=== PATIENT | female | born 1945 | race Caucasian/White ===

== ENCOUNTER → 2018-03-09 10:33 | Outpatient (CLI) | payer MEDICARE, OTHER, SELFPAY ==
--- NOTE | 2018-03-09 | DI.MG.S_ITS ---
BILATERAL DIGITAL SCREENING MAMMOGRAM 3D/2D WITH CAD POST LUMPECTOMY: 03/09/2018 CLINICAL: Routine screening. Personal history of left breast cancer. Comparison is made to exams dated: 01/11/2017 mammogram, 06/27/2014 mammogram, and 07/21/2010 mammogram - [facility]. There are scattered fibroglandular elements in both breasts. Current study was also evaluated with a Computer Aided Detection (CAD) system. There are post operative findings in the left breast. No significant masses, calcifications, or other findings are seen in either breast. There has been no significant interval change. IMPRESSION: NEGATIVE There is no mammographic evidence of malignancy. A 1 year screening mammogram is recommended. This exam was interpreted at Station ID: [id number]. NOTE: For mammograms, a report in lay terms will be sent to the patient. Approximately 15% of breast malignancies will not be visualized mammographically. In the management of a palpable breast mass, a negative mammogram must not discourage biopsy of a clinically suspicious lesion. Electronically Signed By: Tonya porras/jolynn:03/09/2018 12:50:20 letter sent: Normal Exam ACR BI-RADS Category 1: Negative [id number]
== END ==
PROVIDERS: Visit Provider Nurse Practitioner Primary Care
DX: Z12.31 Encounter for screening mammogram for malignant neoplasm of breast (principal); Z85.3 Personal history of malignant neoplasm of breast
CPT/HCPCS: 77063; 77067

== ENCOUNTER 2018-05-17 09:30 | Outpatient (RCR) | payer MEDICARE, OTHER, SELFPAY | END 2018-10-29 13:16 | LOC: SP 09:30 | PROVIDERS: PCP Otolaryngology; Visit Provider Otolaryngology | DX: R49.0 Dysphonia (principal) | CPT/HCPCS: 92507; 92520; 92524 ==

== ENCOUNTER 2018-10-20 14:43 | Observation (INO) | payer MEDICARE, OTHER, SELFPAY ==
--- NOTE | 2018-10-20 | DI.ECHO.S_ITS ---
[place] [facility]---------+ [facility] +---------+ : : [address] : : : : [id number] : : : : Phone: [phone] Echocardiogram Report + + :Name: JOSE JUAN GILLETTE Study Date: 10/21/2018 Height: 63 in : :[facility] Weight: 144 lb: : Gender: Female BSA: 1.7 m2 : :: 1945 Age: 73 yrs : :Reason For Study: ATYPICAL CHEST PAIN : :Ordering Physician: Delon : :Hospitalist Performed By: Sharif Stephens : + + Interpretation Summary 1) Normal left ventricular thickness, size, wall motion, and systolic function (EF 60-65%). 2) Normal right ventricular size and function. 3) No significant valvular abnormalities. 4) No prior Echo available for comparison. Procedure: A two-dimensional transthoracic echocardiogram with color flow and Doppler was performed. The study quality was technically adequate. There is no prior echocardiogram noted for this patient. The patient was in normal sinus rhythm during the exam. Left Ventricle: The left ventricle is normal in size. Left ventricular wall thickness is normal. The ejection fraction is estimated to be 60-65%. Left ventricular wall motion is normal. Right Ventricle: The right ventricle is normal in size and function. Atria: Both atria are normal in size. There is no Doppler evidence for an atrial septal defect. Mitral Valve: The mitral valve is normal. There is no mitral regurgitation noted. Aortic Valve: The aortic valve is normal in structure and function. There is no aortic valve stenosis. No aortic regurgitation is present. Tricuspid Valve: The tricuspid valve is normal. Pulmonary artery pressures cannot be estimated because of the lack of a measurable TR jet velocity. Pulmonic Valve: The pulmonic valve is not well visualized. Great Vessels: The aortic root is normal size. The ascending aorta is at the upper limits of normal in size. The pulmonary artery is not well visualized, but is probably normal size. The IVC is of normal diameter and collapses greater than 50% with a sniff. This suggests a low right atrial pressure of 3 mm Hg. Pericardium/ Pleura There is no pericardial effusion. There is no pleural effusion. MMode/2D Measurements & Calculations LVIDd: 4.2 cm LVOT diam: 2.1 cm LVIDs: 2.9 cm Ao root diam: 3.0 cm FS: 31.7 % asc Aorta Diam: 3.5 cm IVSd: 0.98 cm Ao Arch Diam (Prox Trans): 3.0 cm LVPWd: 0.89 cm LV montes. diameter/BSA (cm/m^2): 2.5 LV sys. diameter/BSA (cm/m^2): 1.7 LA A2 area: 16.4 cm2 RA long axis: 3.6 cm LA A4 area: 13.5 cm2 RA area: 12.4 cm2 LA length (vol): 4.7 cm RA vol: 36.1 ml LA vol: 40.0 ml RA : 21.5 ml/m2 LA vol index: 23.8 ml/m2 RVD1 (basal): 2.9 cm Doppler Measurements & Calculations Ao V2 max: 106.8 cm/sec LVOT Max Shemar: 74.4 cm/sec Ao V2 mean: 75.6 cm/sec LV V1 max P.2 mmHg Ao max P.6 mmHg LV V1 VTI: 14.1 cm Ao mean P.5 mmHg WINSTON(I,D): 2.4 cm2 Ao V2 VTI: 20.5 cm WINSTON(V,D): 2.4 cm2 sev ratio: 0.69 WINSTON indexed to BSA (cm^2/m^2): 1.4 MV E max shemar: 67.0 cm/sec PA V2 max: 78.5 cm/sec MV A max shemar: 86.8 cm/sec PA V2 mean: 54.8 cm/sec MV E/A: 0.77 PA mean P.3 mmHg Med Peak E' Shemar: 3.6 cm/sec PA pr(Accel): 36.6 mmHg E/E' med: 18.7 Lat Peak E' Shemar: 5.6 cm/sec E/E' lat: 12.0 E/e' average: 15.4 MV dec time: 0.25 sec SV(LVOT): 49.5 ml Reading Physician:11:48 AM
[2018-10-20 15:02] VITALS: BP 160/88; PULSE 97; RESP 16; TEMP 37.1; O2SAT 100; BMI 27.1
--- NOTE | 2018-10-20 15:21 | DI.RAD.S_ITS ---
PROCEDURE: XR CHEST 2V INDICATIONS: c/o throat tightness, dyspnea TECHNIQUE: 2 views of the chest were acquired. COMPARISON: [facility], CR, XR SHOULDER MIN 2VW LT, 03/08/2016, 11:30. [facility], RG, XR CXR 2 VIEW, 06/14/2006, 14:02. FINDINGS: Surgical changes and devices: Surgical clips are present in the left axilla. Lungs and pleura: Focal pulmonary opacities are present within the left midlung. The lungs are otherwise clear. No pleural effusion or pneumothorax. Mediastinum: Mediastinal contours are normal. Heart size is normal. Bones and chest wall: No suspicious bony abnormalities. Soft tissues appear unremarkable. IMPRESSION: Focal left pulmonary opacities. Differential considerations include pulmonary scar, calcification, infection, and neoplasm. Short interval followup or CT of the chest is recommended to further characterize findings. Dictated by: Tonya Velazquez M.D. on 10/20/2018 at 16:09 Approved by: Tonya Velazquez M.D. on 10/20/2018 at 16:10
--- NOTE | 2018-10-20 15:56 | PC.NURSE ---
No swelling or erythema to throat and trachea in midline
[2018-10-20 16:20] LABS: Add Manual Diff / Slide Review NO; Basophils Percent Auto 0.8 % (0-2); Eosinophils Percent Auto 1.8 % (2-4); Hematocrit 42.7 % (36-46); Hemoglobin 14.4 g/dL (12.0-16.0); Lymphocytes Percent Auto 30.5 % (25-40); Mean Corpuscular HGB Conc 33.7 % (30-36); Mean Corpuscular Hemoglobin 32.3 PG (26-34); Mean Corpuscular Volume 95.8 fL (80-100); Monocytes Percent Auto 8.2 % (3-14); Neutrophils Absolute Auto 3800 /uL (1500-7000); Neutrophils Percent Auto 58.7 % (50-75); Platelet Count 313 X10^3/uL (150-400); Red Blood Cell Count 4.46 X10^6/uL (4.0-5.2); Red Cell Distribution Width 12.7 % (11.6-14.8); White Blood Cell Count 6.5 X10^3/uL (4.5-11.0)
[2018-10-20 16:22] LABS: INR 0.9 (0.9-1.3); Prothrombin Time 10.6 SECONDS (10.1-12.7)
[2018-10-20 16:25] LABS: PTT Partial Thromboplastin Tim 29 SECONDS (26.4-36.2)
[2018-10-20 16:26] LABS: Alanine Aminotransferase 27 IU/L (9-52); Albumin 4.7 g/dL (3.5-5.0); Albumin Globulin Ratio 1.3 (1.0-2.8); Alkaline Phosphatase 80 U/L (38-126); Aspartate Aminotransferase 29 IU/L (14-36); BUN Creatinine Ratio 37.1 (6-22); Bilirubin Total 0.2 mg/dL (0.2-1.3); Blood Urea Nitrogen 26 mg/dL (7-17); Calcium 9.9 mg/dL (8.4-10.2); Carbon Dioxide 29 mmol/L (22-32); Chloride 103 mmol/L (98-107); Creatine Kinase 52 U/L (30-135); Estimated Glomerular Filt Rate > 60.0 mL/min (>60); Globulin 3.5 g/dL (1.7-4.1); Glucose 100 mg/dL (80-110); HEMOLYSIS < 15 (0-50); Lipase 116 U/L (23-300); Potassium 4.4 mmol/L (3.4-5.1); Sodium 142 mmol/L (137-145); Total Protein 8.2 g/dL (6.3-8.2)
[2018-10-20 16:30] VITALS: BP 148/73; PULSE 92; RESP 12; O2SAT 94
[2018-10-20 16:39] LABS: Troponin I < 0.012 ng/mL (0.01-0.034)
--- NOTE | 2018-10-20 16:54 | ED.SOB ---
HPI - SOB/Dyspnea General Chief Complaint: Shortness of Breath/Dyspnea Stated Complaint: transient sob, now resolved. Time Seen by Provider: 10/20/18 16:28 Source: patient and family () Limitations: no limitations History of Present Illness This is a 73-year-old female who comes to the emergency department via EMS. Patient states about 2029 this morning she was not feeling very well so she slept in the recliner. 8:00 a.m. she got up Um and used their treadmill Um for about 10 min. Afterwards she felt sort of tight and her throat and chest. She was not wheezing. She states she felt maybe a little short of breath but not clearly. She continued to have some chest tightness for a couple hours. Has been states she looked pale. She was not nauseated and did not have any vomiting. She did feel little bit dizzy but did not have any presyncope. She has not had any swelling in her extremities. She has history of a ?rapid heart rate? she states she saw lot of specialty doctors and was started on atenolol but never had anything found is heart is an actual heart arrhythmia. Patient states that she has remote history of breast cancer which was treated and she has been cleared for about 9 or 10 years. She does take medication for dyslipidemia she denies any diabetes. Patient has history of tonsillectomy and tracheostomy. She states she had a dental infection which caused what describes as trismus or inability to open her jaw and had 1 placed prophylactically. That was also about a decade ago. She denies any tobacco, no alcohol or illicit. She sees a PA on [facility]. She has not seen cardio or had any sort of cardiac evaluation in the recent years Related Data Home Medications Medication Instructions Recorded Confirmed AMITRIPTYLINE HYDROCHLORIDE 125 mg PO Q DAY #0 04/20/11 (ELAVIL) CA PANTOTHENATE/FOLIC ACID/VIT 1 tab PO QDAY #0 04/20/11 (MULTIVITAMIN) Calcium (#CALCIUM ACETATE) 1,500 mg PO Q DAY #0 04/20/11 VITAMIN D 1,200 iu PO Q DAY #0 04/20/11 atenolol 25 mg PO QDAY #0 04/20/11 simvastatin 20 mg PO Q DAY #0 04/20/11 venlafaxine [Effexor XR] 150 mg PO Q DAY #0 04/20/11 Allergies Allergy/AdvReac Type Severity Reaction Status Date / Time Sulfa (Sulfonamide Allergy Unknown Verified 10/20/18 17:58 Antibiotics) Review of Systems Review of Systems All systems reviewed & are unremarkable except as noted in HPI and below Constitutional Denies chills, Reports difficulty sleeping, Reports fatigue, Denies fever(s), Denies lethargy and Denies weakness Cardiovascular Reports chest pain with activity, Denies diaphoresis, Denies syncope, Denies edema, Denies irregular heart rhythm, Reports lightheadedness, Reports radiating jaw, neck or arm pain, Denies palpitations, Denies dyspnea and Reports dyspnea on exertion Respiratory Denies chest congestion, Denies cough, Denies hemoptysis, Denies excessive phlegm production, Denies dyspnea, Reports dyspnea on exertion and Denies wheezing Gastrointestinal Gastrointestinal: Denies abdominal pain, Denies change in bowel habits, Denies diarrhea, Denies nausea and Denies vomiting Genitourinary Denies urinary frequency, Denies dysuria, Denies urinary hesitancy and Denies urinary urgency Neurologic Denies syncope and Denies weakness Endocrine Reports fatigue and Denies palpitations Allergic/Immunologic Denies wheezing [facility] Medical History Breast cancer (Acute) Depression (Acute) Surgical History History of tonsillectomy (Resolved) Tracheostomy status (Resolved) Social History Smoking Status: Never smoker Exam Narrative Exam Narrative: GENERAL: Alert and oriented x three, well-nourished, well-appearing female in no acute distress. HEENT: Head normocephalic, atraumatic, EOMI, pupils reactive, face symmetric, moist mucous membranes NECK: Supple, full range of motion CARDIOVASCULAR: Regular rate and rhythm without murmurs, rubs or gallops. RESPIRATORY: Breath sounds equal bilaterally, no wheezes rales or rhonchi. ABDOMEN: Soft, nontender. Normoactive bowel sounds all 4 quadrants. No guarding or rebound, rigidity, no mass : No CVA tenderness EXTREMITIES: Normal range of motion, no clubbing or edema. Neurovascularly intact NEUROLOGICAL: Cranial nerves II through XII grossly intact. Moving all extremities SKIN: Warm, dry, no petechiae, no rashes or lesions. Initial Vital Signs Initial Vital Signs: Vital Signs Temperature 98.7 F 10/20/18 15:02 Pulse Rate 97 H 10/20/18 15:02 Respiratory Rate 16 10/20/18 15:02 Blood Pressure 160/88 H 10/20/18 15:02 Pulse Oximetry 100 10/20/18 15:02 Scores HEART Score Heart Score history: Moderately Suspicious Heart Score EKG: Non-Specific repolarization disturbance Heart Score Age: > or = 65 years old Heart Score risk factors: 1-2 risk factors Heart Score troponin: < or = to normal limit Heart Score Total: 5 Course Orders Ordered: ED Orders 10/20/18 15:08 EKG-12 Lead Stat 10/20/18 15:21 XR chest 2V Stat 10/20/18 16:05 Complete Blood Count AUTO DIFF Stat Comprehensive Metabolic Panel Stat Lipase Stat Partial Thromboplastin Time Stat Prothrombin Time INR Stat Troponin & CK Cardiac Panel Stat 10/20/18 22:00 Troponin I Q6H 10/21/18 04:00 Troponin I Q6H Discontinued Medications Aspirin (Aspirin Chew) 324 mg PO NOW ONE Stop: 10/20/18 17:49 Last Admin: 10/20/18 17:55 Dose: 324 mg Vital Signs - 8 hr 10/20/18 15:02 10/20/18 16:30 10/20/18 17:30 Temperature 98.7 F Pulse Rate 97 H 92 H 91 H Respiratory Rate 16 12 21 Blood Pressure 160/88 H Blood Pressure [Right Arm] 148/73 H 149/78 H Pulse Oximetry 100 94 99 10/20/18 18:22 Temperature Pulse Rate 87 Respiratory Rate 15 Blood Pressure 162/77 H Blood Pressure [Right Arm] Pulse Oximetry 99 MDM - SOB/Dyspnea Lab Data Attestation: I reviewed the patient's lab results. Result diagrams: 10/20/18 16:05 10/20/18 16:05 Lab Results 10/20/18 10/20/18 10/20/18 Range/Units 16:05 16:05 16:05 WBC 6.5 (4.5-11.0) X10^3/uL RBC 4.46 (4.0-5.2) X10^6/uL Hgb 14.4 (12.0-16.0) g/dL Hct 42.7 (36-46) % MCV 95.8 (80-100) fL MCH 32.3 (26-34) PG MCHC 33.7 (30-36) % RDW 12.7 (11.6-14.8) % Plt Count 313 (150-400) X10^3/uL Neut % (Auto) 58.7 (50-75) % Lymph % (Auto) 30.5 (25-40) % [place] % (Auto) 8.2 (3-14) % Eos % (Auto) 1.8 L (2-4) % Baso % (Auto) 0.8 (0-2) % Neut # (Auto) 3800 (7708-6000) /uL PT 10.6 (10.1-12.7) SECONDS INR 0.9 (0.9-1.3) APTT 29 (26.4-36.2) SECONDS Sodium 142 (137-145) mmol/L Potassium 4.4 (3.4-5.1) mmol/L Chloride 103 (98-107) mmol/L Carbon Dioxide 29 (22-32) mmol/L BUN 26 H (7-17) mg/dL Creatinine 0.70 (0.52-1.04) mg/dL Estimated GFR > 60.0 (>60) mL/min BUN/Creatinine Ratio 37.1 H (6-22) Glucose 100 (80-110) mg/dL Calcium 9.9 (8.4-10.2) mg/dL Total Bilirubin 0.2 (0.2-1.3) mg/dL AST 29 (14-36) IU/L ALT 27 (9-52) IU/L Alkaline Phosphatase 80 (38-126) U/L Total Creatine Kinase 52 (30-135) U/L CK-MB (CK-2) TNP CK-MB (CK-2) Rel Index TNP Troponin I < 0.012 (0.01-0.034) ng/mL Total Protein 8.2 (6.3-8.2) g/dL Albumin 4.7 (3.5-5.0) g/dL Globulin 3.5 (1.7-4.1) g/dL Albumin/Globulin Ratio 1.3 (1.0-2.8) Lipase 116 (23-300) U/L Urine Dip Bedside Urine Glucose Negative Bedside Urine Bilirubin - Negative Bedside Urine Ketone - Negative Urine Specific [place] 1.010 Bedside Urine Occult Blood - Negative Bedside Urine pH 8.0 Bedside Urine Protein - Negative Bedside Urine Urobilinogen - Negative Bedside Urine Nitrite - Negative Bedside Urine Leukocytes - Negative Esterase Imaging Data Chest x-ray: Radiologist's impression: [address] [address] XRay Report Signed Patient: Maria Esther Miller MR#: [id number] : 1945 Acct:[id number] Age/Sex: 73 / F Date of Service: 10/20/18 Loc: ED Accession Number: [id number] Procedure: XR chest 2V Ordering Provider: Alma Bolton D.O. PROCEDURE: XR CHEST 2V INDICATIONS: c/o throat tightness, dyspnea TECHNIQUE: 2 views of the chest were acquired. COMPARISON: [facility] [place], CR, XR SHOULDER MIN 2VW LT, 03/08/2016, 11:30. [facility], RG, XR CXR 2 VIEW, 06/14/2006, 14:02. FINDINGS: Surgical changes and devices: Surgical clips are present in the left axilla. Lungs and pleura: Focal pulmonary opacities are present within the left midlung. The lungs are otherwise clear. No pleural effusion or pneumothorax. Mediastinum: Mediastinal contours are normal. Heart size is normal. Bones and chest wall: No suspicious bony abnormalities. Soft tissues appear unremarkable. IMPRESSION: Focal left pulmonary opacities. Differential considerations include pulmonary scar, calcification, infection, and neoplasm. Short interval followup or CT of the chest is recommended to further characterize findings. Dictated by: Tonya Velazquez M.D. on 10/20/2018 at 16:09 Approved by: Tonya Velazquez M.D. on 10/20/2018 at 16:10 ECG Data Attestation: I personally reviewed and interpreted this ECG as follows: Interpretation: Sinus rhythm with a first-degree AV block rate of 97 P are of 230 QRS 86 and QTC of 402. Non-specific EKG change. MDM Narrative Medical decision making narrative: Patient's symptoms are somewhat concerning for cardiac causes although she had no real chest pain she did have some tightness in her neck. Discussed with Dr. Espinoza and accepts for cardiac observation. Discharge Plan Departure Patient Disposition: Admitted as Observation Clinical Impression: Atypical chest pain Interventions: ED Discharge Assessment Last Done: 10/20/18 18:22 Referrals: Damir Warren MD [Primary Care Provider] - Admit Date/Time: 10/20/18 18:10 Admit Provider: Adalgisa Espinoza
[2018-10-20 17:30] VITALS: BP 149/78; PULSE 91; RESP 21; O2SAT 99
[2018-10-20] MEDS: ASPIRIN 81 MG TAB 324 MG PO (17:55)
[2018-10-20 18:22] VITALS: BP 162/77; PULSE 87; RESP 15; O2SAT 99
[2018-10-20 18:48] VITALS: BMI 25.5
--- NOTE | 2018-10-20 19:01 | PC.NURSE ---
Addendum entered by Jacquelyn Shepherd R.N. 10/20/18 22:01: Med list updated. Spouse did not have all pts supplements available, but were able to obtain Rx meds/doses. Original Note: Pt admitted to acute care from ER. Transferred via stretcher, pivot transfer to bed. Pt reports dizziness with position changes. Alert/oriented, denies pain. LS clear, RA 100%. History of falls/bed alarm on. Oriented to room/call light. Patient left message for spouse to call so we can verify home meds/doses.
[2018-10-20 20:06] VITALS: BP 153/80; PULSE 92; RESP 18; TEMP 36.8; O2SAT 100; O2SAT 97
--- NOTE | 2018-10-20 20:21 | PM.HP.1 ---
History of Present Illness Date Patient Seen: 10/20/18 Time Patient Seen: 19:20 Chief complaint: transient sob, now resolved. Narrative: This is a 73-year-old female with a history of ?rapid heartbeat? and breast cancer presents to the ER today after feeling since last night. Patient reports that she slept in a recliner last night stating she ?just did not feel right. She had sources complaints of head pressure and generalized feeling ill at ease and tired. She reports when typically this occurs she will lay down and her symptoms josie. This morning when waking she experience feeling of chest and throat tightness but denies diaphoresis, palpitations, nausea or vomiting. Patient states she tried walking on the treadmill at slow speed approximately 1.5 miles per hr for 10 min believing that moving around with help feel better. She does describe intermittent episodes of transient dizziness but no sensation that she was going to pass out. She reports she takes atenolol daily at bedtime for rapid heart rate but indicates that she may have possibly missed her dose last night. The patient has previously been on simvastatin but tells me that she was intolerant and the medication discontinued. Patient also has a history left breast cancer and has undergone lumpectomy 10 years ago followed by chemotherapy and radiation without recurrence. 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 He has a history of tracheostomy 15 years ago related to dental infection precipitating trismus and lingual swelling but denies complications since. The patient currently takes amitriptyline for sleep and venlafaxine XR once daily that she reports for a history of hot flashes. She also reports history of gastroesophageal reflux for which she will take omeprazole as needed but states she does not but often, additionally she elevates the head of the bed on blocks. She has tried discontinuing the medication the past but states she felt worse and has continue the medication. While at the patient's bedside the patient was experiencing chest tightness that she described as a pressure sensation but denies throat tightness. She reports dyspnea stating she can't catch her breath. She has associated complaints of tingling in her fingers and her lips. She is tachypneic and anxious appearing. Slight diaphoresis the palms of the hands, no nausea or palpitations. Twelve lead EKG obtained appearing is unchanged from EKG obtained in the emergency department. The patient's symptoms abated after about 10 min. Patient History Medical History Breast cancer (Acute) Depression (Acute) Gastroesophageal reflux (Acute) Hyperlipidemia (Acute) Neuropathy (Acute) Rapid heart rate (Acute) Surgical History History of lumpectomy of left breast (Acute) History of tracheostomy (Acute) History of tonsillectomy (Resolved) Tracheostomy status (Resolved) Family & Social History Family History: Reviewed 10/20/18 by STEFFANY Morales Social History: household members spouse Prior Living Arrangements House Safety & Behavioral: Feels Safe in Current Yes Environment Been Physically Hurt or No Threatened By a Person Suicidal Ideation Description None Tobacco & Substance use: Smoking Status Never smoker alcohol intake frequency holiday/special occasion Substance Use Type does not use Comment: The patient is and lives with her . She lives in a single family home. She has 2 sons 1 in good health in the other with history of hypertension. Advanced directive: The patient states he has no formal advanced directive completed however designates her Zaki Miller dear surrogate decision maker Meds Home Medications Medication Instructions Recorded Confirmed Type CA PANTOTHENATE/FOLIC ACID/VIT 1 tab PO QDAY #0 04/20/11 History (MULTIVITAMIN) Calcium (#CALCIUM ACETATE) 1,500 mg PO Q DAY #0 04/20/11 History VITAMIN D 1,200 iu PO Q DAY #0 04/20/11 History amitriptyline 100 mg PO BEDTIME #0 04/20/11 10/20/18 History atenolol 25 mg PO QDAY #0 04/20/11 10/20/18 History venlafaxine [Effexor XR] 150 mg PO Q DAY #0 04/20/11 10/20/18 History Allergies Allergy/AdvReac Type Severity Reaction Status Date / Time Sulfa (Sulfonamide Allergy Unknown Verified 10/20/18 17:58 Antibiotics) Review of Systems Review of Systems Constitutional: Positive for malaise, Denies recent illness or cold symptoms, fevers, chills, sweats, good appetite with stable weight Eyes: Denies visual changes, denies floaters, diplopia ENT: Positive for history of tracheostomy, sensation of throat tightness this morning, Denies hearing changes, ear pain, no nasal congestion, rhinorrhea, no dysphagia, sore throat or dentalgia, no neck stiffness or pain Respiratory: Positive for shortness of breath, tachypnea, Denies cough, exertional dyspnea, wheezing Cardiovascular: Positive for episode of chest tightness, rapid heartbeat, Denies palpitations, orthostatic dizziness, syncope, edema Gastrointestinal: Positive for gastroespohageal reflux, Denies abdominal pain, nausea or vomiting, no bloating, constipation or diarrhea, denies blood in stool. Genitourinary:Positive for urgency, nocturnal incontinence, denies vaginal discharge, no complains of frequency, burning or urgency, hematuria on voiding Musculoskeletal: denies falls, weakness, limited movement, cramps, edema, myalgia or joint swelling. Integumentary: denies skin lesions, masses, rashes, hives, itching or hair loss Neurological: Positive for dizziness, neuropathy bottoms of bilateral feet, Denies confusion, speech difficulties or seizures Psychiatric: Positve for insomnias, Denies disturbances in thought, attentions or mood, denies substance abuse Endocrine: Positive for postmenopausal, denies excessive thirst, frequent urination, goiter, lethargy, abnormal sweating, and heat/cold intolerance. Exam Vital Signs (past 8 hours): - 10/20/18 15:02 10/20/18 16:30 10/20/18 17:30 Temperature 98.7 F Pulse Rate 97 H 92 H 91 H Respiratory Rate 16 12 21 Blood Pressure 160/88 H Blood Pressure [Right Arm] 148/73 H 149/78 H Pulse Oximetry 100 94 99 10/20/18 18:22 Temperature Pulse Rate 87 Respiratory Rate 15 Blood Pressure 162/77 H Blood Pressure [Right Arm] Pulse Oximetry 99 Oxygen Delivery Method Room Air Patient: Maria Esther Miller MR#: [id number] : 1945 Acct:[id number] Age/Sex: 73 / F Date of Service: 10/20/18 Loc: ED Accession Number: [id number] Procedure: XR chest 2V Ordering Provider: Alma Bolton D.O. PROCEDURE: XR CHEST 2V INDICATIONS: c/o throat tightness, dyspnea TECHNIQUE: 2 views of the chest were acquired. COMPARISON: [facility] [place], CR, XR SHOULDER MIN 2VW LT, 03/08/2016, 11:30. [facility], RG, XR CXR 2 VIEW, 06/14/2006, 14:02. FINDINGS: Surgical changes and devices: Surgical clips are present in the left axilla. Lungs and pleura: Focal pulmonary opacities are present within the left midlung. The lungs are otherwise clear. No pleural effusion or pneumothorax. Mediastinum: Mediastinal contours are normal. Heart size is normal. Bones and chest wall: No suspicious bony abnormalities. Soft tissues appear unremarkable. IMPRESSION: Focal left pulmonary opacities. Differential considerations include pulmonary scar, calcification, infection, and neoplasm. Short interval followup or CT of the chest is recommended to further characterize findings. Dictated by: Tonya Velazquez M.D. on 10/20/2018 at 16:09 Approved by: Tonya Velazquez M.D. on 10/20/2018 at 16:10 Narrative Exam Narrative: General: Well developed, well nourished, BMI 25.5, pleasant, in no acute distress. Skin: Warm, dry, pink, no rashes, no visible lesions HEENT: Normocephalic, symmetrical facies, PERRLA, EOMs intact without nystagmus, conjunctiva clear, sclera is anicteric, bilateral maxillary sinus tenderness to percussion, no rhinorrhea oropharynx is moist and pink without lesions or exudate, uvula midline, posterior pharynx without inflammation, no lymphadenopathy Neck: Supple, no masses, thyroid non tender without thyromegaly or nodules, trachea midline, no carotid bruits or JVD Cardiac: Regular rate and rhythm, S1-S2, no murmur, no gallops or rubs, 2+ radial pulse, 1+ dorsalis pedis pulse, brisk capillary refill, no edema Chest: No pain on AP and lateral compression,symmetrical movement, breathing non labored, no retractions or accessory muscle use, no cough present, BS equal bilateral without coarseness, crackles or wheezes Abdomen: Soft, dull to percussion, no tenderness or guarding, no masses or hepatosplenomegaly, no flank or suprapubic pain, BS normal. Back: Normal curvature, no tenderness to palpation, no CVA tenderness on percussion Extremities: Full ROM, no synovial effusions or deformities, strength is 5/5 and symmetrical upper and lower extremities, stable gait Neuro: AAOx4, cranial nerves 2-12 grossly intact, blunted sensation to light touch the plantar surface of both feel from toes to heal Hematological: No complaints of abnormal bleeding or easy bruising Psych: pleasant, thought coherent, stable mood and congruent affect Objective Labs Result Diagrams: 10/20/18 16:05 10/20/18 16:05 Labs: Laboratory Results - last 24 hr 10/20/18 10/20/18 10/20/18 16:05 16:05 16:05 WBC 6.5 RBC 4.46 Hgb 14.4 Hct 42.7 MCV 95.8 MCH 32.3 MCHC 33.7 RDW 12.7 Plt Count 313 Neut % (Auto) 58.7 Lymph % (Auto) 30.5 [place] % (Auto) 8.2 Eos % (Auto) 1.8 L Baso % (Auto) 0.8 Neut # (Auto) 3800 PT 10.6 INR 0.9 APTT 29 Sodium 142 Potassium 4.4 Chloride 103 Carbon Dioxide 29 BUN 26 H Creatinine 0.70 Estimated GFR > 60.0 BUN/Creatinine Ratio 37.1 H Glucose 100 Calcium 9.9 Total Bilirubin 0.2 AST 29 ALT 27 Alkaline Phosphatase 80 Total Creatine Kinase 52 CK-MB (CK-2) TNP CK-MB (CK-2) Rel Index TNP Troponin I < 0.012 Total Protein 8.2 Albumin 4.7 Globulin 3.5 Albumin/Globulin Ratio 1.3 Lipase 116 Assessment & Plan Plan: Assessment/Plan Narrative: 1. Chest tightness -the patient reports not feeling chest tightness or pressure previously -patient reports radiation of pain into the neck -associated complaint of shortness of breath, no cough or wheezing -initial EKG in ER reviewed by myself reveals a normal sinus rhythm with a ventricular rate of 97 with a first-degree AV block with the as needed interval of 230 milliseconds, QRS interval of 86 milliseconds and QTC of 442 milliseconds. No evidence of ischemia or previous infarct. -repeat EKG in the patient's room with recurrent episodes of chest tightness reveals sinus rhythm with a ventricular rate of 98, CA interval of 200 milliseconds, QRS 80 milliseconds, QTC 407 milliseconds, again no evidence of ischemia noted -differential for chest pain may include anxiety, tachycardia, arrhythmia or ACS -initial troponin in the emergency department is negative at 0.012, will repeat again at 10:00 p.m. and again in the morning. -the patient remain on telemetry and will continue metoprolol for heart rate management. 2. Shortness of breath -on evaluation patient was tachypneic and appeared hyperventilating -breath sounds clear without evidenced breath sounds, no cough, nonsmoker -pulse ox continually remains greater than 97% -supplemental oxygen is ordered as needed to maintain sats greater than 94% -chest x-ray does identify focal opacities in the left mid lung, would warrant follow-up with CT plated history of breast cancer 3. Breast cancer, history of -completed course of chemotherapy and radiation therapy -per patient report no evidence of recurrence -questionable opacities in the left lung of unknown etiology or significance 4. Gastroesophageal reflux, present on admission, stable -treated episodically at home in the past with omeprazole, patient prefers not to use -patient prefers treatment with elevation of head of bed -maintain elevation of head of bed at night -anti acids ordered as needed Additional orders will be provided as needed Admission status: Observation expected length of stay 1 day Quality VTE Deep Vein Thrombosis/Pulmonary Embolism Present on Admission: No
[2018-10-20] MEDS: AMITRIPTYLINE 25 MG TABLET 100 MG PO (20:59)
[2018-10-20] MEDS: ATENOLOL 25 MG TABLET PO (20:59)
[2018-10-20] MEDS: VENLAFAXINE ER 75 MG CAP 150 MG PO (21:00)
[2018-10-20 22:35] LABS: Troponin I < 0.012 ng/mL (0.01-0.034)
[2018-10-21 00:24] VITALS: BP 129/65; PULSE 73; RESP 18; TEMP 36.8; O2SAT 94
[2018-10-21 01:00] VITALS: O2SAT 96
[2018-10-21 04:34] VITALS: BP 137/83; PULSE 65; RESP 18; TEMP 36.6; O2SAT 95
[2018-10-21 05:40] LABS: Add Manual Diff / Slide Review NO; Eosinophils Percent Auto 3.3 % (2-4); Hematocrit 37.2 % (36-46); Hemoglobin 12.5 g/dL (12.0-16.0); Lymphocytes Percent Auto 32.1 % (25-40); Mean Corpuscular HGB Conc 33.7 % (30-36); Mean Corpuscular Hemoglobin 31.8 PG (26-34); Mean Corpuscular Volume 94.5 fL (80-100); Monocytes Percent Auto 11.1 % (3-14); Neutrophils Absolute Auto 2800 /uL (1500-7000); Neutrophils Percent Auto 52.5 % (50-75); Platelet Count 286 X10^3/uL (150-400); Red Blood Cell Count 3.94 X10^6/uL (4.0-5.2); Red Cell Distribution Width 12.7 % (11.6-14.8); White Blood Cell Count 5.4 X10^3/uL (4.5-11.0)
[2018-10-21 06:02] LABS: BUN Creatinine Ratio 27.5 (6-22); Blood Urea Nitrogen 22 mg/dL (7-17); Carbon Dioxide 29 mmol/L (22-32); Chloride 104 mmol/L (98-107); Estimated Glomerular Filt Rate > 60.0 mL/min (>60); Glucose 96 mg/dL (80-110); HEMOLYSIS < 15 (0-50); Potassium 4.1 mmol/L (3.4-5.1); Sodium 141 mmol/L (137-145)
[2018-10-21 06:15] LABS: Troponin I < 0.012 ng/mL (0.01-0.034)
--- NOTE | 2018-10-21 07:49 | PM.DS.1 ---
History of Present Illness Date Patient Seen: 10/20/18 Chief complaint: transient sob, now resolved. Narrative: Written by Jose JETER: This is a 73-year-old female with a history of ?rapid heartbeat? and breast cancer presents to the ER today after feeling since last night. Patient reports that she slept in a recliner last night stating she ?just did not feel right. She had sources complaints of head pressure and generalized feeling ill at ease and tired. She reports when typically this occurs she will lay down and her symptoms josie. This morning when waking she experience feeling of chest and throat tightness but denies diaphoresis, palpitations, nausea or vomiting. Patient states she tried walking on the treadmill at slow speed approximately 1.5 miles per hr for 10 min believing that moving around with help feel better. She does describe intermittent episodes of transient dizziness but no sensation that she was going to pass out. She reports she takes atenolol daily at bedtime for rapid heart rate but indicates that she may have possibly missed her dose last night. The patient has previously been on simvastatin but tells me that she was intolerant and the medication discontinued. Patient also has a history left breast cancer and has undergone lumpectomy 10 years ago followed by chemotherapy and radiation without recurrence. 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 He has a history of tracheostomy 15 years ago related to dental infection precipitating trismus and lingual swelling but denies complications since. The patient currently takes amitriptyline for sleep and venlafaxine XR once daily that she reports for a history of hot flashes. She also reports history of gastroesophageal reflux for which she will take omeprazole as needed but states she does not but often, additionally she elevates the head of the bed on blocks. She has tried discontinuing the medication the past but states she felt worse and has continue the medication. While at the patient's bedside the patient was experiencing chest tightness that she described as a pressure sensation but denies throat tightness. She reports dyspnea stating she can't catch her breath. She has associated complaints of tingling in her fingers and her lips. She is tachypneic and anxious appearing. Slight diaphoresis the palms of the hands, no nausea or palpitations. Twelve lead EKG obtained appearing is unchanged from EKG obtained in the emergency department. The patient's symptoms abated after about 10 min. Discharge Providers Date of admission: 10/20/18 18:54 Primary care physician: Damir Warren MD Discharge provider: Adalgisa Alondralalita Espinoza DO Discharge Date: 10/21/18 Summary Discharge Diagnosis: 1. Atypical chest pain, present on admission. Resolved. 2. Acute shortness of breath, present on admission. Resolved. 3. History of breast cancer, not present on admission. Presumed stable. 4. GERD, chronic, present on admission. Stable. Hospital Course: Maria Esther Miller is a 73-year-old female with a past medical history significant for hyperlipidemia, rapid heart rate, GERD, breast cancer status post lumpectomy, radiation, and chemotherapy who presented for chest tightness with shortness of breath. Trended troponins which were within normal limits and less than 0.012. EKG demonstrated normal sinus rhythm without pathological Q-waves or acute ischemic changes such as ST elevation or depression. Echocardiogram was performed which demonstrated preserved ejection fraction without valvular heart disease. Patient has a history of anxiety and depression on venlafaxine, amitriptyline, and atenolol for which this was thought to possibly represent anxiety and hyperventilation. Recommended outpatient exercise stress test in the future. Patient was discharged home in stable condition. Status at Discharge Functional status at discharge: independent ambulation Overall status at discharge: patient is back to baseline Exam Vital Signs (past 8 hours): - 10/21/18 00:24 10/21/18 01:00 10/21/18 04:34 Temperature 98.2 F 97.9 F Pulse Rate 73 65 Respiratory Rate 18 18 Blood Pressure 129/65 137/83 Pulse Oximetry 94 96 95 Oxygen Delivery Method Room Air Narrative Exam Narrative: General: Elderly female lying in bed and in no acute distress, appears mildly anxious, well-developed, well-nourished, appropriately interactive. HEENT: Normocephalic, atraumatic. External ears without defect. Pupils equal, round, and reactive to light. Anicteric sclerae, moist conjunctivae, and no lid lag. Neck: Supple with full range of motion. No jugular venous distension. No bruits. No lymphadenopathy or thyromegaly. Cardiovascular: Regular rate and rhythm without murmurs, rubs, or gallops appreciated. Pulmonary: Clear to auscultation bilaterally without crackles, wheezes, or rhonchi. Normal respiratory effort with no use of accessory muscles. Abdomen: Soft, bowel sounds present, nontender, nondistended. No hepatosplenomegaly or masses appreciated. Extremities: No clubbing, cyanosis, or edema. Skin: Normal temperature, turgor, and texture; no rash, ulcers, or subcutaneous nodules appreciated. Neurological: Cranial nerves grossly intact. Psychiatric: Normal mood and affect. Alert and oriented to person, place, and time. Objective Labs Result Diagrams: 10/21/18 05:12 10/21/18 05:12 Labs: Laboratory Results - last 24 hr 10/20/18 10/20/18 10/20/18 16:05 16:05 16:05 WBC 6.5 RBC 4.46 Hgb 14.4 Hct 42.7 MCV 95.8 MCH 32.3 MCHC 33.7 RDW 12.7 Plt Count 313 Neut % (Auto) 58.7 Lymph % (Auto) 30.5 [place] % (Auto) 8.2 Eos % (Auto) 1.8 L Baso % (Auto) 0.8 Neut # (Auto) 3800 PT 10.6 INR 0.9 APTT 29 Sodium 142 Potassium 4.4 Chloride 103 Carbon Dioxide 29 BUN 26 H Creatinine 0.70 Estimated GFR > 60.0 BUN/Creatinine Ratio 37.1 H Glucose 100 Calcium 9.9 Total Bilirubin 0.2 AST 29 ALT 27 Alkaline Phosphatase 80 Total Creatine Kinase 52 CK-MB (CK-2) TNP CK-MB (CK-2) Rel Index TNP Troponin I < 0.012 Total Protein 8.2 Albumin 4.7 Globulin 3.5 Albumin/Globulin Ratio 1.3 Lipase 116 10/20/18 10/21/18 10/21/18 21:58 05:12 05:12 WBC 5.4 RBC 3.94 L Hgb 12.5 Hct 37.2 MCV 94.5 MCH 31.8 MCHC 33.7 RDW 12.7 Plt Count 286 Neut % (Auto) 52.5 Lymph % (Auto) 32.1 [place] % (Auto) 11.1 Eos % (Auto) 3.3 Baso % (Auto) 1.0 Neut # (Auto) 2800 PT INR APTT Sodium 141 Potassium 4.1 Chloride 104 Carbon Dioxide 29 BUN 22 H Creatinine 0.80 Estimated GFR > 60.0 BUN/Creatinine Ratio 27.5 H Glucose 96 Calcium 9.0 Total Bilirubin AST ALT Alkaline Phosphatase Total Creatine Kinase CK-MB (CK-2) CK-MB (CK-2) Rel Index Troponin I < 0.012 < 0.012 Total Protein Albumin Globulin Albumin/Globulin Ratio Lipase Discharge Plan Discharge Plan Patient Disposition: Home Discharge comment: You are being discharged home. Please follow-up with your PA, Maria Esther Chavarria, in the next 1-2 weeks to discuss exercise stress test and left lung nodule that is likely scar tissue. If your symptoms reoccur, please call 911 or see a medical professional right away. Discharge Med Rec/Prescriptions Prescriptions: New aspirin 81 mg Tablet,Delayed Release (Dr/Ec) 81 mg PO DAILY Qty: 30 RF: 0 Continue Calcium (#CALCIUM ACETATE) 1,500 mg PO Q DAY Qty: 0 RF: 0 amitriptyline 100 mg Tablet 100 mg PO BEDTIME Qty: 0 RF: 0 VITAMIN D tablet 1,200 iu PO Q DAY Qty: 0 RF: 0 atenolol 25 MG tablet 25 mg PO QDAY Qty: 0 RF: 0 venlafaxine [Effexor XR] 150 MG capsule,extended release 24hr 150 mg PO Q DAY Qty: 0 RF: 0 CA PANTOTHENATE/FOLIC ACID/VIT (MULTIVITAMIN) 1 tab PO QDAY Qty: 0 RF: 0 Provider Discharge Instructions Diet: Diet as Tolerated, Low-sodium and Low-cholesterol Activity: Activity as tolerated Skin/Wound/Dressing Care Report to your healthcare provider any signs of infection, such as:: chills, fever and night sweats Visit Report/Discharge Packet Instructions: Echocardiogram, DI for Chest Pain, Aspirin Visit Report Forms: Stroke Signs & Symptoms Discharge Data Primary Care Provider: Damir Warren Attending Provider: Adalgisa Espinoza Admit Date/Time: 10/20/18 18:54 Discharges patient from system. Discharge Date/Time: 10/21/18 12:13 Quality VTE Deep Vein Thrombosis/Pulmonary Embolism Present on Admission: No
[2018-10-21 08:35] VITALS: BP 121/60; PULSE 70; RESP 16; TEMP 36.4; O2SAT 98
[2018-10-21] MEDS: ASPIRIN EC 81 MG TABLET PO (08:35)
[2018-10-21] MEDS: SODIUM CHLORIDE 0.9% FLUSH 10 ML IV (08:35)
--- NOTE | 2018-10-21 09:05 | CM.DANOTE ---
Addendum entered by Destinee Loya R.N. 10/21/18 11:01: Patient is to be discharged home, with no concerns at this time. Original Note: DCP: Case received, EMR reviewed and met with patient. Introduced self and role. DCP template completed with information currently available. Patient is a 73 year old female who admitted yesterday afternoon to the care of the hospitalist team. PCP: Dr. Fuller. Payer: confirmed: Medicare/[employer] for natue. Patient came to hospital via ambulance due to tightness in her chest after using the treadmill. She became short of breath. Patient carries a diagnosis of First Degree AV Block. Met patient in her room, spouse at bedside, pleasant couple. Patient stated, she has never had this happen to her before. Patient resides in [place] with her , drives, and is independent. Her primary doctor is at [facility]. P: DCP to follow closely. Patient should be able to go home when she is medically stable. Destinee Loya RN/Tar Worker
--- NOTE | 2018-10-21 10:08 | PC.NURSE ---
Patient without complaints this morning. Denies chest pain, chest pressure or shortness of breath. Up with standby assistance to the bathroom, tolerated well. Denies lightheadedness or unsteadiness when ambulating. SR with 1st avb on telemetry. Plan for ECHO today. Call light within reach, bed alarm on for safety, patient agrees to call for assistance getting up. Continue to monitor.
[2018-10-21 11:14] LABS: Cholesterol 237 mg/dL (140-199); HDL Cholesterol 53 mg/dL (40-60); LDL Cholesterol Calculated 163 mg/dL (<100); Triglycerides 104 mg/dL (35-150)
--- NOTE | 2018-10-21 12:12 | PC.NURSE ---
Discharge instructions and home care handout reviewed with patient and her . IV and tele removed intact. Patient states she will call tomorrow to schedule a follow up appt. with her PA/PCP. Patient and state understanding and have no further questions or concerns at this time. Patient escorted out via wheelchair with all belongings to be discharged to home with .
== END 2018-10-21 12:13 | disposition home or self-care (01) ==
LOC: ED 17:51 → AC 18:23
PROVIDERS: Nurse Practitioner Adult Health; Admitting Provider Internal Medicine; Emergency Provider Emergency Medicine; PCP Otolaryngology; Visit Provider Internal Medicine
DX: R06.02 Shortness of breath (principal); R06.00 Dyspnea, unspecified; E78.5 Hyperlipidemia, unspecified; F33.41 Major depressive disorder, recurrent, in partial remission; K21.9 Gastro-esophageal reflux disease without esophagitis; G62.9 Polyneuropathy, unspecified
CPT/HCPCS: 36415; 71046; 80048; 80053; 80061; 81003; 82550; 83690; 84484; 85025; 85610; 85730; 93005; 93041; 93306; 99283; 99285; G0378

== ENCOUNTER → 2019-05-02 11:12 | Outpatient (CLI) | payer MEDICARE, OTHER, SELFPAY ==
--- NOTE | 2019-05-02 | DI.MG.S_ITS ---
BILATERAL DIGITAL SCREENING MAMMOGRAM 3D/2D WITH CAD: 05/02/2019 CLINICAL: Routine screening. Comparison is made to exams dated: 03/09/2018 mammogram, 01/11/2017 mammogram, 06/27/2014 mammogram, 07/20/2009 mammogram, and 07/21/2010 mammogram - [facility]. There are scattered fibroglandular elements in both breasts. Current study was also evaluated with a Computer Aided Detection (CAD) system. There are benign post operative findings in the left breast. There is a mole marker on the right breast. There are mole markers on the left breast. No significant masses, calcifications, or other findings are seen in either breast. There has been no significant interval change. IMPRESSION: There is no mammographic evidence of malignancy. A 1 year screening mammogram is recommended. This exam was interpreted at Station ID: [id number]. NOTE: For mammograms, a report in lay terms will be sent to the patient. Approximately 15% of breast malignancies will not be visualized mammographically. In the management of a palpable breast mass, a negative mammogram must not discourage biopsy of a clinically suspicious lesion. Electronically Signed By: Zeferino whitney/jolynn:05/03/2019 06:52:21 letter sent: Normal Exam ACR BI-RADS Category 2: Benign Finding(s) 3342F
== END ==
PROVIDERS: PCP Otolaryngology; Visit Provider Internal Medicine
DX: Z12.31 Encounter for screening mammogram for malignant neoplasm of breast (principal)
CPT/HCPCS: 77063; 77067

== ENCOUNTER → 2019-07-29 12:00 | Outpatient (CLI) | payer MEDICARE, OTHER, SELFPAY ==
--- NOTE | 2019-07-29 | DI.RAD.S_ITS ---
PROCEDURE: XR SHOULDER RT MIN 2V INDICATIONS: PAIN RT SHOULDER TECHNIQUE: 3 views of the shoulder were acquired. COMPARISON: None. FINDINGS: Bones: Osteopenia. No fractures or dislocations. Mild osteoarthritis of the glenohumeral and acromioclavicular joints. No suspicious bony lesions. Visualized ribs appear intact. Soft tissues: No suspicious soft tissue calcifications. Visualized right hemithorax is clear. IMPRESSION: No fracture or dislocation. Mild osteoarthritis. Dictated by: Carlos Crenshaw M.D. on 07/29/2019 at 12:51 Approved by: Carlos Crenshaw M.D. on 07/29/2019 at 12:52
== END ==
PROVIDERS: Family Provider Internal Medicine; PCP Internal Medicine; Visit Provider Physician Assistant
DX: M25.511 Pain in right shoulder (principal); M19.011 Primary osteoarthritis, right shoulder
CPT/HCPCS: 73030

== ENCOUNTER → 2019-10-01 17:00 | Outpatient (CLI) | payer MEDICARE, OTHER, SELFPAY ==
--- NOTE | 2019-10-01 | DI.MRI.S_ITS ---
PROCEDURE: MR HEAD/BRAIN WO CON INDICATIONS: amnesia. Difficulty with in writing and worsening memory. Right head discomfort x6 months. TECHNIQUE: Non-contrast axial T1 spin echo, axial T2 fast spin echo, sagittal and axial FLAIR, coronal T2 fast spin echo, axial gradient echo, axial diffusion and ADC through the brain. COMPARISON: None. FINDINGS: Image quality: Excellent. CSF spaces: Ventricles appear symmetric in size and shape. Basal cisterns are patent. No extra-axial fluid collections. Brain: No intracranial bleeds or mass effects. There is cerebral volume loss for age. There are periventricular and deep white matter chronic small vessel ischemic changes. Brainstem appears normal. Diffusion-weighted images show no acute ischemic insults. No chronic ischemic insults. Normal intravascular flow voids are present. Skull and face: Calvarial bone marrow is normal in signal. Orbits are normal. Note is made of bilateral lens replacements. Incidental note is made of hyperostosis frontalis. This is not considered to be pathologic in a woman of this age. Sinuses: Sinuses and mastoids are clear. Mild rightward nasal septal deviation is seen, with a rightward directed bony nasal septal spur. IMPRESSION: No acute intracranial process is seen. Note is made of age-appropriate brain parenchymal volume loss and chronic small vessel ischemic changes. No findings of acute or subacute infarction can be seen. Dictated by: Hugh Eugene M.D. on 10/01/2019 at 17:27 Approved by: Hugh Eugene M.D. on 10/01/2019 at 17:29
== END ==
PROVIDERS: PCP Internal Medicine; Visit Provider Internal Medicine
DX: R41.3 Other amnesia (principal)
CPT/HCPCS: 70551

== ENCOUNTER → 2019-10-25 19:10 | Outpatient (ROUT) | payer MEDICARE, OTHER, SELFPAY ==
[2019-10-25 19:21] LABS: Add Manual Diff / Slide Review NO; Basophils Absolute Auto 100 /uL (0-100); Eosinophils Absolute Auto 200 /uL (0-450); Eosinophils Percent Auto 3.7 % (2-4); Hematocrit 41.9 % (36-46); Hemoglobin 13.9 g/dL (12.0-16.0); Lymphocytes Absolute Auto 1900 /uL (1100-4500); Lymphocytes Percent Auto 32.4 % (25-40); Mean Corpuscular HGB Conc 33.1 % (30-36); Mean Corpuscular Hemoglobin 31.8 PG (26-34); Monocytes Absolute Auto 500 /uL (0-900); Monocytes Percent Auto 7.6 % (3-14); Neutrophils Absolute Auto 3300 /uL (1500-7000); Neutrophils Percent Auto 55.3 % (50-75); Platelet Count 320 X10^3/uL (150-400); Red Blood Cell Count 4.37 X10^6/uL (4.0-5.2)
[2019-10-25 19:29] LABS: Alanine Aminotransferase 25 IU/L (<35); Albumin 4.3 g/dL (3.5-5.0); Albumin Globulin Ratio 1.5 (1.0-2.8); Alkaline Phosphatase 79 U/L (38-126); Aspartate Aminotransferase 30 IU/L (14-36); BUN Creatinine Ratio 23.8 (6-22); Bilirubin Total 0.5 mg/dL (0.2-1.3); Blood Urea Nitrogen 19 mg/dL (7-17); Calcium 9.8 mg/dL (8.4-10.2); Carbon Dioxide 30 mmol/L (22-32); Chloride 99 mmol/L (98-107); Cholesterol 272 mg/dL (140-199); Estimated Glomerular Filt Rate > 60.0 mL/min (>60); Globulin 2.9 g/dL (1.7-4.1); Glucose 94 mg/dL (80-110); HDL Cholesterol 73 mg/dL (40-60); HEMOLYSIS < 15 (0-50); LDL Cholesterol Calculated 179 mg/dL (<100); Potassium 3.9 mmol/L (3.4-5.1); Sodium 139 mmol/L (137-145); Total Protein 7.2 g/dL (6.3-8.2); Triglycerides 100 mg/dL (35-150)
[2019-10-25 19:46] LABS: Vitamin D 25 Hydroxy (D3) 32.4 ng/mL (30.0-100.0)
[2019-10-25 20:00] LABS: Thyroid Stimulating Hormone 1.98 uIU/mL (0.47-4.68)
== END ==
PROVIDERS: PCP Internal Medicine; Visit Provider Internal Medicine
DX: F33.42 Major depressive disorder, recurrent, in full remission (principal); Z85.3 Personal history of malignant neoplasm of breast; E78.5 Hyperlipidemia, unspecified; I10 Essential (primary) hypertension; M85.80 Other specified disorders of bone density and structure, unspecified site
CPT/HCPCS: 80053; 80061; 82306; 84443; 85025

== ENCOUNTER → 2019-11-08 10:35 | Outpatient (CLI) | payer MEDICARE, OTHER, SELFPAY ==
--- NOTE | 2019-11-08 | DI.RAD.S_ITS ---
PROCEDURE: XR SHOULDER RT MIN 2V INDICATIONS: PAIN IN RIGHT UPPER EXTREMITY TECHNIQUE: 3 views of the shoulder were acquired. COMPARISON: [facility], CR, XR SHOULDER RT MIN 2V, 07/29/2019, 13:07. FINDINGS: Bones: No fractures or dislocations. No suspicious bony lesions. Visualized ribs appear intact. Mild right shoulder joint degeneration, grossly unchanged since 07/29/19 Soft tissues: No suspicious soft tissue calcifications. IMPRESSION: Moderate shoulder degeneration, grossly unchanged No fracture Dictated by: Nate Wright M.D. on 11/08/2019 at 13:37 Approved by: Nate Wright M.D. on 11/08/2019 at 13:38
--- NOTE | 2019-11-08 | DI.RAD.S_ITS ---
PROCEDURE: XR FOREARM RT 2V INDICATIONS: PAIN IN RIGHT UPPER EXTREMITY TECHNIQUE: 2 views of the forearm were acquired. COMPARISON: None. FINDINGS: Bones: Possible minimally impacted fracture of the distal right metaphysis although this finding age indeterminate. First CMC and triscaphe joint degeneration Soft tissues: No suspicious soft tissue calcifications or masses. IMPRESSION: Possible mild impacted fracture involving the distal radial metaphysis, although technically age-indeterminate. Recommend followup radiographs in 10 days to assess for healing sclerosis Dictated by: Nate Wright M.D. on 11/08/2019 at 13:21 Approved by: Nate Wright M.D. on 11/08/2019 at 13:24
--- NOTE | 2019-11-08 | DI.RAD.S_ITS ---
PROCEDURE: XR CERVICAL SPINE 4V OR 5V INDICATIONS: PAIN IN RIGHT UPPER EXTREMITY TECHNIQUE: 5 views of the cervical spine acquired. COMPARISON: None. FINDINGS: Bones: No fractures or dislocations to the C7 level. Straightening of the normal lordotic curvature. Multilevel degenerative endplate sclerosis and spurring. Diffuse facet arthropathy. Grade 1 anterolisthesis of C3 on C4 and C4 on C5. Grade 1 retrolisthesis C5 on C6. Moderate narrowing of the C5-C6 disc space. Mild narrowing of the C2-C3 and C3-C4 disc spaces. On both sides, the neural foramen are not well-visualized however there are suspected diffuse bony foraminal stenoses bilaterally. This could be confirmed with dedicated cervical MRI Soft tissues: No prevertebral soft tissue swelling. IMPRESSION: Straightening of the normal lordotic curvature. Diffuse cervical spondylosis most pronounced at C5-C6 and multilevel facet arthropathy. Multilevel spondylolisthesis as above. Suboptimal oblique images however suspect numerous bilateral bony foraminal stenoses, which could be confirmed with dedicated cervical MRI Dictated by: Nate Wright M.D. on 11/08/2019 at 13:03 Approved by: Nate Wright M.D. on 11/08/2019 at 13:07
--- NOTE | 2019-11-08 | DI.RAD.S_ITS ---
PROCEDURE: XR HUMERUS RT 2V INDICATIONS: PAIN IN RIGHT UPPER EXTREMITY TECHNIQUE: 2 views of the humerus were acquired. COMPARISON: None. FINDINGS: Bones: No fractures or dislocations. No suspicious bony lesions. Incidentally noted distal humeral candice spur. Right shoulder joint degeneration noted Soft tissues: No suspicious soft tissue calcifications. IMPRESSION: No fracture Right shoulder joint degeneration Dictated by: Nate Wright M.D. on 11/08/2019 at 13:07 Approved by: Nate Wright M.D. on 11/08/2019 at 13:13
== END ==
PROVIDERS: PCP Internal Medicine; Visit Provider Internal Medicine
DX: M79.601 Pain in right arm (principal); M47.812 Spondylosis without myelopathy or radiculopathy, cervical region; M43.12 Spondylolisthesis, cervical region; M19.011 Primary osteoarthritis, right shoulder; M18.11 Unilateral primary osteoarthritis of first carpometacarpal joint, right hand; M19.031 Primary osteoarthritis, right wrist
CPT/HCPCS: 72050; 73030; 73060; 73090

== ENCOUNTER → 2019-12-03 15:43 | Outpatient (ROUT) | payer MEDICARE, OTHER, SELFPAY ==
[2019-12-03 15:53] LABS: Add Manual Diff / Slide Review NO; Basophils Absolute Auto 100 /uL (0-100); Basophils Percent Auto 1.1 % (0-2); Eosinophils Absolute Auto 100 /uL (0-450); Eosinophils Percent Auto 2.8 % (2-4); Hematocrit 40.5 % (36-46); Hemoglobin 13.5 g/dL (12.0-16.0); Lymphocytes Absolute Auto 1600 /uL (1100-4500); Lymphocytes Percent Auto 31.8 % (25-40); Mean Corpuscular HGB Conc 33.2 % (30-36); Mean Corpuscular Hemoglobin 31.7 PG (26-34); Mean Corpuscular Volume 95.2 fL (80-100); Monocytes Absolute Auto 400 /uL (0-900); Monocytes Percent Auto 7.5 % (3-14); Neutrophils Absolute Auto 2900 /uL (1500-7000); Neutrophils Percent Auto 56.8 % (50-75); Platelet Count 267 X10^3/uL (150-400); Red Blood Cell Count 4.25 X10^6/uL (4.0-5.2); Red Cell Distribution Width 12.8 % (11.6-14.8); White Blood Cell Count 5.1 X10^3/uL (4.5-11.0)
[2019-12-03 16:24] LABS: Alanine Aminotransferase 21 IU/L (<35); Albumin 4.1 g/dL (3.5-5.0); Albumin Globulin Ratio 1.3 (1.0-2.8); Alkaline Phosphatase 86 U/L (38-126); Aspartate Aminotransferase 26 IU/L (14-36); Bilirubin Total 0.4 mg/dL (0.2-1.3); Blood Urea Nitrogen 16 mg/dL (7-17); Calcium 9.7 mg/dL (8.4-10.2); Carbon Dioxide 34 mmol/L (22-32); Chloride 103 mmol/L (98-107); Cholesterol 236 mg/dL (140-199); Estimated Glomerular Filt Rate > 60.0 mL/min (>60); Globulin 3.1 g/dL (1.7-4.1); Glucose 95 mg/dL (80-110); HDL Cholesterol 60 mg/dL (40-60); HEMOLYSIS < 15 (0-50); LDL Cholesterol Calculated 148 mg/dL (<100); Potassium 4.6 mmol/L (3.4-5.1); Sodium 142 mmol/L (137-145); Total Protein 7.2 g/dL (6.3-8.2); Triglycerides 138 mg/dL (35-150)
== END ==
PROVIDERS: PCP Internal Medicine; Visit Provider Internal Medicine
DX: Z01.812 Encounter for preprocedural laboratory examination (principal); E78.5 Hyperlipidemia, unspecified
CPT/HCPCS: 80053; 80061; 85025

== ENCOUNTER → 2020-10-01 10:25 | Outpatient (CLI) | payer MEDICARE, OTHER, SELFPAY ==
[2020-09-18 10:02] VITALS: BMI 25.5
[2020-10-01 12:22] LABS: COVID19 -Nasal RAPID Negative (Negative)
== END ==
PROVIDERS: PCP Internal Medicine; Visit Provider Family Medicine Sleep Medicine
DX: Z01.812 Encounter for preprocedural laboratory examination (principal); Z20.828 Contact with and (suspected) exposure to other viral communicable diseases
CPT/HCPCS: 87635; C9803

== ENCOUNTER → 2021-03-13 08:55 | Outpatient (CLI) | payer MEDICARE, OTHER, SELFPAY ==
[2020-09-18 10:02] VITALS: BMI 25.5
--- NOTE | 2021-03-13 08:56 | DI.MG.S_ITS ---
BILATERAL DIGITAL SCREENING MAMMOGRAM 3D/2D WITH CAD: 03/13/2021 CLINICAL: Routine screening. Personal history of left breast cancer. Comparison is made to exams dated: 05/02/2019 mammogram, 03/09/2018 mammogram, and 01/11/2017 mammogram - [facility]. There are scattered fibroglandular elements in both breasts. Current study was also evaluated with a Computer Aided Detection (CAD) system. There are calcifications in both breasts. There also are benign post operative findings in the left breast. There are mole markers on the left breast. No significant masses, calcifications, or other findings are seen in either breast. There has been no significant interval change. IMPRESSION: BENIGN There is no mammographic evidence of malignancy. A 1 year screening mammogram is recommended. This exam was interpreted at Station ID: [id number]. NOTE: For mammograms, a report in lay terms will be sent to the patient. Approximately 15% of breast malignancies will not be visualized mammographically. In the management of a palpable breast mass, a negative mammogram must not discourage biopsy of a clinically suspicious lesion. Electronically Signed By: Souleymane Bella M.D. aty/:03/16/2021 07:37:20 letter sent: Normal Exam ACR BI-RADS Category 2: Benign Finding(s) 3342F
== END ==
PROVIDERS: PCP Family Medicine; Referring Provider Family Medicine; Visit Provider Family Medicine
DX: Z12.31 Encounter for screening mammogram for malignant neoplasm of breast (principal)
CPT/HCPCS: 77063; 77067

== ENCOUNTER → 2021-11-18 10:21 | Outpatient (CLI) | payer MEDICARE, OTHER, SELFPAY ==
[2020-09-18 10:02] VITALS: BMI 25.5
--- NOTE | 2021-11-18 10:23 | DI.RAD.S_ITS ---
PROCEDURE: XR HIP W PEL IF DONE RT 2V INDICATIONS: pain worsened TECHNIQUE: AP pelvis with lateral view(s) of the right hip(s). COMPARISON: None. FINDINGS: Bones: No fractures or dislocations. Mild to moderate bilateral hip periarticular osteophytosis. Pelvic ring appears intact. Osteophytosis of the bilateral greater trochanters. No widening of the pubic symphysis. No suspicious bony lesions. Soft tissues: The visualized bowel gas pattern is normal. No suspicious soft tissue calcifications. IMPRESSION: No acute osseous abnormality. Dictated by: Alexander Oliveros M.D. on 11/18/2021 at 11:10 Approved by: Alexander Oliveros M.D. on 11/18/2021 at 11:11
== END ==
PROVIDERS: PCP Family Medicine; Referring Provider Family Medicine; Visit Provider Family Medicine
DX: M25.551 Pain in right hip (principal); G89.29 Other chronic pain
CPT/HCPCS: 73502

== ENCOUNTER → 2022-01-07 09:08 | Outpatient (CLI) | payer MEDICARE, OTHER, SELFPAY ==
[2020-09-18 10:02] VITALS: BMI 25.5
[2022-01-07 09:58] LABS: Add Manual Diff / Slide Review NO; Basophils Absolute Auto 100 /uL (0-100); Basophils Percent Auto 1.3 % (0-2); Eosinophils Absolute Auto 200 /uL (0-450); Eosinophils Percent Auto 3.5 % (2-4); Hematocrit 37.3 % (36-46); Hemoglobin 12.6 g/dL (12.0-16.0); Lymphocytes Absolute Auto 1500 /uL (1100-4500); Lymphocytes Percent Auto 31.6 % (25-40); Mean Corpuscular HGB Conc 33.8 % (30-36); Mean Corpuscular Hemoglobin 32.1 PG (26-34); Mean Corpuscular Volume 94.8 fL (80-100); Monocytes Absolute Auto 400 /uL (0-900); Monocytes Percent Auto 8.3 % (3-14); Neutrophils Absolute Auto 2600 /uL (1500-7000); Neutrophils Percent Auto 55.3 % (50-75); Platelet Count 231 X10^3/uL (150-400); Red Blood Cell Count 3.93 X10^6/uL (4.0-5.2); Red Cell Distribution Width 13.2 % (11.6-14.8); White Blood Cell Count 4.7 X10^3/uL (4.5-11.0)
[2022-01-07 10:18] LABS: Alanine Aminotransferase 21 IU/L (<35); Albumin Globulin Ratio 1.4 (1.0-2.8); Alkaline Phosphatase 63 U/L (38-126); Aspartate Aminotransferase 27 IU/L (14-36); BUN Creatinine Ratio 22.7 (6-22); Bilirubin Total 0.6 mg/dL (0.2-1.3); Blood Urea Nitrogen 17 mg/dL (7-17); Carbon Dioxide 34 mmol/L (22-32); Chloride 104 mmol/L (98-107); Cholesterol 229 mg/dL (140-199); Estimated Glomerular Filt Rate > 60.0 mL/min (>60); Globulin 2.9 g/dL (1.7-4.1); Glucose 104 mg/dL (80-110); HDL Cholesterol 70 mg/dL (40-60); HEMOLYSIS < 15 (0-50); LDL Cholesterol Calculated 141 mg/dL (<100); Potassium 4.4 mmol/L (3.4-5.1); Sodium 139 mmol/L (137-145); Total Protein 6.9 g/dL (6.3-8.2); Triglycerides 89 mg/dL (35-150)
[2022-01-07 10:38] LABS: Free T3, Triiodothyronine Free 2.83 pg/mL (2.77-5.27); Free T4, Direct Thyroxine 1.12 ng/dL (0.78-2.19)
[2022-01-07 10:52] LABS: Thyroid Stimulating Hormone 1.58 uIU/mL (0.47-4.68)
== END ==
PROVIDERS: PCP Family Medicine; Referring Provider Family Medicine; Visit Provider Family Medicine
DX: R53.83 Other fatigue (principal); E78.5 Hyperlipidemia, unspecified; R79.89 Other specified abnormal findings of blood chemistry
CPT/HCPCS: 36415; 80053; 80061; 84439; 84443; 84481; 85025

== ENCOUNTER → 2022-02-18 09:10 | Outpatient (CLI) | payer MEDICARE, OTHER, SELFPAY ==
[2020-09-18 10:02] VITALS: BMI 25.5
[2022-02-20 04:09] LABS: Cadmium, Blood None Detected ug/L (0.0-1.2); Lead, Blood < 1 ug/dL (0-4)
== END ==
PROVIDERS: PCP Family Medicine; Referring Provider Family Medicine; Visit Provider Family Medicine
DX: R53.83 Other fatigue (principal)
CPT/HCPCS: 36415; 82175; 82300; 83655; 83825

== ENCOUNTER → 2022-05-02 16:45 | Outpatient (CLI) | payer MEDICARE, OTHER, SELFPAY ==
[2020-09-18 10:02] VITALS: BMI 25.5
--- NOTE | 2022-05-02 16:46 | DI.RAD.S_ITS ---
PROCEDURE: XR CHEST 2V INDICATIONS: cough TECHNIQUE: 2 views of the chest were acquired. COMPARISON: [facility], CR, XR CHEST 2V, 10/20/2018, 15:50. FINDINGS: Surgical changes and devices: Left breast clips. Lungs and pleura: Ill-defined opacity in the left upper lobe appears unchanged compared to 2019. No pleural effusions or pneumothorax. Mediastinum: Mediastinal contours are normal. Heart size is normal. Bones and chest wall: No suspicious bony abnormalities. Soft tissues appear unremarkable. IMPRESSION: Ill-defined opacity in the left upper lobe appears unchanged compared to 2019. This remains indeterminate but likely benign given its stability. CT of the chest could be performed for further characterization. Dictated by: Carlos Crenshaw M.D. on 05/02/2022 at 17:08 Approved by: Carlos Crenshaw M.D. on 05/02/2022 at 17:10
== END ==
PROVIDERS: PCP Family Medicine; Referring Provider Physician Assistant; Visit Provider Physician Assistant
DX: R05.9 Cough, unspecified (principal)
CPT/HCPCS: 71046

== ENCOUNTER → 2023-02-20 10:48 | Outpatient (CLI) | payer MEDICARE, OTHER, SELFPAY ==
[2023-02-09 13:56] VITALS: BMI 25.5
== END ==
PROVIDERS: PCP Family Medicine; Visit Provider Family Medicine
DX: R31.9 Hematuria, unspecified (principal)
CPT/HCPCS: 87077; 87086; 87186

== ENCOUNTER → 2023-02-24 10:33 | Outpatient (CLI) | payer MEDICARE, OTHER, SELFPAY ==
[2023-02-09 13:56] VITALS: BMI 25.5
--- NOTE | 2023-02-24 10:49 | DI.DEXA.S_ITS ---
Bone Density Report Name: JOSE JUAN GILLETTE Age: 77 Sex: Female Ethnicity: White Date of : 1945 Indication: osteopenia; Referring Provider: HARPREET RIVAS Study: Bone densitometry was performed. Exam Date: February 24, 2023 Accession number: [id number] Bone Density: Region BMD T-score Z-score Classification AP Spine(L1-L4) 1.184 1.2 3.9 Normal Femoral Neck (Left) 0.526 -2.9 -0.6 Osteoporosis Total Hip (Left) 0.711 -1.9 0.2 Osteopenia Femoral Neck (Right) 0.596 -2.3 0.0 Osteopenia Total Hip (Right) 0.710 -1.9 0.1 Osteopenia Total Hip Mean 0.710 -1.9 0.2 Osteopenia World Health Organization criteria for BMD impression classify patients as: Normal (T-score at or above -1.0), Osteopenia (T-score between -1.0 and -2.5), or Osteoporosis (T-score at or below -2.5). 10-year Fracture Risk: FRAX not reported because: Some T-score for Spine Total or Hip Total or Femoral Neck at or below -2.5 Previous Exams: -- Region Exam Age BMD T-score BMD Change BMD Change Date g/cm2 vs Baseline vs Previous -- AP Spine (L1-L4) 02/24/2023 77 1.184 1.2 0.103 (9.5%)# 0.103 (9.5%)# 01/11/2017 71 1.081 0.3 Total Hip(Left) 02/24/2023 77 0.711 -1.9 -0.044 (-5.9%)# -0.044 (-5.9%)# 01/11/2017 71 0.756 -1.5 Total Hip(Right) 02/24/2023 77 0.710 -1.9 -0.062 (-8.0%)# -0.062 (-8.0%)# 01/11/2017 71 0.771 -1.4 -- *Denotes significance at 95% confidence level, LSC for AP Spine = 0.022 g/cm2, LSC for Total Hip = 0.027 g/cm2 # Denotes dissimilar scan types or analysis methods Impression: The patient has osteoporosis, based on the Left Femoral Neck T-score. No significant bone loss was observed. Discussion: INCREASED RISK OF FRACTURE. BONE DENSITY IS UNDESIRABLY LOW AT ONE OR MORE SKELETAL SITES, CONSISTENT WITH POSTMENOPAUSAL OSTEOPOROSIS. This patient's lowest T-score meets the World Health Organization's (WHO) criteria for osteoporosis at one or more sites (T-score -2.5 or below). In untreated patients, the risk of osteoporotic fracture increases approximately two-fold for each 1.0 SD decrease in T-score. Low bone density is not the only risk factor for fracture; also consider factors such as patient's age, frailty or poor health, risk of falling, risk of injury, previous osteoporotic fracture, family history of osteoporosis, cigarette smoking, low body weight, etc. Not everyone with low bone mineral density has osteoporosis; osteomalacia and other metabolic bone disorders should also be considered. Patients who have osteoporosis should be evaluated for specific diseases and conditions (secondary causes) that may cause or contribute to bone loss. The [employer] (AACE) and National Osteoporosis Foundation (NOF) recommend pharmacologic intervention for all postmenopausal women whose T-score is in this range. The patient should follow a healthful lifestyle (good nutrition with adequate calcium and vitamin D, and appropriate weight-bearing exercise). Follow-Up: Consider a repeat BMD and Vertebral Fracture Assessment (VFA) exam in 2 years or sooner if medically necessary, to reassess this patient's status. Reported by: MELODIE HERNANDEZ M.D. on 02/24/2023 10:59:00 AM.
== END ==
PROVIDERS: PCP Family Medicine; Referring Provider Family Medicine; Visit Provider Family Medicine
DX: Z13.820 Encounter for screening for osteoporosis (principal); Z78.0 Asymptomatic menopausal state; M81.0 Age-related osteoporosis without current pathological fracture
CPT/HCPCS: 77080

== ENCOUNTER → 2023-02-27 11:08 | Outpatient (CLI) | payer MEDICARE, OTHER, SELFPAY ==
[2023-02-09 13:56] VITALS: BMI 25.5
[2023-02-27 11:37] LABS: Add Manual Diff / Slide Review NO; Basophils Absolute Auto 0 /uL (0-100); Basophils Percent Auto 0.8 % (0-2); Eosinophils Absolute Auto 200 /uL (0-450); Eosinophils Percent Auto 4.2 % (2-4); Hemoglobin 12.4 g/dL (12.0-16.0); Lymphocytes Absolute Auto 1800 /uL (1100-4500); Lymphocytes Percent Auto 36.1 % (25-40); Mean Corpuscular HGB Conc 33.6 % (30-36); Mean Corpuscular Hemoglobin 31.8 PG (26-34); Mean Corpuscular Volume 94.7 fL (80-100); Monocytes Absolute Auto 500 /uL (0-900); Monocytes Percent Auto 11.1 % (3-14); Neutrophils Absolute Auto 2400 /uL (1500-7000); Neutrophils Percent Auto 47.8 % (50-75); Platelet Count 279 X10^3/uL (150-400); Red Blood Cell Count 3.91 X10^6/uL (4.0-5.2); Red Cell Distribution Width 13.1 % (11.6-14.8); White Blood Cell Count 4.9 X10^3/uL (4.5-11.0)
[2023-02-27 12:12] LABS: Alanine Aminotransferase 22 IU/L (<35); Albumin Globulin Ratio 1.3 (1.0-2.8); Alkaline Phosphatase 76 U/L (38-126); Aspartate Aminotransferase 25 IU/L (14-36); BUN Creatinine Ratio 22.9 (6-22); Bilirubin Total 0.5 mg/dL (0.2-1.3); Blood Urea Nitrogen 19 mg/dL (7-17); Carbon Dioxide 30 mmol/L (22-32); Chloride 104 mmol/L (98-107); Cholesterol 239 mg/dL (140-199); Estimated Glomerular Filt Rate > 60 mL/min (>60); Globulin 3.1 g/dL (1.7-4.1); Glucose 99 mg/dL (80-110); HDL Cholesterol 64 mg/dL (40-60); HEMOLYSIS < 15 (0-50); LDL Cholesterol Calculated 157 mg/dL (<100); Potassium 4.3 mmol/L (3.4-5.1); Sodium 140 mmol/L (137-145); Total Protein 7.1 g/dL (6.3-8.2); Triglycerides 92 mg/dL (35-150)
[2023-02-27 12:36] LABS: TSH w/ Reflex to FT4 1.01 uIU/mL (0.47-4.68)
== END ==
PROVIDERS: PCP Family Medicine; Referring Provider Family Medicine; Visit Provider Family Medicine
DX: E78.5 Hyperlipidemia, unspecified (principal); R53.83 Other fatigue; R79.89 Other specified abnormal findings of blood chemistry
CPT/HCPCS: 36415; 80053; 80061; 84443; 85025

== ENCOUNTER → 2023-03-14 12:41 | Outpatient (CLI) | payer MEDICARE, OTHER, SELFPAY ==
[2023-02-09 13:56] VITALS: BMI 25.5
[2023-03-14 13:48] LABS: Cholesterol 215 mg/dL (140-199); HDL Cholesterol 78 mg/dL (40-60); LDL Cholesterol Calculated 124 mg/dL (<100); Triglycerides 66 mg/dL (35-150)
== END ==
PROVIDERS: PCP Family Medicine; Referring Provider Family Medicine; Visit Provider Family Medicine
DX: E78.5 Hyperlipidemia, unspecified (principal)
CPT/HCPCS: 36415; 80061

== ENCOUNTER → 2023-06-08 10:49 | Outpatient (CLI) | payer MEDICARE, OTHER, SELFPAY ==
[2023-02-09 13:56] VITALS: BMI 25.5
--- NOTE | 2023-06-08 10:51 | DI.RAD.S_ITS ---
PROCEDURE: XR HIP W PEL IF DONE RT 2V INDICATIONS: fall 6 weeks ago on left side, pain since then getting worse TECHNIQUE: 2 views of the hip were acquired. COMPARISON: [facility], [facility], XR HIP W PEL IF DONE RT 2V, 11/18/2021, 10:25. FINDINGS: Bones: No fractures or dislocations. No suspicious bony lesions. The visualized pelvic ring appears intact. Degenerative changes noted lower lumbar spine Soft tissues: No suspicious soft tissue calcifications or masses. IMPRESSION: Degenerative changes without fracture Dictated by: Marcel Clark M.D. on 06/08/2023 at 15:57 Approved by: Marcel Clark M.D. on 06/08/2023 at 15:58
== END ==
PROVIDERS: PCP Family Medicine; Referring Provider Physician Assistant; Visit Provider Physician Assistant
DX: M25.551 Pain in right hip (principal)
CPT/HCPCS: 73502

== ENCOUNTER → 2023-07-05 12:27 | Outpatient (CLI) | payer MEDICARE, OTHER, SELFPAY ==
[2023-02-09 13:56] VITALS: BMI 25.5
[2023-07-05 13:28] LABS: Occult Blood 1 Negative (Negative); Occult Blood 2 Negative (Negative); Occult Blood 3 Negative (Negative)
== END ==
PROVIDERS: PCP Family Medicine; Referring Provider Pediatrics; Visit Provider Pediatrics
DX: R10.32 Left lower quadrant pain (principal); G89.29 Other chronic pain; R53.83 Other fatigue; Z20.7 Contact with and (suspected) exposure to pediculosis, acariasis and other infestations
CPT/HCPCS: 82270; 87169; 87177

== ENCOUNTER → 2024-02-14 07:31 | Outpatient (CLI) | payer MEDICARE, OTHER, SELFPAY ==
[2023-02-09 13:56] VITALS: BMI 25.5
--- NOTE | 2024-02-14 07:32 | DI.US.S_ITS ---
PROCEDURE: US PERIPH VENOUS LOW EXTREM BI INDICATIONS: lower extremity pain TECHNIQUE: Real-time imaging, as well as color and pulse Doppler interrogation, were performed of the deep veins of both legs from the inguinal ligament to the popliteal fossa, with documentation of the visualized calf veins. COMPARISON: None. FINDINGS: Right: The common femoral, femoral, popliteal, and the visualized calf veins are normally compressible, and free of intraluminal thrombus. Color and pulse Doppler demonstrate normal phasic intravascular flow. There is normal augmentation response to distal compression maneuver. Left: The common femoral, femoral, popliteal, and the visualized calf veins are normally compressible, and free of intraluminal thrombus. Color and pulse Doppler demonstrate normal phasic intravascular flow. There is normal augmentation response to distal compression maneuver. IMPRESSION: No findings of deep venous thrombosis in either lower extremity. Dictated by: Pelon Bain M.D. on 02/14/2024 at 10:36 Approved by: Pelon Bain M.D. on 02/14/2024 at 10:56
== END ==
PROVIDERS: Family Provider Family Medicine; PCP Family Medicine; Referring Provider Family Medicine; Visit Provider Family Medicine
DX: R53.81 Other malaise (principal); M79.604 Pain in right leg; M79.605 Pain in left leg
CPT/HCPCS: 93970

== ENCOUNTER → 2024-04-09 10:59 | Outpatient (CLI) | payer MEDICARE, OTHER, SELFPAY ==
[2023-02-09 13:56] VITALS: BMI 25.5
[2024-04-09 11:46] LABS: Add Manual Diff / Slide Review NO; Basophils Absolute Auto 100 /uL (0-100); Basophils Percent Auto 1.1 % (0-2); Eosinophils Absolute Auto 100 /uL (0-450); Eosinophils Percent Auto 2.3 % (2-4); Hematocrit 39.9 % (36-46); Hemoglobin 13.2 g/dL (12.0-16.0); Lymphocytes Absolute Auto 1400 /uL (1100-4500); Lymphocytes Percent Auto 31.9 % (25-40); Mean Corpuscular HGB Conc 32.9 % (30-36); Mean Corpuscular Hemoglobin 31.8 PG (26-34); Mean Corpuscular Volume 96.4 fL (80-100); Monocytes Absolute Auto 400 /uL (0-900); Monocytes Percent Auto 9.8 % (3-14); Neutrophils Absolute Auto 2500 /uL (1500-7000); Neutrophils Percent Auto 54.9 % (50-75); Platelet Count 255 X10^3/uL (150-400); Red Blood Cell Count 4.14 X10^6/uL (4.0-5.2); Red Cell Distribution Width 12.8 % (11.6-14.8); White Blood Cell Count 4.5 X10^3/uL (4.5-11.0)
[2024-04-09 12:41] LABS: Alanine Aminotransferase 24 IU/L (<35); Albumin 4.3 g/dL (3.5-5.0); Albumin Globulin Ratio 1.5 (1.0-2.8); Alkaline Phosphatase 65 U/L (38-126); Aspartate Aminotransferase 31 IU/L (14-36); BUN Creatinine Ratio 22.9 (6-22); Bilirubin Total 0.6 mg/dL (0.2-1.3); Blood Urea Nitrogen 16 mg/dL (7-17); Carbon Dioxide 31 mmol/L (22-32); Chloride 103 mmol/L (98-107); Cholesterol 215 mg/dL (140-199); Estimated Glomerular Filt Rate > 60 mL/min (>60); Globulin 2.8 g/dL (1.7-4.1); Glucose 89 mg/dL (80-110); HDL Cholesterol 83 mg/dL (40-60); HEMOLYSIS 15 (0-50); LDL Cholesterol Calculated 119 mg/dL (<100); Potassium 4.4 mmol/L (3.4-5.1); Sodium 138 mmol/L (137-145); Total Protein 7.1 g/dL (6.3-8.2); Triglycerides 65 mg/dL (35-150)
[2024-04-09 13:08] LABS: Vitamin D 25 Hydroxy (D3) 34.3 ng/mL (30.0-100.0)
== END ==
PROVIDERS: Family Provider Family Medicine; PCP Family Medicine; Referring Provider Family Medicine; Visit Provider Family Medicine
DX: M81.0 Age-related osteoporosis without current pathological fracture (principal); E78.5 Hyperlipidemia, unspecified
CPT/HCPCS: 36415; 80053; 80061; 82306; 85025

== ENCOUNTER 2024-06-12 09:45 | Outpatient (RCR) | payer MEDICARE, OTHER, SELFPAY ==
[2023-02-09 13:56] VITALS: BMI 25.5
--- NOTE | 2024-02-29 16:36 | PT.OIE ---
Current Diagnoses Other chronic pain (02/29/24) Low back pain, unspecified (02/29/24) Past Medical History (Last Updated 06/16/23 @ 16:00 by Osito Lauren MD) Abdominal pain, chronic, left lower quadrant Anxiety about health Atypical chest pain Breast cancer (~2009) Cataracts, bilateral (~2014) Chicken pox (~1958) Chronic right hip pain Colon polyps (~2019) Depression Excessive daytime sleepiness Exposure to parasitic disease Fatigue Fatigue due to sleep pattern disturbance Fibromyalgia (~1969) Folliculitis of perineum Ganglion cyst of volar aspect of left wrist Gastroesophageal reflux (~2014) Greater trochanteric bursitis of right hip Hearing loss (~1999) History of genital warts Hoarse voice quality (~2014) Hot flashes due to menopause Hyperlipidemia Iliotibial band syndrome of right side Insomnia due to medical condition (~04/2019) Lipoma of arm Low serum triiodothyronine (T3) Measles (~1952) Memory change Mumps (~1954) Neuropathy Nocturnal hypoxemia Obstructive sleep apnea of adult (~04/2019) Osteopenia (~1997) Osteoporosis Pelvic somatic dysfunction Problems related to inappropriate diet and eating habits Rapid heart rate Sacral region somatic dysfunction Shoulder pain Snoring (~04/2009) Statin intolerance Wears glasses Past Surgical History (Last Reviewed 05/02/22 @ 16:50 by Beatris Gallo PA-C) Anesthesia History of hysterectomy (~1979) History of lumpectomy of left breast (~2004) History of tonsillectomy (~1962) History of tracheostomy (~1999) Tracheostomy status Visit Care Team Role Provider Type Benjy Mccormick DO Family Provider Physician Primary Care Provider Specialty: [facility] Address: [address] [place] [address], [id number] Email: Bethany Mtz DO Attending Provider Physician Referring Provider Specialty: [facility] Address: [address] [place] [address], [address], [place], [address] Email: [email or web address] Physical Therapy Initial Evaluation PT-OP-A Visit Information Start: 02/29/24 07:25 Freq: Status: Active Protocol: Document 02/29/24 08:16 NM (Rec: 02/29/24 09:04 NM [id number]) Out-Patient Physical Therapy Visit Information Visit Information Visit Type Initial Evaluation Visit Note KX after 19 visits Visit Start Time 08:16 Visit Stop Time 09:00 Visit Number 1 Evaluation Information Evaluation Date 02/29/24 Precautions Precautions osteoporosis, fall risk PT-OP-B Current Condition Start: 02/29/24 07:25 Freq: Status: Active Protocol: Document 02/29/24 08:16 NM (Rec: 02/29/24 09:04 NM [id number]) Current Condition History of Current Condition Current Complaints pain, balance, weakness History of Current Condition Pt presents with low back pain . She has numbness in her toes bilaterally that began 20 years ago, gradually worsening . She reports that she has pain in both shoulders (L>R), B hips (R>L). She has difficulty with lifting her R arm up, began at least 10 years. Pt reports that she falls frequently, at leat 1x/ month. She most recently feel 3 days ago. She states that she doesn't pick her feet up. She has used a cane previously , but doesn't use it because it's more tourble than it's worth. She also has lower back pain, along the hip bones. She has PMH of fibromyalgia, dx 15 years ago. She also have osteoporosis, dx about 1 year ago. She is currently on fomax; she is not on calcium or vitamin D. She states no fractures throughout lifetime. She reports that her L ankle is swollen, worse with PF (2-3 months). She reports that her back originally started to hurt many years ago when she fell off horse. Prior Treatments and Tests She has previous PT for shoulders and neck at [facility], which was helpful No recent lumbar imaging R hip radiograph 05/2023: bony degeneration without fracture Current Functional Impairments (Reported) Functional Limitations- ADL's vacuuming Functional Limitations- Mobility/Gait difficulty w/ transitioning from sit<>stand, household distances w/o AD Functional Limitations- Recreation/ gardening Hobbies Functional Limitations- Other lives with , 1 story, several throw rugs PT-OP-C Subjective Start: 02/29/24 07:25 Freq: Status: Active Protocol: Document 02/29/24 08:16 NM (Rec: 05/16/24 09:04 NM [id number]) OP-PT Subjective Patient Comments Patient Comments see hx above for pt report Patient Questionnaires Lower Extremity Functional Scale LEFS Score 45/80 Oswestry Low Back Index Oswestry Score 19/50 OP-PT Pain Assessment Location back Pain Location Details bandlike pattern above PSIS B Intensity 6 Scale Used Numeric (0 - 10) Description Aching Radiating Location along R lateral hip Pain Aggravating Factors ADL's,Activity,Standing Other Pain Aggravating Factors 20-30 min; worse initially Pain Alleviating Factors Sitting hips Pain Location Details R lateral hip pain over GT, groin Intensity 6 Scale Used Numeric (0 - 10) Description Sharp Pain Aggravating Factors ADL's,Activity,Standing, Walking Other Pain Aggravating Factors sweeping, weeding Pain Alleviating Factors Sitting PT-OP-D Balance Start: 02/29/24 07:25 Freq: Status: Active Protocol: Document 02/29/24 08:16 NM (Rec: 02/29/24 09:04 NM [id number]) Balance Tests Johnson Balance Test Johnson Balance Test Score 35/56 PT-OP-E Functional Tests Start: 02/29/24 07:25 Freq: Status: Active Protocol: Document 02/29/24 08:16 NM (Rec: 02/29/24 09:04 NM [id number]) Functional Tests Five Times Sit to Stand Test Score 17 sec Comments low back pain, R hip; use hands on thighs, 20 plinth Timed Up and Go (TUG) Score 15 sec Comments no AD, slow turns PT-OP-F Manual Assessment Start: 02/29/24 07:25 Freq: Status: Active Protocol: Document 02/29/24 08:16 NM (Rec: 02/29/24 09:04 NM [id number]) Manual Assessments Soft Tissue Assessment Soft Tissue Mobility Assessment Increased hamstring length. Tight parapsinals, hip flexors , glute/piriformis Joint Mobility Assessment Joint Mobility Assessment Overall hypomobility of thoracolumbar spine. Bilateral AROM and PROM of hips, R>L. Weakness and decreased mobility of B shoulders (R>L) PT-OP-G Mobility & Gait Start: 02/29/24 07:25 Freq: Status: Active Protocol: Document 02/29/24 08:16 NM (Rec: 02/29/24 09:04 NM [id number]) OP Gait Assessment Gait Gait Assistance Required: Standby Assistance Distance (Feet) 150 Comments Gait Comments atnalgis Stair Climbing Evaluation Evaluation Level of Assist On Stairs Contact Guard Assistance Devices Stair Climbing Assistive Devices Left Railing,Right Railing Technique/Endurance Stair Climbing Direction Ascend and Descend Stair Climbing Technique Step to Step Number of Steps Climbed 4 Stair Climbing Set # Repetitions (reps) 1 Comments Stair Climbing Comments Non-reciprocal stepping, antalgic R side. B hand rail assist, near LOB PT-OP-H Neuro Start: 02/29/24 07:25 Freq: Status: Active Protocol: Document 02/29/24 08:16 NM (Rec: 02/29/24 09:04 NM [id number]) Sensation Evaluation Comments Summary Comments BUE equally intact to light touch sensation; BLE equally intact above knee, decreased BLE below knee (L worse than R ) PT-OP-J Posture/Palpation/Skin Start: 02/29/24 07:25 Freq: Status: Active Protocol: Document 02/29/24 08:16 NM (Rec: 02/29/24 09:04 NH [id number]) Posture Evaluation Position Standing Head/C-Spine Posture Forward Head T-Spine Posture Increased Kyphosis L-Spine Posture Increased Lordosis Pelvis Posture Anteriorly Tilted Weight Distribution Weight Shifted Left Hip Posture (L) Externally Rotated,(R) Externally Rotated Knee Posture (L) Genu Valgus,(R) Genu Valgus Ankle/Foot Posture (L) Pronated,(R) Pronated Comments Posture Comments Forward flexed posture Palpation Assessment Location hip Palpation Details R hip tenderness along greater trochanter, small anterior groin tenderness Tightness along hip flexors, glute/piriformis back Palpation Details Tightness along thoracolumbar paraspinals Tenderness with palpation of R SI joint, B PSIS (R>L) and lower lumbar spinous processes PT-OP-K Range of Motion Start: 02/29/24 07:25 Freq: Status: Active Protocol: Document 02/29/24 08:16 NM (Rec: 02/29/24 09:04 NM [id number]) Lumbar Spine Range of Motion Lumbar Spine Active Percentage Flexion 90 Extension 25 Lateral Flexion Left 100 Lateral Flexion Right 100 ROM Limitations Pain Comments R back and hip pain with active lateral flexion Hip Goniometric Range of Motion Hip Right Flexion w/Knee Flexed 90 Abduction 15 Comments Visible limitations with IR and ER, IR most restricted and painful especially with hip flexion Left Flexion w/Knee Flexed 90 Abduction 20 Comments Visible limitations with IR and ER Ankle and Foot Goniometric Range of Motion Ankle and Foot Right Dorsiflexion with Knee Flexed 5 Plantarflexion 30 Left Dorsiflexion with Knee Flexed 5 Dorsiflexion with Knee Extended 20 Comments achilles pain PT-OP-L Special Tests Start: 02/29/24 07:25 Freq: Status: Active Protocol: Document 02/29/24 08:16 NM (Rec: 02/29/24 09:04 NM [id number]) Special Tests Lumbar Spine Special Tests Slump Test Results - Anderson/Quadrant Test Results + Distraction Test Results + PT-OP-M Strength Start: 02/29/24 07:25 Freq: Status: Active Protocol: Document 02/29/24 08:16 NM (Rec: 02/29/24 09:04 NM [id number]) Trunk Strength Trunk Manual Muscle Testing Flexion 3 Fair Extension 3 Fair Rotation Left 4 Good Rotation Right 4 Good Lateral Flexion Left 4 Good Lateral Flexion Right 4 Good Comments No pain with resisted trunk testing, but difficulty with stabilizing against resistance Shoulder Strength Shoulder Manual Muscle Testing Right Flexion 3+ Fair+ Abduction (C5) 3+ Fair+ Left Flexion 3+ Fair+ Abduction (C5) 3+ Fair+ Elbow/Forearm Strength Elbow and Forearm Manual Muscle Testing Right Flexion (C6) 4 Good Extension (C7) 4 Good Left Flexion (C6) 4 Good Extension (C7) 4 Good Hip Strength Hip Manual Muscle Testing Right Flexion (L2) 3+ Fair+ Extension (S1) 4- Good- Abduction 4- Good- Adduction 4- Good- External Rotation 4 Good Internal Rotation 4- Good- Left Flexion (L2) 4- Good- Extension (S1) 4- Good- Abduction 4- Good- Adduction 4- Good- External Rotation 4- Good- Internal Rotation 4- Good- Knee Strength Knee Manual Muscle Testing Right Flexion (S2) 3- Fair- Extension (L3) 4- Good- Left Flexion (S2) 3- Fair- Extension (L3) 4- Good- Ankle/Foot Strength Ankle and Foot Manual Muscle Testing Right Dorsiflexion (L4) 4- Good- Plantarflexion (S1) 4- Good- Inversion 4- Good- Eversion (S1) 4 Good Left Dorsiflexion (L4) 4- Good- Plantarflexion (S1) 4- Good- Inversion 4- Good- Eversion (S1) 4- Good- Comments Mild posterior ankle pain with resisted testing PT-OP-T Assessment and Plan Start: 02/29/24 07:25 Freq: Status: Active Protocol: Document 02/29/24 08:16 NM (Rec: 02/29/24 09:04 NM [id number]) Physical Therapy Assessment Rehab Potential Rehabilitation Potential Good Evaluation Complexity Number of Personal Factors/Comorbidities 3 or More Number of Body Systems Impaired 4 or More Clinical Presentation at Evaluation Stable Impairments Impairments Activity Tolerance,Balance, Edema,Functional Activities, Functional Mobility,Gait, Integument,Pain,Posture,ROM, Sensation,Soft Tissue Mobility ,Strength,Transfers Other Concerns Fall Risk high Goals Six Impairment core stabilization, strength Impairment difficulty with stabilization Short Term Goal (STG) Pt will be educated on and demonstrate improved abdominal drawing up/in in order to demonstrate core bracing for functional activities and pain reduction STG Duration 6 weeks Through Operator Goal (LTG) Pt will be able to demonstrate core bracing during dynamic balance activities, gait, and demonstrate at least 1 grade improvement in trunk MMT score LTG Duration 12 weeks Five Impairment strength Impairment B knee flexion 3-/5 MMT Short Term Goal (STG) Pt will increase B knee flexion strength to at least 4 -/5 MMT in order to demonstrate improved strength for gait and transfers STG Duration 6 weeks Through Operator Goal (LTG) Pt will increase B knee flexion strength to at least 4 /5 MMT in order to demonstrate improved strength for gait and transfers LTG Duration 12 weeks Four Impairment strength Impairment B hip strength limited Short Term Goal (STG) Pt will increase B hip strength to at least 4/5 globally in order to demonstrate improved stability during gait, balance, and transfers, in addition to decreased fall risk STG Duration 6 weeks Intermediate Goal (LTG) Pt will increase B hip strength to at least 4+/5 globally in order to demonstrate improved stability during gait, balance, and transfers, in addition to decreased fall risk LTG Duration 12 weeks Three Impairment strength Impairment 5x STS score 17 seconds Through Operator Goal (LTG) Pt will be able to perform 5x STS in 15 seconds or less in order to demonstrate improved BLE strength for transfers LTG Duration 12 weeks Two Impairment balance Impairment Johnson 35/56 Short Term Goal (STG) Pt will increase Johnson balance score to at least 40/56 in order to demonstrate improved balance and safety during transfers and gait STG Duration 6 weeks Intermediate Goal (LTG) Pt will increase Johnson balance score to at least 48/56 in order to demonstrate improved balance and safety during transfers and gait LTG Duration 12 weeks One Impairment balance Impairment TUG 15 seconds, without AD Short Term Goal (STG) Pt will decrease TUG time to at least 13.5 seconds without AD in order to demonstrate decreased fall risk and improved balance STG Duration 6 weeks Intermediate Goal (LTG) Pt will decrease TUG time to at least 10 seconds without AD in order to demonstrate decreased fall risk and improved balance, or if appropriate, pt will be educated on and prescribed LRAD for safety due to balance and increased fall risk LTG Duration 12 weeks Assessment Summary Assessment Pt is a 78 y.o. female presenting with chronic low back and R hip pain. Hip pain likely related to OA and in addition to referral from lumbar spine. Low back likely OA with facet pain related to previous falls from several years ago. Currently, pt's primary complaint is her R hip , R SIJ, and L ankle. She has limitations in lumbar spine ROM into lateral flexion and extension. Pt also has bilateral limitations in hip ROM passively and actively, particularly into ER and IR, in addition to L ankle plantarflexion. Pt demonstrates poor trunk stability, core stability against resisted testing.Her BLE strength is globally limited, only 4- to 4/5 MMT; she also has significant weakness in bilateral hamstrings. Pt has hx of falls and does not use AD for gait. Her TUG score is 15 seconds and her Johnson score is 35/56, indicating increased fall risk . Pt would benefit from AD use . Pt's 5x sit to stand time is also below age-related norms. PT educated pt on exam findings and plan of care, in addition to education regarding fall frequency with follow up to PCP. Pt verbalizes agreement. Pt would benefit from skilled PT for symptom management, improved activity tolerance, global strengthening, and gait/ balance training in order to decrease fall risk and improve QOL. Physical Therapy Plan Frequency and Duration Frequency of Treatment 1-2x/wk Duration of treatment (weeks) 12 Plan of Care Start Date 02/29/24 Plan of Care End Date 04/23/24 Therapeutic Interventions Therapeutic Interventions Balance Training,Coordination Training,Gait Training,Home Exercise Program,Joint Mobilizations,Manual Therapy, Neuromuscular Re-education, Orthotic/Prosthetic Management ,Patient/Caregiver Education, Self-Care/Home Management, Sensory Integration,Soft Tissue Mobilization,Taping, Therapeutic Activities, Therapeutic Exercises Modalities Cold Pack/Ice Massage,Electric Stimulation,Hot Packs, Ultrasound Next Visit Focus/Plan Next Note Type Treatment Note Next Visit Plan Emphasis on low back and hips, balance STS vs bridge, core bracing and strengthening, calf stretch, gentle lumbar stretching and strengthening POC: education regarding osteoporosis safety, body mechanics
--- NOTE | 2024-03-06 12:57 | PT.OTN ---
Current Diagnoses Other chronic pain (03/06/24) Low back pain, unspecified (03/06/24) Other lack of coordination (03/06/24) Weakness (03/06/24) Physical Therapy Treatment Note PT-OP-A Visit Information Start: 02/29/24 07:25 Freq: Status: Active Protocol: Document 03/06/24 10:36 NM (Rec: 03/06/24 11:19 NM [id number]) Out-Patient Physical Therapy Visit Information Visit Information Visit Type Treatment Note Visit Note KX after 19 visits Visit Start Time 10:36 Visit Stop Time 11:15 Visit Number 2 Evaluation Information Evaluation Date 02/29/24 PT-OP-B Current Condition Start: 02/29/24 07:25 Freq: Status: Active Protocol: Document 02/29/24 08:16 NM (Rec: 02/29/24 09:04 NM [id number]) Current Condition History of Current Condition Current Complaints pain, balance, weakness History of Current Condition Pt presents with low back pain . She has numbness in her toes bilaterally that began 20 years ago, gradually worsening . She reports that she has pain in both shoulders (L>R), B hips (R>L). She has difficulty with lifting her R arm up, began at least 10 years. Pt reports that she falls frequently, at leat 1x/ month. She most recently feel 3 days ago. She states that she doesn't pick her feet up. She has used a cane previously , but doesn't use it because it's more tourble than it's worth. She also has lower back pain, along the hip bones. She has PMH of fibromyalgia, dx 15 years ago. She also have osteoporosis, dx about 1 year ago. She is currently on fomax; she is not on calcium or vitamin D. She states no fractures throughout lifetime. She reports that her L ankle is swollen, worse with PF (2-3 months). She reports that her back originally started to hurt many years ago when she fell off horse. Prior Treatments and Tests She has previous PT for shoulders and neck at [facility], which was helpful No recent lumbar imaging R hip radiograph 05/2023: bony degeneration without fracture Current Functional Impairments (Reported) Functional Limitations- ADL's vacuuming Functional Limitations- Mobility/Gait difficulty w/ transitioning from sit<>stand, household distances w/o AD Functional Limitations- Recreation/ gardening Hobbies Functional Limitations- Other lives with , 1 story, several throw rugs PT-OP-C Subjective Start: 02/29/24 07:25 Freq: Status: Active Protocol: Document 03/06/24 10:36 NM (Rec: 03/06/24 11:19 NM [id number]) OP-PT Subjective Patient Comments Patient Comments Pt reports that she started anti-inflammatory diet recently, which she thinks has helped. The sharp edge is gone. She continues to have R sided low back, hip, and radiation into posterior> lateral>anterior thigh, and anterior groin. PT-OP-D Balance Start: 02/29/24 07:25 Freq: Status: Active Protocol: Document 02/29/24 08:16 NM (Rec: 02/29/24 09:04 NM [id number]) Balance Tests Johnson Balance Test Johnson Balance Test Score 35/56 PT-OP-E Functional Tests Start: 02/29/24 07:25 Freq: Status: Active Protocol: Document 02/29/24 08:16 NM (Rec: 02/29/24 09:04 NM [id number]) Functional Tests Five Times Sit to Stand Test Score 17 sec Comments low back pain, R hip; use hands on thighs, 20 plinth Timed Up and Go (TUG) Score 15 sec Comments no AD, slow turns PT-OP-F Manual Assessment Start: 02/29/24 07:25 Freq: Status: Active Protocol: Document 02/29/24 08:16 NM (Rec: 02/29/24 09:04 NM [id number]) Manual Assessments Soft Tissue Assessment Soft Tissue Mobility Assessment Increased hamstring length. Tight parapsinals, hip flexors , glute/piriformis Joint Mobility Assessment Joint Mobility Assessment Overall hypomobility of thoracolumbar spine. Bilateral AROM and PROM of hips, R>L. Weakness and decreased mobility of B shoulders (R>L) PT-OP-G Mobility & Gait Start: 02/29/24 07:25 Freq: Status: Active Protocol: Document 02/29/24 08:16 NM (Rec: 02/29/24 09:04 NM [id number]) OP Gait Assessment Gait Gait Assistance Required: Standby Assistance Distance (Feet) 150 Comments Gait Comments atnalgis Stair Climbing Evaluation Evaluation Level of Assist On Stairs Contact Guard Assistance Devices Stair Climbing Assistive Devices Left Railing,Right Railing Technique/Endurance Stair Climbing Direction Ascend and Descend Stair Climbing Technique Step to Step Number of Steps Climbed 4 Stair Climbing Set # Repetitions (reps) 1 Comments Stair Climbing Comments Non-reciprocal stepping, antalgic R side. B hand rail assist, near LOB PT-OP-H Neuro Start: 02/29/24 07:25 Freq: Status: Active Protocol: Document 02/29/24 08:16 NM (Rec: 02/29/24 09:04 NM [id number]) Sensation Evaluation Comments Summary Comments BUE equally intact to light touch sensation; BLE equally intact above knee, decreased BLE below knee (L worse than R ) PT-OP-J Posture/Palpation/Skin Start: 02/29/24 07:25 Freq: Status: Active Protocol: Document 02/29/24 08:16 NM (Rec: 02/29/24 09:04 NM [id number]) Posture Evaluation Position Standing Head/C-Spine Posture Forward Head T-Spine Posture Increased Kyphosis L-Spine Posture Increased Lordosis Pelvis Posture Anteriorly Tilted Weight Distribution Weight Shifted Left Hip Posture (L) Externally Rotated,(R) Externally Rotated Knee Posture (L) Genu Valgus,(R) Genu Valgus Ankle/Foot Posture (L) Pronated,(R) Pronated Comments Posture Comments Forward flexed posture Palpation Assessment Location hip Palpation Details R hip tenderness along greater trochanter, small anterior groin tenderness Tightness along hip flexors, glute/piriformis back Palpation Details Tightness along thoracolumbar paraspinals Tenderness with palpation of R SI joint, B PSIS (R>L) and lower lumbar spinous processes PT-OP-K Range of Motion Start: 02/29/24 07:25 Freq: Status: Active Protocol: Document 02/29/24 08:16 NM (Rec: 02/29/24 09:04 NM [id number]) Lumbar Spine Range of Motion Lumbar Spine Active Percentage Flexion 90 Extension 25 Lateral Flexion Left 100 Lateral Flexion Right 100 ROM Limitations Pain Comments R back and hip pain with active lateral flexion Hip Goniometric Range of Motion Hip Right Flexion w/Knee Flexed 90 Abduction 15 Comments Visible limitations with IR and ER, IR most restricted and painful especially with hip flexion Left Flexion w/Knee Flexed 90 Abduction 20 Comments Visible limitations with IR and ER Ankle and Foot Goniometric Range of Motion Ankle and Foot Right Dorsiflexion with Knee Flexed 5 Plantarflexion 30 Left Dorsiflexion with Knee Flexed 5 Dorsiflexion with Knee Extended 20 Comments achilles pain PT-OP-L Special Tests Start: 02/29/24 07:25 Freq: Status: Active Protocol: Document 02/29/24 08:16 NM (Rec: 02/29/24 09:04 NM [id number]) Special Tests Lumbar Spine Special Tests Slump Test Results - Anderson/Quadrant Test Results + Distraction Test Results + PT-OP-M Strength Start: 02/29/24 07:25 Freq: Status: Active Protocol: Document 02/29/24 08:16 NM (Rec: 02/29/24 09:04 NM [id number]) Trunk Strength Trunk Manual Muscle Testing Flexion 3 Fair Extension 3 Fair Rotation Left 4 Good Rotation Right 4 Good Lateral Flexion Left 4 Good Lateral Flexion Right 4 Good Comments No pain with resisted trunk testing, but difficulty with stabilizing against resistance Shoulder Strength Shoulder Manual Muscle Testing Right Flexion 3+ Fair+ Abduction (C5) 3+ Fair+ Left Flexion 3+ Fair+ Abduction (C5) 3+ Fair+ Elbow/Forearm Strength Elbow and Forearm Manual Muscle Testing Right Flexion (C6) 4 Good Extension (C7) 4 Good Left Flexion (C6) 4 Good Extension (C7) 4 Good Hip Strength Hip Manual Muscle Testing Right Flexion (L2) 3+ Fair+ Extension (S1) 4- Good- Abduction 4- Good- Adduction 4- Good- External Rotation 4 Good Internal Rotation 4- Good- Left Flexion (L2) 4- Good- Extension (S1) 4- Good- Abduction 4- Good- Adduction 4- Good- External Rotation 4- Good- Internal Rotation 4- Good- Knee Strength Knee Manual Muscle Testing Right Flexion (S2) 3- Fair- Extension (L3) 4- Good- Left Flexion (S2) 3- Fair- Extension (L3) 4- Good- Ankle/Foot Strength Ankle and Foot Manual Muscle Testing Right Dorsiflexion (L4) 4- Good- Plantarflexion (S1) 4- Good- Inversion 4- Good- Eversion (S1) 4 Good Left Dorsiflexion (L4) 4- Good- Plantarflexion (S1) 4- Good- Inversion 4- Good- Eversion (S1) 4- Good- Comments Mild posterior ankle pain with resisted testing PT-OP-Q Treatments Start: 02/29/24 07:25 Freq: Status: Active Protocol: Document 03/06/24 10:36 NM (Rec: 03/06/24 11:19 NM [id number]) Therapeutic Exercises Supine Exercises stefani stretch Supine Exercise Name modified with leg on table Side bilateral Equipment Used band assist to bring knee to chest Reps/Minutes 2x20 ea bridge Supine Exercise Name with hip abduction (w/ toe elevated) Resistance lvl 1 band around thighs Reps/Minutes 2x10 Comments reports appropriate muscle activation, feels it working , reports pain nicky TrA Activation Supine Exercise Name 1. TrA activation, 2. LTR in hooklying (slight LE ext) Side bilateral Reps/Minutes 1. 1 minute, 2. 1x10 ea direction Comments reports stretch w/ LTR, pain free Sitting Exercises hip abduction Sitting Exercise Name 1. isometric hold, 2. clams Side bilateral Resistance lvl 2 band around thighs Reps/Minutes 1. 1x30, 2. 2x10 Comments hips elevated above knees to prevent groin pain Standing Exercises calf stretch Standing Exercise Name gastroc stretch Side bilateral Equipment Used foot elevated againsta wall Reps/Minutes 2x30 Comments cued heel on ground Manual Therapy Treatment Soft Tissue Mobilization L hip/thigh/groin Body Location glute/piriformis, quad, HS, TFL Mobilization Type Rolling Intensity/Depth superificial Body Position Sidelying Comments Pillow between legs. Gentle rolling for tissue elongation and pain reduction, muscle relaxation. Increased tissue tightness along quads and hamstrings lumbar spine Body Location R paraspinals, QL Mobilization Type Rolling Intensity/Depth Superficial Body Position Sidelying Comments Pillow between legs. Gentle rolling for tissue elongation and pain reduction. Pt reports slightly sore afterward but states felt good. Gentle lateral flexion of trunk with points of contact at pelvis and ribs, 1x10 Self-Care/Home Management Treatment Education Patient Education Home Exercise Program Other Education HEP: seated hip abduction, bridge, calf wall stretch. Issued lvl 1 and lvl 2 bands PT-OP-T Assessment and Plan Start: 02/29/24 07:25 Freq: Status: Active Protocol: Document 03/06/24 10:36 NM (Rec: 03/06/24 11:19 NM [id number]) Physical Therapy Assessment Goals Six Impairment core stabilization, strength Impairment difficulty with stabilization Short Term Goal (STG) Pt will be educated on and demonstrate improved abdominal drawing up/in in order to demonstrate core bracing for functional activities and pain reduction STG Duration 6 weeks Hose Inspector Goal (LTG) Pt will be able to demonstrate core bracing during dynamic balance activities, gait, and demonstrate at least 1 grade improvement in trunk MMT score LTG Duration 12 weeks Five Impairment strength Impairment B knee flexion 3-/5 MMT Short Term Goal (STG) Pt will increase B knee flexion strength to at least 4 -/5 MMT in order to demonstrate improved strength for gait and transfers STG Duration 6 weeks Hose Inspector Goal (LTG) Pt will increase B knee flexion strength to at least 4 /5 MMT in order to demonstrate improved strength for gait and transfers LTG Duration 12 weeks Four Impairment strength Impairment B hip strength limited Short Term Goal (STG) Pt will increase B hip strength to at least 4/5 globally in order to demonstrate improved stability during gait, balance, and transfers, in addition to decreased fall risk STG Duration 6 weeks Hose Inspector Goal (LTG) Pt will increase B hip strength to at least 4+/5 globally in order to demonstrate improved stability during gait, balance, and transfers, in addition to decreased fall risk LTG Duration 12 weeks Three Impairment strength Impairment 5x STS score 17 seconds Hose Inspector Goal (LTG) Pt will be able to perform 5x STS in 15 seconds or less in order to demonstrate improved BLE strength for transfers LTG Duration 12 weeks Two Impairment balance Impairment Johnson 35/56 Short Term Goal (STG) Pt will increase Johnson balance score to at least 40/56 in order to demonstrate improved balance and safety during transfers and gait STG Duration 6 weeks Snf Goal (LTG) Pt will increase Johnson balance score to at least 48/56 in order to demonstrate improved balance and safety during transfers and gait LTG Duration 12 weeks One Impairment balance Impairment TUG 15 seconds, without AD Short Term Goal (STG) Pt will decrease TUG time to at least 13.5 seconds without AD in order to demonstrate decreased fall risk and improved balance STG Duration 6 weeks Snf Goal (LTG) Pt will decrease TUG time to at least 10 seconds without AD in order to demonstrate decreased fall risk and improved balance, or if appropriate, pt will be educated on and prescribed LRAD for safety due to balance and increased fall risk LTG Duration 12 weeks Assessment Summary Assessment Pt tolerated session well. At end of session, pt reports that it feels easier to stand, more stretched out, reports less pain. Pt also commented about that she feels better and is no having to hold her hip. Initiated gentle lumbar mobilization/stretching and glute strengthening. Cued during bridges and hip abduction to perform exercise throughout available range. Added resistance band for increased glute activation to improve balance and trunk stability. Pt unable to tolerance full stefani stretch but better tolerance with modification. Performed superficial soft tissue mobilization for muscle relaxation prior to exercise, pain reducation. Pt reports feeling sore during soft tissue mobilization despite superficial depth, but provides feedback that her muscles feel better. Initiated HEP with low resistance strengthening. Pt would benefit from skilled PT for progressive strengthening and mobility training in order to improve symptom management and ADL tolerance. Physical Therapy Plan Frequency and Duration Frequency of Treatment 1-2x/wk Duration of treatment (weeks) 12 Plan of Care Start Date 02/29/24 Plan of Care End Date 04/23/24 Therapeutic Interventions Therapeutic Interventions Balance Training,Coordination Training,Gait Training,Home Exercise Program,Joint Mobilizations,Manual Therapy, Neuromuscular Re-education, Orthotic/Prosthetic Management ,Patient/Caregiver Education, Self-Care/Home Management, Sensory Integration,Soft Tissue Mobilization,Taping, Therapeutic Activities, Therapeutic Exercises Modalities Cold Pack/Ice Massage,Electric Stimulation,Hot Packs, Ultrasound Next Visit Focus/Plan Next Note Type Treatment Note Next Visit Plan Emphasis on low back and hips, balance Next session: review tolerance to HEP- bridge > sit to stand w/ band, LTR, BKFO, hip ER/IR sidelying vs sitting, heel slide with core brace, calf stretch and PF, gentle lumbar stretching (lateral) Manual: STM, hip mobs (trial grade II vs III) POC: education regarding osteoporosis safety, body mechanics
--- NOTE | 2024-03-08 12:29 | PT.OTN ---
Current Diagnoses Other chronic pain (03/08/24) Low back pain, unspecified (03/08/24) Other lack of coordination (03/08/24) Weakness (03/08/24) Physical Therapy Treatment Note PT-OP-A Visit Information Start: 02/29/24 07:25 Freq: Status: Active Protocol: Document 03/08/24 11:23 NBM (Rec: 03/08/24 12:29 NBM [id number]) Out-Patient Physical Therapy Visit Information Visit Information Visit Type Treatment Note Visit Note KX after 19 visits Visit Start Time 11:24 Visit Stop Time 12:06 Visit Number 3 Number of OPTIMIZATION MANAGER Visits 1 PT-OP-B Current Condition Start: 02/29/24 07:25 Freq: Status: Active Protocol: Document 02/29/24 08:16 NM (Rec: 02/29/24 09:04 NM [id number]) Current Condition History of Current Condition Current Complaints pain, balance, weakness History of Current Condition Pt presents with low back pain . She has numbness in her toes bilaterally that began 20 years ago, gradually worsening . She reports that she has pain in both shoulders (L>R), B hips (R>L). She has difficulty with lifting her R arm up, began at least 10 years. Pt reports that she falls frequently, at leat 1x/ month. She most recently feel 3 days ago. She states that she doesn't pick her feet up. She has used a cane previously , but doesn't use it because it's more tourble than it's worth. She also has lower back pain, along the hip bones. She has PMH of fibromyalgia, dx 15 years ago. She also have osteoporosis, dx about 1 year ago. She is currently on fomax; she is not on calcium or vitamin D. She states no fractures throughout lifetime. She reports that her L ankle is swollen, worse with PF (2-3 months). She reports that her back originally started to hurt many years ago when she fell off horse. Prior Treatments and Tests She has previous PT for shoulders and neck at [facility], which was helpful No recent lumbar imaging R hip radiograph 05/2023: bony degeneration without fracture Current Functional Impairments (Reported) Functional Limitations- ADL's vacuuming Functional Limitations- Mobility/Gait difficulty w/ transitioning from sit<>stand, household distances w/o AD Functional Limitations- Recreation/ gardening Hobbies Functional Limitations- Other lives with , 1 story, several throw rugs PT-OP-C Subjective Start: 02/29/24 07:25 Freq: Status: Active Protocol: Document 03/08/24 11:23 NBM (Rec: 03/08/24 12:29 NBM [id number]) OP-PT Subjective Patient Comments Patient Comments Maria Esther reports feeling better than when first started. R leg pain right now, mostly once she gets out of the chair and after walking for a while. 5/ 10 R leg and low back pain. Patient Reported Progress Improving PT-OP-D Balance Start: 02/29/24 07:25 Freq: Status: Active Protocol: Document 02/29/24 08:16 NM (Rec: 02/29/24 09:04 NM [id number]) Balance Tests Johnson Balance Test Johnson Balance Test Score 35/56 PT-OP-E Functional Tests Start: 02/29/24 07:25 Freq: Status: Active Protocol: Document 02/29/24 08:16 NM (Rec: 02/29/24 09:04 NM [id number]) Functional Tests Five Times Sit to Stand Test Score 17 sec Comments low back pain, R hip; use hands on thighs, 20 plinth Timed Up and Go (TUG) Score 15 sec Comments no AD, slow turns PT-OP-F Manual Assessment Start: 02/29/24 07:25 Freq: Status: Active Protocol: Document 02/29/24 08:16 NM (Rec: 02/29/24 09:04 NM [id number]) Manual Assessments Soft Tissue Assessment Soft Tissue Mobility Assessment Increased hamstring length. Tight parapsinals, hip flexors , glute/piriformis Joint Mobility Assessment Joint Mobility Assessment Overall hypomobility of thoracolumbar spine. Bilateral AROM and PROM of hips, R>L. Weakness and decreased mobility of B shoulders (R>L) PT-OP-G Mobility & Gait Start: 02/29/24 07:25 Freq: Status: Active Protocol: Document 02/29/24 08:16 NM (Rec: 02/29/24 09:04 NM [id number]) OP Gait Assessment Gait Gait Assistance Required: Standby Assistance Distance (Feet) 150 Comments Gait Comments atnalgis Stair Climbing Evaluation Evaluation Level of Assist On Stairs Contact Guard Assistance Devices Stair Climbing Assistive Devices Left Railing,Right Railing Technique/Endurance Stair Climbing Direction Ascend and Descend Stair Climbing Technique Step to Step Number of Steps Climbed 4 Stair Climbing Set # Repetitions (reps) 1 Comments Stair Climbing Comments Non-reciprocal stepping, antalgic R side. B hand rail assist, near LOB PT-OP-H Neuro Start: 02/29/24 07:25 Freq: Status: Active Protocol: Document 02/29/24 08:16 NM (Rec: 02/29/24 09:04 NM [id number]) Sensation Evaluation Comments Summary Comments BUE equally intact to light touch sensation; BLE equally intact above knee, decreased BLE below knee (L worse than R ) PT-OP-J Posture/Palpation/Skin Start: 02/29/24 07:25 Freq: Status: Active Protocol: Document 02/29/24 08:16 NM (Rec: 02/29/24 09:04 NM [id number]) Posture Evaluation Position Standing Head/C-Spine Posture Forward Head T-Spine Posture Increased Kyphosis L-Spine Posture Increased Lordosis Pelvis Posture Anteriorly Tilted Weight Distribution Weight Shifted Left Hip Posture (L) Externally Rotated,(R) Externally Rotated Knee Posture (L) Genu Valgus,(R) Genu Valgus Ankle/Foot Posture (L) Pronated,(R) Pronated Comments Posture Comments Forward flexed posture Palpation Assessment Location hip Palpation Details R hip tenderness along greater trochanter, small anterior groin tenderness Tightness along hip flexors, glute/piriformis back Palpation Details Tightness along thoracolumbar paraspinals Tenderness with palpation of R SI joint, B PSIS (R>L) and lower lumbar spinous processes PT-OP-K Range of Motion Start: 02/29/24 07:25 Freq: Status: Active Protocol: Document 02/29/24 08:16 NM (Rec: 02/29/24 09:04 NM [id number]) Lumbar Spine Range of Motion Lumbar Spine Active Percentage Flexion 90 Extension 25 Lateral Flexion Left 100 Lateral Flexion Right 100 ROM Limitations Pain Comments R back and hip pain with active lateral flexion Hip Goniometric Range of Motion Hip Right Flexion w/Knee Flexed 90 Abduction 15 Comments Visible limitations with IR and ER, IR most restricted and painful especially with hip flexion Left Flexion w/Knee Flexed 90 Abduction 20 Comments Visible limitations with IR and ER Ankle and Foot Goniometric Range of Motion Ankle and Foot Right Dorsiflexion with Knee Flexed 5 Plantarflexion 30 Left Dorsiflexion with Knee Flexed 5 Dorsiflexion with Knee Extended 20 Comments achilles pain PT-OP-L Special Tests Start: 02/29/24 07:25 Freq: Status: Active Protocol: Document 02/29/24 08:16 NM (Rec: 02/29/24 09:04 NM [id number]) Special Tests Lumbar Spine Special Tests Slump Test Results - Anderson/Quadrant Test Results + Distraction Test Results + PT-OP-M Strength Start: 02/29/24 07:25 Freq: Status: Active Protocol: Document 02/29/24 08:16 NM (Rec: 02/29/24 09:04 NM [id number]) Trunk Strength Trunk Manual Muscle Testing Flexion 3 Fair Extension 3 Fair Rotation Left 4 Good Rotation Right 4 Good Lateral Flexion Left 4 Good Lateral Flexion Right 4 Good Comments No pain with resisted trunk testing, but difficulty with stabilizing against resistance Shoulder Strength Shoulder Manual Muscle Testing Right Flexion 3+ Fair+ Abduction (C5) 3+ Fair+ Left Flexion 3+ Fair+ Abduction (C5) 3+ Fair+ Elbow/Forearm Strength Elbow and Forearm Manual Muscle Testing Right Flexion (C6) 4 Good Extension (C7) 4 Good Left Flexion (C6) 4 Good Extension (C7) 4 Good Hip Strength Hip Manual Muscle Testing Right Flexion (L2) 3+ Fair+ Extension (S1) 4- Good- Abduction 4- Good- Adduction 4- Good- External Rotation 4 Good Internal Rotation 4- Good- Left Flexion (L2) 4- Good- Extension (S1) 4- Good- Abduction 4- Good- Adduction 4- Good- External Rotation 4- Good- Internal Rotation 4- Good- Knee Strength Knee Manual Muscle Testing Right Flexion (S2) 3- Fair- Extension (L3) 4- Good- Left Flexion (S2) 3- Fair- Extension (L3) 4- Good- Ankle/Foot Strength Ankle and Foot Manual Muscle Testing Right Dorsiflexion (L4) 4- Good- Plantarflexion (S1) 4- Good- Inversion 4- Good- Eversion (S1) 4 Good Left Dorsiflexion (L4) 4- Good- Plantarflexion (S1) 4- Good- Inversion 4- Good- Eversion (S1) 4- Good- Comments Mild posterior ankle pain with resisted testing PT-OP-Q Treatments Start: 02/29/24 07:25 Freq: Status: Active Protocol: Document 03/08/24 11:23 [facility] (Rec: 03/08/24 12:29 [facility] [id number]) Therapeutic Exercises Supine Exercises bridge Supine Exercise Name with hip abduction (w/ toe elevated) Resistance lvl 1 band around thighs Reps/Minutes 2x10 Comments reports appropriate muscle activation, feels it working , reports pain nicky Sitting Exercises hip abduction Sitting Exercise Name 1. isometric hold, 2. clams Side bilateral Resistance lvl 1 band around thighs Reps/Minutes 1. 1x30, 2. 2x10 Comments Dc'd d/t R hip pain increase from 5>6.5/10 Therapeutic Activity Therapeutic Activity sit to stand Name sit<>stand x10 Reps/Minutes Lvl 1 Tb above knees Comments Edu for eccentric control, glute squeeze upright posture at top, LE alignment. Manual Therapy Treatment Soft Tissue Mobilization L hip/thigh/groin Body Location Right glute/piriformis, quad, HS, TFL Mobilization Type Instrument Assisted,Rolling, Strumming Intensity/Depth Moderate Body Position Sidelying Comments Pillow between legs/ankles. Pt i/s in self-massage w/ rolling pin. lumbar spine Body Location R paraspinals, QL Mobilization Type Rolling Intensity/Depth Moderate Body Position Sidelying Comments Pillow between legs/ankles. Manual QL stretch 2x30s Self-Care/Home Management Treatment Education Patient Education Home Exercise Program Other Education -HEP review: Pt i/s to be mindful of STS throughout day w/ cues for LE alignment, sitting EOC, upright posture and eccentric control. -Discussed ADLs contributing to low back pain and proper form/body mechanics ( vaccuuming, dishes, weeding) - ADLs Dos and Don'ts HO given. -Pt i/s in use of rolling pin for self-STM to RLE. PT-OP-T Assessment and Plan Start: 02/29/24 07:25 Freq: Status: Active Protocol: Document 03/08/24 11:23 [facility] (Rec: 03/08/24 12:29 [facility] [id number]) Physical Therapy Assessment Goals Six Impairment core stabilization, strength Impairment difficulty with stabilization Short Term Goal (STG) Pt will be educated on and demonstrate improved abdominal drawing up/in in order to demonstrate core bracing for functional activities and pain reduction STG Duration 6 weeks Residential Goal (LTG) Pt will be able to demonstrate core bracing during dynamic balance activities, gait, and demonstrate at least 1 grade improvement in trunk MMT score LTG Duration 12 weeks Five Impairment strength Impairment B knee flexion 3-/5 MMT Short Term Goal (STG) Pt will increase B knee flexion strength to at least 4 -/5 MMT in order to demonstrate improved strength for gait and transfers STG Duration 6 weeks Residential Goal (LTG) Pt will increase B knee flexion strength to at least 4 /5 MMT in order to demonstrate improved strength for gait and transfers LTG Duration 12 weeks Four Impairment strength Impairment B hip strength limited Short Term Goal (STG) Pt will increase B hip strength to at least 4/5 globally in order to demonstrate improved stability during gait, balance, and transfers, in addition to decreased fall risk STG Duration 6 weeks Residential Goal (LTG) Pt will increase B hip strength to at least 4+/5 globally in order to demonstrate improved stability during gait, balance, and transfers, in addition to decreased fall risk LTG Duration 12 weeks Three Impairment strength Impairment 5x STS score 17 seconds Job Tracer Goal (LTG) Pt will be able to perform 5x STS in 15 seconds or less in order to demonstrate improved BLE strength for transfers LTG Duration 12 weeks Two Impairment balance Impairment Johnson 35/56 Short Term Goal (STG) Pt will increase Johnson balance score to at least 40/56 in order to demonstrate improved balance and safety during transfers and gait STG Duration 6 weeks Job Tracer Goal (LTG) Pt will increase Johnson balance score to at least 48/56 in order to demonstrate improved balance and safety during transfers and gait LTG Duration 12 weeks One Impairment balance Impairment TUG 15 seconds, without AD Short Term Goal (STG) Pt will decrease TUG time to at least 13.5 seconds without AD in order to demonstrate decreased fall risk and improved balance STG Duration 6 weeks Residential Goal (LTG) Pt will decrease TUG time to at least 10 seconds without AD in order to demonstrate decreased fall risk and improved balance, or if appropriate, pt will be educated on and prescribed LRAD for safety due to balance and increased fall risk LTG Duration 12 weeks Assessment Summary Assessment Treatment focus on self-care and manual therapy. Maria Esther requires cues for core engagement. Pt i/s to be mindful of STS throughout day w/ cues for LE alignment, sitting EOC, upright posture and eccentric control. Discussed ADLs contributing to low back pain and proper form /body mechanics (vaccuuming, dishes, weeding) - ADLs Dos and Don'ts HO given. Pt i/s in use of rolling pin for self- STM to RLE. Palpable tension to R QL and R hip improves with manual therapy; pt reports feels more stretched. Physical Therapy Plan Frequency and Duration Frequency of Treatment 1-2x/wk Duration of treatment (weeks) 12 Plan of Care Start Date 02/29/24 Plan of Care End Date 04/23/24 Therapeutic Interventions Therapeutic Interventions Balance Training,Coordination Training,Gait Training,Home Exercise Program,Joint Mobilizations,Manual Therapy, Neuromuscular Re-education, Orthotic/Prosthetic Management ,Patient/Caregiver Education, Self-Care/Home Management, Sensory Integration,Soft Tissue Mobilization,Taping, Therapeutic Activities, Therapeutic Exercises Modalities Cold Pack/Ice Massage,Electric Stimulation,Hot Packs, Ultrasound Next Visit Focus/Plan Next Note Type Treatment Note Next Visit Plan Emphasis on low back and hips, balance Next session: review tolerance to HEP- bridge > sit to stand w/ band, LTR, BKFO, hip ER/IR sidelying vs sitting, heel slide with core brace, calf stretch and PF, gentle lumbar stretching (lateral) Manual: STM, hip mobs (trial grade II vs III) POC: education regarding osteoporosis safety, body mechanics
--- NOTE | 2024-03-15 11:24 | PT.OTN ---
Current Diagnoses Other chronic pain (03/15/24) Low back pain, unspecified (03/15/24) Other lack of coordination (03/15/24) Weakness (03/15/24) Physical Therapy Treatment Note PT-OP-A Visit Information Start: 02/29/24 07:25 Freq: Status: Active Protocol: Document 03/15/24 10:34 NM (Rec: 03/15/24 11:20 NM [id number]) Out-Patient Physical Therapy Visit Information Visit Information Visit Type Treatment Note Visit Note KX after 19 visits Visit Start Time 10:35 Visit Stop Time 11:15 Visit Number 4 Evaluation Information Evaluation Date 02/29/24 PT-OP-B Current Condition Start: 02/29/24 07:25 Freq: Status: Active Protocol: Document 02/29/24 08:16 NM (Rec: 02/29/24 09:04 NM [id number]) Current Condition History of Current Condition Current Complaints pain, balance, weakness History of Current Condition Pt presents with low back pain . She has numbness in her toes bilaterally that began 20 years ago, gradually worsening . She reports that she has pain in both shoulders (L>R), B hips (R>L). She has difficulty with lifting her R arm up, began at least 10 years. Pt reports that she falls frequently, at leat 1x/ month. She most recently feel 3 days ago. She states that she doesn't pick her feet up. She has used a cane previously , but doesn't use it because it's more tourble than it's worth. She also has lower back pain, along the hip bones. She has PMH of fibromyalgia, dx 15 years ago. She also have osteoporosis, dx about 1 year ago. She is currently on fomax; she is not on calcium or vitamin D. She states no fractures throughout lifetime. She reports that her L ankle is swollen, worse with PF (2-3 months). She reports that her back originally started to hurt many years ago when she fell off horse. Prior Treatments and Tests She has previous PT for shoulders and neck at [facility], which was helpful No recent lumbar imaging R hip radiograph 05/2023: bony degeneration without fracture Current Functional Impairments (Reported) Functional Limitations- ADL's vacuuming Functional Limitations- Mobility/Gait difficulty w/ transitioning from sit<>stand, household distances w/o AD Functional Limitations- Recreation/ gardening Hobbies Functional Limitations- Other lives with , 1 story, several throw rugs PT-OP-C Subjective Start: 02/29/24 07:25 Freq: Status: Active Protocol: Document 03/15/24 10:34 NM (Rec: 03/15/24 11:20 NM [id number]) OP-PT Subjective Patient Comments Patient Comments Pt reports that she was sore after last session, reports that session helped but took 3 days to resolve. States 4/10 pain in hip and back. Reports no exercise bother her, but she only did a couple when sore. States do's and don't's list very helpful and she was able to do her gardening on 1 knee PT-OP-D Balance Start: 02/29/24 07:25 Freq: Status: Active Protocol: Document 02/29/24 08:16 NM (Rec: 02/29/24 09:04 NM [id number]) Balance Tests Johnson Balance Test Johnson Balance Test Score 35/56 PT-OP-E Functional Tests Start: 02/29/24 07:25 Freq: Status: Active Protocol: Document 02/29/24 08:16 NM (Rec: 02/29/24 09:04 NM [id number]) Functional Tests Five Times Sit to Stand Test Score 17 sec Comments low back pain, R hip; use hands on thighs, 20 plinth Timed Up and Go (TUG) Score 15 sec Comments no AD, slow turns PT-OP-F Manual Assessment Start: 02/29/24 07:25 Freq: Status: Active Protocol: Document 02/29/24 08:16 NM (Rec: 02/29/24 09:04 NM [id number]) Manual Assessments Soft Tissue Assessment Soft Tissue Mobility Assessment Increased hamstring length. Tight parapsinals, hip flexors , glute/piriformis Joint Mobility Assessment Joint Mobility Assessment Overall hypomobility of thoracolumbar spine. Bilateral AROM and PROM of hips, R>L. Weakness and decreased mobility of B shoulders (R>L) PT-OP-G Mobility & Gait Start: 02/29/24 07:25 Freq: Status: Active Protocol: Document 02/29/24 08:16 NM (Rec: 02/29/24 09:04 NM [id number]) OP Gait Assessment Gait Gait Assistance Required: Standby Assistance Distance (Feet) 150 Comments Gait Comments atnalgis Stair Climbing Evaluation Evaluation Level of Assist On Stairs Contact Guard Assistance Devices Stair Climbing Assistive Devices Left Railing,Right Railing Technique/Endurance Stair Climbing Direction Ascend and Descend Stair Climbing Technique Step to Step Number of Steps Climbed 4 Stair Climbing Set # Repetitions (reps) 1 Comments Stair Climbing Comments Non-reciprocal stepping, antalgic R side. B hand rail assist, near LOB PT-OP-H Neuro Start: 02/29/24 07:25 Freq: Status: Active Protocol: Document 02/29/24 08:16 NM (Rec: 02/29/24 09:04 NM [id number]) Sensation Evaluation Comments Summary Comments BUE equally intact to light touch sensation; BLE equally intact above knee, decreased BLE below knee (L worse than R ) PT-OP-J Posture/Palpation/Skin Start: 02/29/24 07:25 Freq: Status: Active Protocol: Document 02/29/24 08:16 NM (Rec: 02/29/24 09:04 NM [id number]) Posture Evaluation Position Standing Head/C-Spine Posture Forward Head T-Spine Posture Increased Kyphosis L-Spine Posture Increased Lordosis Pelvis Posture Anteriorly Tilted Weight Distribution Weight Shifted Left Hip Posture (L) Externally Rotated,(R) Externally Rotated Knee Posture (L) Genu Valgus,(R) Genu Valgus Ankle/Foot Posture (L) Pronated,(R) Pronated Comments Posture Comments Forward flexed posture Palpation Assessment Location hip Palpation Details R hip tenderness along greater trochanter, small anterior groin tenderness Tightness along hip flexors, glute/piriformis back Palpation Details Tightness along thoracolumbar paraspinals Tenderness with palpation of R SI joint, B PSIS (R>L) and lower lumbar spinous processes PT-OP-K Range of Motion Start: 02/29/24 07:25 Freq: Status: Active Protocol: Document 02/29/24 08:16 NM (Rec: 02/29/24 09:04 NM [id number]) Lumbar Spine Range of Motion Lumbar Spine Active Percentage Flexion 90 Extension 25 Lateral Flexion Left 100 Lateral Flexion Right 100 ROM Limitations Pain Comments R back and hip pain with active lateral flexion Hip Goniometric Range of Motion Hip Right Flexion w/Knee Flexed 90 Abduction 15 Comments Visible limitations with IR and ER, IR most restricted and painful especially with hip flexion Left Flexion w/Knee Flexed 90 Abduction 20 Comments Visible limitations with IR and ER Ankle and Foot Goniometric Range of Motion Ankle and Foot Right Dorsiflexion with Knee Flexed 5 Plantarflexion 30 Left Dorsiflexion with Knee Flexed 5 Dorsiflexion with Knee Extended 20 Comments achilles pain PT-OP-L Special Tests Start: 02/29/24 07:25 Freq: Status: Active Protocol: Document 02/29/24 08:16 NM (Rec: 02/29/24 09:04 NM [id number]) Special Tests Lumbar Spine Special Tests Slump Test Results - Anderson/Quadrant Test Results + Distraction Test Results + PT-OP-M Strength Start: 02/29/24 07:25 Freq: Status: Active Protocol: Document 02/29/24 08:16 NM (Rec: 02/29/24 09:04 NM [id number]) Trunk Strength Trunk Manual Muscle Testing Flexion 3 Fair Extension 3 Fair Rotation Left 4 Good Rotation Right 4 Good Lateral Flexion Left 4 Good Lateral Flexion Right 4 Good Comments No pain with resisted trunk testing, but difficulty with stabilizing against resistance Shoulder Strength Shoulder Manual Muscle Testing Right Flexion 3+ Fair+ Abduction (C5) 3+ Fair+ Left Flexion 3+ Fair+ Abduction (C5) 3+ Fair+ Elbow/Forearm Strength Elbow and Forearm Manual Muscle Testing Right Flexion (C6) 4 Good Extension (C7) 4 Good Left Flexion (C6) 4 Good Extension (C7) 4 Good Hip Strength Hip Manual Muscle Testing Right Flexion (L2) 3+ Fair+ Extension (S1) 4- Good- Abduction 4- Good- Adduction 4- Good- External Rotation 4 Good Internal Rotation 4- Good- Left Flexion (L2) 4- Good- Extension (S1) 4- Good- Abduction 4- Good- Adduction 4- Good- External Rotation 4- Good- Internal Rotation 4- Good- Knee Strength Knee Manual Muscle Testing Right Flexion (S2) 3- Fair- Extension (L3) 4- Good- Left Flexion (S2) 3- Fair- Extension (L3) 4- Good- Ankle/Foot Strength Ankle and Foot Manual Muscle Testing Right Dorsiflexion (L4) 4- Good- Plantarflexion (S1) 4- Good- Inversion 4- Good- Eversion (S1) 4 Good Left Dorsiflexion (L4) 4- Good- Plantarflexion (S1) 4- Good- Inversion 4- Good- Eversion (S1) 4- Good- Comments Mild posterior ankle pain with resisted testing PT-OP-Q Treatments Start: 02/29/24 07:25 Freq: Status: Active Protocol: Document 03/15/24 10:34 NM (Rec: 03/15/24 11:20 NM [id number]) Therapeutic Exercises Supine Exercises posterior pelvic tilt Supine Exercise Name performed post bridge Resistance AROM Equipment Used limited mobility, but better w bridge Reps/Minutes 1x10 Comments PT hand under pt back; cued flatten back into my hand bridge Supine Exercise Name with HEP review: hip abduction (w/ toe elevated) Resistance lvl 1 band around thighs Equipment Used cued equal WB, flatten small of back against PT hand Reps/Minutes 2x10 Comments with ppt today; reports no back pain when ppt added Sidelying Exercises reverse clams Sidelying Exercise Name added to HEP Side bilateral Resistance AROM Equipment Used pillow under L hip Reps/Minutes 2x10 ea Comments limited ROM; this feels good , states may feel pain on R hip (pt unsure) clams Sidelying Exercise Name added to HEP Side bilateral Resistance AROM Equipment Used pillow under L hip Reps/Minutes 1x10, 1x8 L; 2x10 R Comments fatiguing lateral hip; feels stretch in adductors Standing Exercises calf stretch Standing Exercise Name HEP review - gastroc stretch Side bilateral Equipment Used foot elevated against wall Reps/Minutes 1x60 Comments cued lean slightly forward into the wall for claf stretch Therapeutic Activity Therapeutic Activity sit to stand Name 8 minutes Reps/Minutes Lvl 1 Tb above knees Comments Extensive cueing for foot placement, knees and feet aligned, band to limit knee valgus, arms across chest to limit momentum and hand assistance PT also using hands on either side of pt knees for tactile cue to limit valgus PT-OP-T Assessment and Plan Start: 02/29/24 07:25 Freq: Status: Active Protocol: Document 03/15/24 10:34 NM (Rec: 03/15/24 11:20 NM [id number]) Physical Therapy Assessment Goals Six Impairment core stabilization, strength Impairment difficulty with stabilization Short Term Goal (STG) Pt will be educated on and demonstrate improved abdominal drawing up/in in order to demonstrate core bracing for functional activities and pain reduction STG Duration 6 weeks [employer] Goal (LTG) Pt will be able to demonstrate core bracing during dynamic balance activities, gait, and demonstrate at least 1 grade improvement in trunk MMT score LTG Duration 12 weeks Five Impairment strength Impairment B knee flexion 3-/5 MMT Short Term Goal (STG) Pt will increase B knee flexion strength to at least 4 -/5 MMT in order to demonstrate improved strength for gait and transfers STG Duration 6 weeks [facility] Goal (LTG) Pt will increase B knee flexion strength to at least 4 /5 MMT in order to demonstrate improved strength for gait and transfers LTG Duration 12 weeks Four Impairment strength Impairment B hip strength limited Short Term Goal (STG) Pt will increase B hip strength to at least 4/5 globally in order to demonstrate improved stability during gait, balance, and transfers, in addition to decreased fall risk STG Duration 6 weeks [employer] Goal (LTG) Pt will increase B hip strength to at least 4+/5 globally in order to demonstrate improved stability during gait, balance, and transfers, in addition to decreased fall risk LTG Duration 12 weeks Three Impairment strength Impairment 5x STS score 17 seconds [facility] Goal (LTG) Pt will be able to perform 5x STS in 15 seconds or less in order to demonstrate improved BLE strength for transfers LTG Duration 12 weeks Two Impairment balance Impairment Johnson 35/56 Short Term Goal (STG) Pt will increase Johnson balance score to at least 40/56 in order to demonstrate improved balance and safety during transfers and gait STG Duration 6 weeks [employer] Goal (LTG) Pt will increase Johnson balance score to at least 48/56 in order to demonstrate improved balance and safety during transfers and gait LTG Duration 12 weeks One Impairment balance Impairment TUG 15 seconds, without AD Short Term Goal (STG) Pt will decrease TUG time to at least 13.5 seconds without AD in order to demonstrate decreased fall risk and improved balance STG Duration 6 weeks [facility] Goal (LTG) Pt will decrease TUG time to at least 10 seconds without AD in order to demonstrate decreased fall risk and improved balance, or if appropriate, pt will be educated on and prescribed LRAD for safety due to balance and increased fall risk LTG Duration 12 weeks Assessment Summary Assessment Pt tolerated session well and reports less pain (3/10) than at start of session. Reviewed HEP at pt request. Added posterior pelvic tilt to bridge for more segmental mobility and better glute activation. Pt has limited pelvic mobility, requiring both tactile and verbal cues for correct execution; however , she demonstrates better bridge ROM and correct muscle facilitation with tilt. Initiated sidelying clams and reverse clams for hip strengthening; pt fatigues quickly and has poor tolerance for exercises. Educated on difference between pain and muscle fatigue. Extensive training spent on sit to stand for correct execution. Pt has greatest tendency for knee valgus, which limits ability to stand. Cued with both band and PT hands for increased hip abduction, which improves form. Pt would benefit from skilled PT for global trunk/ core strengthening in order to improve symptom management and activity tolerance. Physical Therapy Plan Frequency and Duration Frequency of Treatment 1-2x/wk Duration of treatment (weeks) 12 Plan of Care Start Date 02/29/24 Plan of Care End Date 04/23/24 Therapeutic Interventions Therapeutic Interventions Balance Training,Coordination Training,Gait Training,Home Exercise Program,Joint Mobilizations,Manual Therapy, Neuromuscular Re-education, Orthotic/Prosthetic Management ,Patient/Caregiver Education, Self-Care/Home Management, Sensory Integration,Soft Tissue Mobilization,Taping, Therapeutic Activities, Therapeutic Exercises Modalities Cold Pack/Ice Massage,Electric Stimulation,Hot Packs, Ultrasound Next Visit Focus/Plan Next Note Type Treatment Note Next Visit Plan Emphasis on low back and hips, balance Next session: sit to stand w/ band, clam and reverse clam, trial leg press at low resistance, counter bird dog, core brace, hip hinge, balance : march, hurdles, stance Manual: STM prn, hip mobs ( trial grade II vs III) no grade IV mobs POC: education regarding osteoporosis safety, body mechanics
--- NOTE | 2024-03-21 09:45 | PT.OTN ---
Current Diagnoses Other chronic pain (03/21/24) Low back pain, unspecified (03/21/24) Other lack of coordination (03/21/24) Weakness (03/21/24) Physical Therapy Treatment Note PT-OP-A Visit Information Start: 02/29/24 07:25 Freq: Status: Active Protocol: Document 03/21/24 09:05 SP (Rec: 03/21/24 11:20 SP [id number]) Out-Patient Physical Therapy Visit Information Visit Information Visit Type Treatment Note Visit Note KX after 19 visits Visit Start Time 09:05 Visit Stop Time 09:45 Visit Number 5 Number of [employer]NAGER Visits 1 Evaluation Information Evaluation Date 02/29/24 Precautions Precautions osteoporosis, fall risk PT-OP-B Current Condition Start: 02/29/24 07:25 Freq: Status: Active Protocol: Document 02/29/24 08:16 NM (Rec: 02/29/24 09:04 NM [id number]) Current Condition History of Current Condition Current Complaints pain, balance, weakness History of Current Condition Pt presents with low back pain . She has numbness in her toes bilaterally that began 20 years ago, gradually worsening . She reports that she has pain in both shoulders (L>R), B hips (R>L). She has difficulty with lifting her R arm up, began at least 10 years. Pt reports that she falls frequently, at leat 1x/ month. She most recently feel 3 days ago. She states that she doesn't pick her feet up. She has used a cane previously , but doesn't use it because it's more tourble than it's worth. She also has lower back pain, along the hip bones. She has PMH of fibromyalgia, dx 15 years ago. She also have osteoporosis, dx about 1 year ago. She is currently on fomax; she is not on calcium or vitamin D. She states no fractures throughout lifetime. She reports that her L ankle is swollen, worse with PF (2-3 months). She reports that her back originally started to hurt many years ago when she fell off horse. Prior Treatments and Tests She has previous PT for shoulders and neck at [facility], which was helpful No recent lumbar imaging R hip radiograph 05/2023: bony degeneration without fracture Current Functional Impairments (Reported) Functional Limitations- ADL's vacuuming Functional Limitations- Mobility/Gait difficulty w/ transitioning from sit<>stand, household distances w/o AD Functional Limitations- Recreation/ gardening Hobbies Functional Limitations- Other lives with , 1 story, several throw rugs PT-OP-C Subjective Start: 02/29/24 07:25 Freq: Status: Active Protocol: Document 03/21/24 09:05 SP (Rec: 03/21/24 11:20 SP [id number]) OP-PT Subjective Patient Comments Patient Comments Pt reported did well after last tx and compliant with HEP with no adverse affects. She stated couple days ago got up from sitting in chair and when stepped to WB into R leg had sharp pain in R hip worse than in past and since then limping decreased stance time on R with continued pain to lateral R knee. PT-OP-D Balance Start: 02/29/24 07:25 Freq: Status: Active Protocol: Document 02/29/24 08:16 NM (Rec: 02/29/24 09:04 NM [id number]) Balance Tests Johnson Balance Test Johnson Balance Test Score 35/56 PT-OP-E Functional Tests Start: 02/29/24 07:25 Freq: Status: Active Protocol: Document 02/29/24 08:16 NM (Rec: 02/29/24 09:04 NM [id number]) Functional Tests Five Times Sit to Stand Test Score 17 sec Comments low back pain, R hip; use hands on thighs, 20 plinth Timed Up and Go (TUG) Score 15 sec Comments no AD, slow turns PT-OP-F Manual Assessment Start: 02/29/24 07:25 Freq: Status: Active Protocol: Document 02/29/24 08:16 NM (Rec: 02/29/24 09:04 NM [id number]) Manual Assessments Soft Tissue Assessment Soft Tissue Mobility Assessment Increased hamstring length. Tight parapsinals, hip flexors , glute/piriformis Joint Mobility Assessment Joint Mobility Assessment Overall hypomobility of thoracolumbar spine. Bilateral AROM and PROM of hips, R>L. Weakness and decreased mobility of B shoulders (R>L) PT-OP-G Mobility & Gait Start: 02/29/24 07:25 Freq: Status: Active Protocol: Document 02/29/24 08:16 NM (Rec: 02/29/24 09:04 NM [id number]) OP Gait Assessment Gait Gait Assistance Required: Standby Assistance Distance (Feet) 150 Comments Gait Comments atnalgis Stair Climbing Evaluation Evaluation Level of Assist On Stairs Contact Guard Assistance Devices Stair Climbing Assistive Devices Left Railing,Right Railing Technique/Endurance Stair Climbing Direction Ascend and Descend Stair Climbing Technique Step to Step Number of Steps Climbed 4 Stair Climbing Set # Repetitions (reps) 1 Comments Stair Climbing Comments Non-reciprocal stepping, antalgic R side. B hand rail assist, near LOB PT-OP-H Neuro Start: 02/29/24 07:25 Freq: Status: Active Protocol: Document 02/29/24 08:16 NM (Rec: 02/29/24 09:04 NM [id number]) Sensation Evaluation Comments Summary Comments BUE equally intact to light touch sensation; BLE equally intact above knee, decreased BLE below knee (L worse than R ) PT-OP-J Posture/Palpation/Skin Start: 02/29/24 07:25 Freq: Status: Active Protocol: Document 02/29/24 08:16 NM (Rec: 02/29/24 09:04 NM [id number]) Posture Evaluation Position Standing Head/C-Spine Posture Forward Head T-Spine Posture Increased Kyphosis L-Spine Posture Increased Lordosis Pelvis Posture Anteriorly Tilted Weight Distribution Weight Shifted Left Hip Posture (L) Externally Rotated,(R) Externally Rotated Knee Posture (L) Genu Valgus,(R) Genu Valgus Ankle/Foot Posture (L) Pronated,(R) Pronated Comments Posture Comments Forward flexed posture Palpation Assessment Location hip Palpation Details R hip tenderness along greater trochanter, small anterior groin tenderness Tightness along hip flexors, glute/piriformis back Palpation Details Tightness along thoracolumbar paraspinals Tenderness with palpation of R SI joint, B PSIS (R>L) and lower lumbar spinous processes PT-OP-K Range of Motion Start: 02/29/24 07:25 Freq: Status: Active Protocol: Document 02/29/24 08:16 NM (Rec: 02/29/24 09:04 NM [id number]) Lumbar Spine Range of Motion Lumbar Spine Active Percentage Flexion 90 Extension 25 Lateral Flexion Left 100 Lateral Flexion Right 100 ROM Limitations Pain Comments R back and hip pain with active lateral flexion Hip Goniometric Range of Motion Hip Right Flexion w/Knee Flexed 90 Abduction 15 Comments Visible limitations with IR and ER, IR most restricted and painful especially with hip flexion Left Flexion w/Knee Flexed 90 Abduction 20 Comments Visible limitations with IR and ER Ankle and Foot Goniometric Range of Motion Ankle and Foot Right Dorsiflexion with Knee Flexed 5 Plantarflexion 30 Left Dorsiflexion with Knee Flexed 5 Dorsiflexion with Knee Extended 20 Comments achilles pain PT-OP-L Special Tests Start: 02/29/24 07:25 Freq: Status: Active Protocol: Document 02/29/24 08:16 NM (Rec: 02/29/24 09:04 NM [id number]) Special Tests Lumbar Spine Special Tests Slump Test Results - Anderson/Quadrant Test Results + Distraction Test Results + PT-OP-M Strength Start: 02/29/24 07:25 Freq: Status: Active Protocol: Document 02/29/24 08:16 NM (Rec: 02/29/24 09:04 NM [id number]) Trunk Strength Trunk Manual Muscle Testing Flexion 3 Fair Extension 3 Fair Rotation Left 4 Good Rotation Right 4 Good Lateral Flexion Left 4 Good Lateral Flexion Right 4 Good Comments No pain with resisted trunk testing, but difficulty with stabilizing against resistance Shoulder Strength Shoulder Manual Muscle Testing Right Flexion 3+ Fair+ Abduction (C5) 3+ Fair+ Left Flexion 3+ Fair+ Abduction (C5) 3+ Fair+ Elbow/Forearm Strength Elbow and Forearm Manual Muscle Testing Right Flexion (C6) 4 Good Extension (C7) 4 Good Left Flexion (C6) 4 Good Extension (C7) 4 Good Hip Strength Hip Manual Muscle Testing Right Flexion (L2) 3+ Fair+ Extension (S1) 4- Good- Abduction 4- Good- Adduction 4- Good- External Rotation 4 Good Internal Rotation 4- Good- Left Flexion (L2) 4- Good- Extension (S1) 4- Good- Abduction 4- Good- Adduction 4- Good- External Rotation 4- Good- Internal Rotation 4- Good- Knee Strength Knee Manual Muscle Testing Right Flexion (S2) 3- Fair- Extension (L3) 4- Good- Left Flexion (S2) 3- Fair- Extension (L3) 4- Good- Ankle/Foot Strength Ankle and Foot Manual Muscle Testing Right Dorsiflexion (L4) 4- Good- Plantarflexion (S1) 4- Good- Inversion 4- Good- Eversion (S1) 4 Good Left Dorsiflexion (L4) 4- Good- Plantarflexion (S1) 4- Good- Inversion 4- Good- Eversion (S1) 4- Good- Comments Mild posterior ankle pain with resisted testing PT-OP-Q Treatments Start: 02/29/24 07:25 Freq: Status: Active Protocol: Document 03/21/24 09:05 SP (Rec: 03/21/24 11:20 SP [id number]) Therapeutic Exercises Supine Exercises lateral hip stretch Supine Exercise Name added to HEP Side right Equipment Used L leg straight, R knee bent, R knee leans over L leg- LUE support R knee Reps/Minutes 3x 15 SH Comments reported good lateral hip stretch, no pain lateral leg and glut HS stretch /c AP Supine Exercise Name initiated in PT- added to HEP Reps/Minutes x10 AP Comments HS tension reduction posterior pelvic tilt Supine Exercise Name performed post bridge Resistance AROM Equipment Used limited mobility, but better w bridge Reps/Minutes 1x10 Comments cued flatten back into my hand bridge Supine Exercise Name with HEP review: hip abduction (w/ toe elevated) Resistance lvl 1 band around thighs Equipment Used cued equal WB, flatten small of back against PT hand Reps/Minutes 2x10 Comments occ cue for PPT, feels good and stretches front R thigh Sidelying Exercises reverse clams Sidelying Exercise Name reviewd HEP Side bilateral Resistance AROM Equipment Used pillow under L hip Reps/Minutes 2 reps Comments pain R lateral hip and lateral R knee- hold clams Sidelying Exercise Name reviewed HEP Side right Resistance AROM Equipment Used pillow under L hip Reps/Minutes 3 reps x2 R Comments causing R lateral thigh & R knee- hold today Other Exercises self STM Other Exercise Name ball wall glut/pirif, rolling pin quad/ITB/HS/Calf/Add Side right Therapeutic Activity Therapeutic Activity sit to stand Name 8 minutes Reps/Minutes Lvl 1 Tb above knees Comments Improved foot placement, knees and feet aligned, band to limit knee valgus, arms across chest to limit momentum and hand assistance Manual Therapy Treatment Soft Tissue Mobilization L hip/thigh/groin Body Location Right glute/piriformis, ITB, TFL Mobilization Type Instrument Assisted,Rolling, Strumming Intensity/Depth Moderate Body Position L Sidelying Comments Pillow between legs/ankles. therapist STMs, ed self Joint Mobilizations R hip Body Position Supine Comments MWM /c strap at lateral R hip, anteriomedial glide prox femur with hip ER AROM- hip jt relief and more ROM reported. Self-Care/Home Management Treatment Education Patient Education Body Mechanics,Pain Management ,Posture,Safety Other Education ed cues for tall over R leg during midstance phase end tx for glut activation and slower pacing. IMproved quality gait leaving. PT-OP-T Assessment and Plan Start: 02/29/24 07:25 Freq: Status: Active Protocol: Document 03/21/24 09:05 SP (Rec: 03/21/24 11:20 SP [id number]) Physical Therapy Assessment Goals Six Impairment core stabilization, strength Impairment difficulty with stabilization Short Term Goal (STG) Pt will be educated on and demonstrate improved abdominal drawing up/in in order to demonstrate core bracing for functional activities and pain reduction STG Duration 6 weeks [facility] Director Goal (LTG) Pt will be able to demonstrate core bracing during dynamic balance activities, gait, and demonstrate at least 1 grade improvement in trunk MMT score LTG Duration 12 weeks Five Impairment strength Impairment B knee flexion 3-/5 MMT Short Term Goal (STG) Pt will increase B knee flexion strength to at least 4 -/5 MMT in order to demonstrate improved strength for gait and transfers STG Duration 6 weeks Senior Care Goal (LTG) Pt will increase B knee flexion strength to at least 4 /5 MMT in order to demonstrate improved strength for gait and transfers LTG Duration 12 weeks Four Impairment strength Impairment B hip strength limited Short Term Goal (STG) Pt will increase B hip strength to at least 4/5 globally in order to demonstrate improved stability during gait, balance, and transfers, in addition to decreased fall risk STG Duration 6 weeks [facility] Director Goal (LTG) Pt will increase B hip strength to at least 4+/5 globally in order to demonstrate improved stability during gait, balance, and transfers, in addition to decreased fall risk LTG Duration 12 weeks Three Impairment strength Impairment 5x STS score 17 seconds Senior Care Goal (LTG) Pt will be able to perform 5x STS in 15 seconds or less in order to demonstrate improved BLE strength for transfers LTG Duration 12 weeks Two Impairment balance Impairment Johnson 35/56 Short Term Goal (STG) Pt will increase Johnson balance score to at least 40/56 in order to demonstrate improved balance and safety during transfers and gait STG Duration 6 weeks Senior Care Goal (LTG) Pt will increase Johnson balance score to at least 48/56 in order to demonstrate improved balance and safety during transfers and gait LTG Duration 12 weeks One Impairment balance Impairment TUG 15 seconds, without AD Short Term Goal (STG) Pt will decrease TUG time to at least 13.5 seconds without AD in order to demonstrate decreased fall risk and improved balance STG Duration 6 weeks Senior Care Goal (LTG) Pt will decrease TUG time to at least 10 seconds without AD in order to demonstrate decreased fall risk and improved balance, or if appropriate, pt will be educated on and prescribed LRAD for safety due to balance and increased fall risk LTG Duration 12 weeks Assessment Summary Assessment Pt reported reduction R hip discomfort after manual and stretching. Trialed clamshell/ reverse clamshell but caused irritation to R hip so instructed hold off for now until feels better. Improved hip hinge during sit stands with TB resistance. Pt was ableto WB into RLE better walking out, cued tall and pelvis over R foot, glut fac with slower pacing improved quality of gait. Physical Therapy Plan Frequency and Duration Frequency of Treatment 1-2x/wk Duration of treatment (weeks) 12 Plan of Care Start Date 02/29/24 Plan of Care End Date 04/23/24 Therapeutic Interventions Therapeutic Interventions Balance Training,Coordination Training,Gait Training,Home Exercise Program,Joint Mobilizations,Manual Therapy, Neuromuscular Re-education, Orthotic/Prosthetic Management ,Patient/Caregiver Education, Self-Care/Home Management, Sensory Integration,Soft Tissue Mobilization,Taping, Therapeutic Activities, Therapeutic Exercises Modalities Cold Pack/Ice Massage,Electric Stimulation,Hot Packs, Ultrasound Next Visit Focus/Plan Next Note Type Treatment Note Next Visit Plan Ask how R hip doing, if can return to clamshell, Manual if needed. POC per PT: Emphasis on low back and hips, balance Next session: sit to stand w/ band, clam and reverse clam, trial leg press at low resistance, counter bird dog, core brace, hip hinge, balance : march, hurdles, stance Manual: STM prn, hip mobs ( trial grade II vs III) no grade IV mobs POC: education regarding osteoporosis safety, body mechanics
--- NOTE | 2024-03-25 09:20 | PT.OTN ---
Current Diagnoses Other chronic pain (03/25/24) Low back pain, unspecified (03/25/24) Other lack of coordination (03/25/24) Weakness (03/25/24) Physical Therapy Treatment Note PT-OP-A Visit Information Start: 02/29/24 07:25 Freq: Status: Active Protocol: Document 03/25/24 08:34 NM (Rec: 03/25/24 09:20 NM [id number]) Out-Patient Physical Therapy Visit Information Visit Information Visit Type Treatment Note Visit Note KX after 19 visits Visit Start Time 08:30 Visit Stop Time 09:11 Visit Number 6 Evaluation Information Evaluation Date 02/29/24 PT-OP-B Current Condition Start: 02/29/24 07:25 Freq: Status: Active Protocol: Document 02/29/24 08:16 NM (Rec: 02/29/24 09:04 NM [id number]) Current Condition History of Current Condition Current Complaints pain, balance, weakness History of Current Condition Pt presents with low back pain . She has numbness in her toes bilaterally that began 20 years ago, gradually worsening . She reports that she has pain in both shoulders (L>R), B hips (R>L). She has difficulty with lifting her R arm up, began at least 10 years. Pt reports that she falls frequently, at leat 1x/ month. She most recently feel 3 days ago. She states that she doesn't pick her feet up. She has used a cane previously , but doesn't use it because it's more tourble than it's worth. She also has lower back pain, along the hip bones. She has PMH of fibromyalgia, dx 15 years ago. She also have osteoporosis, dx about 1 year ago. She is currently on fomax; she is not on calcium or vitamin D. She states no fractures throughout lifetime. She reports that her L ankle is swollen, worse with PF (2-3 months). She reports that her back originally started to hurt many years ago when she fell off horse. Prior Treatments and Tests She has previous PT for shoulders and neck at [facility], which was helpful No recent lumbar imaging R hip radiograph 05/2023: bony degeneration without fracture Current Functional Impairments (Reported) Functional Limitations- ADL's vacuuming Functional Limitations- Mobility/Gait difficulty w/ transitioning from sit<>stand, household distances w/o AD Functional Limitations- Recreation/ gardening Hobbies Functional Limitations- Other lives with , 1 story, several throw rugs PT-OP-C Subjective Start: 02/29/24 07:25 Freq: Status: Active Protocol: Document 03/25/24 08:34 NM (Rec: 03/25/24 09:20 NM [id number]) OP-PT Subjective Patient Comments Patient Comments Pt reports that she feels good after PT but states that her hips and back hurt after vacuuming or gardening. She reports that her pain has improved overall, hip hasn't been hurting. States exercises are easy-medium. Reports starting at 5/10 R hip pain today, stiff getting up from chair PT-OP-D Balance Start: 02/29/24 07:25 Freq: Status: Active Protocol: Document 02/29/24 08:16 NM (Rec: 02/29/24 09:04 NM [id number]) Balance Tests Johnson Balance Test Johnson Balance Test Score 35/56 PT-OP-E Functional Tests Start: 02/29/24 07:25 Freq: Status: Active Protocol: Document 02/29/24 08:16 NM (Rec: 02/29/24 09:04 NM [id number]) Functional Tests Five Times Sit to Stand Test Score 17 sec Comments low back pain, R hip; use hands on thighs, 20 plinth Timed Up and Go (TUG) Score 15 sec Comments no AD, slow turns PT-OP-F Manual Assessment Start: 02/29/24 07:25 Freq: Status: Active Protocol: Document 02/29/24 08:16 NM (Rec: 02/29/24 09:04 NM [id number]) Manual Assessments Soft Tissue Assessment Soft Tissue Mobility Assessment Increased hamstring length. Tight parapsinals, hip flexors , glute/piriformis Joint Mobility Assessment Joint Mobility Assessment Overall hypomobility of thoracolumbar spine. Bilateral AROM and PROM of hips, R>L. Weakness and decreased mobility of B shoulders (R>L) PT-OP-G Mobility & Gait Start: 02/29/24 07:25 Freq: Status: Active Protocol: Document 02/29/24 08:16 NM (Rec: 02/29/24 09:04 NM [id number]) OP Gait Assessment Gait Gait Assistance Required: Standby Assistance Distance (Feet) 150 Comments Gait Comments atnalgis Stair Climbing Evaluation Evaluation Level of Assist On Stairs Contact Guard Assistance Devices Stair Climbing Assistive Devices Left Railing,Right Railing Technique/Endurance Stair Climbing Direction Ascend and Descend Stair Climbing Technique Step to Step Number of Steps Climbed 4 Stair Climbing Set # Repetitions (reps) 1 Comments Stair Climbing Comments Non-reciprocal stepping, antalgic R side. B hand rail assist, near LOB PT-OP-H Neuro Start: 02/29/24 07:25 Freq: Status: Active Protocol: Document 02/29/24 08:16 NM (Rec: 02/29/24 09:04 NM [id number]) Sensation Evaluation Comments Summary Comments BUE equally intact to light touch sensation; BLE equally intact above knee, decreased BLE below knee (L worse than R ) PT-OP-J Posture/Palpation/Skin Start: 02/29/24 07:25 Freq: Status: Active Protocol: Document 02/29/24 08:16 NM (Rec: 02/29/24 09:04 NM [id number]) Posture Evaluation Position Standing Head/C-Spine Posture Forward Head T-Spine Posture Increased Kyphosis L-Spine Posture Increased Lordosis Pelvis Posture Anteriorly Tilted Weight Distribution Weight Shifted Left Hip Posture (L) Externally Rotated,(R) Externally Rotated Knee Posture (L) Genu Valgus,(R) Genu Valgus Ankle/Foot Posture (L) Pronated,(R) Pronated Comments Posture Comments Forward flexed posture Palpation Assessment Location hip Palpation Details R hip tenderness along greater trochanter, small anterior groin tenderness Tightness along hip flexors, glute/piriformis back Palpation Details Tightness along thoracolumbar paraspinals Tenderness with palpation of R SI joint, B PSIS (R>L) and lower lumbar spinous processes PT-OP-K Range of Motion Start: 02/29/24 07:25 Freq: Status: Active Protocol: Document 02/29/24 08:16 NM (Rec: 02/29/24 09:04 NM [id number]) Lumbar Spine Range of Motion Lumbar Spine Active Percentage Flexion 90 Extension 25 Lateral Flexion Left 100 Lateral Flexion Right 100 ROM Limitations Pain Comments R back and hip pain with active lateral flexion Hip Goniometric Range of Motion Hip Right Flexion w/Knee Flexed 90 Abduction 15 Comments Visible limitations with IR and ER, IR most restricted and painful especially with hip flexion Left Flexion w/Knee Flexed 90 Abduction 20 Comments Visible limitations with IR and ER Ankle and Foot Goniometric Range of Motion Ankle and Foot Right Dorsiflexion with Knee Flexed 5 Plantarflexion 30 Left Dorsiflexion with Knee Flexed 5 Dorsiflexion with Knee Extended 20 Comments achilles pain PT-OP-L Special Tests Start: 02/29/24 07:25 Freq: Status: Active Protocol: Document 02/29/24 08:16 NM (Rec: 02/29/24 09:04 NM [id number]) Special Tests Lumbar Spine Special Tests Slump Test Results - Anderson/Quadrant Test Results + Distraction Test Results + PT-OP-M Strength Start: 02/29/24 07:25 Freq: Status: Active Protocol: Document 02/29/24 08:16 NM (Rec: 02/29/24 09:04 NM [id number]) Trunk Strength Trunk Manual Muscle Testing Flexion 3 Fair Extension 3 Fair Rotation Left 4 Good Rotation Right 4 Good Lateral Flexion Left 4 Good Lateral Flexion Right 4 Good Comments No pain with resisted trunk testing, but difficulty with stabilizing against resistance Shoulder Strength Shoulder Manual Muscle Testing Right Flexion 3+ Fair+ Abduction (C5) 3+ Fair+ Left Flexion 3+ Fair+ Abduction (C5) 3+ Fair+ Elbow/Forearm Strength Elbow and Forearm Manual Muscle Testing Right Flexion (C6) 4 Good Extension (C7) 4 Good Left Flexion (C6) 4 Good Extension (C7) 4 Good Hip Strength Hip Manual Muscle Testing Right Flexion (L2) 3+ Fair+ Extension (S1) 4- Good- Abduction 4- Good- Adduction 4- Good- External Rotation 4 Good Internal Rotation 4- Good- Left Flexion (L2) 4- Good- Extension (S1) 4- Good- Abduction 4- Good- Adduction 4- Good- External Rotation 4- Good- Internal Rotation 4- Good- Knee Strength Knee Manual Muscle Testing Right Flexion (S2) 3- Fair- Extension (L3) 4- Good- Left Flexion (S2) 3- Fair- Extension (L3) 4- Good- Ankle/Foot Strength Ankle and Foot Manual Muscle Testing Right Dorsiflexion (L4) 4- Good- Plantarflexion (S1) 4- Good- Inversion 4- Good- Eversion (S1) 4 Good Left Dorsiflexion (L4) 4- Good- Plantarflexion (S1) 4- Good- Inversion 4- Good- Eversion (S1) 4- Good- Comments Mild posterior ankle pain with resisted testing PT-OP-Q Treatments Start: 02/29/24 07:25 Freq: Status: Active Protocol: Document 03/25/24 08:34 NM (Rec: 03/25/24 09:20 NM [id number]) Therapeutic Exercises Supine Exercises straight leg raise Side right Resistance AROM Reps/Minutes 3x5 Comments pain free but hard, tiring lateral hip stretch Supine Exercise Name HEP review Side right Equipment Used L leg straight, R knee bent, R knee leans over L leg- LUE support R knee Reps/Minutes 3x10 SH Comments cued to maintain gentle stretch Sitting Exercises hip ER Side right Resistance lvl 1 band at ankle Reps/Minutes 2x10 Comments pain free, challenging, limited range hip IR Side bilateral Resistance AROM Equipment Used ball between knees Reps/Minutes 2x10 Comments challenging; trialed #1 band but unable d/t lateral knee; no pain Standing Exercises side steps Side bilateral Resistance level 2 band around thighs Equipment Used B hand support for balance on ballet bar Reps/Minutes 2x10 ft Comments cued nuetral foot alignment, step length Therapeutic Activity Therapeutic Activity sit to stand Name 8 minutes Reps/Minutes lvl 2 tb above knees Comments Mirror for visual feedback ( edu on use at home as pt has one in hallway) for alignment. Pt checking aligment prior to and during standing. 2x10 sets. cued upright trunk alignment (no leaning L), wider foot placement for RONAK stability. Arms across chest, band to limite knee valgus, limit momentum. Better control Manual Therapy Treatment Soft Tissue Mobilization L hip/thigh/groin Body Location Right glute/piriformis, ITB, TFL, quad Mobilization Type Rolling,Strumming Intensity/Depth Moderate Body Position L Sidelying Comments Pillow between ankles and knees. Moderate rolling, reports improves muscle tenderness prior to exercise. Most tender over TFL, less piriformis/glute tenderness today PT-OP-T Assessment and Plan Start: 02/29/24 07:25 Freq: Status: Active Protocol: Document 03/25/24 08:34 NM (Rec: 03/25/24 09:20 NM [id number]) Physical Therapy Assessment Goals Six Impairment core stabilization, strength Impairment difficulty with stabilization Short Term Goal (STG) Pt will be educated on and demonstrate improved abdominal drawing up/in in order to demonstrate core bracing for functional activities and pain reduction STG Duration 6 weeks [facility] Goal (LTG) Pt will be able to demonstrate core bracing during dynamic balance activities, gait, and demonstrate at least 1 grade improvement in trunk MMT score LTG Duration 12 weeks Five Impairment strength Impairment B knee flexion 3-/5 MMT Short Term Goal (STG) Pt will increase B knee flexion strength to at least 4 -/5 MMT in order to demonstrate improved strength for gait and transfers STG Duration 6 weeks [place] Goal (LTG) Pt will increase B knee flexion strength to at least 4 /5 MMT in order to demonstrate improved strength for gait and transfers LTG Duration 12 weeks Four Impairment strength Impairment B hip strength limited Short Term Goal (STG) Pt will increase B hip strength to at least 4/5 globally in order to demonstrate improved stability during gait, balance, and transfers, in addition to decreased fall risk STG Duration 6 weeks [place] Goal (LTG) Pt will increase B hip strength to at least 4+/5 globally in order to demonstrate improved stability during gait, balance, and transfers, in addition to decreased fall risk LTG Duration 12 weeks Three Impairment strength Impairment 5x STS score 17 seconds [place] Goal (LTG) Pt will be able to perform 5x STS in 15 seconds or less in order to demonstrate improved BLE strength for transfers LTG Duration 12 weeks Two Impairment balance Impairment Johnson 35/56 Short Term Goal (STG) Pt will increase Johnson balance score to at least 40/56 in order to demonstrate improved balance and safety during transfers and gait STG Duration 6 weeks [place] Goal (LTG) Pt will increase Johnson balance score to at least 48/56 in order to demonstrate improved balance and safety during transfers and gait LTG Duration 12 weeks One Impairment balance Impairment TUG 15 seconds, without AD Short Term Goal (STG) Pt will decrease TUG time to at least 13.5 seconds without AD in order to demonstrate decreased fall risk and improved balance STG Duration 6 weeks [place] Goal (LTG) Pt will decrease TUG time to at least 10 seconds without AD in order to demonstrate decreased fall risk and improved balance, or if appropriate, pt will be educated on and prescribed LRAD for safety due to balance and increased fall risk LTG Duration 12 weeks Assessment Summary Assessment Pt tolerated session well, reporting reduction in symptoms from 5/10 to 2/10. Overall, pt reporting muscle fatigue and denies pain. Progressed to seated hip ER and IR; pt has limited range for both but better tolerance than sidelying exercises. Initiated side steps for lateral hip strength, cueing for neutral foot placement to limit compensations and maintain upright posture. Pt continues to have difficulty with sit to stand form, leaning toward left side with trunk and has moderate knee valgus. Improved with verbal and visual feedback with mirror; educated to use mirror at home. Demonstrates improved ascent with BLE instead of momentum and controlled eccentric lowering. Pt continues to respond best to soft tissue mobilization prior to exercise to improve tissue length and for pain reduction. Pt would benefit from skilled PT for hip strengthening and body mechanics training, including activity modification in order to improve symptom management and activity tolerance. Physical Therapy Plan Frequency and Duration Frequency of Treatment 1-2x/wk Duration of treatment (weeks) 12 Plan of Care Start Date 02/29/24 Plan of Care End Date 04/23/24 Therapeutic Interventions Therapeutic Interventions Balance Training,Coordination Training,Gait Training,Home Exercise Program,Joint Mobilizations,Manual Therapy, Neuromuscular Re-education, Orthotic/Prosthetic Management ,Patient/Caregiver Education, Self-Care/Home Management, Sensory Integration,Soft Tissue Mobilization,Taping, Therapeutic Activities, Therapeutic Exercises Modalities Cold Pack/Ice Massage,Electric Stimulation,Hot Packs, Ultrasound Next Visit Focus/Plan Next Note Type Progress Note Next Visit Plan Side steps, hip 3 way, trial 4 step up/back, seated hip rotation, leg press low resistance, hip hinge and body mechanics training with core bracing POC per PT: Emphasis on low back and hips, balance Next session: sit to stand w/ band, clam and reverse clam, trial leg press at low resistance, counter bird dog, core brace, hip hinge, balance : december, hurdles, stance Manual: STM prn, hip mobs ( trial grade II vs III) no grade IV mobs POC: education regarding osteoporosis safety, body mechanics
--- NOTE | 2024-03-27 12:43 | PT.OTN ---
Current Diagnoses Other chronic pain (03/27/24) Low back pain, unspecified (03/27/24) Other lack of coordination (03/27/24) Weakness (03/27/24) Physical Therapy Treatment Note PT-OP-A Visit Information Start: 02/29/24 07:25 Freq: Status: Active Protocol: Document 03/27/24 11:19 NM (Rec: 03/27/24 12:04 NM [id number]) Out-Patient Physical Therapy Visit Information Visit Information Visit Type Progress Note Visit Note KX after 19 visits Visit Start Time 11:19 Visit Stop Time 11:58 Visit Number 7 Evaluation Information Evaluation Date 02/29/24 PT-OP-B Current Condition Start: 02/29/24 07:25 Freq: Status: Active Protocol: Document 02/29/24 08:16 NM (Rec: 02/29/24 09:04 NM [id number]) Current Condition History of Current Condition Current Complaints pain, balance, weakness History of Current Condition Pt presents with low back pain . She has numbness in her toes bilaterally that began 20 years ago, gradually worsening . She reports that she has pain in both shoulders (L>R), B hips (R>L). She has difficulty with lifting her R arm up, began at least 10 years. Pt reports that she falls frequently, at leat 1x/ month. She most recently feel 3 days ago. She states that she doesn't pick her feet up. She has used a cane previously , but doesn't use it because it's more tourble than it's worth. She also has lower back pain, along the hip bones. She has PMH of fibromyalgia, dx 15 years ago. She also have osteoporosis, dx about 1 year ago. She is currently on fomax; she is not on calcium or vitamin D. She states no fractures throughout lifetime. She reports that her L ankle is swollen, worse with PF (2-3 months). She reports that her back originally started to hurt many years ago when she fell off horse. Prior Treatments and Tests She has previous PT for shoulders and neck at [facility], which was helpful No recent lumbar imaging R hip radiograph 05/2023: bony degeneration without fracture Current Functional Impairments (Reported) Functional Limitations- ADL's vacuuming Functional Limitations- Mobility/Gait difficulty w/ transitioning from sit<>stand, household distances w/o AD Functional Limitations- Recreation/ gardening Hobbies Functional Limitations- Other lives with , 1 story, several throw rugs PT-OP-C Subjective Start: 02/29/24 07:25 Freq: Status: Active Protocol: Document 03/27/24 11:19 NM (Rec: 03/27/24 12:04 NM [id number]) OP-PT Subjective Patient Comments Patient Comments Pt reports 2/10 in her back/ hip after planting joya. She felt good after last session and yesterday. Overall , she reports that overall pain is better, walking is better, postural awareness. She reports that it's still hard to have good posture and walk. PT-OP-D Balance Start: 02/29/24 07:25 Freq: Status: Active Protocol: Document 02/29/24 08:16 NM (Rec: 02/29/24 09:04 NM [id number]) Balance Tests Johnson Balance Test Johnson Balance Test Score 35/56 PT-OP-E Functional Tests Start: 02/29/24 07:25 Freq: Status: Active Protocol: Document 02/29/24 08:16 NM (Rec: 02/29/24 09:04 NM [id number]) Functional Tests Five Times Sit to Stand Test Score 17 sec Comments low back pain, R hip; use hands on thighs, 20 plinth Timed Up and Go (TUG) Score 15 sec Comments no AD, slow turns PT-OP-F Manual Assessment Start: 02/29/24 07:25 Freq: Status: Active Protocol: Document 02/29/24 08:16 NM (Rec: 02/29/24 09:04 NM [id number]) Manual Assessments Soft Tissue Assessment Soft Tissue Mobility Assessment Increased hamstring length. Tight parapsinals, hip flexors , glute/piriformis Joint Mobility Assessment Joint Mobility Assessment Overall hypomobility of thoracolumbar spine. Bilateral AROM and PROM of hips, R>L. Weakness and decreased mobility of B shoulders (R>L) PT-OP-G Mobility & Gait Start: 02/29/24 07:25 Freq: Status: Active Protocol: Document 02/29/24 08:16 NM (Rec: 02/29/24 09:04 NM [id number]) OP Gait Assessment Gait Gait Assistance Required: Standby Assistance Distance (Feet) 150 Comments Gait Comments atnalgis Stair Climbing Evaluation Evaluation Level of Assist On Stairs Contact Guard Assistance Devices Stair Climbing Assistive Devices Left Railing,Right Railing Technique/Endurance Stair Climbing Direction Ascend and Descend Stair Climbing Technique Step to Step Number of Steps Climbed 4 Stair Climbing Set # Repetitions (reps) 1 Comments Stair Climbing Comments Non-reciprocal stepping, antalgic R side. B hand rail assist, near LOB PT-OP-H Neuro Start: 02/29/24 07:25 Freq: Status: Active Protocol: Document 02/29/24 08:16 NM (Rec: 02/29/24 09:04 NM [id number]) Sensation Evaluation Comments Summary Comments BUE equally intact to light touch sensation; BLE equally intact above knee, decreased BLE below knee (L worse than R ) PT-OP-J Posture/Palpation/Skin Start: 02/29/24 07:25 Freq: Status: Active Protocol: Document 02/29/24 08:16 NM (Rec: 02/29/24 09:04 NM [id number]) Posture Evaluation Position Standing Head/C-Spine Posture Forward Head T-Spine Posture Increased Kyphosis L-Spine Posture Increased Lordosis Pelvis Posture Anteriorly Tilted Weight Distribution Weight Shifted Left Hip Posture (L) Externally Rotated,(R) Externally Rotated Knee Posture (L) Genu Valgus,(R) Genu Valgus Ankle/Foot Posture (L) Pronated,(R) Pronated Comments Posture Comments Forward flexed posture Palpation Assessment Location hip Palpation Details R hip tenderness along greater trochanter, small anterior groin tenderness Tightness along hip flexors, glute/piriformis back Palpation Details Tightness along thoracolumbar paraspinals Tenderness with palpation of R SI joint, B PSIS (R>L) and lower lumbar spinous processes PT-OP-K Range of Motion Start: 02/29/24 07:25 Freq: Status: Active Protocol: Document 02/29/24 08:16 NM (Rec: 02/29/24 09:04 NM [id number]) Lumbar Spine Range of Motion Lumbar Spine Active Percentage Flexion 90 Extension 25 Lateral Flexion Left 100 Lateral Flexion Right 100 ROM Limitations Pain Comments R back and hip pain with active lateral flexion Hip Goniometric Range of Motion Hip Right Flexion w/Knee Flexed 90 Abduction 15 Comments Visible limitations with IR and ER, IR most restricted and painful especially with hip flexion Left Flexion w/Knee Flexed 90 Abduction 20 Comments Visible limitations with IR and ER Ankle and Foot Goniometric Range of Motion Ankle and Foot Right Dorsiflexion with Knee Flexed 5 Plantarflexion 30 Left Dorsiflexion with Knee Flexed 5 Dorsiflexion with Knee Extended 20 Comments achilles pain PT-OP-L Special Tests Start: 02/29/24 07:25 Freq: Status: Active Protocol: Document 02/29/24 08:16 NM (Rec: 02/29/24 09:04 NM [id number]) Special Tests Lumbar Spine Special Tests Slump Test Results - Anderson/Quadrant Test Results + Distraction Test Results + PT-OP-M Strength Start: 02/29/24 07:25 Freq: Status: Active Protocol: Document 03/27/24 11:19 NM (Rec: 03/27/24 12:04 NM [id number]) Hip Strength Hip Manual Muscle Testing Right Flexion (L2) 3+ Fair+ Extension (S1) 4- Good- Abduction 4- Good- Adduction 4- Good- External Rotation 4 Good Internal Rotation 4- Good- Comments 03/27/24: 4-/5 for hip flex/abd /ext Left Flexion (L2) 4- Good- Extension (S1) 4- Good- Abduction 4- Good- Adduction 4- Good- External Rotation 4- Good- Internal Rotation 4- Good- Comments 03/27/24: 4-/5 for hip flex/abd /ext Knee Strength Knee Manual Muscle Testing Right Flexion (S2) 3- Fair- Extension (L3) 4- Good- Comments 03/27/24: 4-/5 for knee flexion Left Flexion (S2) 3- Fair- Extension (L3) 4- Good- Comments 03/27/24: 4-/5 for knee flexion PT-OP-Q Treatments Start: 02/29/24 07:25 Freq: Status: Active Protocol: Document 03/27/24 11:19 NM (Rec: 03/27/24 12:04 NM [id number]) Therapeutic Exercises Sitting Exercises sit to stand Sitting Exercise Name for 5x STS Side bilateral Reps/Minutes 31 sec Comments demos knee valgus Standing Exercises hip extension Side bilateral Resistance 2# ankle weights Equipment Used B hand support on ballet bar Reps/Minutes 2x10 postural muscle strengthening Standing Exercise Name 1. low row, 2. lat pull down Side bilateral Resistance level 1 band Equipment Used staggered stance Reps/Minutes 2x10 ea Comments cued for form; for balance as well, close SBA monster walks Standing Exercise Name fwd and retro walk Side bilateral Resistance level 2 Equipment Used CGA Reps/Minutes 2x20 ft Comments cued wider RONAK side steps Side bilateral Resistance level 2 band around thighs Equipment Used B hand support for balance on ballet bar Reps/Minutes 2x20 ft Comments cued neutral foot alignment, step length; visual feedback in windows Neuro Re-Education Treatment Balance Activities stepping Details hip 3 way Equipment no hand support Reps/Duration 10 ea direction Comments CGA-close SBA Fatiguing. Cued for form, wider RONAK for stability. Stabilizing with stance leg, stepping outside RONAK hurdles Surface stable Equipment 6 hurdles Reps/Duration 2 sets Comments 2 feet between ea jillian, no hand support, close SBA. Cued for foot clearance, looking up to reduce visual input marching Surface stable Equipment 2# ankle weights Reps/Duration 10 ea, alternating Comments No hand support, close SBA. cued for upright posture, visual feedback PT-OP-T Assessment and Plan Start: 02/29/24 07:25 Freq: Status: Active Protocol: Document 03/27/24 11:19 NM (Rec: 03/27/24 12:04 NM [id number]) Physical Therapy Assessment Goals Six Impairment core stabilization, strength Impairment difficulty with stabilization Short Term Goal (STG) Pt will be educated on and demonstrate improved abdominal drawing up/in in order to demonstrate core bracing for functional activities and pain reduction 03/27/24: educated on core bracing. difficulty demonstrating and maintaining functionally STG Duration 6 weeks Jail Goal (LTG) Pt will be able to demonstrate core bracing during dynamic balance activities, gait, and demonstrate at least 1 grade improvement in trunk MMT score LTG Duration 12 weeks Five Impairment strength Impairment B knee flexion 3-/5 MMT Short Term Goal (STG) Pt will increase B knee flexion strength to at least 4 -/5 MMT in order to demonstrate improved strength for gait and transfers 03/27/24: 4-/5 bilaterally, pain free STG Duration 6 weeks MET Display Manager Goal (LTG) Pt will increase B knee flexion strength to at least 4 /5 MMT in order to demonstrate improved strength for gait and transfers LTG Duration 12 weeks Four Impairment strength Impairment B hip strength limited Short Term Goal (STG) Pt will increase B hip strength to at least 4/5 globally in order to demonstrate improved stability during gait, balance, and transfers, in addition to decreased fall risk 03/27/24: 4-/5 for hip flex/abd /ext STG Duration 6 weeks PROGRESSING Jail Goal (LTG) Pt will increase B hip strength to at least 4+/5 globally in order to demonstrate improved stability during gait, balance, and transfers, in addition to decreased fall risk LTG Duration 12 weeks Three Impairment strength Impairment 5x STS score 17 seconds Display Manager Goal (LTG) Pt will be able to perform 5x STS in 15 seconds or less in order to demonstrate improved BLE strength for transfers 03/27/24: 31 sec; cued for form over speed, still demos knee valgus LTG Duration 12 weeks Two Impairment balance Impairment Johnson 35/56 Short Term Goal (STG) Pt will increase Johnson balance score to at least 40/56 in order to demonstrate improved balance and safety during transfers and gait 03/27/24: 48/56 STG Duration 6 weeks Display Manager Goal (LTG) Pt will increase Johnson balance score to at least 48/56 in order to demonstrate improved balance and safety during transfers and gait 03/27/24: 48/56 LTG Duration 12 weeks MET, PROGRESSING One Impairment balance Impairment TUG 15 seconds, without AD Short Term Goal (STG) Pt will decrease TUG time to at least 13.5 seconds without AD in order to demonstrate decreased fall risk and improved balance 03/27/24: 9.8 sec but demos trunk instability and sway STG Duration 6 weeks MET Display Manager Goal (LTG) Pt will decrease TUG time to at least 10 seconds without AD in order to demonstrate decreased fall risk and improved balance, or if appropriate, pt will be educated on and prescribed LRAD for safety due to balance and increased fall risk LTG Duration 12 weeks Assessment Summary Assessment Pt tolerated session well, reports good feedback in correct muscle activation during exercise. Continued with hip strengthening, especially glutes. Pt fatigues easily, especially with RLE in stance. Continues to demonstrate less glute medius strength and trendelenburg compensation with stance activities. Initiated postural muscle strengthening along with glute strength to promote better trunk posture during gait and exercise as pt has tendency to lean forward. Initiated balance training. Cued for upright posture, foot clearance. Pt has strong reliance on visual input. Progressing toward goals Pt has been seen x6 visits since evaluation in February for hip/back pain. She is progressing slowly toward goals. Pt continues to be limited by poor activity tolerance and fatigues easily. Her hip and knee strength is better than at evaluation but still weak. She reports less overall hip and back pain with ADLs/IADLs since beginning PT . Pt's Johnson score no 48/56, an improvement since evaluation. Pt continues to demonstrate difficulty with transfers and antalgic gait, in addition to poor foot clearance. She would benefit from continued skilled PT for strengthening, gait, and balance training in order to reduce fall risk and improve activity tolerance/ pain management. Physical Therapy Plan Frequency and Duration Frequency of Treatment 1-2x/wk Duration of treatment (weeks) 12 Plan of Care Start Date 02/29/24 Plan of Care End Date 04/23/24 Therapeutic Interventions Therapeutic Interventions Balance Training,Coordination Training,Gait Training,Home Exercise Program,Joint Mobilizations,Manual Therapy, Neuromuscular Re-education, Orthotic/Prosthetic Management ,Patient/Caregiver Education, Self-Care/Home Management, Sensory Integration,Soft Tissue Mobilization,Taping, Therapeutic Activities, Therapeutic Exercises Modalities Cold Pack/Ice Massage,Electric Stimulation,Hot Packs, Ultrasound Next Visit Focus/Plan Next Note Type Treatment Note Next Visit Plan seated HSC, core bracing and postural strengthening, trial 4 step up/back, seated hip rotation, leg press low resistance, hip hinge and body mechanics training with core bracing POC per PT: Emphasis on low back and hips, balance Next session: sit to stand w/ band, clam and reverse clam, trial leg press at low resistance, counter bird dog, core brace, hip hinge, balance : march, hurdles, stance Manual: STM prn, hip mobs ( trial grade II vs III) no grade IV mobs POC: education regarding osteoporosis safety, body mechanics
--- NOTE | 2024-04-02 09:27 | PT-OP ANOTE ---
Pt did not show for today's appt, left message regarding, wanting assist progress with attendance and reminder of cancellation and NS policy. REminded next appt 04/04 at 9am.
--- NOTE | 2024-04-02 10:18 | PT.OTN ---
Current Diagnoses Other chronic pain (04/02/24) Low back pain, unspecified (04/02/24) Other lack of coordination (04/02/24) Weakness (04/02/24) Physical Therapy Treatment Note PT-OP-A Visit Information Start: 02/29/24 07:25 Freq: Status: Active Protocol: Document 04/02/24 09:35 SP (Rec: 04/02/24 10:27 SP [id number]) Out-Patient Physical Therapy Visit Information Visit Information Visit Type Treatment Note Visit Note KX after 19 visits Visit Start Time 09:35 Visit Stop Time 10:18 Visit Number 8 Number of BOSS DYER Visits 1 Evaluation Information Evaluation Date 02/29/24 Precautions Precautions osteoporosis, fall risk PT-OP-B Current Condition Start: 02/29/24 07:25 Freq: Status: Active Protocol: Document 02/29/24 08:16 NM (Rec: 02/29/24 09:04 NM [id number]) Current Condition History of Current Condition Current Complaints pain, balance, weakness History of Current Condition Pt presents with low back pain . She has numbness in her toes bilaterally that began 20 years ago, gradually worsening . She reports that she has pain in both shoulders (L>R), B hips (R>L). She has difficulty with lifting her R arm up, began at least 10 years. Pt reports that she falls frequently, at leat 1x/ month. She most recently feel 3 days ago. She states that she doesn't pick her feet up. She has used a cane previously , but doesn't use it because it's more tourble than it's worth. She also has lower back pain, along the hip bones. She has PMH of fibromyalgia, dx 15 years ago. She also have osteoporosis, dx about 1 year ago. She is currently on fomax; she is not on calcium or vitamin D. She states no fractures throughout lifetime. She reports that her L ankle is swollen, worse with PF (2-3 months). She reports that her back originally started to hurt many years ago when she fell off horse. Prior Treatments and Tests She has previous PT for shoulders and neck at [facility], which was helpful No recent lumbar imaging R hip radiograph 05/2023: bony degeneration without fracture Current Functional Impairments (Reported) Functional Limitations- ADL's vacuuming Functional Limitations- Mobility/Gait difficulty w/ transitioning from sit<>stand, household distances w/o AD Functional Limitations- Recreation/ gardening Hobbies Functional Limitations- Other lives with , 1 story, several throw rugs PT-OP-C Subjective Start: 02/29/24 07:25 Freq: Status: Active Protocol: Document 04/02/24 09:35 SP (Rec: 04/02/24 10:27 SP [id number]) OP-PT Subjective Patient Comments Patient Comments Pt was 35 min late for appt ( [place] [address]), BOSS DYER had opening for pt to still be seen. She reports felt good after last tx. Although [place] and back muscles tighened up her. She reports her daughter and help remind her of her postural corrections. PT-OP-D Balance Start: 02/29/24 07:25 Freq: Status: Active Protocol: Document 02/29/24 08:16 NM (Rec: 02/29/24 09:04 NM [id number]) Balance Tests Johnson Balance Test Johnson Balance Test Score 35/56 PT-OP-E Functional Tests Start: 02/29/24 07:25 Freq: Status: Active Protocol: Document 02/29/24 08:16 NM (Rec: 02/29/24 09:04 NM [id number]) Functional Tests Five Times Sit to Stand Test Score 17 sec Comments low back pain, R hip; use hands on thighs, 20 plinth Timed Up and Go (TUG) Score 15 sec Comments no AD, slow turns PT-OP-F Manual Assessment Start: 02/29/24 07:25 Freq: Status: Active Protocol: Document 02/29/24 08:16 NM (Rec: 02/29/24 09:04 NM [id number]) Manual Assessments Soft Tissue Assessment Soft Tissue Mobility Assessment Increased hamstring length. Tight parapsinals, hip flexors , glute/piriformis Joint Mobility Assessment Joint Mobility Assessment Overall hypomobility of thoracolumbar spine. Bilateral AROM and PROM of hips, R>L. Weakness and decreased mobility of B shoulders (R>L) PT-OP-G Mobility & Gait Start: 02/29/24 07:25 Freq: Status: Active Protocol: Document 02/29/24 08:16 NM (Rec: 02/29/24 09:04 NM [id number]) OP Gait Assessment Gait Gait Assistance Required: Standby Assistance Distance (Feet) 150 Comments Gait Comments atnalgis Stair Climbing Evaluation Evaluation Level of Assist On Stairs Contact Guard Assistance Devices Stair Climbing Assistive Devices Left Railing,Right Railing Technique/Endurance Stair Climbing Direction Ascend and Descend Stair Climbing Technique Step to Step Number of Steps Climbed 4 Stair Climbing Set # Repetitions (reps) 1 Comments Stair Climbing Comments Non-reciprocal stepping, antalgic R side. B hand rail assist, near LOB PT-OP-H Neuro Start: 02/29/24 07:25 Freq: Status: Active Protocol: Document 02/29/24 08:16 NM (Rec: 02/29/24 09:04 MT [id number]) Sensation Evaluation Comments Summary Comments BUE equally intact to light touch sensation; BLE equally intact above knee, decreased BLE below knee (L worse than R ) PT-OP-J Posture/Palpation/Skin Start: 02/29/24 07:25 Freq: Status: Active Protocol: Document 02/29/24 08:16 NM (Rec: 02/29/24 09:04 MT [id number]) Posture Evaluation Position Standing Head/C-Spine Posture Forward Head T-Spine Posture Increased Kyphosis L-Spine Posture Increased Lordosis Pelvis Posture Anteriorly Tilted Weight Distribution Weight Shifted Left Hip Posture (L) Externally Rotated,(R) Externally Rotated Knee Posture (L) Genu Valgus,(R) Genu Valgus Ankle/Foot Posture (L) Pronated,(R) Pronated Comments Posture Comments Forward flexed posture Palpation Assessment Location hip Palpation Details R hip tenderness along greater trochanter, small anterior groin tenderness Tightness along hip flexors, glute/piriformis back Palpation Details Tightness along thoracolumbar paraspinals Tenderness with palpation of R SI joint, B PSIS (R>L) and lower lumbar spinous processes PT-OP-K Range of Motion Start: 02/29/24 07:25 Freq: Status: Active Protocol: Document 02/29/24 08:16 NM (Rec: 02/29/24 09:04 MT [id number]) Lumbar Spine Range of Motion Lumbar Spine Active Percentage Flexion 90 Extension 25 Lateral Flexion Left 100 Lateral Flexion Right 100 ROM Limitations Pain Comments R back and hip pain with active lateral flexion Hip Goniometric Range of Motion Hip Right Flexion w/Knee Flexed 90 Abduction 15 Comments Visible limitations with IR and ER, IR most restricted and painful especially with hip flexion Left Flexion w/Knee Flexed 90 Abduction 20 Comments Visible limitations with IR and ER Ankle and Foot Goniometric Range of Motion Ankle and Foot Right Dorsiflexion with Knee Flexed 5 Plantarflexion 30 Left Dorsiflexion with Knee Flexed 5 Dorsiflexion with Knee Extended 20 Comments achilles pain PT-OP-L Special Tests Start: 02/29/24 07:25 Freq: Status: Active Protocol: Document 02/29/24 08:16 NM (Rec: 02/29/24 09:04 NM [id number]) Special Tests Lumbar Spine Special Tests Slump Test Results - Anderson/Quadrant Test Results + Distraction Test Results + PT-OP-M Strength Start: 02/29/24 07:25 Freq: Status: Active Protocol: Document 03/27/24 11:19 NM (Rec: 03/27/24 12:04 NM [id number]) Hip Strength Hip Manual Muscle Testing Right Flexion (L2) 3+ Fair+ Extension (S1) 4- Good- Abduction 4- Good- Adduction 4- Good- External Rotation 4 Good Internal Rotation 4- Good- Comments 03/27/24: 4-/5 for hip flex/abd /ext Left Flexion (L2) 4- Good- Extension (S1) 4- Good- Abduction 4- Good- Adduction 4- Good- External Rotation 4- Good- Internal Rotation 4- Good- Comments 03/27/24: 4-/5 for hip flex/abd /ext Knee Strength Knee Manual Muscle Testing Right Flexion (S2) 3- Fair- Extension (L3) 4- Good- Comments 03/27/24: 4-/5 for knee flexion Left Flexion (S2) 3- Fair- Extension (L3) 4- Good- Comments 03/27/24: 4-/5 for knee flexion PT-OP-Q Treatments Start: 02/29/24 07:25 Freq: Status: Active Protocol: Document 04/02/24 09:35 SP (Rec: 04/02/24 10:27 SP [id number]) Therapeutic Exercises Sitting Exercises sit to stand Sitting Exercise Name for 5x STS Side bilateral Equipment Used arms across chest Reps/Minutes 15sec Comments cued x1 maintain knees apart asc/desc- able maintain Standing Exercises hip extension Side bilateral Resistance 2# ankle weights Equipment Used light 2 hand on rail Reps/Minutes 2x10 Comments cued tall, TA draw in. postural muscle strengthening Standing Exercise Name 1. low row, 2. lat pull down Side bilateral Resistance level 1 band Reps/Minutes 2x10 ea Comments cued for tall posturing ecc return, self WBOS/stagger correction bal. monster walks Standing Exercise Name fwd and retro walk Side bilateral Resistance level 2 at shins Equipment Used 1 hand on rail glide Reps/Minutes 2x20 ft Comments cued tall, TA draw in, trail LE clearance side steps Side bilateral Resistance level 2 band around shins Equipment Used 1 hand on rail glide Reps/Minutes 2x20 ft Comments cued neutral foot alignment, step length; visual feedback in windows Neuro Re-Education Treatment Balance Activities step ups Equipment 8 step, near rail Reps/Duration 10 reps each LE Comments cued wt shift over advanced LE , eccentric control back down. stepping Details hip 3 way Equipment no hand support (near rail PRN safety) Reps/Duration 10 ea direction Comments SBA Fatiguing. Cued for taller form, SLS opp LE kicking rhiannon range safe stability- improve stab with reps. hurdles Details fwd and lateral Surface stable Equipment 6 hurdles Reps/Duration 2 sets Comments 2 then 3 feet between ea jillian, no hand support, close SBA. Cued for KTC foot clearance (eliminated circumduction), looking up to reduce visual input PT-OP-T Assessment and Plan Start: 02/29/24 07:25 Freq: Status: Active Protocol: Document 04/02/24 09:35 SP (Rec: 04/02/24 10:27 SP [id number]) Physical Therapy Assessment Goals Six Impairment core stabilization, strength Impairment difficulty with stabilization Short Term Goal (STG) Pt will be educated on and demonstrate improved abdominal drawing up/in in order to demonstrate core bracing for functional activities and pain reduction 03/27/24: educated on core bracing. difficulty demonstrating and maintaining functionally STG Duration 6 weeks Custodial Goal (LTG) Pt will be able to demonstrate core bracing during dynamic balance activities, gait, and demonstrate at least 1 grade improvement in trunk MMT score LTG Duration 12 weeks Five Impairment strength Impairment B knee flexion 3-/5 MMT Short Term Goal (STG) Pt will increase B knee flexion strength to at least 4 -/5 MMT in order to demonstrate improved strength for gait and transfers 03/27/24: 4-/5 bilaterally, pain free STG Duration 6 weeks MET Custodial Goal (LTG) Pt will increase B knee flexion strength to at least 4 /5 MMT in order to demonstrate improved strength for gait and transfers LTG Duration 12 weeks Four Impairment strength Impairment B hip strength limited Short Term Goal (STG) Pt will increase B hip strength to at least 4/5 globally in order to demonstrate improved stability during gait, balance, and transfers, in addition to decreased fall risk 03/27/24: 4-/5 for hip flex/abd /ext STG Duration 6 weeks PROGRESSING Custodial Goal (LTG) Pt will increase B hip strength to at least 4+/5 globally in order to demonstrate improved stability during gait, balance, and transfers, in addition to decreased fall risk LTG Duration 12 weeks Three Impairment strength Impairment 5x STS score 17 seconds Custodial Goal (LTG) Pt will be able to perform 5x STS in 15 seconds or less in order to demonstrate improved BLE strength for transfers 03/27/24: 31 sec; cued for form over speed, still demos knee valgus LTG Duration 12 weeks Two Impairment balance Impairment Johnson 35/56 Short Term Goal (STG) Pt will increase Johnson balance score to at least 40/56 in order to demonstrate improved balance and safety during transfers and gait 03/27/24: 48/56 STG Duration 6 weeks Custodial Goal (LTG) Pt will increase Johnson balance score to at least 48/56 in order to demonstrate improved balance and safety during transfers and gait 03/27/24: 48/56 LTG Duration 12 weeks MET, PROGRESSING One Impairment balance Impairment TUG 15 seconds, without AD Short Term Goal (STG) Pt will decrease TUG time to at least 13.5 seconds without AD in order to demonstrate decreased fall risk and improved balance 03/27/24: 9.8 sec but demos trunk instability and sway STG Duration 6 weeks MET Tip Banding Machine Operator Goal (LTG) Pt will decrease TUG time to at least 10 seconds without AD in order to demonstrate decreased fall risk and improved balance, or if appropriate, pt will be educated on and prescribed LRAD for safety due to balance and increased fall risk LTG Duration 12 weeks Assessment Summary Assessment Pt good effort with resisted exercises but required cues for maintain elongated posture , improved stabiltiy during stepping balance activities, able to asc/back desc 8 steps with rep progression and cues initially for repeated patterning. Pt reports she feels more loosened up end tx. Physical Therapy Plan Frequency and Duration Frequency of Treatment 1-2x/wk Duration of treatment (weeks) 12 Plan of Care Start Date 02/29/24 Plan of Care End Date 04/23/24 Therapeutic Interventions Therapeutic Interventions Balance Training,Coordination Training,Gait Training,Home Exercise Program,Joint Mobilizations,Manual Therapy, Neuromuscular Re-education, Orthotic/Prosthetic Management ,Patient/Caregiver Education, Self-Care/Home Management, Sensory Integration,Soft Tissue Mobilization,Taping, Therapeutic Activities, Therapeutic Exercises Modalities Cold Pack/Ice Massage,Electric Stimulation,Hot Packs, Ultrasound Next Visit Focus/Plan Next Note Type Treatment Note Next Visit Plan Next add: seated HSC, core bracing and postural strengthening (wall posture resisted shld ER), seated hip rotation, leg press low resistance, hip hinge and body mechanics training with core bracing POC per PT: Emphasis on low back and hips, balance Next session: sit to stand w/ band, clam and reverse clam, trial leg press at low resistance, counter bird dog, core brace, hip hinge, balance : march, hurdles, stance Manual: STM prn, hip mobs ( trial grade II vs III) no grade IV mobs POC: education regarding osteoporosis safety, body mechanics
--- NOTE | 2024-04-04 09:48 | PT.OTN ---
Current Diagnoses Other chronic pain (04/04/24) Low back pain, unspecified (04/04/24) Other lack of coordination (04/04/24) Weakness (04/04/24) Physical Therapy Treatment Note PT-OP-A Visit Information Start: 02/29/24 07:25 Freq: Status: Active Protocol: Document 04/04/24 09:03 NM (Rec: 04/04/24 09:48 NM [id number]) Out-Patient Physical Therapy Visit Information Visit Information Visit Type Treatment Note Visit Note KX after 19 visits Visit Start Time 09:03 Visit Stop Time 09:43 Visit Number 9 Evaluation Information Evaluation Date 02/29/24 Precautions Precautions osteoporosis, fall risk PT-OP-B Current Condition Start: 02/29/24 07:25 Freq: Status: Active Protocol: Document 02/29/24 08:16 NM (Rec: 02/29/24 09:04 NM [id number]) Current Condition History of Current Condition Current Complaints pain, balance, weakness History of Current Condition Pt presents with low back pain . She has numbness in her toes bilaterally that began 20 years ago, gradually worsening . She reports that she has pain in both shoulders (L>R), B hips (R>L). She has difficulty with lifting her R arm up, began at least 10 years. Pt reports that she falls frequently, at leat 1x/ month. She most recently feel 3 days ago. She states that she doesn't pick her feet up. She has used a cane previously , but doesn't use it because it's more tourble than it's worth. She also has lower back pain, along the hip bones. She has PMH of fibromyalgia, dx 15 years ago. She also have osteoporosis, dx about 1 year ago. She is currently on fomax; she is not on calcium or vitamin D. She states no fractures throughout lifetime. She reports that her L ankle is swollen, worse with PF (2-3 months). She reports that her back originally started to hurt many years ago when she fell off horse. Prior Treatments and Tests She has previous PT for shoulders and neck at [facility], which was helpful No recent lumbar imaging R hip radiograph 05/2023: bony degeneration without fracture Current Functional Impairments (Reported) Functional Limitations- ADL's vacuuming Functional Limitations- Mobility/Gait difficulty w/ transitioning from sit<>stand, household distances w/o AD Functional Limitations- Recreation/ gardening Hobbies Functional Limitations- Other lives with , 1 story, several throw rugs PT-OP-C Subjective Start: 02/29/24 07:25 Freq: Status: Active Protocol: Document 04/04/24 09:03 NM (Rec: 04/04/24 09:48 NM [id number]) OP-PT Subjective Patient Comments Patient Comments Pt reports that she is having no hip pain (states 1.5/10), reports doing much better. Only has discomfort if sitting for extended periods of time PT-OP-D Balance Start: 02/29/24 07:25 Freq: Status: Active Protocol: Document 02/29/24 08:16 NM (Rec: 02/29/24 09:04 NM [id number]) Balance Tests Johnson Balance Test Johnson Balance Test Score 35/56 PT-OP-E Functional Tests Start: 02/29/24 07:25 Freq: Status: Active Protocol: Document 02/29/24 08:16 NM (Rec: 02/29/24 09:04 NM [id number]) Functional Tests Five Times Sit to Stand Test Score 17 sec Comments low back pain, R hip; use hands on thighs, 20 plinth Timed Up and Go (TUG) Score 15 sec Comments no AD, slow turns PT-OP-F Manual Assessment Start: 02/29/24 07:25 Freq: Status: Active Protocol: Document 02/29/24 08:16 NM (Rec: 02/29/24 09:04 NM [id number]) Manual Assessments Soft Tissue Assessment Soft Tissue Mobility Assessment Increased hamstring length. Tight parapsinals, hip flexors , glute/piriformis Joint Mobility Assessment Joint Mobility Assessment Overall hypomobility of thoracolumbar spine. Bilateral AROM and PROM of hips, R>L. Weakness and decreased mobility of B shoulders (R>L) PT-OP-G Mobility & Gait Start: 02/29/24 07:25 Freq: Status: Active Protocol: Document 02/29/24 08:16 NM (Rec: 02/29/24 09:04 NM [id number]) OP Gait Assessment Gait Gait Assistance Required: Standby Assistance Distance (Feet) 150 Comments Gait Comments atnalgis Stair Climbing Evaluation Evaluation Level of Assist On Stairs Contact Guard Assistance Devices Stair Climbing Assistive Devices Left Railing,Right Railing Technique/Endurance Stair Climbing Direction Ascend and Descend Stair Climbing Technique Step to Step Number of Steps Climbed 4 Stair Climbing Set # Repetitions (reps) 1 Comments Stair Climbing Comments Non-reciprocal stepping, antalgic R side. B hand rail assist, near LOB PT-OP-H Neuro Start: 02/29/24 07:25 Freq: Status: Active Protocol: Document 02/29/24 08:16 NM (Rec: 02/29/24 09:04 NM [id number]) Sensation Evaluation Comments Summary Comments BUE equally intact to light touch sensation; BLE equally intact above knee, decreased BLE below knee (L worse than R ) PT-OP-J Posture/Palpation/Skin Start: 02/29/24 07:25 Freq: Status: Active Protocol: Document 02/29/24 08:16 NM (Rec: 02/29/24 09:04 NM [id number]) Posture Evaluation Position Standing Head/C-Spine Posture Forward Head T-Spine Posture Increased Kyphosis L-Spine Posture Increased Lordosis Pelvis Posture Anteriorly Tilted Weight Distribution Weight Shifted Left Hip Posture (L) Externally Rotated,(R) Externally Rotated Knee Posture (L) Genu Valgus,(R) Genu Valgus Ankle/Foot Posture (L) Pronated,(R) Pronated Comments Posture Comments Forward flexed posture Palpation Assessment Location hip Palpation Details R hip tenderness along greater trochanter, small anterior groin tenderness Tightness along hip flexors, glute/piriformis back Palpation Details Tightness along thoracolumbar paraspinals Tenderness with palpation of R SI joint, B PSIS (R>L) and lower lumbar spinous processes PT-OP-K Range of Motion Start: 02/29/24 07:25 Freq: Status: Active Protocol: Document 02/29/24 08:16 NM (Rec: 02/29/24 09:04 NM [id number]) Lumbar Spine Range of Motion Lumbar Spine Active Percentage Flexion 90 Extension 25 Lateral Flexion Left 100 Lateral Flexion Right 100 ROM Limitations Pain Comments R back and hip pain with active lateral flexion Hip Goniometric Range of Motion Hip Right Flexion w/Knee Flexed 90 Abduction 15 Comments Visible limitations with IR and ER, IR most restricted and painful especially with hip flexion Left Flexion w/Knee Flexed 90 Abduction 20 Comments Visible limitations with IR and ER Ankle and Foot Goniometric Range of Motion Ankle and Foot Right Dorsiflexion with Knee Flexed 5 Plantarflexion 30 Left Dorsiflexion with Knee Flexed 5 Dorsiflexion with Knee Extended 20 Comments achilles pain PT-OP-L Special Tests Start: 02/29/24 07:25 Freq: Status: Active Protocol: Document 02/29/24 08:16 NM (Rec: 02/29/24 09:04 NM [id number]) Special Tests Lumbar Spine Special Tests Slump Test Results - Anderson/Quadrant Test Results + Distraction Test Results + PT-OP-M Strength Start: 02/29/24 07:25 Freq: Status: Active Protocol: Document 03/27/24 11:19 NM (Rec: 03/27/24 12:04 NM [id number]) Hip Strength Hip Manual Muscle Testing Right Flexion (L2) 3+ Fair+ Extension (S1) 4- Good- Abduction 4- Good- Adduction 4- Good- External Rotation 4 Good Internal Rotation 4- Good- Comments 03/27/24: 4-/5 for hip flex/abd /ext Left Flexion (L2) 4- Good- Extension (S1) 4- Good- Abduction 4- Good- Adduction 4- Good- External Rotation 4- Good- Internal Rotation 4- Good- Comments 03/27/24: 4-/5 for hip flex/abd /ext Knee Strength Knee Manual Muscle Testing Right Flexion (S2) 3- Fair- Extension (L3) 4- Good- Comments 03/27/24: 4-/5 for knee flexion Left Flexion (S2) 3- Fair- Extension (L3) 4- Good- Comments 03/27/24: 4-/5 for knee flexion PT-OP-Q Treatments Start: 02/29/24 07:25 Freq: Status: Active Protocol: Document 04/04/24 09:03 NM (Rec: 04/04/24 09:48 NM [id number]) Therapeutic Exercises Sitting Exercises HSC Side bilateral Resistance level 1 resistance > level 2 band Reps/Minutes 2x10 Comments cued maintain upright trunk; improved with reps LAQ Side bilateral Resistance AROM > level 1 band around ankles Reps/Minutes 2x10 with 3 hold Comments cued for form, minimize trunk ext Standing Exercises pallof Standing Exercise Name walkouts Side bilateral Resistance level 1 band (1 only) Reps/Minutes 10 ea Comments cued for correct form, alignment, L harder than R postural muscle strengthening Standing Exercise Name low row Side bilateral Resistance level 1 band Equipment Used staggered stance Reps/Minutes 10 ea leg Comments improved posture calf stretch Standing Exercise Name gastroc stretch Side bilateral Equipment Used staggered stance Reps/Minutes 1x60 Neuro Re-Education Treatment Balance Activities ball toss Details for reactive balance Surface stable Equipment trampoline, blue tunisian ball Reps/Duration 10 ea Comments 1. forward toss with feet shoulder width apart 2. staggered stance toss ea LE in front Cued for RONAK. Corrects 1 stumble without assist step ups Equipment near rail Reps/Duration 10 reps each LE Comments 1. fwd step up on 8 step cued wt shift over advanced LE , eccentric control back down. 2. lateral step up 4 step cued neutral foot/hip alignment with stepping, eccentric control with lowering, wider RONAK Self-Care/Home Management Treatment Education Patient Education Home Exercise Program Other Education HEP: [facility] and [facility] [place] PT-OP-T Assessment and Plan Start: 02/29/24 07:25 Freq: Status: Active Protocol: Document 04/04/24 09:03 NM (Rec: 04/04/24 09:48 NM [id number]) Physical Therapy Assessment Goals Six Impairment core stabilization, strength Impairment difficulty with stabilization Short Term Goal (STG) Pt will be educated on and demonstrate improved abdominal drawing up/in in order to demonstrate core bracing for functional activities and pain reduction 03/27/24: educated on core bracing. difficulty demonstrating and maintaining functionally STG Duration 6 weeks Custodial Goal (LTG) Pt will be able to demonstrate core bracing during dynamic balance activities, gait, and demonstrate at least 1 grade improvement in trunk MMT score LTG Duration 12 weeks Five Impairment strength Impairment B knee flexion 3-/5 MMT Short Term Goal (STG) Pt will increase B knee flexion strength to at least 4 -/5 MMT in order to demonstrate improved strength for gait and transfers 03/27/24: 4-/5 bilaterally, pain free STG Duration 6 weeks MET Custodial Goal (LTG) Pt will increase B knee flexion strength to at least 4 /5 MMT in order to demonstrate improved strength for gait and transfers LTG Duration 12 weeks Four Impairment strength Impairment B hip strength limited Short Term Goal (STG) Pt will increase B hip strength to at least 4/5 globally in order to demonstrate improved stability during gait, balance, and transfers, in addition to decreased fall risk 03/27/24: 4-/5 for hip flex/abd /ext STG Duration 6 weeks PROGRESSING Custodial Goal (LTG) Pt will increase B hip strength to at least 4+/5 globally in order to demonstrate improved stability during gait, balance, and transfers, in addition to decreased fall risk LTG Duration 12 weeks Three Impairment strength Impairment 5x STS score 17 seconds Custodial Goal (LTG) Pt will be able to perform 5x STS in 15 seconds or less in order to demonstrate improved BLE strength for transfers 03/27/24: 31 sec; cued for form over speed, still demos knee valgus LTG Duration 12 weeks Two Impairment balance Impairment Johnson 35/56 Short Term Goal (STG) Pt will increase Johnson balance score to at least 40/56 in order to demonstrate improved balance and safety during transfers and gait 03/27/24: 48/56 STG Duration 6 weeks Custodial Goal (LTG) Pt will increase Johnson balance score to at least 48/56 in order to demonstrate improved balance and safety during transfers and gait 03/27/24: 48/56 LTG Duration 12 weeks MET, PROGRESSING One Impairment balance Impairment TUG 15 seconds, without AD Short Term Goal (STG) Pt will decrease TUG time to at least 13.5 seconds without AD in order to demonstrate decreased fall risk and improved balance 03/27/24: 9.8 sec but demos trunk instability and sway STG Duration 6 weeks MET Payroll Clerk Goal (LTG) Pt will decrease TUG time to at least 10 seconds without AD in order to demonstrate decreased fall risk and improved balance, or if appropriate, pt will be educated on and prescribed LRAD for safety due to balance and increased fall risk LTG Duration 12 weeks Assessment Summary Assessment Pt has improved tolerance to therapeutic exercise, particularly for BLE strengthening. Initiated LAQ and seated HSC. Pt cued for form, added to HEP. Continued with postural/core and glute strengthening. Pt challenged with pallof anti-rotation walkout. Cued extensively for form, maintain trunk and hips neutral. Pt's L side weaker than R side, so more challenging with trunk and leg exercises. Continued with balance and neuromuscular contorl training to decrease fall risk. Pt attempts to compensate with sagittal plane motions during frontal plane activities, even with cuing. Close SBA for all activities, demonstrates good reactive balance response during ball toss to prevent LOB. Pt would benefit from skilled PT for global trunk and BLE strengthening for balance training to reduce fall risk and improve activity tolerance . Physical Therapy Plan Frequency and Duration Frequency of Treatment 1-2x/wk Duration of treatment (weeks) 12 Plan of Care Start Date 02/29/24 Plan of Care End Date 04/23/24 Therapeutic Interventions Therapeutic Interventions Balance Training,Coordination Training,Gait Training,Home Exercise Program,Joint Mobilizations,Manual Therapy, Neuromuscular Re-education, Orthotic/Prosthetic Management ,Patient/Caregiver Education, Self-Care/Home Management, Sensory Integration,Soft Tissue Mobilization,Taping, Therapeutic Activities, Therapeutic Exercises Modalities Cold Pack/Ice Massage,Electric Stimulation,Hot Packs, Ultrasound Next Visit Focus/Plan Next Note Type Treatment Note Next Visit Plan Review: LAQ, HSC. Progress glute strengthening and begin balance work too, pallof and leg press leg press low resistance, hip hinge and body mechanics training with core bracing POC per PT: Emphasis on low back and hips, balance Next session: sit to stand w/ band, clam and reverse clam, trial leg press at low resistance, counter bird dog, core brace, hip hinge, balance : march, hurdles, stance Manual: STM prn, hip mobs ( trial grade II vs III) no grade IV mobs POC: education regarding osteoporosis safety, body mechanics
--- NOTE | 2024-04-10 09:57 | PT.OTN ---
Current Diagnoses Other chronic pain (04/10/24) Low back pain, unspecified (04/10/24) Other lack of coordination (04/10/24) Weakness (04/10/24) Physical Therapy Treatment Note PT-OP-A Visit Information Start: 02/29/24 07:25 Freq: Status: Active Protocol: Document 04/10/24 09:05 NM (Rec: 04/10/24 09:56 NM [id number]) Out-Patient Physical Therapy Visit Information Visit Information Visit Type Treatment Note Visit Note KX after 19 visits Visit Start Time 09:05 Visit Stop Time 09:45 Visit Number 10 Evaluation Information Evaluation Date 02/29/24 Precautions Precautions osteoporosis, fall risk PT-OP-B Current Condition Start: 02/29/24 07:25 Freq: Status: Active Protocol: Document 02/29/24 08:16 NM (Rec: 02/29/24 09:04 NM [id number]) Current Condition History of Current Condition Current Complaints pain, balance, weakness History of Current Condition Pt presents with low back pain . She has numbness in her toes bilaterally that began 20 years ago, gradually worsening . She reports that she has pain in both shoulders (L>R), B hips (R>L). She has difficulty with lifting her R arm up, began at least 10 years. Pt reports that she falls frequently, at leat 1x/ month. She most recently feel 3 days ago. She states that she doesn't pick her feet up. She has used a cane previously , but doesn't use it because it's more tourble than it's worth. She also has lower back pain, along the hip bones. She has PMH of fibromyalgia, dx 15 years ago. She also have osteoporosis, dx about 1 year ago. She is currently on fomax; she is not on calcium or vitamin D. She states no fractures throughout lifetime. She reports that her L ankle is swollen, worse with PF (2-3 months). She reports that her back originally started to hurt many years ago when she fell off horse. Prior Treatments and Tests She has previous PT for shoulders and neck at [facility], which was helpful No recent lumbar imaging R hip radiograph 05/2023: bony degeneration without fracture Current Functional Impairments (Reported) Functional Limitations- ADL's vacuuming Functional Limitations- Mobility/Gait difficulty w/ transitioning from sit<>stand, household distances w/o AD Functional Limitations- Recreation/ gardening Hobbies Functional Limitations- Other lives with , 1 story, several throw rugs PT-OP-C Subjective Start: 02/29/24 07:25 Freq: Status: Active Protocol: Document 04/10/24 09:05 NM (Rec: 04/10/24 09:56 NM [id number]) OP-PT Subjective Patient Comments Patient Comments Pt reports that she is having no pain usually unless she sits in her recliner, which causes her to have pain for 1/ 2 hour. Better when not position. Overall, reports 0 pain overall. States more like ITB discomfort PT-OP-D Balance Start: 02/29/24 07:25 Freq: Status: Active Protocol: Document 02/29/24 08:16 NM (Rec: 02/29/24 09:04 NM [id number]) Balance Tests Johnson Balance Test Johnson Balance Test Score 35/56 PT-OP-E Functional Tests Start: 02/29/24 07:25 Freq: Status: Active Protocol: Document 02/29/24 08:16 NM (Rec: 02/29/24 09:04 NM [id number]) Functional Tests Five Times Sit to Stand Test Score 17 sec Comments low back pain, R hip; use hands on thighs, 20 plinth Timed Up and Go (TUG) Score 15 sec Comments no AD, slow turns PT-OP-F Manual Assessment Start: 02/29/24 07:25 Freq: Status: Active Protocol: Document 02/29/24 08:16 NM (Rec: 02/29/24 09:04 NM [id number]) Manual Assessments Soft Tissue Assessment Soft Tissue Mobility Assessment Increased hamstring length. Tight parapsinals, hip flexors , glute/piriformis Joint Mobility Assessment Joint Mobility Assessment Overall hypomobility of thoracolumbar spine. Bilateral AROM and PROM of hips, R>L. Weakness and decreased mobility of B shoulders (R>L) PT-OP-G Mobility & Gait Start: 02/29/24 07:25 Freq: Status: Active Protocol: Document 02/29/24 08:16 NM (Rec: 02/29/24 09:04 NM [id number]) OP Gait Assessment Gait Gait Assistance Required: Standby Assistance Distance (Feet) 150 Comments Gait Comments atnalgis Stair Climbing Evaluation Evaluation Level of Assist On Stairs Contact Guard Assistance Devices Stair Climbing Assistive Devices Left Railing,Right Railing Technique/Endurance Stair Climbing Direction Ascend and Descend Stair Climbing Technique Step to Step Number of Steps Climbed 4 Stair Climbing Set # Repetitions (reps) 1 Comments Stair Climbing Comments Non-reciprocal stepping, antalgic R side. B hand rail assist, near LOB PT-OP-H Neuro Start: 02/29/24 07:25 Freq: Status: Active Protocol: Document 02/29/24 08:16 NM (Rec: 02/29/24 09:04 NM [id number]) Sensation Evaluation Comments Summary Comments BUE equally intact to light touch sensation; BLE equally intact above knee, decreased BLE below knee (L worse than R ) PT-OP-J Posture/Palpation/Skin Start: 02/29/24 07:25 Freq: Status: Active Protocol: Document 02/29/24 08:16 NM (Rec: 02/29/24 09:04 NM [id number]) Posture Evaluation Position Standing Head/C-Spine Posture Forward Head T-Spine Posture Increased Kyphosis L-Spine Posture Increased Lordosis Pelvis Posture Anteriorly Tilted Weight Distribution Weight Shifted Left Hip Posture (L) Externally Rotated,(R) Externally Rotated Knee Posture (L) Genu Valgus,(R) Genu Valgus Ankle/Foot Posture (L) Pronated,(R) Pronated Comments Posture Comments Forward flexed posture Palpation Assessment Location hip Palpation Details R hip tenderness along greater trochanter, small anterior groin tenderness Tightness along hip flexors, glute/piriformis back Palpation Details Tightness along thoracolumbar paraspinals Tenderness with palpation of R SI joint, B PSIS (R>L) and lower lumbar spinous processes PT-OP-K Range of Motion Start: 02/29/24 07:25 Freq: Status: Active Protocol: Document 02/29/24 08:16 NM (Rec: 02/29/24 09:04 NM [id number]) Lumbar Spine Range of Motion Lumbar Spine Active Percentage Flexion 90 Extension 25 Lateral Flexion Left 100 Lateral Flexion Right 100 ROM Limitations Pain Comments R back and hip pain with active lateral flexion Hip Goniometric Range of Motion Hip Right Flexion w/Knee Flexed 90 Abduction 15 Comments Visible limitations with IR and ER, IR most restricted and painful especially with hip flexion Left Flexion w/Knee Flexed 90 Abduction 20 Comments Visible limitations with IR and ER Ankle and Foot Goniometric Range of Motion Ankle and Foot Right Dorsiflexion with Knee Flexed 5 Plantarflexion 30 Left Dorsiflexion with Knee Flexed 5 Dorsiflexion with Knee Extended 20 Comments achilles pain PT-OP-L Special Tests Start: 02/29/24 07:25 Freq: Status: Active Protocol: Document 02/29/24 08:16 NM (Rec: 02/29/24 09:04 NM [id number]) Special Tests Lumbar Spine Special Tests Slump Test Results - Anderson/Quadrant Test Results + Distraction Test Results + PT-OP-M Strength Start: 02/29/24 07:25 Freq: Status: Active Protocol: Document 03/27/24 11:19 NM (Rec: 03/27/24 12:04 NM [id number]) Hip Strength Hip Manual Muscle Testing Right Flexion (L2) 3+ Fair+ Extension (S1) 4- Good- Abduction 4- Good- Adduction 4- Good- External Rotation 4 Good Internal Rotation 4- Good- Comments 03/27/24: 4-/5 for hip flex/abd /ext Left Flexion (L2) 4- Good- Extension (S1) 4- Good- Abduction 4- Good- Adduction 4- Good- External Rotation 4- Good- Internal Rotation 4- Good- Comments 03/27/24: 4-/5 for hip flex/abd /ext Knee Strength Knee Manual Muscle Testing Right Flexion (S2) 3- Fair- Extension (L3) 4- Good- Comments 03/27/24: 4-/5 for knee flexion Left Flexion (S2) 3- Fair- Extension (L3) 4- Good- Comments 03/27/24: 4-/5 for knee flexion PT-OP-Q Treatments Start: 02/29/24 07:25 Freq: Status: Active Protocol: Document 04/10/24 09:05 NM (Rec: 04/10/24 09:56 NM [id number]) Gym Equipment Shuttle Recovery squat Details B squat, level 1 band around thighs for valgus Resistance 50# (2 navy) Reps/Time 2x10 Therapeutic Exercises Supine Exercises straight leg raise Supine Exercise Name with hip IR for TFL Side bilateral Resistance AROM Reps/Minutes 10 Comments pain free but hard, tiring HS stretch /c AP Supine Exercise Name HS stretch Side bilateral Equipment Used with strap Reps/Minutes 20 with 3 sec hold Comments HS tension reduction, feels good Sitting Exercises HSC Side bilateral Resistance level 2 band Reps/Minutes 2x10 Comments cued maintain upright trunk; improved with reps LAQ Side bilateral Resistance level 1 band at ankles Reps/Minutes 2x10 with 3 hold Comments HEP review; pillow behind back for alignment, less trunk compensation Standing Exercises heel raise Side bilateral Equipment Used at wall for balance Reps/Minutes 3x10 Comments cued closer to wall for form pallof Standing Exercise Name walkouts Side bilateral Resistance level 1 band (2 bands today) Reps/Minutes 10 ea Comments cued for correct form, alignment, L harder than R; less cues for neutral calf stretch Standing Exercise Name 1. on leg press, 2. staggered stance gastroc stretch Side bilateral Reps/Minutes 1. 30, 2. 60 ea Self-Care/Home Management Treatment Education Other Education Educated on setting timer to hold stretches to create actual change in tissue length PT-OP-T Assessment and Plan Start: 02/29/24 07:25 Freq: Status: Active Protocol: Document 04/10/24 09:05 NM (Rec: 04/10/24 09:56 NM [id number]) Physical Therapy Assessment Goals Six Impairment core stabilization, strength Impairment difficulty with stabilization Short Term Goal (STG) Pt will be educated on and demonstrate improved abdominal drawing up/in in order to demonstrate core bracing for functional activities and pain reduction 03/27/24: educated on core bracing. difficulty demonstrating and maintaining functionally STG Duration 6 weeks Leadership Program Associate Goal (LTG) Pt will be able to demonstrate core bracing during dynamic balance activities, gait, and demonstrate at least 1 grade improvement in trunk MMT score 04/10/24: able to perform pallof isometric walkout with cues to maintain trunk anti- rotation LTG Duration 12 weeks Five Impairment strength Impairment B knee flexion 3-/5 MMT Short Term Goal (STG) Pt will increase B knee flexion strength to at least 4 -/5 MMT in order to demonstrate improved strength for gait and transfers 03/27/24: 4-/5 bilaterally, pain free STG Duration 6 weeks MET Leadership Program Associate Goal (LTG) Pt will increase B knee flexion strength to at least 4 /5 MMT in order to demonstrate improved strength for gait and transfers LTG Duration 12 weeks Four Impairment strength Impairment B hip strength limited Short Term Goal (STG) Pt will increase B hip strength to at least 4/5 globally in order to demonstrate improved stability during gait, balance, and transfers, in addition to decreased fall risk 03/27/24: 4-/5 for hip flex/abd /ext 04/10/24: 4/5 B hip strength STG Duration 6 weeks GOAL MET Skilled Nursing Goal (LTG) Pt will increase B hip strength to at least 4+/5 globally in order to demonstrate improved stability during gait, balance, and transfers, in addition to decreased fall risk 04/10/24: 4/5 B hip strength LTG Duration 12 weeks PROGRESSING Three Impairment strength Impairment 5x STS score 17 seconds Leadership Program Associate Goal (LTG) Pt will be able to perform 5x STS in 15 seconds or less in order to demonstrate improved BLE strength for transfers 03/27/24: 31 sec; cued for form over speed, still demos knee valgus LTG Duration 12 weeks Two Impairment balance Impairment Johnson 35/56 Short Term Goal (STG) Pt will increase Johnson balance score to at least 40/56 in order to demonstrate improved balance and safety during transfers and gait 03/27/24: 48/56 STG Duration 6 weeks Skilled Nursing Goal (LTG) Pt will increase Johnson balance score to at least 48/56 in order to demonstrate improved balance and safety during transfers and gait 03/27/24: 48/56 LTG Duration 12 weeks MET One Impairment balance Impairment TUG 15 seconds, without AD Short Term Goal (STG) Pt will decrease TUG time to at least 13.5 seconds without AD in order to demonstrate decreased fall risk and improved balance 03/27/24: 9.8 sec but demos trunk instability and sway STG Duration 6 weeks MET Skilled Nursing Goal (LTG) Pt will decrease TUG time to at least 10 seconds without AD in order to demonstrate decreased fall risk and improved balance, or if appropriate, pt will be educated on and prescribed LRAD for safety due to balance and increased fall risk LTG Duration 12 weeks Assessment Summary Assessment Pt progressing well toward goals. She reports that she is no longer having the same discomfort that brought her originally to PT, but pt still very functionally weak with BLE strength. Pt continues to have difficulty with stabilizing her trunk against resistance, especially during pallof anti-rotation isometric walkout; she requires fewer cues for form. Progressed to leg press squats, which are fatiguing for pt. She continues to demonstrate knee valgus and glute weakness, but still requiring fewer cues for form. Pt would benefit from skilled PT for global trunk/BLE strengthening in order to improve activity tolerance, stability during gait/ADLs, and improved balance to decrease fall risk. Physical Therapy Plan Frequency and Duration Frequency of Treatment 1-2x/wk Duration of treatment (weeks) 12 Plan of Care Start Date 02/29/24 Plan of Care End Date 04/23/24 Therapeutic Interventions Therapeutic Interventions Balance Training,Coordination Training,Gait Training,Home Exercise Program,Joint Mobilizations,Manual Therapy, Neuromuscular Re-education, Orthotic/Prosthetic Management ,Patient/Caregiver Education, Self-Care/Home Management, Sensory Integration,Soft Tissue Mobilization,Taping, Therapeutic Activities, Therapeutic Exercises Modalities Cold Pack/Ice Massage,Electric Stimulation,Hot Packs, Ultrasound Next Visit Focus/Plan Next Note Type Treatment Note Next Visit Plan TUG Leg press, trial pallof press over walkout. Progress glute strengthening and begin balance work too, hip hinge and body mechanics training with core bracing, ankle strength with band POC per PT: Emphasis on low back and hips, balance Next session: sit to stand w/ band, clam and reverse clam, trial leg press at low resistance, counter bird dog, core brace, hip hinge, balance : march, hurdles, stance Manual: STM prn, hip mobs ( trial grade II vs III) no grade IV mobs POC: education regarding osteoporosis safety, body mechanics PN in 2 visits
--- NOTE | 2024-04-15 10:32 | PT.OTN ---
Current Diagnoses Other chronic pain (04/15/24) Low back pain, unspecified (04/15/24) Other lack of coordination (04/15/24) Weakness (04/15/24) Physical Therapy Treatment Note PT-OP-A Visit Information Start: 02/29/24 07:25 Freq: Status: Active Protocol: Document 04/15/24 09:50 SP (Rec: 04/15/24 10:34 SP [id number]) Out-Patient Physical Therapy Visit Information Visit Information Visit Type Treatment Note Visit Note KX after 19 visits 3/10 after PN Visit Start Time 09:50 Visit Stop Time 10:32 Visit Number 11 Number of ENROLLMENT COUNSELOR Visits 1 Evaluation Information Evaluation Date 02/29/24 Precautions Precautions osteoporosis, fall risk PT-OP-B Current Condition Start: 02/29/24 07:25 Freq: Status: Active Protocol: Document 02/29/24 08:16 NM (Rec: 02/29/24 09:04 NM [id number]) Current Condition History of Current Condition Current Complaints pain, balance, weakness History of Current Condition Pt presents with low back pain . She has numbness in her toes bilaterally that began 20 years ago, gradually worsening . She reports that she has pain in both shoulders (L>R), B hips (R>L). She has difficulty with lifting her R arm up, began at least 10 years. Pt reports that she falls frequently, at leat 1x/ month. She most recently feel 3 days ago. She states that she doesn't pick her feet up. She has used a cane previously , but doesn't use it because it's more tourble than it's worth. She also has lower back pain, along the hip bones. She has PMH of fibromyalgia, dx 15 years ago. She also have osteoporosis, dx about 1 year ago. She is currently on fomax; she is not on calcium or vitamin D. She states no fractures throughout lifetime. She reports that her L ankle is swollen, worse with PF (2-3 months). She reports that her back originally started to hurt many years ago when she fell off horse. Prior Treatments and Tests She has previous PT for shoulders and neck at [facility], which was helpful No recent lumbar imaging R hip radiograph 05/2023: bony degeneration without fracture Current Functional Impairments (Reported) Functional Limitations- ADL's vacuuming Functional Limitations- Mobility/Gait difficulty w/ transitioning from sit<>stand, household distances w/o AD Functional Limitations- Recreation/ gardening Hobbies Functional Limitations- Other lives with , 1 story, several throw rugs PT-OP-C Subjective Start: 02/29/24 07:25 Freq: Status: Active Protocol: Document 04/15/24 09:50 SP (Rec: 04/15/24 10:34 SP [id number]) OP-PT Subjective Patient Comments Patient Comments Pt reports still no having pain, but hips stiff and unsteady initially when stands . PT-OP-D Balance Start: 02/29/24 07:25 Freq: Status: Active Protocol: Document 02/29/24 08:16 NM (Rec: 02/29/24 09:04 NM [id number]) Balance Tests Johnson Balance Test Johnson Balance Test Score 35/56 PT-OP-E Functional Tests Start: 02/29/24 07:25 Freq: Status: Active Protocol: Document 02/29/24 08:16 NM (Rec: 02/29/24 09:04 NM [id number]) Functional Tests Five Times Sit to Stand Test Score 17 sec Comments low back pain, R hip; use hands on thighs, 20 plinth Timed Up and Go (TUG) Score 15 sec Comments no AD, slow turns PT-OP-F Manual Assessment Start: 02/29/24 07:25 Freq: Status: Active Protocol: Document 02/29/24 08:16 NM (Rec: 02/29/24 09:04 NM [id number]) Manual Assessments Soft Tissue Assessment Soft Tissue Mobility Assessment Increased hamstring length. Tight parapsinals, hip flexors , glute/piriformis Joint Mobility Assessment Joint Mobility Assessment Overall hypomobility of thoracolumbar spine. Bilateral AROM and PROM of hips, R>L. Weakness and decreased mobility of B shoulders (R>L) PT-OP-G Mobility & Gait Start: 02/29/24 07:25 Freq: Status: Active Protocol: Document 02/29/24 08:16 NM (Rec: 02/29/24 09:04 NM [id number]) OP Gait Assessment Gait Gait Assistance Required: Standby Assistance Distance (Feet) 150 Comments Gait Comments atnalgis Stair Climbing Evaluation Evaluation Level of Assist On Stairs Contact Guard Assistance Devices Stair Climbing Assistive Devices Left Railing,Right Railing Technique/Endurance Stair Climbing Direction Ascend and Descend Stair Climbing Technique Step to Step Number of Steps Climbed 4 Stair Climbing Set # Repetitions (reps) 1 Comments Stair Climbing Comments Non-reciprocal stepping, antalgic R side. B hand rail assist, near LOB PT-OP-H Neuro Start: 02/29/24 07:25 Freq: Status: Active Protocol: Document 02/29/24 08:16 NM (Rec: 02/29/24 09:04 NM [id number]) Sensation Evaluation Comments Summary Comments BUE equally intact to light touch sensation; BLE equally intact above knee, decreased BLE below knee (L worse than R ) PT-OP-J Posture/Palpation/Skin Start: 02/29/24 07:25 Freq: Status: Active Protocol: Document 02/29/24 08:16 NM (Rec: 02/29/24 09:04 NM [id number]) Posture Evaluation Position Standing Head/C-Spine Posture Forward Head T-Spine Posture Increased Kyphosis L-Spine Posture Increased Lordosis Pelvis Posture Anteriorly Tilted Weight Distribution Weight Shifted Left Hip Posture (L) Externally Rotated,(R) Externally Rotated Knee Posture (L) Genu Valgus,(R) Genu Valgus Ankle/Foot Posture (L) Pronated,(R) Pronated Comments Posture Comments Forward flexed posture Palpation Assessment Location hip Palpation Details R hip tenderness along greater trochanter, small anterior groin tenderness Tightness along hip flexors, glute/piriformis back Palpation Details Tightness along thoracolumbar paraspinals Tenderness with palpation of R SI joint, B PSIS (R>L) and lower lumbar spinous processes PT-OP-K Range of Motion Start: 02/29/24 07:25 Freq: Status: Active Protocol: Document 02/29/24 08:16 NM (Rec: 02/29/24 09:04 NM [id number]) Lumbar Spine Range of Motion Lumbar Spine Active Percentage Flexion 90 Extension 25 Lateral Flexion Left 100 Lateral Flexion Right 100 ROM Limitations Pain Comments R back and hip pain with active lateral flexion Hip Goniometric Range of Motion Hip Right Flexion w/Knee Flexed 90 Abduction 15 Comments Visible limitations with IR and ER, IR most restricted and painful especially with hip flexion Left Flexion w/Knee Flexed 90 Abduction 20 Comments Visible limitations with IR and ER Ankle and Foot Goniometric Range of Motion Ankle and Foot Right Dorsiflexion with Knee Flexed 5 Plantarflexion 30 Left Dorsiflexion with Knee Flexed 5 Dorsiflexion with Knee Extended 20 Comments achilles pain PT-OP-L Special Tests Start: 02/29/24 07:25 Freq: Status: Active Protocol: Document 02/29/24 08:16 NM (Rec: 02/29/24 09:04 NM [id number]) Special Tests Lumbar Spine Special Tests Slump Test Results - Anderson/Quadrant Test Results + Distraction Test Results + PT-OP-M Strength Start: 02/29/24 07:25 Freq: Status: Active Protocol: Document 03/27/24 11:19 NM (Rec: 03/27/24 12:04 NM [id number]) Hip Strength Hip Manual Muscle Testing Right Flexion (L2) 3+ Fair+ Extension (S1) 4- Good- Abduction 4- Good- Adduction 4- Good- External Rotation 4 Good Internal Rotation 4- Good- Comments 03/27/24: 4-/5 for hip flex/abd /ext Left Flexion (L2) 4- Good- Extension (S1) 4- Good- Abduction 4- Good- Adduction 4- Good- External Rotation 4- Good- Internal Rotation 4- Good- Comments 03/27/24: 4-/5 for hip flex/abd /ext Knee Strength Knee Manual Muscle Testing Right Flexion (S2) 3- Fair- Extension (L3) 4- Good- Comments 03/27/24: 4-/5 for knee flexion Left Flexion (S2) 3- Fair- Extension (L3) 4- Good- Comments 03/27/24: 4-/5 for knee flexion PT-OP-Q Treatments Start: 02/29/24 07:25 Freq: Status: Active Protocol: Document 04/15/24 09:50 SP (Rec: 04/15/24 10:34 SP [id number]) Gym Equipment Cable Column (Body Solid) Leg Curl Details ines Resistance 2 plates + 2.5 # wt Reps/Time x10 Leg Extension Details ines Resistance 3 plates Reps/Time x10 Shuttle Recovery squat Details B squat, level 1>2 band around thighs for valgus Resistance 50# (2 navy)- next 62# Reps/Time 2x15- ed mid ftto heel press better glut drive Therapeutic Exercises Standing Exercises hip abduction Standing Exercise Name trialed in PT- requested add for home Side bilateral Resistance TB #2 aqua at shins (TB #1 loop home) Equipment Used contact rail Reps/Minutes x8 reps each Comments CHallenge R hip weakness, cued tall/TKE/glut RLE- improved level hip/shld heel raise Side bilateral Equipment Used facing wall for balance Reps/Minutes 3x10 Comments cued closer to wall for form pallof Standing Exercise Name 1. press out (states more good effort/control) 2. walk ou ( hold for now) Side bilateral Resistance level 1 peach (double) Reps/Minutes 1. 10 ea side 2. 5 reps each side Comments 1. WBOS, tall, TA &Rhomboid engage 2. tall over LLE /c TA- stable side steps Side bilateral Resistance level 2 band around shins Equipment Used 1 hand on rail glide Reps/Minutes 2x20 ft Comments cued neutral foot alignment, step length; visual feedback in windows Self-Care/Home Management Treatment Education Patient Education Body Mechanics,Home Exercise Program,Posture Other Education Ed purse across body, allow level shld added resisted hip abd and heel raise to HEP. PT-OP-T Assessment and Plan Start: 02/29/24 07:25 Freq: Status: Active Protocol: Document 04/15/24 09:50 SP (Rec: 04/15/24 10:34 SP [id number]) Physical Therapy Assessment Goals Six Impairment core stabilization, strength Impairment difficulty with stabilization Short Term Goal (STG) Pt will be educated on and demonstrate improved abdominal drawing up/in in order to demonstrate core bracing for functional activities and pain reduction 03/27/24: educated on core bracing. difficulty demonstrating and maintaining functionally STG Duration 6 weeks Usp Goal (LTG) Pt will be able to demonstrate core bracing during dynamic balance activities, gait, and demonstrate at least 1 grade improvement in trunk MMT score 04/10/24: able to perform pallof isometric walkout with cues to maintain trunk anti- rotation LTG Duration 12 weeks Five Impairment strength Impairment B knee flexion 3-/5 MMT Short Term Goal (STG) Pt will increase B knee flexion strength to at least 4 -/5 MMT in order to demonstrate improved strength for gait and transfers 03/27/24: 4-/5 bilaterally, pain free STG Duration 6 weeks MET Marketing Budget Analyst Goal (LTG) Pt will increase B knee flexion strength to at least 4 /5 MMT in order to demonstrate improved strength for gait and transfers LTG Duration 12 weeks Four Impairment strength Impairment B hip strength limited Short Term Goal (STG) Pt will increase B hip strength to at least 4/5 globally in order to demonstrate improved stability during gait, balance, and transfers, in addition to decreased fall risk 03/27/24: 4-/5 for hip flex/abd /ext 04/10/24: 4/5 B hip strength STG Duration 6 weeks GOAL MET Usp Goal (LTG) Pt will increase B hip strength to at least 4+/5 globally in order to demonstrate improved stability during gait, balance, and transfers, in addition to decreased fall risk 04/10/24: 4/5 B hip strength LTG Duration 12 weeks PROGRESSING Three Impairment strength Impairment 5x STS score 17 seconds Usp Goal (LTG) Pt will be able to perform 5x STS in 15 seconds or less in order to demonstrate improved BLE strength for transfers 03/27/24: 31 sec; cued for form over speed, still demos knee valgus LTG Duration 12 weeks Two Impairment balance Impairment Johnson 35/56 Short Term Goal (STG) Pt will increase Johnson balance score to at least 40/56 in order to demonstrate improved balance and safety during transfers and gait 03/27/24: 48/56 STG Duration 6 weeks Usp Goal (LTG) Pt will increase Johnson balance score to at least 48/56 in order to demonstrate improved balance and safety during transfers and gait 03/27/24: 48/56 LTG Duration 12 weeks MET One Impairment balance Impairment TUG 15 seconds, without AD Short Term Goal (STG) Pt will decrease TUG time to at least 13.5 seconds without AD in order to demonstrate decreased fall risk and improved balance 03/27/24: 9.8 sec but demos trunk instability and sway STG Duration 6 weeks MET Usp Goal (LTG) Pt will decrease TUG time to at least 10 seconds without AD in order to demonstrate decreased fall risk and improved balance, or if appropriate, pt will be educated on and prescribed LRAD for safety due to balance and increased fall risk LTG Duration 12 weeks Assessment Summary Assessment Pt good LE effort during ther ex, improved R hip abd and trunk alignment with cues for tall trunk, R TKE over RLE for added resisted hip abd and level shoulder during stationary paloff press form, to challenging /c R hip weakness step outs max cues. She requests a hand out hip abd and heel raise to continue to work on at home with cues stated in PT, found a good exercise need get better for walking. Physical Therapy Plan Frequency and Duration Frequency of Treatment 1-2x/wk Duration of treatment (weeks) 12 Plan of Care Start Date 02/29/24 Plan of Care End Date 04/23/24 Therapeutic Interventions Therapeutic Interventions Balance Training,Coordination Training,Gait Training,Home Exercise Program,Joint Mobilizations,Manual Therapy, Neuromuscular Re-education, Orthotic/Prosthetic Management ,Patient/Caregiver Education, Self-Care/Home Management, Sensory Integration,Soft Tissue Mobilization,Taping, Therapeutic Activities, Therapeutic Exercises Modalities Cold Pack/Ice Massage,Electric Stimulation,Hot Packs, Ultrasound Next Visit Focus/Plan Next Note Type Treatment Note Next Visit Plan Next: TUG reassess Leg press, pallof press stable . Progress glute strengthening and begin balance work too, hip hinge and body mechanics training with core bracing, ankle strength with band POC per PT: Emphasis on low back and hips, balance Next session: sit to stand w/ band, clam and reverse clam, trial leg press at low resistance, counter bird dog, core brace, hip hinge, balance : march, hurdles, stance Manual: STM prn, hip mobs ( trial grade II vs III) no grade IV mobs POC: education regarding osteoporosis safety, body mechanics PN in 2 visits
--- NOTE | 2024-04-22 08:14 | PT-OP ANOTE ---
Pt cancelled <24 hrs, launderer hand stated pt sounded very sick over phone, unable attend today's appt.
--- NOTE | 2024-04-24 10:07 | PT.OTN ---
Current Diagnoses Other chronic pain (04/24/24) Low back pain, unspecified (04/24/24) Other lack of coordination (04/24/24) Weakness (04/24/24) Physical Therapy Treatment Note PT-OP-A Visit Information Start: 02/29/24 07:25 Freq: Status: Active Protocol: Document 04/24/24 09:05 NM (Rec: 04/24/24 09:48 NM [id number]) Out-Patient Physical Therapy Visit Information Visit Information Visit Type Progress Note Visit Note KX after 19 visits Visit Start Time 09:05 Visit Stop Time 09:45 Visit Number 12 Evaluation Information Evaluation Date 02/29/24 Precautions Precautions osteoporosis, fall risk PT-OP-B Current Condition Start: 02/29/24 07:25 Freq: Status: Active Protocol: Document 02/29/24 08:16 NM (Rec: 02/29/24 09:04 NM [id number]) Current Condition History of Current Condition Current Complaints pain, balance, weakness History of Current Condition Pt presents with low back pain . She has numbness in her toes bilaterally that began 20 years ago, gradually worsening . She reports that she has pain in both shoulders (L>R), B hips (R>L). She has difficulty with lifting her R arm up, began at least 10 years. Pt reports that she falls frequently, at leat 1x/ month. She most recently feel 3 days ago. She states that she doesn't pick her feet up. She has used a cane previously , but doesn't use it because it's more tourble than it's worth. She also has lower back pain, along the hip bones. She has PMH of fibromyalgia, dx 15 years ago. She also have osteoporosis, dx about 1 year ago. She is currently on fomax; she is not on calcium or vitamin D. She states no fractures throughout lifetime. She reports that her L ankle is swollen, worse with PF (2-3 months). She reports that her back originally started to hurt many years ago when she fell off horse. Prior Treatments and Tests She has previous PT for shoulders and neck at [facility], which was helpful No recent lumbar imaging R hip radiograph 05/2023: bony degeneration without fracture Current Functional Impairments (Reported) Functional Limitations- ADL's vacuuming Functional Limitations- Mobility/Gait difficulty w/ transitioning from sit<>stand, household distances w/o AD Functional Limitations- Recreation/ gardening Hobbies Functional Limitations- Other lives with , 1 story, several throw rugs PT-OP-C Subjective Start: 02/29/24 07:25 Freq: Status: Active Protocol: Document 04/24/24 09:05 NM (Rec: 04/24/24 09:48 NM [id number]) OP-PT Subjective Patient Comments Patient Comments Pt reports that the pain in her back has returned after being sick for a week. However , prior to this she did not have back and has no hip pain. She reports that she has improved with her walking and is able to ambulate for longer distances, strength in BLE and core has improved. She can now get out of the bathtub easier. She states that only needs to improve in her posture. PT-OP-D Balance Start: 02/29/24 07:25 Freq: Status: Active Protocol: Document 02/29/24 08:16 NM (Rec: 02/29/24 09:04 NM [id number]) Balance Tests Johnson Balance Test Johnson Balance Test Score 35/56 PT-OP-E Functional Tests Start: 02/29/24 07:25 Freq: Status: Active Protocol: Document 02/29/24 08:16 NM (Rec: 02/29/24 09:04 NM [id number]) Functional Tests Five Times Sit to Stand Test Score 17 sec Comments low back pain, R hip; use hands on thighs, 20 plinth Timed Up and Go (TUG) Score 15 sec Comments no AD, slow turns PT-OP-F Manual Assessment Start: 02/29/24 07:25 Freq: Status: Active Protocol: Document 02/29/24 08:16 NM (Rec: 02/29/24 09:04 NM [id number]) Manual Assessments Soft Tissue Assessment Soft Tissue Mobility Assessment Increased hamstring length. Tight parapsinals, hip flexors , glute/piriformis Joint Mobility Assessment Joint Mobility Assessment Overall hypomobility of thoracolumbar spine. Bilateral AROM and PROM of hips, R>L. Weakness and decreased mobility of B shoulders (R>L) PT-OP-G Mobility & Gait Start: 02/29/24 07:25 Freq: Status: Active Protocol: Document 02/29/24 08:16 NM (Rec: 02/29/24 09:04 NM [id number]) OP Gait Assessment Gait Gait Assistance Required: Standby Assistance Distance (Feet) 150 Comments Gait Comments atnalgis Stair Climbing Evaluation Evaluation Level of Assist On Stairs Contact Guard Assistance Devices Stair Climbing Assistive Devices Left Railing,Right Railing Technique/Endurance Stair Climbing Direction Ascend and Descend Stair Climbing Technique Step to Step Number of Steps Climbed 4 Stair Climbing Set # Repetitions (reps) 1 Comments Stair Climbing Comments Non-reciprocal stepping, antalgic R side. B hand rail assist, near LOB PT-OP-H Neuro Start: 02/29/24 07:25 Freq: Status: Active Protocol: Document 02/29/24 08:16 NM (Rec: 02/29/24 09:04 NM [id number]) Sensation Evaluation Comments Summary Comments BUE equally intact to light touch sensation; BLE equally intact above knee, decreased BLE below knee (L worse than R ) PT-OP-J Posture/Palpation/Skin Start: 02/29/24 07:25 Freq: Status: Active Protocol: Document 02/29/24 08:16 NM (Rec: 02/29/24 09:04 NM [id number]) Posture Evaluation Position Standing Head/C-Spine Posture Forward Head T-Spine Posture Increased Kyphosis L-Spine Posture Increased Lordosis Pelvis Posture Anteriorly Tilted Weight Distribution Weight Shifted Left Hip Posture (L) Externally Rotated,(R) Externally Rotated Knee Posture (L) Genu Valgus,(R) Genu Valgus Ankle/Foot Posture (L) Pronated,(R) Pronated Comments Posture Comments Forward flexed posture Palpation Assessment Location hip Palpation Details R hip tenderness along greater trochanter, small anterior groin tenderness Tightness along hip flexors, glute/piriformis back Palpation Details Tightness along thoracolumbar paraspinals Tenderness with palpation of R SI joint, B PSIS (R>L) and lower lumbar spinous processes PT-OP-K Range of Motion Start: 02/29/24 07:25 Freq: Status: Active Protocol: Document 04/24/24 09:05 NM (Rec: 04/24/24 09:48 NM [id number]) Lumbar Spine Range of Motion Lumbar Spine Active Percentage Flexion 90 Extension 25 Lateral Flexion Left 100 Lateral Flexion Right 100 ROM Limitations Pain Comments R back and hip pain with active lateral flexion PT-OP-L Special Tests Start: 02/29/24 07:25 Freq: Status: Active Protocol: Document 02/29/24 08:16 NM (Rec: 02/29/24 09:04 NM [id number]) Special Tests Lumbar Spine Special Tests Slump Test Results - Anderson/Quadrant Test Results + Distraction Test Results + PT-OP-M Strength Start: 02/29/24 07:25 Freq: Status: Active Protocol: Document 04/24/24 09:05 NM (Rec: 04/24/24 09:48 NM [id number]) Trunk Strength Trunk Manual Muscle Testing Flexion 4 Good Extension 4 Good Rotation Left 4 Good Rotation Right 4 Good Lateral Flexion Left 4 Good Lateral Flexion Right 4 Good Comments No pain with resisted trunk testing, but difficulty with stabilizing against resistance 04/24/24: 4/5 for all with resisted testing Hip Strength Hip Manual Muscle Testing Right Flexion (L2) 4 Good Extension (S1) 4 Good Abduction 4 Good Adduction 4 Good External Rotation 4 Good Internal Rotation 4 Good Comments 03/27/24: 4-/5 for hip flex/abd /ext 04/24/24: 4/5 B hip strength Left Flexion (L2) 4 Good Extension (S1) 4 Good Abduction 4- Good- Adduction 4 Good External Rotation 4 Good Internal Rotation 4 Good Comments 03/27/24: 4-/5 for hip flex/abd /ext 04/24/24: 4/5 B hip strength Knee Strength Knee Manual Muscle Testing Right Flexion (S2) 4 Good Extension (L3) 4 Good Comments 03/27/24: 4-/5 for knee flexion 04/24/24: 4/5 B knee strength Left Flexion (S2) 4 Good Extension (L3) 4 Good Comments 03/27/24: 4-/5 for knee flexion 04/24/24: 4/5 B knee strength PT-OP-Q Treatments Start: 02/29/24 07:25 Freq: Status: Active Protocol: Document 04/24/24 09:05 NM (Rec: 04/24/24 09:48 NM [id number]) Therapeutic Exercises Supine Exercises TrA Activation Supine Exercise Name LTR Side bilateral Equipment Used with abdominal bracing Reps/Minutes 10 Comments edu for correct performance, pain free Sidelying Exercises open book Side bilateral Reps/Minutes 5 Comments pain free Sitting Exercises sit to stand Sitting Exercise Name 1. 5x STS test, 2. squats w/ scapular retraction Side bilateral Equipment Used plinth Reps/Minutes 1. 12 seconds, 2. 2x10 w/ level 1 band for scap retraction Comments pain free; limited RUE ER Standing Exercises step ups Standing Exercise Name 1. fwd, 2. lateral Side bilateral Equipment Used 4 step, prn hand support for balance Reps/Minutes 2x10 ea fwd, 1x10 ea lateral Comments cued slower lowering; cued ankle DF Neuro Re-Education Treatment Balance Activities change RONAK Surface stable Equipment hands hovering over //bars Comments 1. tandem walking, 2x10 ft 2. retro walking, 2x10 ft 3. narrow stance with head turns, 10 ea direction CGA to steady prn, otherwise close SBA. Cues for postural control to maintain stability DGI Reps/Duration 10/08 Comments Difficulty with head turns, navigating cones and step, stairs TUG Details no AD Reps/Duration 10.3 sec average of 3 Comments demos instabilty with initial stand from chair and first several steps PT-OP-T Assessment and Plan Start: 02/29/24 07:25 Freq: Status: Active Protocol: Document 04/24/24 09:05 NM (Rec: 04/24/24 09:48 NM [id number]) Physical Therapy Assessment Goals Seven Impairment DGI 10/08 Mcfp Goal (LTG) Pt will score >19/24 on DGI in order to demonstrate decreased fall risk LTG Duration 12 weeks Six Impairment core stabilization, strength Impairment difficulty with stabilization Short Term Goal (STG) Pt will be educated on and demonstrate improved abdominal drawing up/in in order to demonstrate core bracing for functional activities and pain reduction 03/27/24: educated on core bracing. difficulty demonstrating and maintaining functionally STG Duration 6 weeks Mcfp Goal (LTG) Pt will be able to demonstrate core bracing during dynamic balance activities, gait, and demonstrate at least 1 grade improvement in trunk MMT score 04/10/24: able to perform pallof isometric walkout with cues to maintain trunk anti- rotation 04/24/24: improved core stability by observation with gait/balance, but compensates. Currently 4/5 with resisted testing LTG Duration 12 weeks NOT MET, PROGRESSING Five Impairment strength Impairment B knee flexion 3-/5 MMT Short Term Goal (STG) Pt will increase B knee flexion strength to at least 4 -/5 MMT in order to demonstrate improved strength for gait and transfers 03/27/24: 4-/5 bilaterally, pain free STG Duration 6 weeks MET Manager Training Goal (LTG) Pt will increase B knee flexion strength to at least 4 /5 MMT in order to demonstrate improved strength for gait and transfers 04/24/24: 4/5 LTG Duration 12 weeks MET 04/24 Four Impairment strength Impairment B hip strength limited Short Term Goal (STG) Pt will increase B hip strength to at least 4/5 globally in order to demonstrate improved stability during gait, balance, and transfers, in addition to decreased fall risk 03/27/24: 4-/5 for hip flex/abd /ext 04/10/24: 4/5 B hip strength STG Duration 6 weeks GOAL MET Mcfp Goal (LTG) Pt will increase B hip strength to at least 4+/5 globally in order to demonstrate improved stability during gait, balance, and transfers, in addition to decreased fall risk 04/10/24: 4/5 B hip strength 04/24/24: 4/5 B hip strength LTG Duration 12 weeks PROGRESSING, NOT MET 04/24 Three Impairment strength Impairment 5x STS score 17 seconds Mcfp Goal (LTG) Pt will be able to perform 5x STS in 15 seconds or less in order to demonstrate improved BLE strength for transfers 03/27/24: 31 sec; cued for form over speed, still demos knee valgus 04/24/24: 12.87 seconds, pain free, improved form LTG Duration 12 weeks MET Two Impairment balance Impairment Johnson 35/56 Short Term Goal (STG) Pt will increase Johnson balance score to at least 40/56 in order to demonstrate improved balance and safety during transfers and gait 03/27/24: 48/56 STG Duration 6 weeks Manager Training Goal (LTG) Pt will increase Johnson balance score to at least 48/56 in order to demonstrate improved balance and safety during transfers and gait 03/27/24: 48/56 LTG Duration 12 weeks MET One Impairment balance Impairment TUG 15 seconds, without AD Short Term Goal (STG) Pt will decrease TUG time to at least 13.5 seconds without AD in order to demonstrate decreased fall risk and improved balance 03/27/24: 9.8 sec but demos trunk instability and sway STG Duration 6 weeks MET Mcfp Goal (LTG) Pt will decrease TUG time to at least 10 seconds without AD in order to demonstrate decreased fall risk and improved balance, or if appropriate, pt will be educated on and prescribed LRAD for safety due to balance and increased fall risk 04/24/24: 11.6 sec, 10.3, 9.3 sec - average 10.4 seconds LTG Duration 12 weeks MET Progress Towards Goals Progress Towards Goals Progressing Toward Goals,Goals Met Progress Comments Updated balance goal as previous were met. Assessment Summary Assessment Pt tolerated session well. Emphasis today on improving low back pain, glute strength, and balance. Pt scored 10/08 on DGI, demonstrates difficulty with directional changes and changes to gait speed. She is very visually dependendent and has difficulty with maintaining upright trunk posture due to hip and trunk core/extensor weakness. Initiated 4 forward and lateral steps ups. Pt requires cues to maintain level hips and control, demonstrating quad weakness and poor core strength to limit compensations. Physical Therapy Plan Frequency and Duration Frequency of Treatment 1-2x/wk Duration of treatment (weeks) 12 Plan of Care Start Date 04/24/24 Plan of Care End Date 07/19/24 Therapeutic Interventions Therapeutic Interventions Balance Training,Coordination Training,Gait Training,Home Exercise Program,Joint Mobilizations,Manual Therapy, Neuromuscular Re-education, Orthotic/Prosthetic Management ,Patient/Caregiver Education, Self-Care/Home Management, Sensory Integration,Soft Tissue Mobilization,Taping, Therapeutic Activities, Therapeutic Exercises Modalities Cold Pack/Ice Massage,Electric Stimulation,Hot Packs, Ultrasound Next Visit Focus/Plan Next Note Type Treatment Note Next Visit Plan Cont with step ups, glute and postural strength/core strength (trial seated isometrics, chops w/ resistance), march, ankle strength with band. Balance Leg press, pallof press stable . Progress glute strengthening and begin balance work too, hip hinge and body mechanics training with core bracing, ankle strength with band POC per PT: Emphasis on low back and hips, balance
--- NOTE | 2024-04-24 10:08 | PT.OPPOC ---
Physical, Occupational & Speech Therapy At [facility] Current Diagnoses Other chronic pain (04/24/24) Low back pain, unspecified (04/24/24) Other lack of coordination (04/24/24) Weakness (04/24/24) Visit Care Team Role Provider Type Benjy Mccormick DO Family Provider Physician Primary Care Provider Specialty: [facility] Practice Address: [address] [place] [address], [id number] Email: Bethany Mtz DO Attending Provider Physician Referring Provider Specialty: [facility] Address: [address] [place] [address], [address], [place], [address] Email: [email or web address] Plan Of Care PT-OP-T Assessment and Plan Start: 02/29/24 07:25 Freq: Status: Active Protocol: Document 04/24/24 09:05 NM (Rec: 04/24/24 09:48 NM [id number]) Physical Therapy Assessment Goals Seven Impairment DGI 10/08 Hot Die Picker Goal (LTG) Pt will score >1924 on DGI in order to demonstrate decreased fall risk LTG Duration 12 weeks Six Impairment core stabilization, strength Impairment difficulty with stabilization Short Term Goal (STG) Pt will be educated on and demonstrate improved abdominal drawing up/in in order to demonstrate core bracing for functional activities and pain reduction 03/27/24: educated on core bracing. difficulty demonstrating and maintaining functionally STG Duration 6 weeks Hot Die Picker Goal (LTG) Pt will be able to demonstrate core bracing during dynamic balance activities, gait, and demonstrate at least 1 grade improvement in trunk MMT score 04/10/24: able to perform pallof isometric walkout with cues to maintain trunk anti- rotation 04/24/24: improved core stability by observation with gait/balance, but compensates. Currently 4/5 with resisted testing LTG Duration 12 weeks NOT MET, PROGRESSING Five Impairment strength Impairment B knee flexion 3-/5 MMT Short Term Goal (STG) Pt will increase B knee flexion strength to at least 4 -/5 MMT in order to demonstrate improved strength for gait and transfers 03/27/24: 4-/5 bilaterally, pain free STG Duration 6 weeks MET Hot Die Picker Goal (LTG) Pt will increase B knee flexion strength to at least 4 /5 MMT in order to demonstrate improved strength for gait and transfers 04/24/24: 4/5 LTG Duration 12 weeks MET 04/24 Four Impairment strength Impairment B hip strength limited Short Term Goal (STG) Pt will increase B hip strength to at least 4/5 globally in order to demonstrate improved stability during gait, balance, and transfers, in addition to decreased fall risk 03/27/24: 4-/5 for hip flex/abd /ext 04/10/24: 4/5 B hip strength STG Duration 6 weeks GOAL MET Hot Die Picker Goal (LTG) Pt will increase B hip strength to at least 4+/5 globally in order to demonstrate improved stability during gait, balance, and transfers, in addition to decreased fall risk 04/10/24: 4/5 B hip strength 04/24/24: 4/5 B hip strength LTG Duration 12 weeks PROGRESSING, NOT MET 04/24 Three Impairment strength Impairment 5x STS score 17 seconds Residential Goal (LTG) Pt will be able to perform 5x STS in 15 seconds or less in order to demonstrate improved BLE strength for transfers 03/27/24: 31 sec; cued for form over speed, still demos knee valgus 04/24/24: 12.87 seconds, pain free, improved form LTG Duration 12 weeks MET Two Impairment balance Impairment Johnson 35/56 Short Term Goal (STG) Pt will increase Johnson balance score to at least 40/56 in order to demonstrate improved balance and safety during transfers and gait 03/27/24: 48/56 STG Duration 6 weeks Residential Goal (LTG) Pt will increase Johnson balance score to at least 48/56 in order to demonstrate improved balance and safety during transfers and gait 03/27/24: 48/56 LTG Duration 12 weeks MET One Impairment balance Impairment TUG 15 seconds, without AD Short Term Goal (STG) Pt will decrease TUG time to at least 13.5 seconds without AD in order to demonstrate decreased fall risk and improved balance 03/27/24: 9.8 sec but demos trunk instability and sway STG Duration 6 weeks MET Hot Die Picker Goal (LTG) Pt will decrease TUG time to at least 10 seconds without AD in order to demonstrate decreased fall risk and improved balance, or if appropriate, pt will be educated on and prescribed LRAD for safety due to balance and increased fall risk 04/24/24: 11.6 sec, 10.3, 9.3 sec - average 10.4 seconds LTG Duration 12 weeks MET Progress Towards Goals Progress Towards Goals Progressing Toward Goals,Goals Met Progress Comments Updated balance goal as previous were met. Assessment Summary Assessment Pt has been seen x11 visits since evaluation in February 2024. She is minimal compliant with HEP but demonstrates improvement in balance and global strength. Since evaluation, pt demonstrates better symptom management, reporting no hip or back pain for last several sessions with the exception of when she was sick. Maria Esther has increased knee flexor/extensor strength, in addition to improvements in hip/core strength with resisted muscle testing. However, she continues to demonstrate trunk compensations and signs of glute/core/trunk weakness, which impacts her balance and ability to perform functional mobility safely (e.g. stairs, gait). Pt scored well and Johnson balance test and TUG, indicating improved balance with ambulation; however, she continues to have instability immediately when standing or ambulating, or in situations that require quick directional changes (e.g. during gait to prevent fall or LOB). Her DGI score is 12, indicating increased fall risk. Pt would benefit from further skilled PT for balance and progressive hip strengthening in order to improve activity tolerance and decrease fall risk. Physical Therapy Plan Frequency and Duration Frequency of Treatment 1-2x/wk Duration of treatment (weeks) 12 Plan of Care Start Date 04/24/24 Plan of Care End Date 07/19/24 Therapeutic Interventions Therapeutic Interventions Balance Training,Coordination Training,Gait Training,Home Exercise Program,Joint Mobilizations,Manual Therapy, Neuromuscular Re-education, Orthotic/Prosthetic Management ,Patient/Caregiver Education, Self-Care/Home Management, Sensory Integration,Soft Tissue Mobilization,Taping, Therapeutic Activities, Therapeutic Exercises Modalities Cold Pack/Ice Massage,Electric Stimulation,Hot Packs, Ultrasound Next Visit Focus/Plan Next Note Type Treatment Note Next Visit Plan Cont with step ups, glute and postural strength/core strength (trial seated isometrics, chops w/ resistance), march, ankle strength with band. Balance Leg press, pallof press stable . Progress glute strengthening and begin balance work too, hip hinge and body mechanics training with core bracing, ankle strength with band POC per PT: Emphasis on low back and hips, balance Plan of Care Dates Plan of Care Start Date 04/24/24 Plan of Care End Date 07/19/24 Electronically Signed by: Gena Mathis, PT 04/24/24 1008 If you are in agreement with this Plan of Care, please return a signed and dated copy. I have reviewed this Plan of Care and certify that the skilled therapy services above are required to meet the patient?s needs. Physician Signature Date Printed Name and Credentials Clinical Instructor Signature Printed Name and Credentials
--- NOTE | 2024-05-01 12:40 | PT.OTN ---
Current Diagnoses Other chronic pain (05/01/24) Low back pain, unspecified (05/01/24) Other lack of coordination (05/01/24) Weakness (05/01/24) Physical Therapy Treatment Note PT-OP-A Visit Information Start: 02/29/24 07:25 Freq: Status: Active Protocol: Document 05/01/24 09:03 NM (Rec: 05/01/24 09:43 NM [id number]) Out-Patient Physical Therapy Visit Information Visit Information Visit Type Treatment Note Visit Note KX after 19 visits Visit Start Time 09:04 Visit Stop Time 09:44 Visit Number 13 Evaluation Information Evaluation Date 02/29/24 Precautions Precautions osteoporosis, fall risk PT-OP-B Current Condition Start: 02/29/24 07:25 Freq: Status: Active Protocol: Document 02/29/24 08:16 NM (Rec: 02/29/24 09:04 NM [id number]) Current Condition History of Current Condition Current Complaints pain, balance, weakness History of Current Condition Pt presents with low back pain . She has numbness in her toes bilaterally that began 20 years ago, gradually worsening . She reports that she has pain in both shoulders (L>R), B hips (R>L). She has difficulty with lifting her R arm up, began at least 10 years. Pt reports that she falls frequently, at leat 1x/ month. She most recently feel 3 days ago. She states that she doesn't pick her feet up. She has used a cane previously , but doesn't use it because it's more tourble than it's worth. She also has lower back pain, along the hip bones. She has PMH of fibromyalgia, dx 15 years ago. She also have osteoporosis, dx about 1 year ago. She is currently on fomax; she is not on calcium or vitamin D. She states no fractures throughout lifetime. She reports that her L ankle is swollen, worse with PF (2-3 months). She reports that her back originally started to hurt many years ago when she fell off horse. Prior Treatments and Tests She has previous PT for shoulders and neck at [facility], which was helpful No recent lumbar imaging R hip radiograph 05/2023: bony degeneration without fracture Current Functional Impairments (Reported) Functional Limitations- ADL's vacuuming Functional Limitations- Mobility/Gait difficulty w/ transitioning from sit<>stand, household distances w/o AD Functional Limitations- Recreation/ gardening Hobbies Functional Limitations- Other lives with , 1 story, several throw rugs PT-OP-C Subjective Start: 02/29/24 07:25 Freq: Status: Active Protocol: Document 05/01/24 09:03 NM (Rec: 05/01/24 09:43 NM [id number]) OP-PT Subjective Patient Comments Patient Comments Pt reports no hip pain, has resolved. States has LBP with vacuuming and bending over in the garden. Has been doing HEP , which helps PT-OP-D Balance Start: 02/29/24 07:25 Freq: Status: Active Protocol: Document 02/29/24 08:16 NM (Rec: 02/29/24 09:04 NM [id number]) Balance Tests Johnson Balance Test Johnson Balance Test Score 35/56 PT-OP-E Functional Tests Start: 02/29/24 07:25 Freq: Status: Active Protocol: Document 02/29/24 08:16 NM (Rec: 02/29/24 09:04 NM [id number]) Functional Tests Five Times Sit to Stand Test Score 17 sec Comments low back pain, R hip; use hands on thighs, 20 plinth Timed Up and Go (TUG) Score 15 sec Comments no AD, slow turns PT-OP-F Manual Assessment Start: 02/29/24 07:25 Freq: Status: Active Protocol: Document 02/29/24 08:16 NM (Rec: 02/29/24 09:04 NM [id number]) Manual Assessments Soft Tissue Assessment Soft Tissue Mobility Assessment Increased hamstring length. Tight parapsinals, hip flexors , glute/piriformis Joint Mobility Assessment Joint Mobility Assessment Overall hypomobility of thoracolumbar spine. Bilateral AROM and PROM of hips, R>L. Weakness and decreased mobility of B shoulders (R>L) PT-OP-G Mobility & Gait Start: 02/29/24 07:25 Freq: Status: Active Protocol: Document 02/29/24 08:16 NM (Rec: 02/29/24 09:04 NM [id number]) OP Gait Assessment Gait Gait Assistance Required: Standby Assistance Distance (Feet) 150 Comments Gait Comments atnalgis Stair Climbing Evaluation Evaluation Level of Assist On Stairs Contact Guard Assistance Devices Stair Climbing Assistive Devices Left Railing,Right Railing Technique/Endurance Stair Climbing Direction Ascend and Descend Stair Climbing Technique Step to Step Number of Steps Climbed 4 Stair Climbing Set # Repetitions (reps) 1 Comments Stair Climbing Comments Non-reciprocal stepping, antalgic R side. B hand rail assist, near LOB PT-OP-H Neuro Start: 02/29/24 07:25 Freq: Status: Active Protocol: Document 02/29/24 08:16 NM (Rec: 02/29/24 09:04 NM [id number]) Sensation Evaluation Comments Summary Comments BUE equally intact to light touch sensation; BLE equally intact above knee, decreased BLE below knee (L worse than R ) PT-OP-J Posture/Palpation/Skin Start: 02/29/24 07:25 Freq: Status: Active Protocol: Document 02/29/24 08:16 NM (Rec: 02/29/24 09:04 NM [id number]) Posture Evaluation Position Standing Head/C-Spine Posture Forward Head T-Spine Posture Increased Kyphosis L-Spine Posture Increased Lordosis Pelvis Posture Anteriorly Tilted Weight Distribution Weight Shifted Left Hip Posture (L) Externally Rotated,(R) Externally Rotated Knee Posture (L) Genu Valgus,(R) Genu Valgus Ankle/Foot Posture (L) Pronated,(R) Pronated Comments Posture Comments Forward flexed posture Palpation Assessment Location hip Palpation Details R hip tenderness along greater trochanter, small anterior groin tenderness Tightness along hip flexors, glute/piriformis back Palpation Details Tightness along thoracolumbar paraspinals Tenderness with palpation of R SI joint, B PSIS (R>L) and lower lumbar spinous processes PT-OP-K Range of Motion Start: 02/29/24 07:25 Freq: Status: Active Protocol: Document 04/24/24 09:05 NM (Rec: 04/24/24 09:48 NM [id number]) Lumbar Spine Range of Motion Lumbar Spine Active Percentage Flexion 90 Extension 25 Lateral Flexion Left 100 Lateral Flexion Right 100 ROM Limitations Pain Comments R back and hip pain with active lateral flexion PT-OP-L Special Tests Start: 02/29/24 07:25 Freq: Status: Active Protocol: Document 02/29/24 08:16 NM (Rec: 02/29/24 09:04 NM [id number]) Special Tests Lumbar Spine Special Tests Slump Test Results - Anderson/Quadrant Test Results + Distraction Test Results + PT-OP-M Strength Start: 02/29/24 07:25 Freq: Status: Active Protocol: Document 04/24/24 09:05 NM (Rec: 04/24/24 09:48 NM [id number]) Trunk Strength Trunk Manual Muscle Testing Flexion 4 Good Extension 4 Good Rotation Left 4 Good Rotation Right 4 Good Lateral Flexion Left 4 Good Lateral Flexion Right 4 Good Comments No pain with resisted trunk testing, but difficulty with stabilizing against resistance 04/24/24: 4/5 for all with resisted testing Hip Strength Hip Manual Muscle Testing Right Flexion (L2) 4 Good Extension (S1) 4 Good Abduction 4 Good Adduction 4 Good External Rotation 4 Good Internal Rotation 4 Good Comments 03/27/24: 4-/5 for hip flex/abd /ext 04/24/24: 4/5 B hip strength Left Flexion (L2) 4 Good Extension (S1) 4 Good Abduction 4- Good- Adduction 4 Good External Rotation 4 Good Internal Rotation 4 Good Comments 03/27/24: 4-/5 for hip flex/abd /ext 04/24/24: 4/5 B hip strength Knee Strength Knee Manual Muscle Testing Right Flexion (S2) 4 Good Extension (L3) 4 Good Comments 03/27/24: 4-/5 for knee flexion 04/24/24: 4/5 B knee strength Left Flexion (S2) 4 Good Extension (L3) 4 Good Comments 03/27/24: 4-/5 for knee flexion 04/24/24: 4/5 B knee strength PT-OP-Q Treatments Start: 02/29/24 07:25 Freq: Status: Active Protocol: Document 05/01/24 09:03 NM (Rec: 05/01/24 09:43 NM [id number]) Therapeutic Exercises Standing Exercises carries Standing Exercise Name suitcase carry Side bilateral Resistance 5# db in 1 hand Reps/Minutes 2x50 ft Comments edu to use purse at home step ups Standing Exercise Name 1. fwd, 2. lateral Side bilateral Equipment Used 4 step, prn hand support for balance Reps/Minutes 2x10 ea fwd, 2x10 ea lateral Comments cued wider RONAK; requires increased time postural muscle strengthening Standing Exercise Name low row, lat pull downs Side bilateral Resistance level 1 band Equipment Used staggered stance Reps/Minutes 15 ea Comments improved posture Therapeutic Activity Therapeutic Activity hip hinge Reps/Minutes 23 minutes Comments 1. self tactile cues at hips in sitting, 15 Dowel at back for tactile cue to neutral spine 2. sit to stand, 10 with self tactile cue prn cues for hip hinge, coord knee/hip flex 3. picking up crate from elevated plinth, 10 cue for knee flex/squat to activate glutes rather than just low back 4. picking up empty crate from floor, 5 reps Cue to keep object closer to body, not to rotate trunk while flexed, knee flex w/ hip flex coord 5. vacuum simulation using slider, 5# on dowel, 10 reps ea side Cue for staggered stance, less distance during push with body for safety PT-OP-T Assessment and Plan Start: 02/29/24 07:25 Freq: Status: Active Protocol: Document 05/01/24 09:03 NM (Rec: 05/01/24 09:43 NM [id number]) Physical Therapy Assessment Goals Seven Impairment DGI 10/08 Prison Goal (LTG) Pt will score > on DGI in order to demonstrate decreased fall risk LTG Duration 12 weeks Six Impairment core stabilization, strength Impairment difficulty with stabilization Short Term Goal (STG) Pt will be educated on and demonstrate improved abdominal drawing up/in in order to demonstrate core bracing for functional activities and pain reduction 03/27/24: educated on core bracing. difficulty demonstrating and maintaining functionally STG Duration 6 weeks Prison Goal (LTG) Pt will be able to demonstrate core bracing during dynamic balance activities, gait, and demonstrate at least 1 grade improvement in trunk MMT score 04/10/24: able to perform pallof isometric walkout with cues to maintain trunk anti- rotation 04/24/24: improved core stability by observation with gait/balance, but compensates. Currently 4/5 with resisted testing LTG Duration 12 weeks NOT MET, PROGRESSING Five Impairment strength Impairment B knee flexion 3-/5 MMT Short Term Goal (STG) Pt will increase B knee flexion strength to at least 4 -/5 MMT in order to demonstrate improved strength for gait and transfers 03/27/24: 4-/5 bilaterally, pain free STG Duration 6 weeks MET Rn Transfer Goal (LTG) Pt will increase B knee flexion strength to at least 4 /5 MMT in order to demonstrate improved strength for gait and transfers 04/24/24: 4/5 LTG Duration 12 weeks MET 04/24 Four Impairment strength Impairment B hip strength limited Short Term Goal (STG) Pt will increase B hip strength to at least 4/5 globally in order to demonstrate improved stability during gait, balance, and transfers, in addition to decreased fall risk 03/27/24: 4-/5 for hip flex/abd /ext 04/10/24: 4/5 B hip strength STG Duration 6 weeks GOAL MET Rn Transfer Goal (LTG) Pt will increase B hip strength to at least 4+/5 globally in order to demonstrate improved stability during gait, balance, and transfers, in addition to decreased fall risk 04/10/24: 4/5 B hip strength 04/24/24: 4/5 B hip strength LTG Duration 12 weeks PROGRESSING, NOT MET 04/24 Three Impairment strength Impairment 5x STS score 17 seconds Prison Goal (LTG) Pt will be able to perform 5x STS in 15 seconds or less in order to demonstrate improved BLE strength for transfers 03/27/24: 31 sec; cued for form over speed, still demos knee valgus 04/24/24: 12.87 seconds, pain free, improved form LTG Duration 12 weeks MET Two Impairment balance Impairment Johnson 35/56 Short Term Goal (STG) Pt will increase Johnson balance score to at least 40/56 in order to demonstrate improved balance and safety during transfers and gait 03/27/24: 48/56 STG Duration 6 weeks Rn Transfer Goal (LTG) Pt will increase Johnson balance score to at least 48/56 in order to demonstrate improved balance and safety during transfers and gait 03/27/24: 48/56 LTG Duration 12 weeks MET One Impairment balance Impairment TUG 15 seconds, without AD Short Term Goal (STG) Pt will decrease TUG time to at least 13.5 seconds without AD in order to demonstrate decreased fall risk and improved balance 03/27/24: 9.8 sec but demos trunk instability and sway STG Duration 6 weeks MET Rn Transfer Goal (LTG) Pt will decrease TUG time to at least 10 seconds without AD in order to demonstrate decreased fall risk and improved balance, or if appropriate, pt will be educated on and prescribed LRAD for safety due to balance and increased fall risk 04/24/24: 11.6 sec, 10.3, 9.3 sec - average 10.4 seconds LTG Duration 12 weeks MET Assessment Summary Assessment Pt tolerated session well with good effort. Emphasis today on body mechanics training to address pt report of low back pain with ADLs involving forward flexion. Educated pt on hip hinge, initiating hip hinge progression from seated to picking up small objects from ground and simulating using vacuum. Pt requires cues for correct execution, safety and joint protection. She responds well to staggered stance for both balance and form. Continued with glute strengthening using step up. Pt demonstrates improved control and requires no cues for foot clearance today, only wider RONAK. Initiated suitcase carries for further trunk strengthening, which pt tolerated well. Pt would benefit from skilled PT for trunk and BLE strengthening in addition to balance training Physical Therapy Plan Frequency and Duration Frequency of Treatment 1-2x/wk Duration of treatment (weeks) 12 Plan of Care Start Date 04/24/24 Plan of Care End Date 07/19/24 Therapeutic Interventions Therapeutic Interventions Balance Training,Coordination Training,Gait Training,Home Exercise Program,Joint Mobilizations,Manual Therapy, Neuromuscular Re-education, Orthotic/Prosthetic Management ,Patient/Caregiver Education, Self-Care/Home Management, Sensory Integration,Soft Tissue Mobilization,Taping, Therapeutic Activities, Therapeutic Exercises Modalities Cold Pack/Ice Massage,Electric Stimulation,Hot Packs, Ultrasound Next Visit Focus/Plan Next Note Type Treatment Note Next Visit Plan Cont with step ups, glute and postural strength/core strength (trial seated isometrics, chops w/ resistance), march, ankle strength with band. Balance Leg press, pallof press stable . Progress glute strengthening and begin balance work too, hip hinge and body mechanics training with core bracing, ankle strength with band POC per PT: Emphasis on low back and hips, balance
--- NOTE | 2024-05-08 09:45 | PT.OTN ---
Current Diagnoses Other chronic pain (05/08/24) Low back pain, unspecified (05/08/24) Other lack of coordination (05/08/24) Weakness (05/08/24) Physical Therapy Treatment Note PT-OP-A Visit Information Start: 02/29/24 07:25 Freq: Status: Active Protocol: Document 05/08/24 09:02 SP (Rec: 05/08/24 09:48 SP [id number]) Out-Patient Physical Therapy Visit Information Visit Information Visit Type Treatment Note Visit Note KX after 19 visits Visit Start Time 09:02 Visit Stop Time 09:45 Visit Number 14 Number of [employer] Visits 1 Evaluation Information Evaluation Date 02/29/24 Precautions Precautions osteoporosis, fall risk PT-OP-B Current Condition Start: 02/29/24 07:25 Freq: Status: Active Protocol: Document 02/29/24 08:16 NM (Rec: 02/29/24 09:04 NM [id number]) Current Condition History of Current Condition Current Complaints pain, balance, weakness History of Current Condition Pt presents with low back pain . She has numbness in her toes bilaterally that began 20 years ago, gradually worsening . She reports that she has pain in both shoulders (L>R), B hips (R>L). She has difficulty with lifting her R arm up, began at least 10 years. Pt reports that she falls frequently, at leat 1x/ month. She most recently feel 3 days ago. She states that she doesn't pick her feet up. She has used a cane previously , but doesn't use it because it's more tourble than it's worth. She also has lower back pain, along the hip bones. She has PMH of fibromyalgia, dx 15 years ago. She also have osteoporosis, dx about 1 year ago. She is currently on fomax; she is not on calcium or vitamin D. She states no fractures throughout lifetime. She reports that her L ankle is swollen, worse with PF (2-3 months). She reports that her back originally started to hurt many years ago when she fell off horse. Prior Treatments and Tests She has previous PT for shoulders and neck at [facility], which was helpful No recent lumbar imaging R hip radiograph 05/2023: bony degeneration without fracture Current Functional Impairments (Reported) Functional Limitations- ADL's vacuuming Functional Limitations- Mobility/Gait difficulty w/ transitioning from sit<>stand, household distances w/o AD Functional Limitations- Recreation/ gardening Hobbies Functional Limitations- Other lives with , 1 story, several throw rugs PT-OP-C Subjective Start: 02/29/24 07:25 Freq: Status: Active Protocol: Document 05/08/24 09:02 SP (Rec: 05/08/24 09:48 SP [id number]) OP-PT Subjective Patient Comments Patient Comments Pt reports feel good with exercises and after PT. Her back is sore after working in the yard. PT-OP-D Balance Start: 02/29/24 07:25 Freq: Status: Active Protocol: Document 02/29/24 08:16 NM (Rec: 02/29/24 09:04 NM [id number]) Balance Tests Johnson Balance Test Johnson Balance Test Score 35/56 PT-OP-E Functional Tests Start: 02/29/24 07:25 Freq: Status: Active Protocol: Document 02/29/24 08:16 NM (Rec: 02/29/24 09:04 NM [id number]) Functional Tests Five Times Sit to Stand Test Score 17 sec Comments low back pain, R hip; use hands on thighs, 20 plinth Timed Up and Go (TUG) Score 15 sec Comments no AD, slow turns PT-OP-F Manual Assessment Start: 02/29/24 07:25 Freq: Status: Active Protocol: Document 02/29/24 08:16 NM (Rec: 02/29/24 09:04 NM [id number]) Manual Assessments Soft Tissue Assessment Soft Tissue Mobility Assessment Increased hamstring length. Tight parapsinals, hip flexors , glute/piriformis Joint Mobility Assessment Joint Mobility Assessment Overall hypomobility of thoracolumbar spine. Bilateral AROM and PROM of hips, R>L. Weakness and decreased mobility of B shoulders (R>L) PT-OP-G Mobility & Gait Start: 02/29/24 07:25 Freq: Status: Active Protocol: Document 02/29/24 08:16 NM (Rec: 02/29/24 09:04 NM [id number]) OP Gait Assessment Gait Gait Assistance Required: Standby Assistance Distance (Feet) 150 Comments Gait Comments atnalgis Stair Climbing Evaluation Evaluation Level of Assist On Stairs Contact Guard Assistance Devices Stair Climbing Assistive Devices Left Railing,Right Railing Technique/Endurance Stair Climbing Direction Ascend and Descend Stair Climbing Technique Step to Step Number of Steps Climbed 4 Stair Climbing Set # Repetitions (reps) 1 Comments Stair Climbing Comments Non-reciprocal stepping, antalgic R side. B hand rail assist, near LOB PT-OP-H Neuro Start: 02/29/24 07:25 Freq: Status: Active Protocol: Document 02/29/24 08:16 NM (Rec: 02/29/24 09:04 NM [id number]) Sensation Evaluation Comments Summary Comments BUE equally intact to light touch sensation; BLE equally intact above knee, decreased BLE below knee (L worse than R ) PT-OP-J Posture/Palpation/Skin Start: 02/29/24 07:25 Freq: Status: Active Protocol: Document 02/29/24 08:16 NM (Rec: 02/29/24 09:04 NM [id number]) Posture Evaluation Position Standing Head/C-Spine Posture Forward Head T-Spine Posture Increased Kyphosis L-Spine Posture Increased Lordosis Pelvis Posture Anteriorly Tilted Weight Distribution Weight Shifted Left Hip Posture (L) Externally Rotated,(R) Externally Rotated Knee Posture (L) Genu Valgus,(R) Genu Valgus Ankle/Foot Posture (L) Pronated,(R) Pronated Comments Posture Comments Forward flexed posture Palpation Assessment Location hip Palpation Details R hip tenderness along greater trochanter, small anterior groin tenderness Tightness along hip flexors, glute/piriformis back Palpation Details Tightness along thoracolumbar paraspinals Tenderness with palpation of R SI joint, B PSIS (R>L) and lower lumbar spinous processes PT-OP-K Range of Motion Start: 02/29/24 07:25 Freq: Status: Active Protocol: Document 04/24/24 09:05 NM (Rec: 04/24/24 09:48 NM [id number]) Lumbar Spine Range of Motion Lumbar Spine Active Percentage Flexion 90 Extension 25 Lateral Flexion Left 100 Lateral Flexion Right 100 ROM Limitations Pain Comments R back and hip pain with active lateral flexion PT-OP-L Special Tests Start: 02/29/24 07:25 Freq: Status: Active Protocol: Document 02/29/24 08:16 NM (Rec: 02/29/24 09:04 NM [id number]) Special Tests Lumbar Spine Special Tests Slump Test Results - Anderson/Quadrant Test Results + Distraction Test Results + PT-OP-M Strength Start: 02/29/24 07:25 Freq: Status: Active Protocol: Document 04/24/24 09:05 NM (Rec: 04/24/24 09:48 NM [id number]) Trunk Strength Trunk Manual Muscle Testing Flexion 4 Good Extension 4 Good Rotation Left 4 Good Rotation Right 4 Good Lateral Flexion Left 4 Good Lateral Flexion Right 4 Good Comments No pain with resisted trunk testing, but difficulty with stabilizing against resistance 04/24/24: 4/5 for all with resisted testing Hip Strength Hip Manual Muscle Testing Right Flexion (L2) 4 Good Extension (S1) 4 Good Abduction 4 Good Adduction 4 Good External Rotation 4 Good Internal Rotation 4 Good Comments 03/27/24: 4-/5 for hip flex/abd /ext 04/24/24: 4/5 B hip strength Left Flexion (L2) 4 Good Extension (S1) 4 Good Abduction 4- Good- Adduction 4 Good External Rotation 4 Good Internal Rotation 4 Good Comments 03/27/24: 4-/5 for hip flex/abd /ext 04/24/24: 4/5 B hip strength Knee Strength Knee Manual Muscle Testing Right Flexion (S2) 4 Good Extension (L3) 4 Good Comments 03/27/24: 4-/5 for knee flexion 04/24/24: 4/5 B knee strength Left Flexion (S2) 4 Good Extension (L3) 4 Good Comments 03/27/24: 4-/5 for knee flexion 04/24/24: 4/5 B knee strength PT-OP-Q Treatments Start: 02/29/24 07:25 Freq: Status: Active Protocol: Document 05/08/24 09:02 SP (Rec: 05/08/24 09:48 SP [id number]) Therapeutic Exercises Standing Exercises carries Standing Exercise Name suitcase carry Side bilateral Resistance 5# db in bucket in 1 hand Reps/Minutes 2x50 ft laps each hand Comments edu to use purse at home step ups Standing Exercise Name 1. fwd added to HEP /c HO 2. lateral (not lateral today) Side bilateral Equipment Used 6 step, prn hand support for balance Reps/Minutes x10 ea fwd, x10 ea lateral Comments Mod cues, elevated posture over RONAK, improved increased time postural muscle strengthening Standing Exercise Name low row, lat pull downs Side bilateral Resistance level 1 band Equipment Used staggered stance Reps/Minutes 15 ea Comments improved posture /c cues for head over trunk, rhomboid & core fac Therapeutic Activity Therapeutic Activity body mechanics Name gardening Comments education and demo with returned demonstration: kneel and 1/2 kneel on foam stone cushion. Cued maintain back straight and head nod/tuck for CS stability support, hip hinge with 1 UE on ground assimulated pulling weeds, wt shift between BLEs with good feedback response. ALso ed for mindful of how long performing activity, back musculture gets tired then over recruit causing pain, take breaks or leave for another day. Good feedback response from pt. hip hinge Reps/Minutes 23 minutes Comments 1. self tactile cues at hips in sitting, 15 Dowel at back for tactile cue to neutral spine 2. sit to stand, 10 with self tactile cue prn cues for hip hinge, coord knee/hip flex 3. picking up crate from elevated plinth, 10 cue for knee flex/squat to activate glutes rather than just low back 4. picking up empty crate from floor, 5 reps; 5# leg wt inside 5 reps. Cue to keep object closer to body, not to rotate trunk while flexed, knee flex w/ hip flex coord Self-Care/Home Management Treatment Education Patient Education Body Mechanics,Home Exercise Program,Posture Other Education 25 min: TIme spent on anatomy back, posture, scapular complex COG over RONAK including head positioning to decrease LB recruitment, then carryover with funcitonal activities. Less strain on low back. PT-OP-T Assessment and Plan Start: 02/29/24 07:25 Freq: Status: Active Protocol: Document 05/08/24 09:02 SP (Rec: 05/08/24 09:48 SP [id number]) Physical Therapy Assessment Goals Seven Impairment DGI 10/08 Informatics Consultant Goal (LTG) Pt will score >19/24 on DGI in order to demonstrate decreased fall risk LTG Duration 12 weeks Six Impairment core stabilization, strength Impairment difficulty with stabilization Short Term Goal (STG) Pt will be educated on and demonstrate improved abdominal drawing up/in in order to demonstrate core bracing for functional activities and pain reduction 03/27/24: educated on core bracing. difficulty demonstrating and maintaining functionally STG Duration 6 weeks Informatics Consultant Goal (LTG) Pt will be able to demonstrate core bracing during dynamic balance activities, gait, and demonstrate at least 1 grade improvement in trunk MMT score 04/10/24: able to perform pallof isometric walkout with cues to maintain trunk anti- rotation 04/24/24: improved core stability by observation with gait/balance, but compensates. Currently 4/5 with resisted testing LTG Duration 12 weeks NOT MET, PROGRESSING Five Impairment strength Impairment B knee flexion 3-/5 MMT Short Term Goal (STG) Pt will increase B knee flexion strength to at least 4 -/5 MMT in order to demonstrate improved strength for gait and transfers 03/27/24: 4-/5 bilaterally, pain free STG Duration 6 weeks MET [facility] Goal (LTG) Pt will increase B knee flexion strength to at least 4 /5 MMT in order to demonstrate improved strength for gait and transfers 04/24/24: 4/5 LTG Duration 12 weeks MET 04/24 Four Impairment strength Impairment B hip strength limited Short Term Goal (STG) Pt will increase B hip strength to at least 4/5 globally in order to demonstrate improved stability during gait, balance, and transfers, in addition to decreased fall risk 03/27/24: 4-/5 for hip flex/abd /ext 04/10/24: 4/5 B hip strength STG Duration 6 weeks GOAL MET [facility] Goal (LTG) Pt will increase B hip strength to at least 4+/5 globally in order to demonstrate improved stability during gait, balance, and transfers, in addition to decreased fall risk 04/10/24: 4/5 B hip strength 04/24/24: 4/5 B hip strength LTG Duration 12 weeks PROGRESSING, NOT MET 04/24 Three Impairment strength Impairment 5x STS score 17 seconds [facility] Goal (LTG) Pt will be able to perform 5x STS in 15 seconds or less in order to demonstrate improved BLE strength for transfers 03/27/24: 31 sec; cued for form over speed, still demos knee valgus 04/24/24: 12.87 seconds, pain free, improved form LTG Duration 12 weeks MET Two Impairment balance Impairment Johnson 35/56 Short Term Goal (STG) Pt will increase Johnson balance score to at least 40/56 in order to demonstrate improved balance and safety during transfers and gait 03/27/24: 48/56 STG Duration 6 weeks Informatics Consultant Goal (LTG) Pt will increase Johnson balance score to at least 48/56 in order to demonstrate improved balance and safety during transfers and gait 03/27/24: 48/56 LTG Duration 12 weeks MET One Impairment balance Impairment TUG 15 seconds, without AD Short Term Goal (STG) Pt will decrease TUG time to at least 13.5 seconds without AD in order to demonstrate decreased fall risk and improved balance 03/27/24: 9.8 sec but demos trunk instability and sway STG Duration 6 weeks MET [facility] Goal (LTG) Pt will decrease TUG time to at least 10 seconds without AD in order to demonstrate decreased fall risk and improved balance, or if appropriate, pt will be educated on and prescribed LRAD for safety due to balance and increased fall risk 04/24/24: 11.6 sec, 10.3, 9.3 sec - average 10.4 seconds LTG Duration 12 weeks MET Assessment Summary Assessment Pt good response to ther ex with improved trunk alignment lateral/level during suitcarry and adjustments in body mechanics with cuing edcuation lifting crate bag of potting soil and kneeling weeding with 1 UE support for spinal alignment and core support co- facilitation. Physical Therapy Plan Frequency and Duration Frequency of Treatment 1-2x/wk Duration of treatment (weeks) 12 Plan of Care Start Date 04/24/24 Plan of Care End Date 07/19/24 Therapeutic Interventions Therapeutic Interventions Balance Training,Coordination Training,Gait Training,Home Exercise Program,Joint Mobilizations,Manual Therapy, Neuromuscular Re-education, Orthotic/Prosthetic Management ,Patient/Caregiver Education, Self-Care/Home Management, Sensory Integration,Soft Tissue Mobilization,Taping, Therapeutic Activities, Therapeutic Exercises Modalities Cold Pack/Ice Massage,Electric Stimulation,Hot Packs, Ultrasound Next Visit Focus/Plan Next Note Type Treatment Note Next Visit Plan Continue body mechanics gardening review. Review: step ups, glute and postural strength/core strength (trial seated isometrics, chops w/ resistance), march, ankle strength with band. Balance Leg press, pallof press stable . Progress glute strengthening and begin balance work too, hip hinge and body mechanics training with core bracing, ankle strength with band POC per PT: Emphasis on low back and hips, balance
--- NOTE | 2024-05-15 12:29 | PT.OTN ---
Current Diagnoses Other chronic pain (05/15/24) Low back pain, unspecified (05/15/24) Other lack of coordination (05/15/24) Weakness (05/15/24) Physical Therapy Treatment Note PT-OP-A Visit Information Start: 02/29/24 07:25 Freq: Status: Active Protocol: Document 05/15/24 08:57 NM (Rec: 05/15/24 09:47 NM [id number]) Out-Patient Physical Therapy Visit Information Visit Information Visit Type Treatment Note Visit Note KX after 19 visits Visit Start Time 09:03 Visit Stop Time 09:43 Visit Number 15 Evaluation Information Evaluation Date 02/29/24 Precautions Precautions osteoporosis, fall risk PT-OP-B Current Condition Start: 02/29/24 07:25 Freq: Status: Active Protocol: Document 02/29/24 08:16 NM (Rec: 02/29/24 09:04 NM [id number]) Current Condition History of Current Condition Current Complaints pain, balance, weakness History of Current Condition Pt presents with low back pain . She has numbness in her toes bilaterally that began 20 years ago, gradually worsening . She reports that she has pain in both shoulders (L>R), B hips (R>L). She has difficulty with lifting her R arm up, began at least 10 years. Pt reports that she falls frequently, at leat 1x/ month. She most recently feel 3 days ago. She states that she doesn't pick her feet up. She has used a cane previously , but doesn't use it because it's more tourble than it's worth. She also has lower back pain, along the hip bones. She has PMH of fibromyalgia, dx 15 years ago. She also have osteoporosis, dx about 1 year ago. She is currently on fomax; she is not on calcium or vitamin D. She states no fractures throughout lifetime. She reports that her L ankle is swollen, worse with PF (2-3 months). She reports that her back originally started to hurt many years ago when she fell off horse. Prior Treatments and Tests She has previous PT for shoulders and neck at [facility], which was helpful No recent lumbar imaging R hip radiograph 05/2023: bony degeneration without fracture Current Functional Impairments (Reported) Functional Limitations- ADL's vacuuming Functional Limitations- Mobility/Gait difficulty w/ transitioning from sit<>stand, household distances w/o AD Functional Limitations- Recreation/ gardening Hobbies Functional Limitations- Other lives with , 1 story, several throw rugs PT-OP-C Subjective Start: 02/29/24 07:25 Freq: Status: Active Protocol: Document 05/15/24 08:57 NM (Rec: 05/15/24 09:47 NM [id number]) OP-PT Subjective Patient Comments Patient Comments Pt reports doing well except states that 3 days ago, when she states that her back began bothering her when she was carrying groceries. Feels like she has difficulty with standing up straight. States tired, not painful. States HEP going well, doing 1x/day PT-OP-D Balance Start: 02/29/24 07:25 Freq: Status: Active Protocol: Document 02/29/24 08:16 NM (Rec: 02/29/24 09:04 NM [id number]) Balance Tests Johnson Balance Test Johnson Balance Test Score 35/56 PT-OP-E Functional Tests Start: 02/29/24 07:25 Freq: Status: Active Protocol: Document 02/29/24 08:16 NM (Rec: 02/29/24 09:04 NM [id number]) Functional Tests Five Times Sit to Stand Test Score 17 sec Comments low back pain, R hip; use hands on thighs, 20 plinth Timed Up and Go (TUG) Score 15 sec Comments no AD, slow turns PT-OP-F Manual Assessment Start: 02/29/24 07:25 Freq: Status: Active Protocol: Document 02/29/24 08:16 NM (Rec: 02/29/24 09:04 NM [id number]) Manual Assessments Soft Tissue Assessment Soft Tissue Mobility Assessment Increased hamstring length. Tight parapsinals, hip flexors , glute/piriformis Joint Mobility Assessment Joint Mobility Assessment Overall hypomobility of thoracolumbar spine. Bilateral AROM and PROM of hips, R>L. Weakness and decreased mobility of B shoulders (R>L) PT-OP-G Mobility & Gait Start: 02/29/24 07:25 Freq: Status: Active Protocol: Document 02/29/24 08:16 NM (Rec: 02/29/24 09:04 NM [id number]) OP Gait Assessment Gait Gait Assistance Required: Standby Assistance Distance (Feet) 150 Comments Gait Comments atnalgis Stair Climbing Evaluation Evaluation Level of Assist On Stairs Contact Guard Assistance Devices Stair Climbing Assistive Devices Left Railing,Right Railing Technique/Endurance Stair Climbing Direction Ascend and Descend Stair Climbing Technique Step to Step Number of Steps Climbed 4 Stair Climbing Set # Repetitions (reps) 1 Comments Stair Climbing Comments Non-reciprocal stepping, antalgic R side. B hand rail assist, near LOB PT-OP-H Neuro Start: 02/29/24 07:25 Freq: Status: Active Protocol: Document 02/29/24 08:16 NM (Rec: 02/29/24 09:04 NM [id number]) Sensation Evaluation Comments Summary Comments BUE equally intact to light touch sensation; BLE equally intact above knee, decreased BLE below knee (L worse than R ) PT-OP-J Posture/Palpation/Skin Start: 02/29/24 07:25 Freq: Status: Active Protocol: Document 02/29/24 08:16 NM (Rec: 02/29/24 09:04 NM [id number]) Posture Evaluation Position Standing Head/C-Spine Posture Forward Head T-Spine Posture Increased Kyphosis L-Spine Posture Increased Lordosis Pelvis Posture Anteriorly Tilted Weight Distribution Weight Shifted Left Hip Posture (L) Externally Rotated,(R) Externally Rotated Knee Posture (L) Genu Valgus,(R) Genu Valgus Ankle/Foot Posture (L) Pronated,(R) Pronated Comments Posture Comments Forward flexed posture Palpation Assessment Location hip Palpation Details R hip tenderness along greater trochanter, small anterior groin tenderness Tightness along hip flexors, glute/piriformis back Palpation Details Tightness along thoracolumbar paraspinals Tenderness with palpation of R SI joint, B PSIS (R>L) and lower lumbar spinous processes PT-OP-K Range of Motion Start: 02/29/24 07:25 Freq: Status: Active Protocol: Document 04/24/24 09:05 NM (Rec: 04/24/24 09:48 NM [id number]) Lumbar Spine Range of Motion Lumbar Spine Active Percentage Flexion 90 Extension 25 Lateral Flexion Left 100 Lateral Flexion Right 100 ROM Limitations Pain Comments R back and hip pain with active lateral flexion PT-OP-L Special Tests Start: 02/29/24 07:25 Freq: Status: Active Protocol: Document 02/29/24 08:16 NM (Rec: 02/29/24 09:04 NM [id number]) Special Tests Lumbar Spine Special Tests Slump Test Results - Anderson/Quadrant Test Results + Distraction Test Results + PT-OP-M Strength Start: 02/29/24 07:25 Freq: Status: Active Protocol: Document 04/24/24 09:05 NM (Rec: 04/24/24 09:48 NM [id number]) Trunk Strength Trunk Manual Muscle Testing Flexion 4 Good Extension 4 Good Rotation Left 4 Good Rotation Right 4 Good Lateral Flexion Left 4 Good Lateral Flexion Right 4 Good Comments No pain with resisted trunk testing, but difficulty with stabilizing against resistance 04/24/24: 4/5 for all with resisted testing Hip Strength Hip Manual Muscle Testing Right Flexion (L2) 4 Good Extension (S1) 4 Good Abduction 4 Good Adduction 4 Good External Rotation 4 Good Internal Rotation 4 Good Comments 03/27/24: 4-/5 for hip flex/abd /ext 04/24/24: 4/5 B hip strength Left Flexion (L2) 4 Good Extension (S1) 4 Good Abduction 4- Good- Adduction 4 Good External Rotation 4 Good Internal Rotation 4 Good Comments 03/27/24: 4-/5 for hip flex/abd /ext 04/24/24: 4/5 B hip strength Knee Strength Knee Manual Muscle Testing Right Flexion (S2) 4 Good Extension (L3) 4 Good Comments 03/27/24: 4-/5 for knee flexion 04/24/24: 4/5 B knee strength Left Flexion (S2) 4 Good Extension (L3) 4 Good Comments 03/27/24: 4-/5 for knee flexion 04/24/24: 4/5 B knee strength PT-OP-Q Treatments Start: 02/29/24 07:25 Freq: Status: Active Protocol: Document 05/15/24 08:57 NM (Rec: 05/15/24 09:47 NM [id number]) Gym Equipment Shuttle Recovery unilateral squat Details cued alignment Resistance 25# (1 navy) Reps/Time 15 ea Therapeutic Exercises Supine Exercises knees to chest Supine Exercise Name DKTC Side bilateral Resistance AROM Equipment Used small orange ghanaian ball Reps/Minutes 10 with 5 hold Comments reports good stretch lateral hip stretch Supine Exercise Name LTR Side bilateral Equipment Used orange ghanaian ball Reps/Minutes 15 ea direction Comments R stretch felt only posterior pelvic tilt Supine Exercise Name with lumbar traction and pec stretch Side bilateral Reps/Minutes 60 Comments for low back relaxation and stretch; cued for breathwork bridge Supine Exercise Name with segmental motion and core bracing Side bilateral Reps/Minutes 10 Standing Exercises hip flexion Standing Exercise Name march Side bilateral Resistance level 1 band Equipment Used 1 hand support for balance Reps/Minutes 10 ea Comments good glute activation; cued tall posture carries Standing Exercise Name asymmetrical carry Side bilateral Resistance 5# db ea side Reps/Minutes 4x25 ft ea Comments tiring postural muscle strengthening Standing Exercise Name lat pull down Side bilateral Resistance level 2 band Equipment Used staggered stance Reps/Minutes 2x10 Comments improved posture today and form w/ pull down Neuro Re-Education Treatment Balance Activities ball toss Reps/Duration 50 ft ea direction Comments Amhulation w/ head turns and ball toss at wall. Challenging for pt, CGA to steady, difficulty to stay ambulating while tossing and catching. Good reaching and balance stepping Details green bungee Surface stable Equipment CGA Reps/Duration 5 ea direction x5 ft Comments fwd, retro, lateral; with eccentric control against bungee Cued tall posture; improved larger stepping and upright posture w/ reps PT-OP-T Assessment and Plan Start: 02/29/24 07:25 Freq: Status: Active Protocol: Document 05/15/24 08:57 NM (Rec: 05/15/24 09:47 NM [id number]) Physical Therapy Assessment Goals Seven Impairment DGI 10/08 Lifter/Driver Goal (LTG) Pt will score >19/24 on DGI in order to demonstrate decreased fall risk LTG Duration 12 weeks Six Impairment core stabilization, strength Impairment difficulty with stabilization Short Term Goal (STG) Pt will be educated on and demonstrate improved abdominal drawing up/in in order to demonstrate core bracing for functional activities and pain reduction 03/27/24: educated on core bracing. difficulty demonstrating and maintaining functionally STG Duration 6 weeks Skilled Nursing Goal (LTG) Pt will be able to demonstrate core bracing during dynamic balance activities, gait, and demonstrate at least 1 grade improvement in trunk MMT score 04/10/24: able to perform pallof isometric walkout with cues to maintain trunk anti- rotation 04/24/24: improved core stability by observation with gait/balance, but compensates. Currently 4/5 with resisted testing LTG Duration 12 weeks NOT MET, PROGRESSING Five Impairment strength Impairment B knee flexion 3-/5 MMT Short Term Goal (STG) Pt will increase B knee flexion strength to at least 4 -/5 MMT in order to demonstrate improved strength for gait and transfers 03/27/24: 4-/5 bilaterally, pain free STG Duration 6 weeks MET Skilled Nursing Goal (LTG) Pt will increase B knee flexion strength to at least 4 /5 MMT in order to demonstrate improved strength for gait and transfers 04/24/24: 4/5 LTG Duration 12 weeks MET 04/24 Four Impairment strength Impairment B hip strength limited Short Term Goal (STG) Pt will increase B hip strength to at least 4/5 globally in order to demonstrate improved stability during gait, balance, and transfers, in addition to decreased fall risk 03/27/24: 4-/5 for hip flex/abd /ext 04/10/24: 4/5 B hip strength STG Duration 6 weeks GOAL MET Skilled Nursing Goal (LTG) Pt will increase B hip strength to at least 4+/5 globally in order to demonstrate improved stability during gait, balance, and transfers, in addition to decreased fall risk 04/10/24: 4/5 B hip strength 04/24/24: 4/5 B hip strength LTG Duration 12 weeks PROGRESSING, NOT MET 04/24 Three Impairment strength Impairment 5x STS score 17 seconds Skilled Nursing Goal (LTG) Pt will be able to perform 5x STS in 15 seconds or less in order to demonstrate improved BLE strength for transfers 03/27/24: 31 sec; cued for form over speed, still demos knee valgus 04/24/24: 12.87 seconds, pain free, improved form LTG Duration 12 weeks MET Two Impairment balance Impairment Johnson 35/56 Short Term Goal (STG) Pt will increase Johnson balance score to at least 40/56 in order to demonstrate improved balance and safety during transfers and gait 03/27/24: 48/56 STG Duration 6 weeks Skilled Nursing Goal (LTG) Pt will increase Johnson balance score to at least 48/56 in order to demonstrate improved balance and safety during transfers and gait 03/27/24: 48/56 LTG Duration 12 weeks MET One Impairment balance Impairment TUG 15 seconds, without AD Short Term Goal (STG) Pt will decrease TUG time to at least 13.5 seconds without AD in order to demonstrate decreased fall risk and improved balance 03/27/24: 9.8 sec but demos trunk instability and sway STG Duration 6 weeks MET Lifter/Driver Goal (LTG) Pt will decrease TUG time to at least 10 seconds without AD in order to demonstrate decreased fall risk and improved balance, or if appropriate, pt will be educated on and prescribed LRAD for safety due to balance and increased fall risk 04/24/24: 11.6 sec, 10.3, 9.3 sec - average 10.4 seconds LTG Duration 12 weeks MET Assessment Summary Assessment Pt tolerated session well. Demos improved trunk alignment with carries, bungee stepping , and ambulation with ball toss. Pt progressed to unilateral squat on leg press. Demos difficulty with maintaining trunk alignment on RLE with standing march due to glute weakness. Pt challenged with maintaining ambulation while tossing ball, very visually dependent. However, good reaction times, anticipatory reactions and trunk rotation. Pt would benefit from skilled PT for progressive BLE and trunk strengthening in addition to body mechanics and balance training in order to improve activity tolerance. Physical Therapy Plan Frequency and Duration Frequency of Treatment 1-2x/wk Duration of treatment (weeks) 12 Plan of Care Start Date 04/24/24 Plan of Care End Date 07/19/24 Therapeutic Interventions Therapeutic Interventions Balance Training,Coordination Training,Gait Training,Home Exercise Program,Joint Mobilizations,Manual Therapy, Neuromuscular Re-education, Orthotic/Prosthetic Management ,Patient/Caregiver Education, Self-Care/Home Management, Sensory Integration,Soft Tissue Mobilization,Taping, Therapeutic Activities, Therapeutic Exercises Modalities Cold Pack/Ice Massage,Electric Stimulation,Hot Packs, Ultrasound Next Visit Focus/Plan Next Note Type Treatment Note Next Visit Plan Continue body mechanics gardening review. Uni leg press, balance; hip flex w/ band (add HEP), step up and lateral step up; B squat to chair with band, functional core and trunk strength: pallof, carries; hip hinge and deadlift Balance on stable and unstable surfaces POC per PT: Emphasis on low back and hips, balance
--- NOTE | 2024-05-22 12:17 | PT.OTN ---
Current Diagnoses Other chronic pain (05/22/24) Low back pain, unspecified (05/22/24) Other lack of coordination (05/22/24) Weakness (05/22/24) Physical Therapy Treatment Note PT-OP-A Visit Information Start: 02/29/24 07:25 Freq: Status: Active Protocol: Document 05/22/24 11:22 NBM (Rec: 05/22/24 12:17 NBM [id number]) Out-Patient Physical Therapy Visit Information Visit Information Visit Type Treatment Note Visit Note KX after 19 visits Visit Start Time 11:22 Visit Stop Time 12:08 Visit Number 16 Number of AIRPLANE PILOT PHOTOGRAMMETRY Visits 1 Evaluation Information Evaluation Date 02/29/24 Precautions Precautions osteoporosis, fall risk PT-OP-B Current Condition Start: 02/29/24 07:25 Freq: Status: Active Protocol: Document 02/29/24 08:16 NM (Rec: 02/29/24 09:04 NM [id number]) Current Condition History of Current Condition Current Complaints pain, balance, weakness History of Current Condition Pt presents with low back pain . She has numbness in her toes bilaterally that began 20 years ago, gradually worsening . She reports that she has pain in both shoulders (L>R), B hips (R>L). She has difficulty with lifting her R arm up, began at least 10 years. Pt reports that she falls frequently, at leat 1x/ month. She most recently feel 3 days ago. She states that she doesn't pick her feet up. She has used a cane previously , but doesn't use it because it's more tourble than it's worth. She also has lower back pain, along the hip bones. She has PMH of fibromyalgia, dx 15 years ago. She also have osteoporosis, dx about 1 year ago. She is currently on fomax; she is not on calcium or vitamin D. She states no fractures throughout lifetime. She reports that her L ankle is swollen, worse with PF (2-3 months). She reports that her back originally started to hurt many years ago when she fell off horse. Prior Treatments and Tests She has previous PT for shoulders and neck at [facility], which was helpful No recent lumbar imaging R hip radiograph 05/2023: bony degeneration without fracture Current Functional Impairments (Reported) Functional Limitations- ADL's vacuuming Functional Limitations- Mobility/Gait difficulty w/ transitioning from sit<>stand, household distances w/o AD Functional Limitations- Recreation/ gardening Hobbies Functional Limitations- Other lives with , 1 story, several throw rugs PT-OP-C Subjective Start: 02/29/24 07:25 Freq: Status: Active Protocol: Document 05/22/24 11:22 NBM (Rec: 05/22/24 12:17 NBM [id number]) OP-PT Subjective Patient Comments Patient Comments Maria Esther reports she has pain in her shoulders which may be related to her cheating on her strict anti-inflammatory diet. Her low back is hurting, especially the longer she walks. When she walks down the block her legs get heavy for her and her back is tired. She was standing ken beets and propped her foot up which helps her low back. L ankle is sore off and on. PT-OP-D Balance Start: 02/29/24 07:25 Freq: Status: Active Protocol: Document 02/29/24 08:16 NM (Rec: 02/29/24 09:04 NM [id number]) Balance Tests Johnson Balance Test Johnson Balance Test Score 35/56 PT-OP-E Functional Tests Start: 02/29/24 07:25 Freq: Status: Active Protocol: Document 02/29/24 08:16 NM (Rec: 02/29/24 09:04 NM [id number]) Functional Tests Five Times Sit to Stand Test Score 17 sec Comments low back pain, R hip; use hands on thighs, 20 plinth Timed Up and Go (TUG) Score 15 sec Comments no AD, slow turns PT-OP-F Manual Assessment Start: 02/29/24 07:25 Freq: Status: Active Protocol: Document 02/29/24 08:16 NM (Rec: 02/29/24 09:04 NM [id number]) Manual Assessments Soft Tissue Assessment Soft Tissue Mobility Assessment Increased hamstring length. Tight parapsinals, hip flexors , glute/piriformis Joint Mobility Assessment Joint Mobility Assessment Overall hypomobility of thoracolumbar spine. Bilateral AROM and PROM of hips, R>L. Weakness and decreased mobility of B shoulders (R>L) PT-OP-G Mobility & Gait Start: 02/29/24 07:25 Freq: Status: Active Protocol: Document 02/29/24 08:16 NM (Rec: 02/29/24 09:04 NM [id number]) OP Gait Assessment Gait Gait Assistance Required: Standby Assistance Distance (Feet) 150 Comments Gait Comments atnalgis Stair Climbing Evaluation Evaluation Level of Assist On Stairs Contact Guard Assistance Devices Stair Climbing Assistive Devices Left Railing,Right Railing Technique/Endurance Stair Climbing Direction Ascend and Descend Stair Climbing Technique Step to Step Number of Steps Climbed 4 Stair Climbing Set # Repetitions (reps) 1 Comments Stair Climbing Comments Non-reciprocal stepping, antalgic R side. B hand rail assist, near LOB PT-OP-H Neuro Start: 02/29/24 07:25 Freq: Status: Active Protocol: Document 02/29/24 08:16 NM (Rec: 02/29/24 09:04 NM [id number]) Sensation Evaluation Comments Summary Comments BUE equally intact to light touch sensation; BLE equally intact above knee, decreased BLE below knee (L worse than R ) PT-OP-J Posture/Palpation/Skin Start: 02/29/24 07:25 Freq: Status: Active Protocol: Document 02/29/24 08:16 NM (Rec: 02/29/24 09:04 NM [id number]) Posture Evaluation Position Standing Head/C-Spine Posture Forward Head T-Spine Posture Increased Kyphosis L-Spine Posture Increased Lordosis Pelvis Posture Anteriorly Tilted Weight Distribution Weight Shifted Left Hip Posture (L) Externally Rotated,(R) Externally Rotated Knee Posture (L) Genu Valgus,(R) Genu Valgus Ankle/Foot Posture (L) Pronated,(R) Pronated Comments Posture Comments Forward flexed posture Palpation Assessment Location hip Palpation Details R hip tenderness along greater trochanter, small anterior groin tenderness Tightness along hip flexors, glute/piriformis back Palpation Details Tightness along thoracolumbar paraspinals Tenderness with palpation of R SI joint, B PSIS (R>L) and lower lumbar spinous processes PT-OP-K Range of Motion Start: 02/29/24 07:25 Freq: Status: Active Protocol: Document 04/24/24 09:05 NM (Rec: 04/24/24 09:48 NM [id number]) Lumbar Spine Range of Motion Lumbar Spine Active Percentage Flexion 90 Extension 25 Lateral Flexion Left 100 Lateral Flexion Right 100 ROM Limitations Pain Comments R back and hip pain with active lateral flexion PT-OP-L Special Tests Start: 02/29/24 07:25 Freq: Status: Active Protocol: Document 02/29/24 08:16 NM (Rec: 02/29/24 09:04 NM [id number]) Special Tests Lumbar Spine Special Tests Slump Test Results - Anderson/Quadrant Test Results + Distraction Test Results + PT-OP-M Strength Start: 02/29/24 07:25 Freq: Status: Active Protocol: Document 04/24/24 09:05 NM (Rec: 04/24/24 09:48 NM [id number]) Trunk Strength Trunk Manual Muscle Testing Flexion 4 Good Extension 4 Good Rotation Left 4 Good Rotation Right 4 Good Lateral Flexion Left 4 Good Lateral Flexion Right 4 Good Comments No pain with resisted trunk testing, but difficulty with stabilizing against resistance 04/24/24: 4/5 for all with resisted testing Hip Strength Hip Manual Muscle Testing Right Flexion (L2) 4 Good Extension (S1) 4 Good Abduction 4 Good Adduction 4 Good External Rotation 4 Good Internal Rotation 4 Good Comments 03/27/24: 4-/5 for hip flex/abd /ext 04/24/24: 4/5 B hip strength Left Flexion (L2) 4 Good Extension (S1) 4 Good Abduction 4- Good- Adduction 4 Good External Rotation 4 Good Internal Rotation 4 Good Comments 03/27/24: 4-/5 for hip flex/abd /ext 04/24/24: 4/5 B hip strength Knee Strength Knee Manual Muscle Testing Right Flexion (S2) 4 Good Extension (L3) 4 Good Comments 03/27/24: 4-/5 for knee flexion 04/24/24: 4/5 B knee strength Left Flexion (S2) 4 Good Extension (L3) 4 Good Comments 03/27/24: 4-/5 for knee flexion 04/24/24: 4/5 B knee strength PT-OP-Q Treatments Start: 02/29/24 07:25 Freq: Status: Active Protocol: Document 05/22/24 11:22 NBM (Rec: 05/22/24 12:17 NB [id number]) Gym Equipment Shuttle Recovery unilateral squat Details cued alignment Resistance 25# (1 navy) Shuttle Recovery Platform Stable Reps/Time L 10, R x11 d/t fatigue Therapeutic Exercises Supine Exercises HS stretch /c AP Supine Exercise Name HS stretch Side bilateral Equipment Used on Shuttle Recovery> active HS stretch on L d/t L ankle discomfort Reps/Minutes 20 with 3 sec hold Comments cues for pain-free range, HS tension reduction, feels good posterior pelvic tilt Supine Exercise Name with pec stretch (goal post position) Side bilateral Reps/Minutes 60 Comments for low back relaxation and stretch; cued for breathwork Sitting Exercises HSC Sitting Exercise Name HEP review Side bilateral Resistance level 2 band held by AIRPLANE PILOT PHOTOGRAMMETRY Reps/Minutes x10 Comments cued maintain upright trunk; improved with reps LAQ Side bilateral Resistance level 1 band around ankles Reps/Minutes x10 with 3 hold Comments HEP review; cued maintain upright posture, ears over shoulders Standing Exercises step ups Standing Exercise Name 1. fwd added to HEP /c HO 2. lateral (not lateral today) Side bilateral Equipment Used 6 step, prn hand support for balance Reps/Minutes x10 ea fwd, x10 ea lateral Comments Mod cues, elevated posture over RONAK, improved increased time side steps Side bilateral Resistance level 2 band around ankles Equipment Used plinth for UE support Reps/Minutes 4x12ft Comments cued neutral foot alignment, step length; visual feedback in windows calf stretch Standing Exercise Name 1. on leg press, 2. staggered stance gastroc stretch Side bilateral Reps/Minutes 1. 30, 2. 60 ea Comments verbal review Other Exercises self STM Other Exercise Name ball wall glut/pirif, rolling pin quad/ITB/HS/Calf/Add Side right Comments verbal review only for HEP review Manual Therapy Treatment Consent Patient gave verbal consent for manual Yes treatment PT-OP-T Assessment and Plan Start: 02/29/24 07:25 Freq: Status: Active Protocol: Document 05/22/24 11:22 [facility] (Rec: 05/22/24 12:17 [facility] [id number]) Physical Therapy Assessment Goals Seven Impairment DGI 10/08 Intermediate Goal (LTG) Pt will score > on DGI in order to demonstrate decreased fall risk LTG Duration 12 weeks Six Impairment core stabilization, strength Impairment difficulty with stabilization Short Term Goal (STG) Pt will be educated on and demonstrate improved abdominal drawing up/in in order to demonstrate core bracing for functional activities and pain reduction 03/27/24: educated on core bracing. difficulty demonstrating and maintaining functionally STG Duration 6 weeks Intermediate Goal (LTG) Pt will be able to demonstrate core bracing during dynamic balance activities, gait, and demonstrate at least 1 grade improvement in trunk MMT score 04/10/24: able to perform pallof isometric walkout with cues to maintain trunk anti- rotation 04/24/24: improved core stability by observation with gait/balance, but compensates. Currently 4/5 with resisted testing LTG Duration 12 weeks NOT MET, PROGRESSING Five Impairment strength Impairment B knee flexion 3-/5 MMT Short Term Goal (STG) Pt will increase B knee flexion strength to at least 4 -/5 MMT in order to demonstrate improved strength for gait and transfers 03/27/24: 4-/5 bilaterally, pain free STG Duration 6 weeks MET Refrigerating Machine Operator Goal (LTG) Pt will increase B knee flexion strength to at least 4 /5 MMT in order to demonstrate improved strength for gait and transfers 04/24/24: 4/5 LTG Duration 12 weeks MET 04/24 Four Impairment strength Impairment B hip strength limited Short Term Goal (STG) Pt will increase B hip strength to at least 4/5 globally in order to demonstrate improved stability during gait, balance, and transfers, in addition to decreased fall risk 03/27/24: 4-/5 for hip flex/abd /ext 04/10/24: 4/5 B hip strength STG Duration 6 weeks GOAL MET Refrigerating Machine Operator Goal (LTG) Pt will increase B hip strength to at least 4+/5 globally in order to demonstrate improved stability during gait, balance, and transfers, in addition to decreased fall risk 04/10/24: 4/5 B hip strength 04/24/24: 4/5 B hip strength LTG Duration 12 weeks PROGRESSING, NOT MET 04/24 Three Impairment strength Impairment 5x STS score 17 seconds Intermediate Goal (LTG) Pt will be able to perform 5x STS in 15 seconds or less in order to demonstrate improved BLE strength for transfers 03/27/24: 31 sec; cued for form over speed, still demos knee valgus 04/24/24: 12.87 seconds, pain free, improved form LTG Duration 12 weeks MET Two Impairment balance Impairment Johnson 35/56 Short Term Goal (STG) Pt will increase Johnson balance score to at least 40/56 in order to demonstrate improved balance and safety during transfers and gait 03/27/24: 48/56 STG Duration 6 weeks Intermediate Goal (LTG) Pt will increase Johnson balance score to at least 48/56 in order to demonstrate improved balance and safety during transfers and gait 03/27/24: 48/56 LTG Duration 12 weeks MET One Impairment balance Impairment TUG 15 seconds, without AD Short Term Goal (STG) Pt will decrease TUG time to at least 13.5 seconds without AD in order to demonstrate decreased fall risk and improved balance 03/27/24: 9.8 sec but demos trunk instability and sway STG Duration 6 weeks MET Intermediate Goal (LTG) Pt will decrease TUG time to at least 10 seconds without AD in order to demonstrate decreased fall risk and improved balance, or if appropriate, pt will be educated on and prescribed LRAD for safety due to balance and increased fall risk 04/24/24: 11.6 sec, 10.3, 9.3 sec - average 10.4 seconds LTG Duration 12 weeks MET Assessment Summary Assessment Treatment focus on HEP review per pt's request due to feeling low back pain even with HEP compliance. Edu to pt w/ visual aids for general trunk, hip and LE anatomy with emphasis of upright posture in understanding low back pain with standing and walking activities, and role of HEP exercises. Performed verbal review of all HEP strengthening and stretching exercises and self-STM, and physical review of HS stretch, seated HS curls, LAQs, and resisted sidesteps. Pt requires cues for pain-free range with stretching and breathwork, and cues with resisted sidesteps for upright posture and small range to reduce compensations with a positive feedback response. Pt demos improved self-awareness for upright posture with all ex's throughout session and is encouraged to use tennis ball for self-STM for low back pain today, and complete stretching at home due to time . Thermotherapy offered and declined. Physical Therapy Plan Frequency and Duration Frequency of Treatment 1-2x/wk Duration of treatment (weeks) 12 Plan of Care Start Date 04/24/24 Plan of Care End Date 07/19/24 Therapeutic Interventions Therapeutic Interventions Balance Training,Coordination Training,Gait Training,Home Exercise Program,Joint Mobilizations,Manual Therapy, Neuromuscular Re-education, Orthotic/Prosthetic Management ,Patient/Caregiver Education, Self-Care/Home Management, Sensory Integration,Soft Tissue Mobilization,Taping, Therapeutic Activities, Therapeutic Exercises Modalities Cold Pack/Ice Massage,Electric Stimulation,Hot Packs, Ultrasound Next Visit Focus/Plan Next Note Type Treatment Note Next Visit Plan Continue body mechanics gardening review. Uni leg press, balance; hip flex w/ band (add HEP), step up and lateral step up; B squat to chair with band, functional core and trunk strength: pallof, carries; hip hinge and deadlift Balance on stable and unstable surfaces POC per PT: Emphasis on low back and hips, balance
--- NOTE | 2024-05-29 12:35 | PT.OTN ---
Current Diagnoses Other chronic pain (05/29/24) Low back pain, unspecified (05/29/24) Other lack of coordination (05/29/24) Weakness (05/29/24) Physical Therapy Treatment Note PT-OP-A Visit Information Start: 02/29/24 07:25 Freq: Status: Active Protocol: Document 05/29/24 09:49 NM (Rec: 05/29/24 10:32 NM [id number]) Out-Patient Physical Therapy Visit Information Visit Information Visit Type Progress Note Visit Note KX after 19 visits Visit Start Time 09:50 Visit Stop Time 10:28 Visit Number 17 Evaluation Information Evaluation Date 02/29/24 Precautions Precautions osteoporosis, fall risk PT-OP-B Current Condition Start: 02/29/24 07:25 Freq: Status: Active Protocol: Document 02/29/24 08:16 NM (Rec: 02/29/24 09:04 NM [id number]) Current Condition History of Current Condition Current Complaints pain, balance, weakness History of Current Condition Pt presents with low back pain . She has numbness in her toes bilaterally that began 20 years ago, gradually worsening . She reports that she has pain in both shoulders (L>R), B hips (R>L). She has difficulty with lifting her R arm up, began at least 10 years. Pt reports that she falls frequently, at leat 1x/ month. She most recently feel 3 days ago. She states that she doesn't pick her feet up. She has used a cane previously , but doesn't use it because it's more tourble than it's worth. She also has lower back pain, along the hip bones. She has PMH of fibromyalgia, dx 15 years ago. She also have osteoporosis, dx about 1 year ago. She is currently on fomax; she is not on calcium or vitamin D. She states no fractures throughout lifetime. She reports that her L ankle is swollen, worse with PF (2-3 months). She reports that her back originally started to hurt many years ago when she fell off horse. Prior Treatments and Tests She has previous PT for shoulders and neck at [facility], which was helpful No recent lumbar imaging R hip radiograph 05/2023: bony degeneration without fracture Current Functional Impairments (Reported) Functional Limitations- ADL's vacuuming Functional Limitations- Mobility/Gait difficulty w/ transitioning from sit<>stand, household distances w/o AD Functional Limitations- Recreation/ gardening Hobbies Functional Limitations- Other lives with , 1 story, several throw rugs PT-OP-C Subjective Start: 02/29/24 07:25 Freq: Status: Active Protocol: Document 05/29/24 09:49 NM (Rec: 05/29/24 10:32 NM [id number]) OP-PT Subjective Patient Comments Patient Comments Pt reports that she is doing well, states limping less bit cannot stand up straight. She reports that her middle back bothers her when she is walking or doing anything, states that her back gets tired. She reports that she is able to do all of her ADLs. She has been doing HEP, reports difficulty with LAQ due to tightness in her posterior legs. PT-OP-D Balance Start: 02/29/24 07:25 Freq: Status: Active Protocol: Document 02/29/24 08:16 NM (Rec: 02/29/24 09:04 NM [id number]) Balance Tests Johnson Balance Test Johnson Balance Test Score 35/56 PT-OP-E Functional Tests Start: 02/29/24 07:25 Freq: Status: Active Protocol: Document 02/29/24 08:16 NM (Rec: 02/29/24 09:04 NM [id number]) Functional Tests Five Times Sit to Stand Test Score 17 sec Comments low back pain, R hip; use hands on thighs, 20 plinth Timed Up and Go (TUG) Score 15 sec Comments no AD, slow turns PT-OP-F Manual Assessment Start: 02/29/24 07:25 Freq: Status: Active Protocol: Document 02/29/24 08:16 NM (Rec: 02/29/24 09:04 NM [id number]) Manual Assessments Soft Tissue Assessment Soft Tissue Mobility Assessment Increased hamstring length. Tight parapsinals, hip flexors , glute/piriformis Joint Mobility Assessment Joint Mobility Assessment Overall hypomobility of thoracolumbar spine. Bilateral AROM and PROM of hips, R>L. Weakness and decreased mobility of B shoulders (R>L) PT-OP-G Mobility & Gait Start: 02/29/24 07:25 Freq: Status: Active Protocol: Document 02/29/24 08:16 NM (Rec: 02/29/24 09:04 NM [id number]) OP Gait Assessment Gait Gait Assistance Required: Standby Assistance Distance (Feet) 150 Comments Gait Comments atnalgis Stair Climbing Evaluation Evaluation Level of Assist On Stairs Contact Guard Assistance Devices Stair Climbing Assistive Devices Left Railing,Right Railing Technique/Endurance Stair Climbing Direction Ascend and Descend Stair Climbing Technique Step to Step Number of Steps Climbed 4 Stair Climbing Set # Repetitions (reps) 1 Comments Stair Climbing Comments Non-reciprocal stepping, antalgic R side. B hand rail assist, near LOB PT-OP-H Neuro Start: 02/29/24 07:25 Freq: Status: Active Protocol: Document 02/29/24 08:16 NM (Rec: 02/29/24 09:04 NM [id number]) Sensation Evaluation Comments Summary Comments BUE equally intact to light touch sensation; BLE equally intact above knee, decreased BLE below knee (L worse than R ) PT-OP-J Posture/Palpation/Skin Start: 02/29/24 07:25 Freq: Status: Active Protocol: Document 02/29/24 08:16 NM (Rec: 02/29/24 09:04 NM [id number]) Posture Evaluation Position Standing Head/C-Spine Posture Forward Head T-Spine Posture Increased Kyphosis L-Spine Posture Increased Lordosis Pelvis Posture Anteriorly Tilted Weight Distribution Weight Shifted Left Hip Posture (L) Externally Rotated,(R) Externally Rotated Knee Posture (L) Genu Valgus,(R) Genu Valgus Ankle/Foot Posture (L) Pronated,(R) Pronated Comments Posture Comments Forward flexed posture Palpation Assessment Location hip Palpation Details R hip tenderness along greater trochanter, small anterior groin tenderness Tightness along hip flexors, glute/piriformis back Palpation Details Tightness along thoracolumbar paraspinals Tenderness with palpation of R SI joint, B PSIS (R>L) and lower lumbar spinous processes PT-OP-K Range of Motion Start: 02/29/24 07:25 Freq: Status: Active Protocol: Document 04/24/24 09:05 NM (Rec: 04/24/24 09:48 NM [id number]) Lumbar Spine Range of Motion Lumbar Spine Active Percentage Flexion 90 Extension 25 Lateral Flexion Left 100 Lateral Flexion Right 100 ROM Limitations Pain Comments R back and hip pain with active lateral flexion PT-OP-L Special Tests Start: 02/29/24 07:25 Freq: Status: Active Protocol: Document 02/29/24 08:16 NM (Rec: 02/29/24 09:04 NM [id number]) Special Tests Lumbar Spine Special Tests Slump Test Results - Anderson/Quadrant Test Results + Distraction Test Results + PT-OP-M Strength Start: 02/29/24 07:25 Freq: Status: Active Protocol: Document 05/29/24 09:49 NM (Rec: 05/29/24 10:32 NM [id number]) Trunk Strength Trunk Manual Muscle Testing Flexion 4 Good Extension 4 Good Rotation Left 4 Good Rotation Right 4 Good Lateral Flexion Left 4 Good Lateral Flexion Right 4 Good Comments No pain with resisted trunk testing, but difficulty with stabilizing against resistance 04/24/24: 4/5 for all with resisted testing 05/29/24: 4/5 for all, pain free, improved stability Hip Strength Hip Manual Muscle Testing Right Flexion (L2) 4 Good Extension (S1) 4 Good Abduction 4 Good Adduction 4 Good External Rotation 4 Good Internal Rotation 4 Good Comments 03/27/24: 4-/5 for hip flex/abd /ext 04/24/24: 4/5 B hip strength 05/29/24: 4+/5 for flex, abd; 4 /5 for IR/ER/add/ext Left Flexion (L2) 4 Good Extension (S1) 4 Good Abduction 4- Good- Adduction 4 Good External Rotation 4 Good Internal Rotation 4 Good Comments 03/27/24: 4-/5 for hip flex/abd /ext 04/24/24: 4/5 B hip strength 05/29/24: 4+/5 for flex, abd; 4 /5 for IR/ER/add/ext Knee Strength Knee Manual Muscle Testing Right Flexion (S2) 4 Good Extension (L3) 4 Good Comments 03/27/24: 4-/5 for knee flexion 04/24/24: 4/5 B knee strength 05/29/24: 4+/5 Left Flexion (S2) 4 Good Extension (L3) 4 Good Comments 03/27/24: 4-/5 for knee flexion 04/24/24: 4/5 B knee strength 05/29/24: 4+/5 PT-OP-Q Treatments Start: 02/29/24 07:25 Freq: Status: Active Protocol: Document 05/29/24 09:49 NM (Rec: 05/29/24 10:32 NM [id number]) Therapeutic Exercises Standing Exercises lunge Standing Exercise Name 1. forward stationary lunge, 2 . lateral lunge Side bilateral Equipment Used hand support for balance Reps/Minutes 1. 10 ea, 2. 15 ea- increased time w/ cueing Comments cued wider RONAK, moderate cues for correct execution carries Standing Exercise Name asymmetrical carry Side bilateral Resistance 5# db ea side Reps/Minutes 4x25 ft ea Comments fatiguing, improved trunk step ups Standing Exercise Name 1. fwd (HEP review), 2. lateral (HEP) Side bilateral Equipment Used 6 step, prn hand support for balance- increased time Reps/Minutes 2x10 ea Comments cued tall posture, no lateral trunk lean, edu not to pull up w/ hands Neuro Re-Education Treatment Balance Activities shuttle balance Surface unstable Equipment red Reps/Duration 4 minutes Comments 1. A/P weight shifts demos strong posterior lean, reduced with cues for anterior WS 2. horizontal head turns 3. vertical head nods DGI Reps/Duration ball toss Equipment CGA Comments on foam 1. wide RONAK, 10 ball toss to trampoline 2. NBOS, 10 ball toss to trampoline 3. lateral step up w/ 20 ball toss to floor ea direction (10 step ups ea direction) PT-OP-T Assessment and Plan Start: 02/29/24 07:25 Freq: Status: Active Protocol: Document 05/29/24 09:49 NM (Rec: 05/29/24 10:32 NM [id number]) Physical Therapy Assessment Goals Seven Impairment DGI 10/08 [employer] Goal (LTG) Pt will score >19/24 on DGI in order to demonstrate decreased fall risk 05/29/24: LTG Duration 12 weeks PROGRESSING Six Impairment core stabilization, strength Impairment difficulty with stabilization Short Term Goal (STG) Pt will be educated on and demonstrate improved abdominal drawing up/in in order to demonstrate core bracing for functional activities and pain reduction 03/27/24: educated on core bracing. difficulty demonstrating and maintaining functionally STG Duration 6 weeks [employer] Goal (LTG) Pt will be able to demonstrate core bracing during dynamic balance activities, gait, and demonstrate at least 1 grade improvement in trunk MMT score 04/10/24: able to perform pallof isometric walkout with cues to maintain trunk anti- rotation 04/24/24: improved core stability by observation with gait/balance, but compensates. Currently 4/5 with resisted testing 05/29/24: 4/5 with resisted testing, improved upright trunk with stairs and gait LTG Duration 12 weeks PROGRESSING Five Impairment strength Impairment B knee flexion 3-/5 MMT Short Term Goal (STG) Pt will increase B knee flexion strength to at least 4 -/5 MMT in order to demonstrate improved strength for gait and transfers 03/27/24: 4-/5 bilaterally, pain free STG Duration 6 weeks MET [employer] Goal (LTG) Pt will increase B knee flexion strength to at least 4 /5 MMT in order to demonstrate improved strength for gait and transfers 04/24/24: 4/5 05/29/24: 4+/5 both LTG Duration 12 weeks MET 04/24 Four Impairment strength Impairment B hip strength limited Short Term Goal (STG) Pt will increase B hip strength to at least 4/5 globally in order to demonstrate improved stability during gait, balance, and transfers, in addition to decreased fall risk 03/27/24: 4-/5 for hip flex/abd /ext 04/10/24: 4/5 B hip strength STG Duration 6 weeks GOAL MET [facility] Goal (LTG) Pt will increase B hip strength to at least 4+/5 globally in order to demonstrate improved stability during gait, balance, and transfers, in addition to decreased fall risk 04/10/24: 4/5 B hip strength 04/24/24: 4/5 B hip strength 05/29/24: 4+/5 for flex, abd; 4 /5 for IR/ER/add/ext LTG Duration 12 weeks PROGRESSING, PARTIALLY MET 05/29 Three Impairment strength Impairment 5x STS score 17 seconds [employer] Goal (LTG) Pt will be able to perform 5x STS in 15 seconds or less in order to demonstrate improved BLE strength for transfers 03/27/24: 31 sec; cued for form over speed, still demos knee valgus 04/24/24: 12.87 seconds, pain free, improved form LTG Duration 12 weeks MET Two Impairment balance Impairment Johnson 35/56 Short Term Goal (STG) Pt will increase Johnson balance score to at least 40/56 in order to demonstrate improved balance and safety during transfers and gait 03/27/24: 48/56 STG Duration 6 weeks [employer] Goal (LTG) Pt will increase Johnson balance score to at least 48/56 in order to demonstrate improved balance and safety during transfers and gait 03/27/24: 48/56 LTG Duration 12 weeks MET One Impairment balance Impairment TUG 15 seconds, without AD Short Term Goal (STG) Pt will decrease TUG time to at least 13.5 seconds without AD in order to demonstrate decreased fall risk and improved balance 03/27/24: 9.8 sec but demos trunk instability and sway STG Duration 6 weeks MET [facility] Goal (LTG) Pt will decrease TUG time to at least 10 seconds without AD in order to demonstrate decreased fall risk and improved balance, or if appropriate, pt will be educated on and prescribed LRAD for safety due to balance and increased fall risk 04/24/24: 11.6 sec, 10.3, 9.3 sec - average 10.4 seconds LTG Duration 12 weeks MET Progress Towards Goals Progress Towards Goals Progressing Toward Goals,Goals Met Assessment Summary Assessment Pt tolerated session well. Demonstrates improved trunk posture during gait. Pt DGI score improved to 16/24. She continues to require moderate cues for correct execution with all exercises, minimal carryover between sessions. Reviewed lateral step ups, adding to HEP, with education to limit UE assistance onto step. Pt continues to have adductor and glute weakness, so session emphasis on improving hip adduction/glute and trunk strength. During forward lunge, pt demos trunk flexion or extension compensation if depth is too low; cue to maintain small ROM to maintain better trunk posture. Physical Therapy Plan Frequency and Duration Frequency of Treatment 1-2x/wk Duration of treatment (weeks) 12 Plan of Care Start Date 04/24/24 Plan of Care End Date 07/19/24 Therapeutic Interventions Therapeutic Interventions Balance Training,Coordination Training,Gait Training,Home Exercise Program,Joint Mobilizations,Manual Therapy, Neuromuscular Re-education, Orthotic/Prosthetic Management ,Patient/Caregiver Education, Self-Care/Home Management, Sensory Integration,Soft Tissue Mobilization,Taping, Therapeutic Activities, Therapeutic Exercises Modalities Cold Pack/Ice Massage,Electric Stimulation,Hot Packs, Ultrasound Next Visit Focus/Plan Next Note Type Treatment Note Next Visit Plan Continue body mechanics gardening review- hip hinge and core bracing w/ rhomboids, deadlift with band from chair , lunge and lateral lunge, balance with ~DGI activities especially with movement and unstable surfaces, stairs Uni leg press, balance; hip flex w/ band (add HEP), step up and lateral step up; B squat to chair with band, functional core and trunk strength: pallof, carries; hip hinge and deadlift POC per PT: Emphasis on low back and hips, balance
--- NOTE | 2024-06-05 09:43 | PT.OTN ---
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 She has numbness in her toes bilaterally that began 20 years ago, gradually worsening . She reports that she has pain in both shoulders (L>R), B hips (R>L). She has difficulty with lifting her R arm up, began at least 10 years. Pt reports that she falls frequently, at leat 1x/ month. She most recently feel 3 days ago. She states that she doesn't pick her feet up. She has used a cane previously , but doesn't use it because it's more tourble than it's worth. She also has lower back pain, along the hip bones. She has PMH of fibromyalgia, dx 15 years ago. She also have osteoporosis, dx about 1 year ago. She is currently on fomax; she is not on calcium or vitamin D. She states no fractures throughout lifetime. She reports that her L ankle is swollen, worse with PF (2-3 months). She reports that her back originally started to hurt many years ago when she fell off horse. Prior Treatments and Tests She has previous PT for shoulders and neck at [facility], which was helpful No recent lumbar imaging R hip radiograph 05/2023: bony degeneration without fracture Current Functional Impairments (Reported) Functional Limitations- ADL's vacuuming Functional Limitations- Mobility/Gait difficulty w/ transitioning from sit<>stand, household distances w/o AD Functional Limitations- Recreation/ gardening Hobbies Functional Limitations- Other lives with , 1 story, several throw rugs PT-OP-C Subjective Start: 02/29/24 07:25 Freq: Status: Active Protocol: Document 06/05/24 09:03 SP (Rec: 06/05/24 09:49 SP [id number]) OP-PT Subjective Patient Comments Patient Comments Pt reports did some gardening and about 20-30 min her back started bothering her so went inside and rested then felt fine went back out to finish. PT-OP-D Balance Start: 02/29/24 07:25 Freq: Status: Active Protocol: Document 02/29/24 08:16 NM (Rec: 02/29/24 09:04 NM [id number]) Balance Tests Johnson Balance Test Johnson Balance Test Score 35/56 PT-OP-E Functional Tests Start: 02/29/24 07:25 Freq: Status: Active Protocol: Document 02/29/24 08:16 NM (Rec: 02/29/24 09:04 NM [id number]) Functional Tests Five Times Sit to Stand Test Score 17 sec Comments low back pain, R hip; use hands on thighs, 20 plinth Timed Up and Go (TUG) Score 15 sec Comments no AD, slow turns PT-OP-F Manual Assessment Start: 02/29/24 07:25 Freq: Status: Active Protocol: Document 02/29/24 08:16 NM (Rec: 02/29/24 09:04 NM [id number]) Manual Assessments Soft Tissue Assessment Soft Tissue Mobility Assessment Increased hamstring length. Tight parapsinals, hip flexors , glute/piriformis Joint Mobility Assessment Joint Mobility Assessment Overall hypomobility of thoracolumbar spine. Bilateral AROM and PROM of hips, R>L. Weakness and decreased mobility of B shoulders (R>L) PT-OP-G Mobility & Gait Start: 02/29/24 07:25 Freq: Status: Active Protocol: Document 02/29/24 08:16 NM (Rec: 02/29/24 09:04 NM [id number]) OP Gait Assessment Gait Gait Assistance Required: Standby Assistance Distance (Feet) 150 Comments Gait Comments atnalgis Stair Climbing Evaluation Evaluation Level of Assist On Stairs Contact Guard Assistance Devices Stair Climbing Assistive Devices Left Railing,Right Railing Technique/Endurance Stair Climbing Direction Ascend and Descend Stair Climbing Technique Step to Step Number of Steps Climbed 4 Stair Climbing Set # Repetitions (reps) 1 Comments Stair Climbing Comments Non-reciprocal stepping, antalgic R side. B hand rail assist, near LOB PT-OP-H Neuro Start: 02/29/24 07:25 Freq: Status: Active Protocol: Document 02/29/24 08:16 NM (Rec: 02/29/24 09:04 NM [id number]) Sensation Evaluation Comments Summary Comments BUE equally intact to light touch sensation; BLE equally intact above knee, decreased BLE below knee (L worse than R ) PT-OP-J Posture/Palpation/Skin Start: 02/29/24 07:25 Freq: Status: Active Protocol: Document 02/29/24 08:16 NM (Rec: 02/29/24 09:04 NM [id number]) Posture Evaluation Position Standing Head/C-Spine Posture Forward Head T-Spine Posture Increased Kyphosis L-Spine Posture Increased Lordosis Pelvis Posture Anteriorly Tilted Weight Distribution Weight Shifted Left Hip Posture (L) Externally Rotated,(R) Externally Rotated Knee Posture (L) Genu Valgus,(R) Genu Valgus Ankle/Foot Posture (L) Pronated,(R) Pronated Comments Posture Comments Forward flexed posture Palpation Assessment Location hip Palpation Details R hip tenderness along greater trochanter, small anterior groin tenderness Tightness along hip flexors, glute/piriformis back Palpation Details Tightness along thoracolumbar paraspinals Tenderness with palpation of R SI joint, B PSIS (R>L) and lower lumbar spinous processes PT-OP-K Range of Motion Start: 02/29/24 07:25 Freq: Status: Active Protocol: Document 04/24/24 09:05 NM (Rec: 04/24/24 09:48 NM [id number]) Lumbar Spine Range of Motion Lumbar Spine Active Percentage Flexion 90 Extension 25 Lateral Flexion Left 100 Lateral Flexion Right 100 ROM Limitations Pain Comments R back and hip pain with active lateral flexion PT-OP-L Special Tests Start: 02/29/24 07:25 Freq: Status: Active Protocol: Document 02/29/24 08:16 NM (Rec: 02/29/24 09:04 NM [id number]) Special Tests Lumbar Spine Special Tests Slump Test Results - Anderson/Quadrant Test Results + Distraction Test Results + PT-OP-M Strength Start: 02/29/24 07:25 Freq: Status: Active Protocol: Document 05/29/24 09:49 NM (Rec: 05/29/24 10:32 NM [id number]) Trunk Strength Trunk Manual Muscle Testing Flexion 4 Good Extension 4 Good Rotation Left 4 Good Rotation Right 4 Good Lateral Flexion Left 4 Good Lateral Flexion Right 4 Good Comments No pain with resisted trunk testing, but difficulty with stabilizing against resistance 04/24/24: 4/5 for all with resisted testing 05/29/24: 4/5 for all, pain free, improved stability Hip Strength Hip Manual Muscle Testing Right Flexion (L2) 4 Good Extension (S1) 4 Good Abduction 4 Good Adduction 4 Good External Rotation 4 Good Internal Rotation 4 Good Comments 03/27/24: 4-/5 for hip flex/abd /ext 04/24/24: 4/5 B hip strength 05/29/24: 4+/5 for flex, abd; 4 /5 for IR/ER/add/ext Left Flexion (L2) 4 Good Extension (S1) 4 Good Abduction 4- Good- Adduction 4 Good External Rotation 4 Good Internal Rotation 4 Good Comments 03/27/24: 4-/5 for hip flex/abd /ext 04/24/24: 4/5 B hip strength 05/29/24: 4+/5 for flex, abd; 4 /5 for IR/ER/add/ext Knee Strength Knee Manual Muscle Testing Right Flexion (S2) 4 Good Extension (L3) 4 Good Comments 03/27/24: 4-/5 for knee flexion 04/24/24: 4/5 B knee strength 05/29/24: 4+/5 Left Flexion (S2) 4 Good Extension (L3) 4 Good Comments 03/27/24: 4-/5 for knee flexion 04/24/24: 4/5 B knee strength 05/29/24: 4+/5 PT-OP-Q Treatments Start: 02/29/24 07:25 Freq: Status: Active Protocol: Document 06/05/24 09:03 SP (Rec: 06/05/24 09:49 SP [id number]) Therapeutic Exercises Sitting Exercises sit to stand Sitting Exercise Name 1. 5x STS test, 2. squats w/ Humeral ER hold scap retraction Side bilateral Equipment Used mesh chair Reps/Minutes 1. 12 sec, 2. 2x10 w/ level 1 band for scap retraction Comments pain free; limited RUE ER but good back form hip hinge back straight Standing Exercises lunge Standing Exercise Name 1. forward stationary lunge, 2 . lateral lunge Side bilateral Equipment Used hand support for balance Reps/Minutes 1. 10 getting item off floor 2 . 15 ea- increased time w/ cueing Comments cued wider RONAK, moderate cues for correct execution Therapeutic Activity Therapeutic Activity body mechanics Name gardening Comments 1. stand<> kneel 2. 3 point quadruped, wt shift trunk and change UEs, improved back alignment weeding assimulation 3. quadruped>squat back on feet> stand- use leg stand back more straight 4. split stance vs WBOS stance wt shift between BLEs and elongated postural alignment for back health and reduction strain on LS and increased endurance gardening. Gait Training Gait Activity dynamic gait Description head turns fwd, back stepping Comments at times closer RONAK and L vier , cues for increased RONAK and elongated posture improved stabiltiy more midline Self-Care/Home Management Treatment Education Patient Education Body Mechanics,Posture Other Education short time education wearing purse across body, improved postural alignment. PT-OP-T Assessment and Plan Start: 02/29/24 07:25 Freq: Status: Active Protocol: Document 06/05/24 09:03 SP (Rec: 06/05/24 09:49 SP [id number]) Physical Therapy Assessment Goals Seven Impairment DGI 10/08 Senior Living Goal (LTG) Pt will score >19/ on DGI in order to demonstrate decreased fall risk 05/29/24: LTG Duration 12 weeks PROGRESSING Six Impairment core stabilization, strength Impairment difficulty with stabilization Short Term Goal (STG) Pt will be educated on and demonstrate improved abdominal drawing up/in in order to demonstrate core bracing for functional activities and pain reduction 03/27/24: educated on core bracing. difficulty demonstrating and maintaining functionally STG Duration 6 weeks Senior Living Goal (LTG) Pt will be able to demonstrate core bracing during dynamic balance activities, gait, and demonstrate at least 1 grade improvement in trunk MMT score 04/10/24: able to perform pallof isometric walkout with cues to maintain trunk anti- rotation 04/24/24: improved core stability by observation with gait/balance, but compensates. Currently 4/5 with resisted testing 05/29/24: 4/5 with resisted testing, improved upright trunk with stairs and gait LTG Duration 12 weeks PROGRESSING Five Impairment strength Impairment B knee flexion 3-/5 MMT Short Term Goal (STG) Pt will increase B knee flexion strength to at least 4 -/5 MMT in order to demonstrate improved strength for gait and transfers 03/27/24: 4-/5 bilaterally, pain free STG Duration 6 weeks MET Senior Living Goal (LTG) Pt will increase B knee flexion strength to at least 4 /5 MMT in order to demonstrate improved strength for gait and transfers 04/24/24: 4/5 05/29/24: 4+/5 both LTG Duration 12 weeks MET 04/24 Four Impairment strength Impairment B hip strength limited Short Term Goal (STG) Pt will increase B hip strength to at least 4/5 globally in order to demonstrate improved stability during gait, balance, and transfers, in addition to decreased fall risk 03/27/24: 4-/5 for hip flex/abd /ext 04/10/24: 4/5 B hip strength STG Duration 6 weeks GOAL MET Maitre D' Goal (LTG) Pt will increase B hip strength to at least 4+/5 globally in order to demonstrate improved stability during gait, balance, and transfers, in addition to decreased fall risk 04/10/24: 4/5 B hip strength 04/24/24: 4/5 B hip strength 05/29/24: 4+/5 for flex, abd; 4 /5 for IR/ER/add/ext LTG Duration 12 weeks PROGRESSING, PARTIALLY MET 05/29 Three Impairment strength Impairment 5x STS score 17 seconds Maitre D' Goal (LTG) Pt will be able to perform 5x STS in 15 seconds or less in order to demonstrate improved BLE strength for transfers 03/27/24: 31 sec; cued for form over speed, still demos knee valgus 04/24/24: 12.87 seconds, pain free, improved form LTG Duration 12 weeks MET Two Impairment balance Impairment Johnson 35/56 Short Term Goal (STG) Pt will increase Johnson balance score to at least 40/56 in order to demonstrate improved balance and safety during transfers and gait 03/27/24: 48/56 STG Duration 6 weeks Maitre D' Goal (LTG) Pt will increase Johnson balance score to at least 48/56 in order to demonstrate improved balance and safety during transfers and gait 03/27/24: 48/56 LTG Duration 12 weeks MET One Impairment balance Impairment TUG 15 seconds, without AD Short Term Goal (STG) Pt will decrease TUG time to at least 13.5 seconds without AD in order to demonstrate decreased fall risk and improved balance 03/27/24: 9.8 sec but demos trunk instability and sway STG Duration 6 weeks MET Senior Living Goal (LTG) Pt will decrease TUG time to at least 10 seconds without AD in order to demonstrate decreased fall risk and improved balance, or if appropriate, pt will be educated on and prescribed LRAD for safety due to balance and increased fall risk 04/24/24: 11.6 sec, 10.3, 9.3 sec - average 10.4 seconds LTG Duration 12 weeks MET Assessment Summary Assessment Tx focused on body mechanics during gardening activity assimulation with education tall kneel, 3 point quadruped vs 1/2 kneel/squat and wt shift between WB with straight chest lift back alignment returned demontration with response back feels better with these cues education. Carryover lunge stance HEP then carryover mechanics picking up item fwd/bwd and lateral wt shift with hip hinge straight back. Pt demonstrated improved posture during UE resisted ER hold during STS tiring but no pain and pleased taking personal video with her phone for self awareness carryover home. Pt improvement midline corrections during dynamic gait to allow increased balance community ambulation. Physical Therapy Plan Frequency and Duration Frequency of Treatment 1-2x/wk Duration of treatment (weeks) 12 Plan of Care Start Date 04/24/24 Plan of Care End Date 07/19/24 Therapeutic Interventions Therapeutic Interventions Balance Training,Coordination Training,Gait Training,Home Exercise Program,Joint Mobilizations,Manual Therapy, Neuromuscular Re-education, Orthotic/Prosthetic Management ,Patient/Caregiver Education, Self-Care/Home Management, Sensory Integration,Soft Tissue Mobilization,Taping, Therapeutic Activities, Therapeutic Exercises Modalities Cold Pack/Ice Massage,Electric Stimulation,Hot Packs, Ultrasound Next Visit Focus/Plan Next Note Type Treatment Note Next Visit Plan Continue body mechanics gardening review- hip hinge and core bracing w/ rhomboids, deadlift with band from chair , lunge and lateral lunge, balance with ~DGI activities especially with movement and unstable surfaces, stairs Uni leg press, balance; hip flex w/ band (add HEP), step up and lateral step up; B squat to chair with band, functional core and trunk strength: pallof, carries; hip hinge and deadlift POC per PT: Emphasis on low back and hips, balance
--- NOTE | 2024-06-12 10:50 | PT.OTN ---
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 She has numbness in her toes bilaterally that began 20 years ago, gradually worsening . She reports that she has pain in both shoulders (L>R), B hips (R>L). She has difficulty with lifting her R arm up, began at least 10 years. Pt reports that she falls frequently, at leat 1x/ month. She most recently feel 3 days ago. She states that she doesn't pick her feet up. She has used a cane previously , but doesn't use it because it's more tourble than it's worth. She also has lower back pain, along the hip bones. She has PMH of fibromyalgia, dx 15 years ago. She also have osteoporosis, dx about 1 year ago. She is currently on fomax; she is not on calcium or vitamin D. She states no fractures throughout lifetime. She reports that her L ankle is swollen, worse with PF (2-3 months). She reports that her back originally started to hurt many years ago when she fell off horse. Prior Treatments and Tests She has previous PT for shoulders and neck at [facility], which was helpful No recent lumbar imaging R hip radiograph 05/2023: bony degeneration without fracture Current Functional Impairments (Reported) Functional Limitations- ADL's vacuuming Functional Limitations- Mobility/Gait difficulty w/ transitioning from sit<>stand, household distances w/o AD Functional Limitations- Recreation/ gardening Hobbies Functional Limitations- Other lives with , 1 story, several throw rugs PT-OP-C Subjective Start: 02/29/24 07:25 Freq: Status: Active Protocol: Document 06/12/24 09:51 NM (Rec: 06/12/24 10:50 NM [id number]) OP-PT Subjective Patient Comments Patient Comments Pt reports that she did gradening for 15 min and did not have pain after last session but states that is her limit. PT-OP-D Balance Start: 02/29/24 07:25 Freq: Status: Active Protocol: Document 02/29/24 08:16 NM (Rec: 02/29/24 09:04 NM [id number]) Balance Tests Johnson Balance Test Johnson Balance Test Score 35/56 PT-OP-E Functional Tests Start: 02/29/24 07:25 Freq: Status: Active Protocol: Document 02/29/24 08:16 NM (Rec: 02/29/24 09:04 NM [id number]) Functional Tests Five Times Sit to Stand Test Score 17 sec Comments low back pain, R hip; use hands on thighs, 20 plinth Timed Up and Go (TUG) Score 15 sec Comments no AD, slow turns PT-OP-F Manual Assessment Start: 02/29/24 07:25 Freq: Status: Active Protocol: Document 02/29/24 08:16 NM (Rec: 02/29/24 09:04 NM [id number]) Manual Assessments Soft Tissue Assessment Soft Tissue Mobility Assessment Increased hamstring length. Tight parapsinals, hip flexors , glute/piriformis Joint Mobility Assessment Joint Mobility Assessment Overall hypomobility of thoracolumbar spine. Bilateral AROM and PROM of hips, R>L. Weakness and decreased mobility of B shoulders (R>L) PT-OP-G Mobility & Gait Start: 02/29/24 07:25 Freq: Status: Active Protocol: Document 02/29/24 08:16 NM (Rec: 02/29/24 09:04 NM [id number]) OP Gait Assessment Gait Gait Assistance Required: Standby Assistance Distance (Feet) 150 Comments Gait Comments atnalgis Stair Climbing Evaluation Evaluation Level of Assist On Stairs Contact Guard Assistance Devices Stair Climbing Assistive Devices Left Railing,Right Railing Technique/Endurance Stair Climbing Direction Ascend and Descend Stair Climbing Technique Step to Step Number of Steps Climbed 4 Stair Climbing Set # Repetitions (reps) 1 Comments Stair Climbing Comments Non-reciprocal stepping, antalgic R side. B hand rail assist, near LOB PT-OP-H Neuro Start: 02/29/24 07:25 Freq: Status: Active Protocol: Document 02/29/24 08:16 NM (Rec: 02/29/24 09:04 NM [id number]) Sensation Evaluation Comments Summary Comments BUE equally intact to light touch sensation; BLE equally intact above knee, decreased BLE below knee (L worse than R ) PT-OP-J Posture/Palpation/Skin Start: 02/29/24 07:25 Freq: Status: Active Protocol: Document 02/29/24 08:16 NM (Rec: 02/29/24 09:04 NM [id number]) Posture Evaluation Position Standing Head/C-Spine Posture Forward Head T-Spine Posture Increased Kyphosis L-Spine Posture Increased Lordosis Pelvis Posture Anteriorly Tilted Weight Distribution Weight Shifted Left Hip Posture (L) Externally Rotated,(R) Externally Rotated Knee Posture (L) Genu Valgus,(R) Genu Valgus Ankle/Foot Posture (L) Pronated,(R) Pronated Comments Posture Comments Forward flexed posture Palpation Assessment Location hip Palpation Details R hip tenderness along greater trochanter, small anterior groin tenderness Tightness along hip flexors, glute/piriformis back Palpation Details Tightness along thoracolumbar paraspinals Tenderness with palpation of R SI joint, B PSIS (R>L) and lower lumbar spinous processes PT-OP-K Range of Motion Start: 02/29/24 07:25 Freq: Status: Active Protocol: Document 04/24/24 09:05 NM (Rec: 04/24/24 09:48 NM [id number]) Lumbar Spine Range of Motion Lumbar Spine Active Percentage Flexion 90 Extension 25 Lateral Flexion Left 100 Lateral Flexion Right 100 ROM Limitations Pain Comments R back and hip pain with active lateral flexion PT-OP-L Special Tests Start: 02/29/24 07:25 Freq: Status: Active Protocol: Document 02/29/24 08:16 NM (Rec: 02/29/24 09:04 NM [id number]) Special Tests Lumbar Spine Special Tests Slump Test Results - Anderson/Quadrant Test Results + Distraction Test Results + PT-OP-M Strength Start: 02/29/24 07:25 Freq: Status: Active Protocol: Document 05/29/24 09:49 NM (Rec: 05/29/24 10:32 NM [id number]) Trunk Strength Trunk Manual Muscle Testing Flexion 4 Good Extension 4 Good Rotation Left 4 Good Rotation Right 4 Good Lateral Flexion Left 4 Good Lateral Flexion Right 4 Good Comments No pain with resisted trunk testing, but difficulty with stabilizing against resistance 04/24/24: 4/5 for all with resisted testing 05/29/24: 4/5 for all, pain free, improved stability Hip Strength Hip Manual Muscle Testing Right Flexion (L2) 4 Good Extension (S1) 4 Good Abduction 4 Good Adduction 4 Good External Rotation 4 Good Internal Rotation 4 Good Comments 03/27/24: 4-/5 for hip flex/abd /ext 04/24/24: 4/5 B hip strength 05/29/24: 4+/5 for flex, abd; 4 /5 for IR/ER/add/ext Left Flexion (L2) 4 Good Extension (S1) 4 Good Abduction 4- Good- Adduction 4 Good External Rotation 4 Good Internal Rotation 4 Good Comments 03/27/24: 4-/5 for hip flex/abd /ext 04/24/24: 4/5 B hip strength 05/29/24: 4+/5 for flex, abd; 4 /5 for IR/ER/add/ext Knee Strength Knee Manual Muscle Testing Right Flexion (S2) 4 Good Extension (L3) 4 Good Comments 03/27/24: 4-/5 for knee flexion 04/24/24: 4/5 B knee strength 05/29/24: 4+/5 Left Flexion (S2) 4 Good Extension (L3) 4 Good Comments 03/27/24: 4-/5 for knee flexion 04/24/24: 4/5 B knee strength 05/29/24: 4+/5 PT-OP-Q Treatments Start: 02/29/24 07:25 Freq: Status: Active Protocol: Document 06/12/24 09:51 NM (Rec: 06/12/24 10:50 NM [id number]) Therapeutic Exercises Sitting Exercises sit to stand Sitting Exercise Name STS w/ band under feet Side bilateral Resistance level 1 band Reps/Minutes 2x10 Comments good hip hinge and form; added to HEP (no HO) Standing Exercises hip abduction Standing Exercise Name HEP review at pt request Side bilateral Resistance level 1 band at ankles > at Equipment Used hand support on ballet bar Reps/Minutes 12 ea Comments cued slight hip ext w/ abd; no squat side steps Standing Exercise Name HEP review pt request Side bilateral Resistance level 1 band at thighs > just under knees Reps/Minutes 2x15 ft ea direction Comments edu to tie band tighter; cued no shuffling, neutral hips; R harder Therapeutic Activity Therapeutic Activity body mechanics Comments 1. stand<> kneel on mat 2. 3 point quadruped, wt shift trunk and change UEs, improved back alignment weeding assimulation with level 3 band, then reaching for cleaning bags to mimic reaching/picking veggies without twisting spine 3. quadruped>squat back on feet> stand- use leg stand back more straight to reach and get weeds 4. split stance wt shift between BLEs and elongated postural alignment for back health and reduction strain on LS and increased endurance gardening to meat pickler bucket w/ 5# 5. carrying 5# bucket unilaterally 6. sweeping w/ and w/o resistance level 1 band and dowel in staggered stance with hip hinge and slight hip rotation PT-OP-T Assessment and Plan Start: 02/29/24 07:25 Freq: Status: Active Protocol: Document 06/12/24 09:51 NM (Rec: 06/12/24 10:50 NM [id number]) Physical Therapy Assessment Goals Seven Impairment DGI 10/08 Snf Goal (LTG) Pt will score >19 on DGI in order to demonstrate decreased fall risk 05/29/24: LTG Duration 12 weeks PROGRESSING Six Impairment core stabilization, strength Impairment difficulty with stabilization Short Term Goal (STG) Pt will be educated on and demonstrate improved abdominal drawing up/in in order to demonstrate core bracing for functional activities and pain reduction 03/27/24: educated on core bracing. difficulty demonstrating and maintaining functionally STG Duration 6 weeks Flange Machine Operator Goal (LTG) Pt will be able to demonstrate core bracing during dynamic balance activities, gait, and demonstrate at least 1 grade improvement in trunk MMT score 04/10/24: able to perform pallof isometric walkout with cues to maintain trunk anti- rotation 04/24/24: improved core stability by observation with gait/balance, but compensates. Currently 4/5 with resisted testing 05/29/24: 4/5 with resisted testing, improved upright trunk with stairs and gait LTG Duration 12 weeks PROGRESSING Five Impairment strength Impairment B knee flexion 3-/5 MMT Short Term Goal (STG) Pt will increase B knee flexion strength to at least 4 -/5 MMT in order to demonstrate improved strength for gait and transfers 03/27/24: 4-/5 bilaterally, pain free STG Duration 6 weeks MET Snf Goal (LTG) Pt will increase B knee flexion strength to at least 4 /5 MMT in order to demonstrate improved strength for gait and transfers 04/24/24: 4/5 05/29/24: 4+/5 both LTG Duration 12 weeks MET 04/24 Four Impairment strength Impairment B hip strength limited Short Term Goal (STG) Pt will increase B hip strength to at least 4/5 globally in order to demonstrate improved stability during gait, balance, and transfers, in addition to decreased fall risk 03/27/24: 4-/5 for hip flex/abd /ext 04/10/24: 4/5 B hip strength STG Duration 6 weeks GOAL MET Snf Goal (LTG) Pt will increase B hip strength to at least 4+/5 globally in order to demonstrate improved stability during gait, balance, and transfers, in addition to decreased fall risk 04/10/24: 4/5 B hip strength 04/24/24: 4/5 B hip strength 05/29/24: 4+/5 for flex, abd; 4 /5 for IR/ER/add/ext LTG Duration 12 weeks PROGRESSING, PARTIALLY MET 05/29 Three Impairment strength Impairment 5x STS score 17 seconds Flange Machine Operator Goal (LTG) Pt will be able to perform 5x STS in 15 seconds or less in order to demonstrate improved BLE strength for transfers 03/27/24: 31 sec; cued for form over speed, still demos knee valgus 04/24/24: 12.87 seconds, pain free, improved form LTG Duration 12 weeks MET Two Impairment balance Impairment Johnson 35/56 Short Term Goal (STG) Pt will increase Johnson balance score to at least 40/56 in order to demonstrate improved balance and safety during transfers and gait 03/27/24: 48/56 STG Duration 6 weeks Flange Machine Operator Goal (LTG) Pt will increase Johnson balance score to at least 48/56 in order to demonstrate improved balance and safety during transfers and gait 03/27/24: 48/56 LTG Duration 12 weeks MET One Impairment balance Impairment TUG 15 seconds, without AD Short Term Goal (STG) Pt will decrease TUG time to at least 13.5 seconds without AD in order to demonstrate decreased fall risk and improved balance 03/27/24: 9.8 sec but demos trunk instability and sway STG Duration 6 weeks MET Flange Machine Operator Goal (LTG) Pt will decrease TUG time to at least 10 seconds without AD in order to demonstrate decreased fall risk and improved balance, or if appropriate, pt will be educated on and prescribed LRAD for safety due to balance and increased fall risk 04/24/24: 11.6 sec, 10.3, 9.3 sec - average 10.4 seconds LTG Duration 12 weeks MET Assessment Summary Assessment Pt tolerated session well without any back pain during session today. Continued with body mechanics training to address pt reports of discomfort in low back during gardening and HEP. Pt able to progress to low resistance during sweeping, gardening, and lifting/carrying simulation. Pt still requires cues for neutral spine via core bracing and rhomboid facilitation, in addition to limiting twisting, keeping resistance closer to body to reduce stress on spine, and for a staggered stance to improve both balance and facilitate hip hinge. Pt responds well to increased resistance and is able to maintain form independently after initial cueing. Review hip abduction exercises on HEP at pt request to due to difficulty with activity. PT educated pt on tying band tighter and adjusted lever arm to improve pt form. Pt is challenged with maintaining stance on RLE with upright posture and with R hip abduction; exhibits weakness but not pain. PT and pt discussed discharge vs scheduling more appt as pt does not have any further appt scheduled out past next session. Pt is requesting discharge to maintenance after next session; PT in agreement . Physical Therapy Plan Frequency and Duration Frequency of Treatment 1-2x/wk Duration of treatment (weeks) 12 Plan of Care Start Date 04/24/24 Plan of Care End Date 07/19/24 Therapeutic Interventions Therapeutic Interventions Balance Training,Coordination Training,Gait Training,Home Exercise Program,Joint Mobilizations,Manual Therapy, Neuromuscular Re-education, Orthotic/Prosthetic Management ,Patient/Caregiver Education, Self-Care/Home Management, Sensory Integration,Soft Tissue Mobilization,Taping, Therapeutic Activities, Therapeutic Exercises Modalities Cold Pack/Ice Massage,Electric Stimulation,Hot Packs, Ultrasound Next Visit Focus/Plan Next Note Type Discharge Summary Next Visit Plan Continue body mechanics household chore review- hip hinge and core bracing w/ rhomboids, deadlift with band from chair, balance with ~DGI activities especially with movement and unstable surfaces , stairs POC per PT: Emphasis on low back and hips, balance
--- NOTE | 2024-06-19 09:10 | PT-OP ANOTE ---
PT called and spoke to pt at 09:10 because pt canceled appt today last minute due to vertigo. Pt reports that the vertigo usually lasts for 1/2-1 day. PT offered other available appt this week and next week as pt was planning to discharge to maintenance program. Pt states that she would prefer to be done instead of scheduling another appt as she is doing well. PT and pt agreed that pt will be discharged today without an additional appt at pt request. PT educated pt to continue with maintenance program established at last session and to follow up with PCP for new referral if hip/back pain returns or worsens. Pt also wants to fill out a satisfaction survey and will pick one up when feeling better.
--- NOTE | 2024-06-19 09:29 | PT.OPDS ---
Current Diagnoses Other chronic pain (06/12/24) Low back pain, unspecified (06/12/24) Other lack of coordination (06/12/24) Weakness (06/12/24) Visit Care Team Role Provider Type Benjy Mccormick DO Family Provider Physician Primary Care Provider Specialty: [facility] Address: [address] [place] [address], [id number] Email: Bethany Mtz DO Attending Provider Physician Referring Provider Specialty: [facility] Address: [address] [place] [address], [address], [place], [address] Email: [email or web address] Visit Number Visit Number 19 Discharge Summary PT-OP-B Current Condition Start: 02/29/24 07:25 Freq: Status: Active Protocol: Document 02/29/24 08:16 NM (Rec: 02/29/24 09:04 NM [id number]) Current Condition History of Current Condition Current Complaints pain, balance, weakness History of Current Condition Pt presents with low back pain . She has numbness in her toes bilaterally that began 20 years ago, gradually worsening . She reports that she has pain in both shoulders (L>R), B hips (R>L). She has difficulty with lifting her R arm up, began at least 10 years. Pt reports that she falls frequently, at leat 1x/ month. She most recently feel 3 days ago. She states that she doesn't pick her feet up. She has used a cane previously , but doesn't use it because it's more tourble than it's worth. She also has lower back pain, along the hip bones. She has PMH of fibromyalgia, dx 15 years ago. She also have osteoporosis, dx about 1 year ago. She is currently on fomax; she is not on calcium or vitamin D. She states no fractures throughout lifetime. She reports that her L ankle is swollen, worse with PF (2-3 months). She reports that her back originally started to hurt many years ago when she fell off horse. Prior Treatments and Tests She has previous PT for shoulders and neck at [facility], which was helpful No recent lumbar imaging R hip radiograph 05/2023: bony degeneration without fracture Current Functional Impairments (Reported) Functional Limitations- ADL's vacuuming Functional Limitations- Mobility/Gait difficulty w/ transitioning from sit<>stand, household distances w/o AD Functional Limitations- Recreation/ gardening Hobbies Functional Limitations- Other lives with , 1 story, several throw rugs PT-OP-C Subjective Start: 02/29/24 07:25 Freq: Status: Active Protocol: Document 06/12/24 09:51 NM (Rec: 06/12/24 10:50 NM [id number]) OP-PT Subjective Patient Comments Patient Comments Pt reports that she did gradening for 15 min and did not have pain after last session but states that is her limit. PT-OP-D Balance Start: 02/29/24 07:25 Freq: Status: Active Protocol: Document 02/29/24 08:16 NM (Rec: 02/29/24 09:04 NM [id number]) Balance Tests Johnson Balance Test Johnson Balance Test Score 35/56 PT-OP-E Functional Tests Start: 02/29/24 07:25 Freq: Status: Active Protocol: Document 02/29/24 08:16 NM (Rec: 02/29/24 09:04 NM [id number]) Functional Tests Five Times Sit to Stand Test Score 17 sec Comments low back pain, R hip; use hands on thighs, 20 plinth Timed Up and Go (TUG) Score 15 sec Comments no AD, slow turns PT-OP-F Manual Assessment Start: 02/29/24 07:25 Freq: Status: Active Protocol: Document 02/29/24 08:16 NM (Rec: 02/29/24 09:04 NM [id number]) Manual Assessments Soft Tissue Assessment Soft Tissue Mobility Assessment Increased hamstring length. Tight parapsinals, hip flexors , glute/piriformis Joint Mobility Assessment Joint Mobility Assessment Overall hypomobility of thoracolumbar spine. Bilateral AROM and PROM of hips, R>L. Weakness and decreased mobility of B shoulders (R>L) PT-OP-G Mobility & Gait Start: 02/29/24 07:25 Freq: Status: Active Protocol: Document 02/29/24 08:16 NM (Rec: 02/29/24 09:04 NM [id number]) OP Gait Assessment Gait Gait Assistance Required: Standby Assistance Distance (Feet) 150 Comments Gait Comments atnalgis Stair Climbing Evaluation Evaluation Level of Assist On Stairs Contact Guard Assistance Devices Stair Climbing Assistive Devices Left Railing,Right Railing Technique/Endurance Stair Climbing Direction Ascend and Descend Stair Climbing Technique Step to Step Number of Steps Climbed 4 Stair Climbing Set # Repetitions (reps) 1 Comments Stair Climbing Comments Non-reciprocal stepping, antalgic R side. B hand rail assist, near LOB PT-OP-H Neuro Start: 02/29/24 07:25 Freq: Status: Active Protocol: Document 02/29/24 08:16 NM (Rec: 02/29/24 09:04 NM [id number]) Sensation Evaluation Comments Summary Comments BUE equally intact to light touch sensation; BLE equally intact above knee, decreased BLE below knee (L worse than R ) PT-OP-J Posture/Palpation/Skin Start: 02/29/24 07:25 Freq: Status: Active Protocol: Document 02/29/24 08:16 NM (Rec: 02/29/24 09:04 NM [id number]) Posture Evaluation Position Standing Head/C-Spine Posture Forward Head T-Spine Posture Increased Kyphosis L-Spine Posture Increased Lordosis Pelvis Posture Anteriorly Tilted Weight Distribution Weight Shifted Left Hip Posture (L) Externally Rotated,(R) Externally Rotated Knee Posture (L) Genu Valgus,(R) Genu Valgus Ankle/Foot Posture (L) Pronated,(R) Pronated Comments Posture Comments Forward flexed posture Palpation Assessment Location hip Palpation Details R hip tenderness along greater trochanter, small anterior groin tenderness Tightness along hip flexors, glute/piriformis back Palpation Details Tightness along thoracolumbar paraspinals Tenderness with palpation of R SI joint, B PSIS (R>L) and lower lumbar spinous processes PT-OP-K Range of Motion Start: 02/29/24 07:25 Freq: Status: Active Protocol: Document 04/24/24 09:05 NM (Rec: 04/24/24 09:48 NM [id number]) Lumbar Spine Range of Motion Lumbar Spine Active Percentage Flexion 90 Extension 25 Lateral Flexion Left 100 Lateral Flexion Right 100 ROM Limitations Pain Comments R back and hip pain with active lateral flexion PT-OP-L Special Tests Start: 02/29/24 07:25 Freq: Status: Active Protocol: Document 02/29/24 08:16 NM (Rec: 02/29/24 09:04 NM [id number]) Special Tests Lumbar Spine Special Tests Slump Test Results - Anderson/Quadrant Test Results + Distraction Test Results + PT-OP-M Strength Start: 02/29/24 07:25 Freq: Status: Active Protocol: Document 05/29/24 09:49 NM (Rec: 05/29/24 10:32 NM [id number]) Trunk Strength Trunk Manual Muscle Testing Flexion 4 Good Extension 4 Good Rotation Left 4 Good Rotation Right 4 Good Lateral Flexion Left 4 Good Lateral Flexion Right 4 Good Comments No pain with resisted trunk testing, but difficulty with stabilizing against resistance 04/24/24: 4/5 for all with resisted testing 05/29/24: 4/5 for all, pain free, improved stability Hip Strength Hip Manual Muscle Testing Right Flexion (L2) 4 Good Extension (S1) 4 Good Abduction 4 Good Adduction 4 Good External Rotation 4 Good Internal Rotation 4 Good Comments 03/27/24: 4-/5 for hip flex/abd /ext 04/24/24: 4/5 B hip strength 05/29/24: 4+/5 for flex, abd; 4 /5 for IR/ER/add/ext Left Flexion (L2) 4 Good Extension (S1) 4 Good Abduction 4- Good- Adduction 4 Good External Rotation 4 Good Internal Rotation 4 Good Comments 03/27/24: 4-/5 for hip flex/abd /ext 04/24/24: 4/5 B hip strength 05/29/24: 4+/5 for flex, abd; 4 /5 for IR/ER/add/ext Knee Strength Knee Manual Muscle Testing Right Flexion (S2) 4 Good Extension (L3) 4 Good Comments 03/27/24: 4-/5 for knee flexion 04/24/24: 4/5 B knee strength 05/29/24: 4+/5 Left Flexion (S2) 4 Good Extension (L3) 4 Good Comments 03/27/24: 4-/5 for knee flexion 04/24/24: 4/5 B knee strength 05/29/24: 4+/5 PT-OP-T Assessment and Plan Start: 02/29/24 07:25 Freq: Status: Active Protocol: Document 06/19/24 09:22 NM (Rec: 06/19/24 09:29 NM [id number]) Physical Therapy Assessment Goals Seven Impairment DGI 10/08 Residential Goal (LTG) Pt will score >19 on DGI in order to demonstrate decreased fall risk 05/29/24: LTG Duration 12 weeks PROGRESSING Six Impairment core stabilization, strength Impairment difficulty with stabilization Short Term Goal (STG) Pt will be educated on and demonstrate improved abdominal drawing up/in in order to demonstrate core bracing for functional activities and pain reduction 03/27/24: educated on core bracing. difficulty demonstrating and maintaining functionally STG Duration 6 weeks Excellence Coach Goal (LTG) Pt will be able to demonstrate core bracing during dynamic balance activities, gait, and demonstrate at least 1 grade improvement in trunk MMT score 04/10/24: able to perform pallof isometric walkout with cues to maintain trunk anti- rotation 04/24/24: improved core stability by observation with gait/balance, but compensates. Currently 4/5 with resisted testing 05/29/24: 4/5 with resisted testing, improved upright trunk with stairs and gait LTG Duration 12 weeks PROGRESSING Five Impairment strength Impairment B knee flexion 3-/5 MMT Short Term Goal (STG) Pt will increase B knee flexion strength to at least 4 -/5 MMT in order to demonstrate improved strength for gait and transfers 03/27/24: 4-/5 bilaterally, pain free STG Duration 6 weeks MET Excellence Coach Goal (LTG) Pt will increase B knee flexion strength to at least 4 /5 MMT in order to demonstrate improved strength for gait and transfers 04/24/24: 4/5 05/29/24: 4+/5 both LTG Duration 12 weeks MET 04/24 Four Impairment strength Impairment B hip strength limited Short Term Goal (STG) Pt will increase B hip strength to at least 4/5 globally in order to demonstrate improved stability during gait, balance, and transfers, in addition to decreased fall risk 03/27/24: 4-/5 for hip flex/abd /ext 04/10/24: 4/5 B hip strength STG Duration 6 weeks GOAL MET Residential Goal (LTG) Pt will increase B hip strength to at least 4+/5 globally in order to demonstrate improved stability during gait, balance, and transfers, in addition to decreased fall risk 04/10/24: 4/5 B hip strength 04/24/24: 4/5 B hip strength 05/29/24: 4+/5 for flex, abd; 4 /5 for IR/ER/add/ext LTG Duration 12 weeks PROGRESSING, PARTIALLY MET 05/29 Three Impairment strength Impairment 5x STS score 17 seconds Residential Goal (LTG) Pt will be able to perform 5x STS in 15 seconds or less in order to demonstrate improved BLE strength for transfers 03/27/24: 31 sec; cued for form over speed, still demos knee valgus 04/24/24: 12.87 seconds, pain free, improved form LTG Duration 12 weeks MET Two Impairment balance Impairment Johnson 35/56 Short Term Goal (STG) Pt will increase Johnson balance score to at least 40/56 in order to demonstrate improved balance and safety during transfers and gait 03/27/24: 48/56 STG Duration 6 weeks Excellence Coach Goal (LTG) Pt will increase Johnson balance score to at least 48/56 in order to demonstrate improved balance and safety during transfers and gait 03/27/24: 48/56 LTG Duration 12 weeks MET One Impairment balance Impairment TUG 15 seconds, without AD Short Term Goal (STG) Pt will decrease TUG time to at least 13.5 seconds without AD in order to demonstrate decreased fall risk and improved balance 03/27/24: 9.8 sec but demos trunk instability and sway STG Duration 6 weeks MET Residential Goal (LTG) Pt will decrease TUG time to at least 10 seconds without AD in order to demonstrate decreased fall risk and improved balance, or if appropriate, pt will be educated on and prescribed LRAD for safety due to balance and increased fall risk 04/24/24: 11.6 sec, 10.3, 9.3 sec - average 10.4 seconds LTG Duration 12 weeks MET Progress Towards Goals Progress Towards Goals Progressing Toward Goals,Goals Met Assessment Summary Assessment Pt has been seen x18 visits since initial evaluation for back and hip pain. She is progressing well toward goals and has met several LTGs. Pt's BLE strength has improved since initial evaluation; however, she continues to have weakness with glutes/quads and hip adductors. Pt is now able to stabilize her trunk against resistance better. Pt' s balance scores have improved, so that her DGI, Johnson, and TUG scores indicate decreased fall risk. Pt continues to perform trunk compensations due to weakness when trying to maintain balance. She has had improved compliance with HEP due to use of taking photos/videos with phone since last progress note . At last session on 06/12, PT and pt discussed discharge at next scheduled appt on 06/19/24. However, pt canceled appt with less than 24 hr notice due to vertigo. PT called and spoke to pt who declined scheduling an additional appt and requested discharge as planned instead. PT and pt reviewed HEP at 06/12 session, so pt is aware of recommended maintenance program to address remaining goals. PT also educated pt on following up with PCP if original back or hip pain symptoms return or worsen. Pt verbalizes agreement and will be discharged at pt request to maintenance program. Physical Therapy Plan Frequency and Duration Frequency of Treatment 1-2x/wk Duration of treatment (weeks) 12 Plan of Care Start Date 04/24/24 Plan of Care End Date 07/19/24 Therapeutic Interventions Therapeutic Interventions Balance Training,Coordination Training,Gait Training,Home Exercise Program,Joint Mobilizations,Manual Therapy, Neuromuscular Re-education, Orthotic/Prosthetic Management ,Patient/Caregiver Education, Self-Care/Home Management, Sensory Integration,Soft Tissue Mobilization,Taping, Therapeutic Activities, Therapeutic Exercises Modalities Cold Pack/Ice Massage,Electric Stimulation,Hot Packs, Ultrasound Discharge Physical Therapy Discharge Reasons Patient Request Discharge Comments pt canceled appt with less than 24 hr notice due to vertigo. PT called and spoke to pt who declined scheduling an additional appt and requested discharge as planned instead. PT and pt reviewed HEP at 06/12 session, so pt is aware of recommended maintenance program to address remaining goals. PT also educated pt on following up with PCP if original back or hip pain symptoms return or worsen. Pt verbalizes agreement and will be discharged at pt request to maintenance program. Next Visit Focus/Plan Next Note Type Discharge Summary Next Visit Plan discharge from PT
== END 2024-07-03 08:02 | disposition home or self-care (01) ==
LOC: PHYS 09:45
PROVIDERS: Family Provider Family Medicine; PCP Family Medicine; Referring Provider Family Medicine; Visit Provider Family Medicine
DX: M54.50 Low back pain, unspecified (principal); G89.29 Other chronic pain; R53.1 Weakness; R27.8 Other lack of coordination
CPT/HCPCS: 97110; 97112; 97116; 97140; 97162; 97530; 97535

== ENCOUNTER → 2024-07-23 14:52 | Outpatient (CLI) | payer MEDICARE, OTHER, SELFPAY ==
[2023-02-09 13:56] VITALS: BMI 25.5
[2024-07-23 15:40] LABS: Cholesterol 212 mg/dL (140-199); HDL Cholesterol 67 mg/dL (40-60); LDL Cholesterol Calculated 132 mg/dL (<100); Triglycerides 64 mg/dL (35-150)
== END ==
PROVIDERS: Family Provider Family Medicine; PCP Family Medicine; Referring Provider Family Medicine; Visit Provider Family Medicine
DX: E78.5 Hyperlipidemia, unspecified (principal); Z78.9 Other specified health status
CPT/HCPCS: 36415; 80061

== ENCOUNTER 2024-11-25 07:30 | Outpatient (RCR) | payer MEDICARE, OTHER, SELFPAY ==
[2023-02-09 13:56] VITALS: BMI 25.5
--- NOTE | 2024-09-24 13:43 | PT.OIE ---
Current Diagnoses Other chronic pain (09/24/24) Pain in left shoulder (09/24/24) Past Medical History (Last Updated 07/26/24 @ 11:47 by Benjy Mccormick DO) Abdominal pain, chronic, left lower quadrant Anxiety about health Atypical chest pain Breast cancer (~2009) Cataracts, bilateral (~2014) Chicken pox (~1958) Chronic left shoulder pain Chronic right hip pain Colon polyps (~2019) Depression Excessive daytime sleepiness Exposure to parasitic disease Fatigue Fatigue due to sleep pattern disturbance Fibromyalgia (~1969) Folliculitis of perineum Ganglion cyst of volar aspect of left wrist Gastroesophageal reflux (~2014) Greater trochanteric bursitis of right hip Hearing loss (~1999) History of genital warts Hoarse voice quality (~2014) Hot flashes due to menopause Hyperlipidemia Iliotibial band syndrome of right side Insomnia due to medical condition (~04/2019) Lipoma of arm Low serum triiodothyronine (T3) Measles (~1952) Memory change Mumps (~1954) Neuropathy Nocturnal hypoxemia Obstructive sleep apnea of adult (~04/2019) Osteopenia (~1997) Osteoporosis Pelvic somatic dysfunction Problems related to inappropriate diet and eating habits Rapid heart rate Sacral region somatic dysfunction Shoulder pain Snoring (~04/2009) Statin intolerance Wears glasses Past Surgical History (Last Reviewed 05/02/22 @ 16:50 by Beatris Gallo PA-C) Anesthesia History of hysterectomy (~1979) History of lumpectomy of left breast (~2004) History of tonsillectomy (~1962) History of tracheostomy (~1999) Tracheostomy status Visit Care Team Role Provider Type Benjy Mccormick DO Attending Provider Physician Family Provider Primary Care Provider Referring Provider Specialty: [facility] Address: [address] [place] [address], [facility] Email: Physical Therapy Initial Evaluation PT-OP-A Visit Information Start: 09/12/24 11:38 Freq: Status: Active Protocol: Document 09/24/24 09:50 MB (Rec: 09/24/24 10:19 MB [id number]) Out-Patient Physical Therapy Visit Information Visit Information Visit Type Initial Evaluation Visit Note KX Modifier Pt arrives 20 minutes late to eval Visit Start Time 09:50 Visit Stop Time 10:20 Visit Number 1 Number of 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 She has pain with some movements. She cannot sleep on her left side anymore. She occ sits up in recliner to sleep. She has not had any diagnostics since 2019. Pt states that she just finished PT for hip at this clinic and it went well. Treatment Goals Patient/Caregiver Goals To decrease left shoulder pain PT-OP-C Subjective Start: 09/12/24 11:38 Freq: Status: Active Protocol: Document 09/24/24 09:50 MB (Rec: 09/24/24 10:19 MB [id number]) OP-PT Subjective Patient Comments Patient Comments See history of current condition Patient Questionnaires Quick Dash- Upper Extremity Quick Dash UE Score 36 Quick Dash UE Impairment 40 to 59% Impaired (Score 40- 59) PT-OP-J Posture/Palpation/Skin Start: 09/12/24 11:38 Freq: Status: Active Protocol: Document 09/24/24 09:50 MB (Rec: 09/24/24 10:19 MB [id number]) Posture Evaluation Comments Posture Comments Standing posture with shoes off: left shoulder more forward and rounded than right shoulder, forward head, pt is right handed, spinal curvature changes, decreased thoracic kyphosis, mild convexity to the right in thoracic spine and to the left in lumbar spine, left iliac crest is higher than the right with pelvic shifting appearance, left greater than right foot supination. PT-OP-K Range of Motion Start: 09/12/24 11:38 Freq: Status: Active Protocol: Document 09/24/24 09:50 MB (Rec: 09/24/24 10:19 MB [id number]) Cervical Spine Range of Motion Cervical Spine Active Testing Position Standing Flexion 25 Extension 15 Rotation Left 54 Rotation Right 60 Shoulder Goniometric Range of Motion Shoulder Left Testing Position Standing Flexion 115 Extension 50 Abduction 125 Internal Rotation Behind Back (text) T12 Comments PROM in supine: pain in posterior shoulder area ( superior triceps and [employer] shelter delt area) with passive flexion and range is grossly normal, tight end-range like the right shoulder. Abduction and 90/90 ER abd IR grossly normal and no pain With palpation, left biceps tendon feels pronounced and overall, decreased muscle mass left shoulder musculature and will con't to assess during manual treatment Right Testing Position Standing Flexion 145 Extension 49 Abduction 50 Internal Rotation Behind Back (text) L5 Comments Very poor AROM right shoulder and pt reports that she had PT in the past and it was not helpful PROM in supine: some tightness end-range passive flexion and abduction. 90/90 ER and IR grossly normal PT-OP-M Strength Start: 09/12/24 11:38 Freq: Status: Active Protocol: Document 09/24/24 09:50 MB (Rec: 09/24/24 10:19 MB [id number]) Shoulder Strength Shoulder Manual Muscle Testing Left Flexion 4+ Good+ Abduction (C5) 4+ Good+ External Rotation 4- Good- Internal Rotation 4- Good- Right Flexion 2+ Poor+ Abduction (C5) 2+ Poor+ External Rotation 2 Poor Internal Rotation 4- Good- Elbow/Forearm Strength Elbow and Forearm Manual Muscle Testing Left Flexion (C6) 5 Normal Extension (C7) 5 Normal Pronation 3+ Fair+ Supination 4- Good- Right Flexion (C6) 5 Normal Extension (C7) 5 Normal Pronation 4+ Good+ PT-OP-Q Treatments Start: 09/12/24 11:38 Freq: Status: Active Protocol: Document 09/24/24 09:50 MB (Rec: 09/24/24 13:42 MB [id number]) Self-Care/Home Management Treatment Education Patient Education Body Mechanics,Joint Protection Other Education Benefits of ice and heat, proper sleeping position in supine or on side PT-OP-T Assessment and Plan Start: 09/12/24 11:38 Freq: Status: Active Protocol: Document 09/24/24 09:50 MB (Rec: 09/24/24 13:42 MB [id number]) Physical Therapy Assessment Rehab Potential Rehabilitation Potential Fair Evaluation Complexity Number of Personal Factors/Comorbidities 1-2 Number of Body Systems Impaired 1-2 Clinical Presentation at Evaluation Evolving Impairments Impairments Activity Tolerance,Balance, Coordination,Functional Activities,Functional Mobility ,Pain,Posture,ROM,Soft Tissue Mobility,Strength Goals Six Impairment . Impairment . Short Term Goal (STG) . Jail Goal (LTG) . Five Impairment . Impairment . Short Term Goal (STG) . Parliamentary Counsel Goal (LTG) . Four Impairment . Impairment . Short Term Goal (STG) . Three Impairment Lack of UE HEP Impairment . Short Term Goal (STG) . Jail Goal (LTG) Pt will perform progressive HEP with I including ROM, flexibility, and strengthening exercises to improve strength and range. LTG Duration 8 weeks Two Impairment UE weakness Impairment . Short Term Goal (STG) . Jail Goal (LTG) Pt will present with improve B elbow supination and pronation strength to at least 4+/5 to improve UE function. LTG Duration 8 weeks One Impairment QuickDASH score reflects over 56% impairment Impairment . Short Term Goal (STG) . Parliamentary Counsel Goal (LTG) Pt will present with QuickDASH score reflecting no more than 30% impairment to improve functional activities and pain . LTG Duration 8 weeks Assessment Summary Assessment Pt is an 79 y/o female presenting with reports of increasing L shoulder pain that has been progressive after a fall several years ago . Pt states she just completed PT for her hip at this clinic recently and she had a good experience. During assessment, she has severely impaired right shoulder AROM and strength and she uses left hand to raise her right arm. She is right handed. Pt also presents with decreased AROM and strength in LUE but her right is profoundly weak. Pt is here for her left shoulder and left shoulder rehabilitation will be challenging in setting of right UE deficits. Pt presents with pain at posterior delt/ upper triceps area with passive flexion in supine and with some MMT. Her left biceps is pronounced with overall low muscle mass B UEs. Suspect rotator cuff injuries in both shoulders with likely tear in right arm given presentation today. Will initiate PT trial to see if exercises and manual work can be helpful. No recent diagnostics of either arm available in chart. PT can only locate a right shoulder x-ray from 2019. Physical Therapy Plan Frequency and Duration Frequency of Treatment 2x/Week Duration of treatment (weeks) 8 Plan of Care Start Date 09/24/24 Plan of Care End Date 11/25/24 Therapeutic Interventions Therapeutic Interventions Balance Training,Canalithic Repositioning,Coordination Training,Home Exercise Program ,Joint Mobilizations,Manual Therapy,Neuromuscular Re- education,Patient/Caregiver Education,Self-Care/Home Management,Soft Tissue Mobilization,Taping, Therapeutic Activities, Therapeutic Exercises Modalities Cold Pack/Ice Massage,Electric Stimulation,Hot Packs, Ultrasound Next Visit Focus/Plan Next Note Type Treatment Note Next Visit Plan Consider first try pulleys and see if pt can get for home, consider scapular retraction and chin tuck standing against wall and in supine, consider progression to cane exercises in supine and then upright bike, consider gentle manual work
--- NOTE | 2024-09-24 13:43 | PT.OPPOC ---
Physical, Occupational & Speech Therapy At [facility] Current Diagnoses Other chronic pain (09/24/24) Pain in left shoulder (09/24/24) Visit Care Team Role Provider Type Benjy Mccormick DO Attending Provider Physician Family Provider Primary Care Provider Referring Provider Specialty: [facility] Practice Address: [address] [place] [address], [facility] Email: Plan Of Care PT-OP-B Current Condition Start: 09/12/24 11:38 Freq: Status: Active Protocol: Document 09/24/24 09:50 MB (Rec: 09/24/24 10:19 MB [id number]) Current Condition History of Current Condition Onset Date Several years ago Current Complaints Left shoulder pain with certain movements History of Current Condition Pt reports a fall several years ago and shoulder pain since that time. She has pain with some movements. She cannot sleep on her left side anymore. She occ sits up in recliner to sleep. She has not had any diagnostics since 2019. Pt states that she just finished PT for hip at this clinic and it went well. Treatment Goals Patient/Caregiver Goals To decrease left shoulder pain PT-OP-T Assessment and Plan Start: 09/12/24 11:38 Freq: Status: Active Protocol: Document 09/24/24 09:50 MB (Rec: 09/24/24 13:42 MB [id number]) Physical Therapy Assessment Rehab Potential Rehabilitation Potential Fair Evaluation Complexity Number of Personal Factors/Comorbidities 1-2 Number of Body Systems Impaired 1-2 Clinical Presentation at Evaluation Evolving Impairments Impairments Activity Tolerance,Balance, Coordination,Functional Activities,Functional Mobility ,Pain,Posture,ROM,Soft Tissue Mobility,Strength Goals Six Impairment . Impairment . Short Term Goal (STG) . Blade Balancer Goal (LTG) . Five Impairment . Impairment . Short Term Goal (STG) . Half-Way Goal (LTG) . Four Impairment . Impairment . Short Term Goal (STG) . Three Impairment Lack of UE HEP Impairment . Short Term Goal (STG) . Half-Way Goal (LTG) Pt will perform progressive HEP with I including ROM, flexibility, and strengthening exercises to improve strength and range. LTG Duration 8 weeks Two Impairment UE weakness Impairment . Short Term Goal (STG) . Half-Way Goal (LTG) Pt will present with improve B elbow supination and pronation strength to at least 4+/5 to improve UE function. LTG Duration 8 weeks One Impairment QuickDASH score reflects over 56% impairment Impairment . Short Term Goal (STG) . Blade Balancer Goal (LTG) Pt will present with QuickDASH score reflecting no more than 30% impairment to improve functional activities and pain . LTG Duration 8 weeks Assessment Summary Assessment Pt is an 79 y/o female presenting with reports of increasing L shoulder pain that has been progressive after a fall several years ago . Pt states she just completed PT for her hip at this clinic recently and she had a good experience. During assessment, she has severely impaired right shoulder AROM and strength and she uses left hand to raise her right arm. She is right handed. Pt also presents with decreased AROM and strength in LUE but her right is profoundly weak. Pt is here for her left shoulder and left shoulder rehabilitation will be challenging in setting of right UE deficits. Pt presents with pain at posterior delt/ upper triceps area with passive flexion in supine and with some MMT. Her left biceps is pronounced with overall low muscle mass B UEs. Suspect rotator cuff injuries in both shoulders with likely tear in right arm given presentation today. Will initiate PT trial to see if exercises and manual work can be helpful. No recent diagnostics of either arm available in chart. PT can only locate a right shoulder x-ray from 2019. Physical Therapy Plan Frequency and Duration Frequency of Treatment 2x/Week Duration of treatment (weeks) 8 Plan of Care Start Date 09/24/24 Plan of Care End Date 11/25/24 Therapeutic Interventions Therapeutic Interventions Balance Training,Canalithic Repositioning,Coordination Training,Home Exercise Program ,Joint Mobilizations,Manual Therapy,Neuromuscular Re- education,Patient/Caregiver Education,Self-Care/Home Management,Soft Tissue Mobilization,Taping, Therapeutic Activities, Therapeutic Exercises Modalities Cold Pack/Ice Massage,Electric Stimulation,Hot Packs, Ultrasound Next Visit Focus/Plan Next Note Type Treatment Note Next Visit Plan Consider first try pulleys and see if pt can get for home, consider scapular retraction and chin tuck standing against wall and in supine, consider progression to cane exercises in supine and then upright bike, consider gentle manual work Plan of Care Dates Plan of Care Start Date 09/24/24 Plan of Care End Date 11/25/24 Electronically Signed by: Aminata Wesley, PT 09/24/24 9000 If you are in agreement with this Plan of Care, please return a signed and dated copy. I have reviewed this Plan of Care and certify that the skilled therapy services above are required to meet the patient?s needs. Physician Signature Date Printed Name and Credentials Clinical Instructor Signature Printed Name and Credentials
--- NOTE | 2024-09-26 16:11 | PT.OTN ---
Current Diagnoses Other chronic pain (09/26/24) Pain in left shoulder (09/26/24) Physical Therapy Treatment Note PT-OP-A Visit Information Start: 09/12/24 11:38 Freq: Status: Active Protocol: Document 09/26/24 09:45 SW (Rec: 09/26/24 10:46 SW [id number]) Out-Patient Physical Therapy Visit Information Visit Information Visit Type Treatment Note Visit Note KX Modifier Pt arrives 20 minutes late to eval Visit Start Time 09:45 Visit Stop Time 10:25 PT-OP-B Current Condition Start: 09/12/24 11:38 Freq: Status: Active Protocol: Document 09/24/24 09:50 MB (Rec: 09/24/24 10:19 MB [id number]) Current Condition History of Current Condition Onset Date Several years ago Current Complaints Left shoulder pain with certain movements History of Current Condition Pt reports a fall several years ago and shoulder pain since that time. She has pain with some movements. She cannot sleep on her left side anymore. She occ sits up in recliner to sleep. She has not had any diagnostics since 2019. Pt states that she just finished PT for hip at this clinic and it went well. Treatment Goals Patient/Caregiver Goals To decrease left shoulder pain PT-OP-C Subjective Start: 09/12/24 11:38 Freq: Status: Active Protocol: Document 09/26/24 09:45 SW (Rec: 09/26/24 10:46 SW [id number]) OP-PT Subjective Patient Comments Patient Comments Pt reports feels like shoulder pops, crunches, feels like, painful to palpation along posterior deltoid muscle. Here on Monday not as much pain, today more pain, gets high up to 7-8. Currently at 5/10 pain . PT-OP-J Posture/Palpation/Skin Start: 09/12/24 11:38 Freq: Status: Active Protocol: Document 09/24/24 09:50 MB (Rec: 09/24/24 10:19 MB [id number]) Posture Evaluation Comments Posture Comments Standing posture with shoes off: left shoulder more forward and rounded than right shoulder, forward head, pt is right handed, spinal curvature changes, decreased thoracic kyphosis, mild convexity to the right in thoracic spine and to the left in lumbar spine, left iliac crest is higher than the right with pelvic shifting appearance, left greater than right foot supination. PT-OP-K Range of Motion Start: 09/12/24 11:38 Freq: Status: Active Protocol: Document 09/24/24 09:50 MB (Rec: 09/24/24 10:19 MB [id number]) Cervical Spine Range of Motion Cervical Spine Active Testing Position Standing Flexion 25 Extension 15 Rotation Left 54 Rotation Right 60 Shoulder Goniometric Range of Motion Shoulder Left Testing Position Standing Flexion 115 Extension 50 Abduction 125 Internal Rotation Behind Back (text) T12 Comments PROM in supine: pain in posterior shoulder area ( superior triceps and primary therapist delt area) with passive flexion and range is grossly normal, tight end-range like the right shoulder. Abduction and 90/90 ER abd IR grossly normal and no pain With palpation, left biceps tendon feels pronounced and overall, decreased muscle mass left shoulder musculature and will con't to assess during manual treatment Right Testing Position Standing Flexion 145 Extension 49 Abduction 50 Internal Rotation Behind Back (text) L5 Comments Very poor AROM right shoulder and pt reports that she had PT in the past and it was not helpful PROM in supine: some tightness end-range passive flexion and abduction. 90/90 ER and IR grossly normal PT-OP-M Strength Start: 09/12/24 11:38 Freq: Status: Active Protocol: Document 09/24/24 09:50 MB (Rec: 09/24/24 10:19 MB [id number]) Shoulder Strength Shoulder Manual Muscle Testing Left Flexion 4+ Good+ Abduction (C5) 4+ Good+ External Rotation 4- Good- Internal Rotation 4- Good- Right Flexion 2+ Poor+ Abduction (C5) 2+ Poor+ External Rotation 2 Poor Internal Rotation 4- Good- Elbow/Forearm Strength Elbow and Forearm Manual Muscle Testing Left Flexion (C6) 5 Normal Extension (C7) 5 Normal Pronation 3+ Fair+ Supination 4- Good- Right Flexion (C6) 5 Normal Extension (C7) 5 Normal Pronation 4+ Good+ PT-OP-Q Treatments Start: 09/12/24 11:38 Freq: Status: Active Protocol: Document 09/26/24 09:45 SW (Rec: 09/26/24 10:46 SW [id number]) Therapeutic Exercises Supine Exercises Cane Supine Exercise Name FF in scapular plane Trialed in PT (09/26/24) Comments trialed w/ decreased lever, pt unable to initiate movement today Chin Tucks Supine Exercise Name Chin Tucks (issued HEP HO) Equipment Used used pillow d/t forward head posture Reps/Minutes x10 Comments cues for form Sitting Exercises Pullies Sitting Exercise Name FF, Scapular plane Side bilateral Resistance AAROM Comments cues for gentle, comfortable ROM Standing Exercises Chin tucks Standing Exercise Name Chin tucks (trialed in standing, issued HEP HO in supine today) Side bilateral Resistance AROM Equipment Used Towel roll behind occiput Reps/Minutes x10 Comments cues for correct execution Manual Therapy Treatment Consent Patient gave verbal consent for manual Yes treatment Manual Techniques PROM Type PROM IR/ER/flex in scapular plane Body Location Left shoulder Body Position Supine Reps/Duration 8' Comments gentle to pt tolerance, frequent pain assessment, pt guarded spent some time to relax shoulder for decreased tension, occasional catching pain, though not in any one movement pattern PT-OP-T Assessment and Plan Start: 09/12/24 11:38 Freq: Status: Active Protocol: Document 09/26/24 09:45 (Rec: 09/26/24 10:46 [id number]) Physical Therapy Assessment Goals Six Impairment . Impairment . Short Term Goal (STG) . Usp Goal (LTG) . Five Impairment . Impairment . Short Term Goal (STG) . Exhibit Technician Goal (LTG) . Four Impairment . Impairment . Short Term Goal (STG) . Three Impairment Lack of UE HEP Impairment . Short Term Goal (STG) . Usp Goal (LTG) Pt will perform progressive HEP with I including ROM, flexibility, and strengthening exercises to improve strength and range. 09/26/24: Scapular retraction, chin tucks (in supine) LTG Duration 8 weeks Two Impairment UE weakness Impairment . Short Term Goal (STG) . Exhibit Technician Goal (LTG) Pt will present with improve B elbow supination and pronation strength to at least 4+/5 to improve UE function. LTG Duration 8 weeks One Impairment QuickDASH score reflects over 56% impairment Impairment . Short Term Goal (STG) . Usp Goal (LTG) Pt will present with QuickDASH score reflecting no more than 30% impairment to improve functional activities and pain . LTG Duration 8 weeks Assessment Summary Assessment Pt hopeful at end of first treatment. Extended time on exercises for pt education. Intiated gentle strengthening this session, chin tucks and scapular retraction, pt tolerated well with no increase in pain, issued HEP HO. Pt tolerated pullies well for AAROM, pt is going to try to acquire some pullies for home. Trialed cane for AAROM in supine, unable to initiated movement, even with decreased lever. Reviewed modalities for pain control, pt declined ice at EOS, suggested ice prn post session today. Physical Therapy Plan Frequency and Duration Frequency of Treatment 2x/Week Duration of treatment (weeks) 8 Plan of Care Start Date 09/24/24 Plan of Care End Date 11/25/24 Therapeutic Interventions Therapeutic Interventions Balance Training,Canalithic Repositioning,Coordination Training,Home Exercise Program ,Joint Mobilizations,Manual Therapy,Neuromuscular Re- education,Patient/Caregiver Education,Self-Care/Home Management,Soft Tissue Mobilization,Taping, Therapeutic Activities, Therapeutic Exercises Modalities Cold Pack/Ice Massage,Electric Stimulation,Hot Packs, Ultrasound Next Visit Focus/Plan Next Note Type Treatment Note Next Visit Plan Next session check if pt was able to get pullies for home and issue HEP HO for AAROM with pullies if able, Assess tolerance/review scapular retraction and chin tucks, continue to progress within PT Plan POC: Consider first try pulleys and see if pt can get for home, consider scapular retraction and chin tuck standing against wall and in supine, consider progression to cane exercises in supine and then upright bike, consider gentle manual work
--- NOTE | 2024-10-02 07:26 | PT-OP ANOTE ---
Addendum entered and electronically signed by Nicolette Song PTA 10/02/24 08:52: PN needed by 10/22 appt with PT. Original Note: Pt rescheduled her appointment this week from PT to [facility] and then appointment was canceled. Her next appointment is 10/15/24. This is putting her several weeks out from the eval without seeing primary PT for a treatment. Will keep and eye on her appointments/scheduling.
--- NOTE | 2024-10-15 09:45 | PT.OTN ---
Current Diagnoses Other chronic pain (10/15/24) Pain in left shoulder (10/15/24) Physical Therapy Treatment Note PT-OP-A Visit Information Start: 09/12/24 11:38 Freq: Status: Active Protocol: Document 10/15/24 09:05 SP (Rec: 10/15/24 09:51 SP [id number]) Out-Patient Physical Therapy Visit Information Visit Information Visit Type Treatment Note Visit Note KX Modifier Visit Start Time 09:05 Visit Stop Time 09:45 Visit Number 40 Number of ROCKET MOTOR TESTER Visits 2 Evaluation Information Evaluation Date 09/24/24 PT-OP-B Current Condition Start: 09/12/24 11:38 Freq: Status: Active Protocol: Document 09/24/24 09:50 MB (Rec: 09/24/24 10:19 MB [id number]) Current Condition History of Current Condition Onset Date Several years ago Current Complaints Left shoulder pain with certain movements History of Current Condition Pt reports a fall several years ago and shoulder pain since that time. She has pain with some movements. She cannot sleep on her left side anymore. She occ sits up in recliner to sleep. She has not had any diagnostics since 2019. Pt states that she just finished PT for hip at this clinic and it went well. Treatment Goals Patient/Caregiver Goals To decrease left shoulder pain PT-OP-C Subjective Start: 09/12/24 11:38 Freq: Status: Active Protocol: Document 10/15/24 09:05 SP (Rec: 10/15/24 09:51 SP [id number]) OP-PT Subjective Patient Comments Patient Comments Pt reports feeling well after last tx and doing ok with exercises. with holidays hasn' t gotten pulleys yet. PT-OP-J Posture/Palpation/Skin Start: 09/12/24 11:38 Freq: Status: Active Protocol: Document 09/24/24 09:50 MB (Rec: 09/24/24 10:19 MB [id number]) Posture Evaluation Comments Posture Comments Standing posture with shoes off: left shoulder more forward and rounded than right shoulder, forward head, pt is right handed, spinal curvature changes, decreased thoracic kyphosis, mild convexity to the right in thoracic spine and to the left in lumbar spine, left iliac crest is higher than the right with pelvic shifting appearance, left greater than right foot supination. PT-OP-K Range of Motion Start: 09/12/24 11:38 Freq: Status: Active Protocol: Document 09/24/24 09:50 MB (Rec: 09/24/24 10:19 MB [id number]) Cervical Spine Range of Motion Cervical Spine Active Testing Position Standing Flexion 25 Extension 15 Rotation Left 54 Rotation Right 60 Shoulder Goniometric Range of Motion Shoulder Left Testing Position Standing Flexion 115 Extension 50 Abduction 125 Internal Rotation Behind Back (text) T12 Comments PROM in supine: pain in posterior shoulder area ( superior triceps and well blower delt area) with passive flexion and range is grossly normal, tight end-range like the right shoulder. Abduction and 90/90 ER abd IR grossly normal and no pain With palpation, left biceps tendon feels pronounced and overall, decreased muscle mass left shoulder musculature and will con't to assess during manual treatment Right Testing Position Standing Flexion 145 Extension 49 Abduction 50 Internal Rotation Behind Back (text) L5 Comments Very poor AROM right shoulder and pt reports that she had PT in the past and it was not helpful PROM in supine: some tightness end-range passive flexion and abduction. 90/90 ER and IR grossly normal PT-OP-M Strength Start: 09/12/24 11:38 Freq: Status: Active Protocol: Document 09/24/24 09:50 MB (Rec: 09/24/24 10:19 MB [id number]) Shoulder Strength Shoulder Manual Muscle Testing Left Flexion 4+ Good+ Abduction (C5) 4+ Good+ External Rotation 4- Good- Internal Rotation 4- Good- Right Flexion 2+ Poor+ Abduction (C5) 2+ Poor+ External Rotation 2 Poor Internal Rotation 4- Good- Elbow/Forearm Strength Elbow and Forearm Manual Muscle Testing Left Flexion (C6) 5 Normal Extension (C7) 5 Normal Pronation 3+ Fair+ Supination 4- Good- Right Flexion (C6) 5 Normal Extension (C7) 5 Normal Pronation 4+ Good+ PT-OP-Q Treatments Start: 09/12/24 11:38 Freq: Status: Active Protocol: Document 10/15/24 09:05 SP (Rec: 10/15/24 09:51 SP [id number]) Therapeutic Exercises Supine Exercises Cane Supine Exercise Name 1. serratus press 2. FF pnfree range- /c HO Side bilateral Resistance AAROM Equipment Used dowel held over chest Reps/Minutes 5 reps each x3 sets today 2 sets home. Comments cued elbows straight, pnfree range each- no pain only tiring Chin Tucks Supine Exercise Name Chin Tucks reviewed Equipment Used used 1 pillow d/t forward head posture Reps/Minutes x10 Comments cues for form Sitting Exercises Pullies Sitting Exercise Name FF, Scapular plane- reviewed in PT /c HO Side bilateral Resistance AAROM Reps/Minutes 10 reps each Comments cues for gentle, comfortable slow ROM Standing Exercises Chin tucks Standing Exercise Name Chin tucks wall posture: added to HEp /c HO Side bilateral Resistance AROM Equipment Used no towel Reps/Minutes x10 Comments cues for correct execution Manual Therapy Treatment Consent Patient gave verbal consent for manual Yes treatment Other Other Manual Treatments R SL relaxed supported 2 pillows under head, 1 between BLEs and 1 at back, ed for comfort sleeping. L scapulothoracic adduction & depression with gentle STMs: UT, LS, pec, rhomboid, lat. PT-OP-T Assessment and Plan Start: 09/12/24 11:38 Freq: Status: Active Protocol: Document 10/15/24 09:05 SP (Rec: 10/15/24 09:51 SP [id number]) Physical Therapy Assessment Goals Six Impairment . Impairment . Short Term Goal (STG) . Pick Out Hand Goal (LTG) . Five Impairment . Impairment . Short Term Goal (STG) . Pick Out Hand Goal (LTG) . Four Impairment . Impairment . Short Term Goal (STG) . Three Impairment Lack of UE HEP Impairment . Short Term Goal (STG) . Mcfp Goal (LTG) Pt will perform progressive HEP with I including ROM, flexibility, and strengthening exercises to improve strength and range. 09/26/24: Scapular retraction, chin tucks (in supine) LTG Duration 8 weeks Two Impairment UE weakness Impairment . Short Term Goal (STG) . Pick Out Hand Goal (LTG) Pt will present with improve B elbow supination and pronation strength to at least 4+/5 to improve UE function. LTG Duration 8 weeks One Impairment QuickDASH score reflects over 56% impairment Impairment . Short Term Goal (STG) . Pick Out Hand Goal (LTG) Pt will present with QuickDASH score reflecting no more than 30% impairment to improve functional activities and pain . LTG Duration 8 weeks Assessment Summary Assessment Pt improved scapular mobility post manual and ed for adduction and depression awareness. Initiated hooklying chest press motion /c wand BUE support into FF 90deg then serratus press, cues for elbow straight then able to progress into FF painfree range. Pt completed 3 set during PT but only recommended 2 home due to cues given. Good progression myra performanc e today with use mirror in front to allow head/ postural corrections. She stated will order pullies soon . Gave screen shot what googled and looks like to order. Improved no UT shld elevation performance with reps, no pain end tx. Physical Therapy Plan Frequency and Duration Frequency of Treatment 2x/Week Duration of treatment (weeks) 8 Plan of Care Start Date 09/24/24 Plan of Care End Date 11/25/24 Therapeutic Interventions Therapeutic Interventions Balance Training,Canalithic Repositioning,Coordination Training,Home Exercise Program ,Joint Mobilizations,Manual Therapy,Neuromuscular Re- education,Patient/Caregiver Education,Self-Care/Home Management,Soft Tissue Mobilization,Taping, Therapeutic Activities, Therapeutic Exercises Modalities Cold Pack/Ice Massage,Electric Stimulation,Hot Packs, Ultrasound Next Visit Focus/Plan Next Note Type Treatment Note Next Visit Plan Next session recheck ordered/ received pulleys, check SA press, FF wand supine. POC: Assess tolerance/review scapular retraction and chin tucks, continue to progress within PT Plan POC: consider scapular retraction and chin tuck standing against wall and in supine, consider progression to cane exercises in supine and then upright bike, consider gentle manual work
--- NOTE | 2024-10-18 10:35 | PT.OTN ---
Current Diagnoses Other chronic pain (10/18/24) Pain in left shoulder (10/18/24) Physical Therapy Treatment Note PT-OP-A Visit Information Start: 09/12/24 11:38 Freq: Status: Active Protocol: Document 10/18/24 09:51 SP (Rec: 10/18/24 10:49 SP [id number]) Out-Patient Physical Therapy Visit Information Visit Information Visit Type Treatment Note Visit Start Time 09:51 Visit Stop Time 10:35 Visit Number 4 Number of MOUNTER CLARINETS Visits 3 Evaluation Information Evaluation Date 09/24/24 PT-OP-B Current Condition Start: 09/12/24 11:38 Freq: Status: Active Protocol: Document 09/24/24 09:50 MB (Rec: 09/24/24 10:19 MB [id number]) Current Condition History of Current Condition Onset Date Several years ago Current Complaints Left shoulder pain with certain movements History of Current Condition Pt reports a fall several years ago and shoulder pain since that time. She has pain with some movements. She cannot sleep on her left side anymore. She occ sits up in recliner to sleep. She has not had any diagnostics since 2019. Pt states that she just finished PT for hip at this clinic and it went well. Treatment Goals Patient/Caregiver Goals To decrease left shoulder pain PT-OP-C Subjective Start: 09/12/24 11:38 Freq: Status: Active Protocol: Document 10/18/24 09:51 SP (Rec: 10/18/24 10:49 SP [id number]) OP-PT Subjective Patient Comments Patient Comments Pt reports wants to review HEP again because felt little irritation in L shoulder lift and lowering the cane from lap in hooklying more than did in PT last visit. PT-OP-J Posture/Palpation/Skin Start: 09/12/24 11:38 Freq: Status: Active Protocol: Document 09/24/24 09:50 MB (Rec: 09/24/24 10:19 MB [id number]) Posture Evaluation Comments Posture Comments Standing posture with shoes off: left shoulder more forward and rounded than right shoulder, forward head, pt is right handed, spinal curvature changes, decreased thoracic kyphosis, mild convexity to the right in thoracic spine and to the left in lumbar spine, left iliac crest is higher than the right with pelvic shifting appearance, left greater than right foot supination. PT-OP-K Range of Motion Start: 09/12/24 11:38 Freq: Status: Active Protocol: Document 09/24/24 09:50 MB (Rec: 09/24/24 10:19 MB [id number]) Cervical Spine Range of Motion Cervical Spine Active Testing Position Standing Flexion 25 Extension 15 Rotation Left 54 Rotation Right 60 Shoulder Goniometric Range of Motion Shoulder Left Testing Position Standing Flexion 115 Extension 50 Abduction 125 Internal Rotation Behind Back (text) T12 Comments PROM in supine: pain in posterior shoulder area ( superior triceps and field assessor delt area) with passive flexion and range is grossly normal, tight end-range like the right shoulder. Abduction and 90/90 ER abd IR grossly normal and no pain With palpation, left biceps tendon feels pronounced and overall, decreased muscle mass left shoulder musculature and will con't to assess during manual treatment Right Testing Position Standing Flexion 145 Extension 49 Abduction 50 Internal Rotation Behind Back (text) L5 Comments Very poor AROM right shoulder and pt reports that she had PT in the past and it was not helpful PROM in supine: some tightness end-range passive flexion and abduction. 90/90 ER and IR grossly normal PT-OP-M Strength Start: 09/12/24 11:38 Freq: Status: Active Protocol: Document 09/24/24 09:50 MB (Rec: 09/24/24 10:19 MB [id number]) Shoulder Strength Shoulder Manual Muscle Testing Left Flexion 4+ Good+ Abduction (C5) 4+ Good+ External Rotation 4- Good- Internal Rotation 4- Good- Right Flexion 2+ Poor+ Abduction (C5) 2+ Poor+ External Rotation 2 Poor Internal Rotation 4- Good- Elbow/Forearm Strength Elbow and Forearm Manual Muscle Testing Left Flexion (C6) 5 Normal Extension (C7) 5 Normal Pronation 3+ Fair+ Supination 4- Good- Right Flexion (C6) 5 Normal Extension (C7) 5 Normal Pronation 4+ Good+ PT-OP-Q Treatments Start: 09/12/24 11:38 Freq: Status: Active Protocol: Document 10/18/24 09:51 SP (Rec: 10/18/24 10:49 SP [id number]) Therapeutic Exercises Supine Exercises Cane Supine Exercise Name 1st serratus press 2nd FF pnfree range 90*-112*- reviewed /c HO Side bilateral Resistance AAROM RUE help LUE Equipment Used dowel held over chest, hooklying legs supported Reps/Minutes 5 reps each x3 sets today 2 sets home. Comments 1 cue elbows straight, ed PNFREE range each- no pain only tiring reported Chin Tucks Supine Exercise Name Chin Tucks reviewed Equipment Used used 1 pillow d/t forward head posture Reps/Minutes x10 Comments cues for form Sitting Exercises TB pronation/supination Sitting Exercise Name added to HEP /c HO Side left Resistance TB #1 anchored under same side foot, forearm on table Equipment Used (inPT table, forearm on wedge) Reps/Minutes 10 reps each Comments Mod cues for set up and direction movement, head upright posture Humeral ER Sitting Exercise Name added to HEP /c HO Side bilateral Resistance 1# DB - palm up Reps/Minutes 8 reps Comments cued head up/chin tuck, 90 deg elbow, pnree range, elevated posture- Pullies Sitting Exercise Name FF, Scapular plane- reviewed Side bilateral Resistance AAROM Reps/Minutes 10 reps each Comments cues for gentle, comfortable slow ROM- painfree range- improved range Manual Therapy Treatment Consent Patient gave verbal consent for manual Yes treatment PT-OP-T Assessment and Plan Start: 09/12/24 11:38 Freq: Status: Active Protocol: Document 10/18/24 09:51 SP (Rec: 10/18/24 10:49 SP [id number]) Physical Therapy Assessment Goals Three Impairment Lack of UE HEP Impairment . Short Term Goal (STG) . Inside Sales Supervisor Goal (LTG) Pt will perform progressive HEP with I including ROM, flexibility, and strengthening exercises to improve strength and range. 09/26/24: Scapular retraction, chin tucks (in supine) LTG Duration 8 weeks Two Impairment UE weakness Impairment . Short Term Goal (STG) . Care Home Goal (LTG) Pt will present with improve B elbow supination and pronation strength to at least 4+/5 to improve UE function. LTG Duration 8 weeks One Impairment QuickDASH score reflects over 56% impairment Impairment . Short Term Goal (STG) . Inside Sales Supervisor Goal (LTG) Pt will present with QuickDASH score reflecting no more than 30% impairment to improve functional activities and pain . LTG Duration 8 weeks Assessment Summary Assessment Tx focused on HEP set up and performance painfree range. Ed first scapular AROM warm up serratus press over chest then FF over head painffree range, improved understanding 90-112 deg today was painfree range. Education on purchase pulleys online, cues can get ones with little wooden dowels at end. Good response progression strength humeral ER with DB and forearm pron/supination per PT recommendation. Mod cues for head up and posture, positioning of band and dumbbell, improved no pain performance. Edited cues on HOs and reissued. Would benefit from continue HEP then progress. Manual next tx. Physical Therapy Plan Frequency and Duration Frequency of Treatment 2x/Week Duration of treatment (weeks) 8 Plan of Care Start Date 09/24/24 Plan of Care End Date 11/25/24 Therapeutic Interventions Therapeutic Interventions Balance Training,Canalithic Repositioning,Coordination Training,Home Exercise Program ,Joint Mobilizations,Manual Therapy,Neuromuscular Re- education,Patient/Caregiver Education,Self-Care/Home Management,Soft Tissue Mobilization,Taping, Therapeutic Activities, Therapeutic Exercises Modalities Cold Pack/Ice Massage,Electric Stimulation,Hot Packs, Ultrasound Next Visit Focus/Plan Next Note Type Treatment Note Next Visit Plan Next session recheck ordered/ received pulleys, check SA press, FF wand supine, seated humeral ER and TB pron/ supination. POC: Assess tolerance/review scapular retraction and chin tucks, continue to progress within PT Plan POC: consider scapular retraction and chin tuck standing against wall and in supine, consider progression to cane exercises in supine and then upright bike, consider gentle manual work
--- NOTE | 2024-10-22 11:25 | PT.OTN ---
Current Diagnoses Other chronic pain (10/22/24) Pain in left shoulder (10/22/24) Physical Therapy Treatment Note PT-OP-A Visit Information Start: 09/12/24 11:38 Freq: Status: Active Protocol: Document 10/22/24 10:47 MB (Rec: 10/22/24 11:25 MB [id number]) Out-Patient Physical Therapy Visit Information Visit Information Visit Type Progress Note Visit Note Next progress note by 11/22/24 Visit Start Time 10:47 Visit Stop Time 11:25 Visit Number 5 Number of PLANT HEALTH CARE TECHNICIAN Visits 0 Evaluation Information Evaluation Date 09/24/24 PT-OP-B Current Condition Start: 09/12/24 11:38 Freq: Status: Active Protocol: Document 09/24/24 09:50 MB (Rec: 09/24/24 10:19 MB [id number]) Current Condition History of Current Condition Onset Date Several years ago Current Complaints Left shoulder pain with certain movements History of Current Condition Pt reports a fall several years ago and shoulder pain since that time. She has pain with some movements. She cannot sleep on her left side anymore. She occ sits up in recliner to sleep. She has not had any diagnostics since 2019. Pt states that she just finished PT for hip at this clinic and it went well. Treatment Goals Patient/Caregiver Goals To decrease left shoulder pain PT-OP-C Subjective Start: 09/12/24 11:38 Freq: Status: Active Protocol: Document 10/22/24 10:47 MB (Rec: 10/22/24 11:25 MB [id number]) OP-PT Subjective Patient Comments Patient Comments Pt has not noticed too much of a difference yet. She has not yet gotten pulleys. She is doing chin tuck, scapular retraction, cane exercises and shoulder ER exercises at home . PT-OP-J Posture/Palpation/Skin Start: 09/12/24 11:38 Freq: Status: Active Protocol: Document 09/24/24 09:50 MB (Rec: 09/24/24 10:19 MB [id number]) Posture Evaluation Comments Posture Comments Standing posture with shoes off: left shoulder more forward and rounded than right shoulder, forward head, pt is right handed, spinal curvature changes, decreased thoracic kyphosis, mild convexity to the right in thoracic spine and to the left in lumbar spine, left iliac crest is higher than the right with pelvic shifting appearance, left greater than right foot supination. PT-OP-K Range of Motion Start: 09/12/24 11:38 Freq: Status: Active Protocol: Document 09/24/24 09:50 MB (Rec: 09/24/24 10:19 MB [id number]) Cervical Spine Range of Motion Cervical Spine Active Testing Position Standing Flexion 25 Extension 15 Rotation Left 54 Rotation Right 60 Shoulder Goniometric Range of Motion Shoulder Left Testing Position Standing Flexion 115 Extension 50 Abduction 125 Internal Rotation Behind Back (text) T12 Comments PROM in supine: pain in posterior shoulder area ( superior triceps and floral department specialist delt area) with passive flexion and range is grossly normal, tight end-range like the right shoulder. Abduction and 90/90 ER abd IR grossly normal and no pain With palpation, left biceps tendon feels pronounced and overall, decreased muscle mass left shoulder musculature and will con't to assess during manual treatment Right Testing Position Standing Flexion 145 Extension 49 Abduction 50 Internal Rotation Behind Back (text) L5 Comments Very poor AROM right shoulder and pt reports that she had PT in the past and it was not helpful PROM in supine: some tightness end-range passive flexion and abduction. 90/90 ER and IR grossly normal PT-OP-M Strength Start: 09/12/24 11:38 Freq: Status: Active Protocol: Document 09/24/24 09:50 MB (Rec: 09/24/24 10:19 MB [id number]) Shoulder Strength Shoulder Manual Muscle Testing Left Flexion 4+ Good+ Abduction (C5) 4+ Good+ External Rotation 4- Good- Internal Rotation 4- Good- Right Flexion 2+ Poor+ Abduction (C5) 2+ Poor+ External Rotation 2 Poor Internal Rotation 4- Good- Elbow/Forearm Strength Elbow and Forearm Manual Muscle Testing Left Flexion (C6) 5 Normal Extension (C7) 5 Normal Pronation 3+ Fair+ Supination 4- Good- Right Flexion (C6) 5 Normal Extension (C7) 5 Normal Pronation 4+ Good+ PT-OP-Q Treatments Start: 09/12/24 11:38 Freq: Status: Active Protocol: Document 10/22/24 10:47 MB (Rec: 10/22/24 11:25 MB [id number]) Therapeutic Exercises Supine Exercises Cane Supine Exercise Name Serratus press up and flexion Equipment Used Yellow stick Comments Thumbs up, several reps flexion limited range Chin Tucks Supine Exercise Name Practiced today Comments Chin tucks and scapular retraction with pillow support under head Manual Therapy Treatment Consent Patient gave verbal consent for manual Yes treatment Other Other Manual Treatments Pt supine with head and legs supported: PA cervical mobs grade II-III, B first rib isometric and left first rib is very tight, STM B upper traps and levator and left is very tight, positional release posterior ribs. PT-OP-T Assessment and Plan Start: 09/12/24 11:38 Freq: Status: Active Protocol: Document 10/22/24 10:47 MB (Rec: 10/22/24 11:25 MB [id number]) Physical Therapy Assessment Goals Three Impairment Lack of UE HEP Impairment . Short Term Goal (STG) . Mcc Goal (LTG) Pt will perform progressive HEP with I including ROM, flexibility, and strengthening exercises to improve strength and range. 09/26/24: Scapular retraction, chin tucks (in supine) 10/22/24: Pt has not yet gotten pulleys and she is performing other exercises at home as prescribed LTG Duration 8 weeks Two Impairment UE weakness Impairment . Short Term Goal (STG) . Engineering Aide Goal (LTG) Pt will present with improve B elbow supination and pronation strength to at least 4+/5 to improve UE function. 10/22/24: Right pronation 3+/5 and left 4/5; right supination 3+/5 and left 3-/5 LTG Duration 8 weeks One Impairment QuickDASH score reflects over 56% impairment Impairment . Short Term Goal (STG) . Mcc Goal (LTG) Pt will present with QuickDASH score reflecting no more than 30% impairment to improve functional activities and pain . 10/22/24: QuickDASH score reflects 38% impairment and is improved since assessment date LTG Duration 8 weeks Assessment Summary Assessment Pt con't with postural and shoulder range/joint integrity challenges with likely underlying musculoskeletal pathology. She is performing exercises but has not yet gotten pulleys. Con't gentle manual work, range, functional and postural exercises, gentle strengthening to tolerance. Will see through 08/09 plan date: PT anticipates pt will need orthopedist consult, likely MRI and possible injections-- at least have specialist review for these. Pt has increased tension cervical spine, left greater than right first rib today and left levator and upper traps. Physical Therapy Plan Frequency and Duration Frequency of Treatment 2x/Week Duration of treatment (weeks) 8 Plan of Care Start Date 09/24/24 Plan of Care End Date 11/25/24 Therapeutic Interventions Therapeutic Interventions Balance Training,Canalithic Repositioning,Coordination Training,Home Exercise Program ,Joint Mobilizations,Manual Therapy,Neuromuscular Re- education,Patient/Caregiver Education,Self-Care/Home Management,Soft Tissue Mobilization,Taping, Therapeutic Activities, Therapeutic Exercises Modalities Cold Pack/Ice Massage,Electric Stimulation,Hot Packs, Ultrasound Other Referrals/Consults Referrals/Consults Recommended Will likely need orthopedist referral to assess both shoulders for MRIs both shoulders and possible injections Next Visit Focus/Plan Next Note Type Treatment Note Next Visit Plan Con't manual work for cervical spine, first ribs, cervical and shoulder musculature, pulleys, consider open book for gentle thoracic mobility, consider self-massage with softer kids ball against wall for thoracic spine and try racquetball for intrascapular area but may be too much for pt, consider trying pect stretch, could try doorway, pull noodle lying and shoulder range
--- NOTE | 2024-10-25 10:29 | PT.OTN ---
Current Diagnoses Other chronic pain (10/25/24) Pain in left shoulder (10/25/24) Physical Therapy Treatment Note PT-OP-A Visit Information Start: 09/12/24 11:38 Freq: Status: Active Protocol: Document 10/25/24 09:49 SP (Rec: 10/25/24 10:39 SP [id number]) Out-Patient Physical Therapy Visit Information Visit Information Visit Type Treatment Note Visit Note Next progress note by 11/22/24 Visit Start Time 09:49 Visit Stop Time 10:29 Visit Number 6 Number of PHARMACOGNOSIST Visits 1 Evaluation Information Evaluation Date 09/24/24 PT-OP-B Current Condition Start: 09/12/24 11:38 Freq: Status: Active Protocol: Document 09/24/24 09:50 MB (Rec: 09/24/24 10:19 MB [id number]) Current Condition History of Current Condition Onset Date Several years ago Current Complaints Left shoulder pain with certain movements History of Current Condition Pt reports a fall several years ago and shoulder pain since that time. She has pain with some movements. She cannot sleep on her left side anymore. She occ sits up in recliner to sleep. She has not had any diagnostics since 2019. Pt states that she just finished PT for hip at this clinic and it went well. Treatment Goals Patient/Caregiver Goals To decrease left shoulder pain PT-OP-C Subjective Start: 09/12/24 11:38 Freq: Status: Active Protocol: Document 10/25/24 09:49 SP (Rec: 10/25/24 10:39 SP [id number]) OP-PT Subjective Patient Comments Patient Comments Pt reports felt better after last tx with manual work, tight neck cords. She just got her pulleys yesterday so didn't chance to use them, wants tor review today. PT-OP-J Posture/Palpation/Skin Start: 09/12/24 11:38 Freq: Status: Active Protocol: Document 09/24/24 09:50 MB (Rec: 09/24/24 10:19 MB [id number]) Posture Evaluation Comments Posture Comments Standing posture with shoes off: left shoulder more forward and rounded than right shoulder, forward head, pt is right handed, spinal curvature changes, decreased thoracic kyphosis, mild convexity to the right in thoracic spine and to the left in lumbar spine, left iliac crest is higher than the right with pelvic shifting appearance, left greater than right foot supination. PT-OP-K Range of Motion Start: 09/12/24 11:38 Freq: Status: Active Protocol: Document 09/24/24 09:50 MB (Rec: 09/24/24 10:19 MB [id number]) Cervical Spine Range of Motion Cervical Spine Active Testing Position Standing Flexion 25 Extension 15 Rotation Left 54 Rotation Right 60 Shoulder Goniometric Range of Motion Shoulder Left Testing Position Standing Flexion 115 Extension 50 Abduction 125 Internal Rotation Behind Back (text) T12 Comments PROM in supine: pain in posterior shoulder area ( superior triceps and clip loading machine adjuster delt area) with passive flexion and range is grossly normal, tight end-range like the right shoulder. Abduction and 90/90 ER abd IR grossly normal and no pain With palpation, left biceps tendon feels pronounced and overall, decreased muscle mass left shoulder musculature and will con't to assess during manual treatment Right Testing Position Standing Flexion 145 Extension 49 Abduction 50 Internal Rotation Behind Back (text) L5 Comments Very poor AROM right shoulder and pt reports that she had PT in the past and it was not helpful PROM in supine: some tightness end-range passive flexion and abduction. 90/90 ER and IR grossly normal PT-OP-M Strength Start: 09/12/24 11:38 Freq: Status: Active Protocol: Document 09/24/24 09:50 MB (Rec: 09/24/24 10:19 MB [id number]) Shoulder Strength Shoulder Manual Muscle Testing Left Flexion 4+ Good+ Abduction (C5) 4+ Good+ External Rotation 4- Good- Internal Rotation 4- Good- Right Flexion 2+ Poor+ Abduction (C5) 2+ Poor+ External Rotation 2 Poor Internal Rotation 4- Good- Elbow/Forearm Strength Elbow and Forearm Manual Muscle Testing Left Flexion (C6) 5 Normal Extension (C7) 5 Normal Pronation 3+ Fair+ Supination 4- Good- Right Flexion (C6) 5 Normal Extension (C7) 5 Normal Pronation 4+ Good+ PT-OP-Q Treatments Start: 09/12/24 11:38 Freq: Status: Active Protocol: Document 10/25/24 09:49 SP (Rec: 10/25/24 10:39 SP [id number]) Therapeutic Exercises Supine Exercises Cane Supine Exercise Name Serratus press up and flexion Equipment Used Yellow stick Comments Thumbs up, several reps flexion limited range- impr cue serratus arc Chin Tucks Supine Exercise Name Practiced today Comments Chin tucks and scapular retraction with pillow support under head Sidelying Exercises open book Sidelying Exercise Name added to HEP Side bilateral Resistance AROM Reps/Minutes x5 reps each side Comments tactile & VCs LT and RHomboid fac, scapular glide, snow pacing, litle TS ro Sitting Exercises Pullies Sitting Exercise Name FF, Scapular plane- reviewed Side bilateral Resistance AAROM Reps/Minutes 10 reps each Comments cues head up comfortable slow ROM- painfree range Other Exercises self massage ball wall Other Exercise Name kid kick ball TS ext& pec stretch, tennis ball interscap in pillow case Reps/Minutes 10 reps each Manual Therapy Treatment Consent Patient gave verbal consent for manual Yes treatment Other Other Manual Treatments Pt supine with head and legs supported: PA cervical mobs grade II, B first rib caudal glide /c breath, STM B upper traps and levator and left is very tight, , SOR, SCM, shld caudal pressure. positional release posterior ribs. Self-Care/Home Management Treatment Education Patient Education Body Mechanics,Pain Management ,Posture Other Education Ed head up walking, arm swing, mindful weigth in purse, cross over chest. PT-OP-T Assessment and Plan Start: 09/12/24 11:38 Freq: Status: Active Protocol: Document 10/25/24 09:49 SP (Rec: 10/25/24 10:39 SP [id number]) Physical Therapy Assessment Goals Three Impairment Lack of UE HEP Impairment . Short Term Goal (STG) . Senior Care Goal (LTG) Pt will perform progressive HEP with I including ROM, flexibility, and strengthening exercises to improve strength and range. 09/26/24: Scapular retraction, chin tucks (in supine) 10/22/24: Pt has not yet gotten pulleys and she is performing other exercises at home as prescribed LTG Duration 8 weeks Two Impairment UE weakness Impairment . Short Term Goal (STG) . Senior Care Goal (LTG) Pt will present with improve B elbow supination and pronation strength to at least 4+/5 to improve UE function. 10/22/24: Right pronation 3+/5 and left 4/5; right supination 3+/5 and left 3-/5 LTG Duration 8 weeks One Impairment QuickDASH score reflects over 56% impairment Impairment . Short Term Goal (STG) . Senior Care Goal (LTG) Pt will present with QuickDASH score reflecting no more than 30% impairment to improve functional activities and pain . 10/22/24: QuickDASH score reflects 38% impairment and is improved since assessment date LTG Duration 8 weeks Assessment Summary Assessment Pt improved FF over head after manual, cues for little serratus/protraction press during FF if needed allowed no L shld pinch feeling, awareness of no shld up into ear. Good response to TS ext/ pec stretch over kids ball ( paper towel roll if not have kick ball home) and self STMs inter scap with HOs. I feel taller and move better, L s houlder not as tight. Physical Therapy Plan Frequency and Duration Frequency of Treatment 2x/Week Duration of treatment (weeks) 8 Plan of Care Start Date 09/24/24 Plan of Care End Date 11/25/24 Therapeutic Interventions Therapeutic Interventions Balance Training,Canalithic Repositioning,Coordination Training,Home Exercise Program ,Joint Mobilizations,Manual Therapy,Neuromuscular Re- education,Patient/Caregiver Education,Self-Care/Home Management,Soft Tissue Mobilization,Taping, Therapeutic Activities, Therapeutic Exercises Modalities Cold Pack/Ice Massage,Electric Stimulation,Hot Packs, Ultrasound Other Referrals/Consults Referrals/Consults Recommended Will likely need orthopedist referral to assess both shoulders for MRIs both shoulders and possible injections Next Visit Focus/Plan Next Note Type Treatment Note Next Visit Plan Recheck: open book, pec stretch and self STms next tx. POC: Con't manual work for cervical spine, first ribs, cervical and shoulder musculature, pulleys, consider trying pect stretch could try doorway, next pool noodle lying and shoulder range
--- NOTE | 2024-10-29 10:35 | PT.OTN ---
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 She has pain with some movements. She cannot sleep on her left side anymore. She occ sits up in recliner to sleep. She has not had any diagnostics since 2019. Pt states that she just finished PT for hip at this clinic and it went well. Treatment Goals Patient/Caregiver Goals To decrease left shoulder pain PT-OP-C Subjective Start: 09/12/24 11:38 Freq: Status: Active Protocol: Document 10/29/24 09:50 SP (Rec: 10/29/24 10:47 SP [id number]) OP-PT Subjective Patient Comments Patient Comments Pt reports the stretching and pullies have been helpful, less tightness and pain in her L shld and neck. No pain at arrival. She stated wants to review HEP and may need another copy of HOs, misplaced previous ones. PT-OP-J Posture/Palpation/Skin Start: 09/12/24 11:38 Freq: Status: Active Protocol: Document 09/24/24 09:50 MB (Rec: 09/24/24 10:19 MB [id number]) Posture Evaluation Comments Posture Comments Standing posture with shoes off: left shoulder more forward and rounded than right shoulder, forward head, pt is right handed, spinal curvature changes, decreased thoracic kyphosis, mild convexity to the right in thoracic spine and to the left in lumbar spine, left iliac crest is higher than the right with pelvic shifting appearance, left greater than right foot supination. PT-OP-K Range of Motion Start: 09/12/24 11:38 Freq: Status: Active Protocol: Document 09/24/24 09:50 MB (Rec: 09/24/24 10:19 MB [id number]) Cervical Spine Range of Motion Cervical Spine Active Testing Position Standing Flexion 25 Extension 15 Rotation Left 54 Rotation Right 60 Shoulder Goniometric Range of Motion Shoulder Left Testing Position Standing Flexion 115 Extension 50 Abduction 125 Internal Rotation Behind Back (text) T12 Comments PROM in supine: pain in posterior shoulder area ( superior triceps and life insurance underwriter delt area) with passive flexion and range is grossly normal, tight end-range like the right shoulder. Abduction and 90/90 ER abd IR grossly normal and no pain With palpation, left biceps tendon feels pronounced and overall, decreased muscle mass left shoulder musculature and will con't to assess during manual treatment Right Testing Position Standing Flexion 145 Extension 49 Abduction 50 Internal Rotation Behind Back (text) L5 Comments Very poor AROM right shoulder and pt reports that she had PT in the past and it was not helpful PROM in supine: some tightness end-range passive flexion and abduction. 90/90 ER and IR grossly normal PT-OP-M Strength Start: 09/12/24 11:38 Freq: Status: Active Protocol: Document 09/24/24 09:50 MB (Rec: 09/24/24 10:19 MB [id number]) Shoulder Strength Shoulder Manual Muscle Testing Left Flexion 4+ Good+ Abduction (C5) 4+ Good+ External Rotation 4- Good- Internal Rotation 4- Good- Right Flexion 2+ Poor+ Abduction (C5) 2+ Poor+ External Rotation 2 Poor Internal Rotation 4- Good- Elbow/Forearm Strength Elbow and Forearm Manual Muscle Testing Left Flexion (C6) 5 Normal Extension (C7) 5 Normal Pronation 3+ Fair+ Supination 4- Good- Right Flexion (C6) 5 Normal Extension (C7) 5 Normal Pronation 4+ Good+ PT-OP-Q Treatments Start: 09/12/24 11:38 Freq: Status: Active Protocol: Document 10/29/24 09:50 SP (Rec: 10/29/24 10:47 SP [id number]) Therapeutic Exercises Sidelying Exercises open book Sidelying Exercise Name reviewed Side bilateral Resistance AROM Reps/Minutes x5 reps each side Comments tactile cues slow, range painfree gentle pec stretch, head turn if want to Sitting Exercises TB pronation/supination Sitting Exercise Name reviewed /c HO Side left Resistance TB #1 anchored under same side foot, forearm on table Equipment Used forearm on chair arm vs table Reps/Minutes 10 reps each Comments Mod cues for band pos and direction movement, head & upright posture Humeral ER Sitting Exercise Name reviewed: Rhomboid & Side bilateral Resistance 1# DB - light blue> peach Reps/Minutes 10 Comments cued head up/chin tuck, scap engagement against resistance, ok of ER R able Pullies Sitting Exercise Name FF, Scapular plane- reviewed Side bilateral Resistance AAROM Reps/Minutes 10 reps each Comments cues head up neutral alignment , good slow pnfree ROM Standing Exercises pec stretch Standing Exercise Name add to HEP/c HO (better results felt 10/29) Reps/Minutes 5 sec hold x3 reps each ft fwd Comments cued head up/ chin tuck, able get head & pelvis PT-OP-T Assessment and Plan Start: 09/12/24 11:38 Freq: Status: Active Protocol: Document 10/29/24 09:50 SP (Rec: 10/29/24 10:47 SP [id number]) Physical Therapy Assessment Goals Three Impairment Lack of UE HEP Impairment . Short Term Goal (STG) . Tow Motor Driver Goal (LTG) Pt will perform progressive HEP with I including ROM, flexibility, and strengthening exercises to improve strength and range. 09/26/24: Scapular retraction, chin tucks (in supine) 10/22/24: Pt has not yet gotten pulleys and she is performing other exercises at home as prescribed LTG Duration 8 weeks Two Impairment UE weakness Impairment . Short Term Goal (STG) . Tow Motor Driver Goal (LTG) Pt will present with improve B elbow supination and pronation strength to at least 4+/5 to improve UE function. 10/22/24: Right pronation 3+/5 and left 4/5; right supination 3+/5 and left 3-/5 LTG Duration 8 weeks One Impairment QuickDASH score reflects over 56% impairment Impairment . Short Term Goal (STG) . Tow Motor Driver Goal (LTG) Pt will present with QuickDASH score reflecting no more than 30% impairment to improve functional activities and pain . 10/22/24: QuickDASH score reflects 38% impairment and is improved since assessment date LTG Duration 8 weeks Assessment Summary Assessment Pt report no pain neck/ shld. Time most of tx HEP review, cues for set up wrist/forearm strengthen toward goal with improved carryover (self pic phone, HO pic was confusing). Pt improved chin tuck and scap squeeze back to wall vs standing front mirror with better understanding CS retraction, head nod/chin tuck neutral then try walk carryover maintain awareness and work in progress. Added pec stretch, improved head CS retraction carryover and good form, provided HO. Physical Therapy Plan Frequency and Duration Frequency of Treatment 2x/Week Duration of treatment (weeks) 8 Plan of Care Start Date 09/24/24 Plan of Care End Date 11/25/24 Therapeutic Interventions Therapeutic Interventions Balance Training,Canalithic Repositioning,Coordination Training,Home Exercise Program ,Joint Mobilizations,Manual Therapy,Neuromuscular Re- education,Patient/Caregiver Education,Self-Care/Home Management,Soft Tissue Mobilization,Taping, Therapeutic Activities, Therapeutic Exercises Modalities Cold Pack/Ice Massage,Electric Stimulation,Hot Packs, Ultrasound Other Referrals/Consults Referrals/Consults Recommended Will likely need orthopedist referral to assess both shoulders for MRIs both shoulders and possible injections Next Visit Focus/Plan Next Note Type Treatment Note Next Visit Plan Recheck: open book, pec stretch and self STms next tx. POC: Con't manual work for cervical spine, first ribs, cervical and shoulder musculature, pulleys, next pool noodle lying and shoulder range
--- NOTE | 2024-11-01 09:15 | PT-OP ANOTE ---
Pt called and left message, having vertigo hanging onto wall to mobilize and unable to attend PT.
--- NOTE | 2024-11-13 08:55 | PT.OTN ---
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 She has pain with some movements. She cannot sleep on her left side anymore. She occ sits up in recliner to sleep. She has not had any diagnostics since 2019. Pt states that she just finished PT for hip at this clinic and it went well. Treatment Goals Patient/Caregiver Goals To decrease left shoulder pain PT-OP-C Subjective Start: 09/12/24 11:38 Freq: Status: Active Protocol: Document 11/13/24 08:18 MB (Rec: 11/13/24 08:55 MB [id number]) OP-PT Subjective Patient Comments Patient Comments Pt has not been seen in two weeks. She had vertigo so bad that she did not come into PT. She occ has trouble not wanting to drive. The vertigo is better. Her shoulders are about the same. PT-OP-J Posture/Palpation/Skin Start: 09/12/24 11:38 Freq: Status: Active Protocol: Document 09/24/24 09:50 MB (Rec: 09/24/24 10:19 MB [id number]) Posture Evaluation Comments Posture Comments Standing posture with shoes off: left shoulder more forward and rounded than right shoulder, forward head, pt is right handed, spinal curvature changes, decreased thoracic kyphosis, mild convexity to the right in thoracic spine and to the left in lumbar spine, left iliac crest is higher than the right with pelvic shifting appearance, left greater than right foot supination. PT-OP-K Range of Motion Start: 09/12/24 11:38 Freq: Status: Active Protocol: Document 09/24/24 09:50 MB (Rec: 09/24/24 10:19 MB [id number]) Cervical Spine Range of Motion Cervical Spine Active Testing Position Standing Flexion 25 Extension 15 Rotation Left 54 Rotation Right 60 Shoulder Goniometric Range of Motion Shoulder Left Testing Position Standing Flexion 115 Extension 50 Abduction 125 Internal Rotation Behind Back (text) T12 Comments PROM in supine: pain in posterior shoulder area ( superior triceps and financial sales advisor delt area) with passive flexion and range is grossly normal, tight end-range like the right shoulder. Abduction and 90/90 ER abd IR grossly normal and no pain With palpation, left biceps tendon feels pronounced and overall, decreased muscle mass left shoulder musculature and will con't to assess during manual treatment Right Testing Position Standing Flexion 145 Extension 49 Abduction 50 Internal Rotation Behind Back (text) L5 Comments Very poor AROM right shoulder and pt reports that she had PT in the past and it was not helpful PROM in supine: some tightness end-range passive flexion and abduction. 90/90 ER and IR grossly normal PT-OP-M Strength Start: 09/12/24 11:38 Freq: Status: Active Protocol: Document 09/24/24 09:50 MB (Rec: 09/24/24 10:19 MB [id number]) Shoulder Strength Shoulder Manual Muscle Testing Left Flexion 4+ Good+ Abduction (C5) 4+ Good+ External Rotation 4- Good- Internal Rotation 4- Good- Right Flexion 2+ Poor+ Abduction (C5) 2+ Poor+ External Rotation 2 Poor Internal Rotation 4- Good- Elbow/Forearm Strength Elbow and Forearm Manual Muscle Testing Left Flexion (C6) 5 Normal Extension (C7) 5 Normal Pronation 3+ Fair+ Supination 4- Good- Right Flexion (C6) 5 Normal Extension (C7) 5 Normal Pronation 4+ Good+ PT-OP-Q Treatments Start: 09/12/24 11:38 Freq: Status: Active Protocol: Document 11/13/24 08:18 MB (Rec: 11/13/24 08:55 MB [id number]) Therapeutic Exercises Sidelying Exercises open book Sidelying Exercise Name Reviewed from HEP Reps/Minutes 10 reps and cues for form, each side Sitting Exercises Pullies Sitting Exercise Name Forward flexion, abduction, cycling forward and backwards Reps/Minutes Many reps, cues for thumbs up Therapeutic Activity Therapeutic Activity Log rolling, bed mobility Comments Min A and cues for B Acmron- Hallpike, Roll Test, log rolling, orthostatic assessment and these take up most of beginning of treatment for assessment and education Self-Care/Home Management Treatment Education Patient Education Body Mechanics,Home Exercise Program,Posture Other Education Ed and discussion about Phoenix- Hallpike and Roll Test and talk about causes of dizziness as far as BPPV and neck tension, ed that orthopedic consult after return to PCP may be most appropriate to assess shoulders. Log rolling to get up at home to protect neck. Handouts and ed on proper hydration, orthostatic hypotension. PT-OP-T Assessment and Plan Start: 09/12/24 11:38 Freq: Status: Active Protocol: Document 11/13/24 08:18 MB (Rec: 11/13/24 08:55 MB [id number]) Physical Therapy Assessment Goals Three Impairment Lack of UE HEP Impairment . Short Term Goal (STG) . Nursing Home Goal (LTG) Pt will perform progressive HEP with I including ROM, flexibility, and strengthening exercises to improve strength and range. 09/26/24: Scapular retraction, chin tucks (in supine) 10/22/24: Pt has not yet gotten pulleys and she is performing other exercises at home as prescribed LTG Duration 8 weeks Two Impairment UE weakness Impairment . Short Term Goal (STG) . Nursing Home Goal (LTG) Pt will present with improve B elbow supination and pronation strength to at least 4+/5 to improve UE function. 10/22/24: Right pronation 3+/5 and left 4/5; right supination 3+/5 and left 3-/5 LTG Duration 8 weeks One Impairment QuickDASH score reflects over 56% impairment Impairment . Short Term Goal (STG) . Hr Associate Goal (LTG) Pt will present with QuickDASH score reflecting no more than 30% impairment to improve functional activities and pain . 10/22/24: QuickDASH score reflects 38% impairment and is improved since assessment date LTG Duration 8 weeks Assessment Summary Assessment Pt has not been seen in two weeks and she reports vertigo. Unfortunately, this was not communicated to this PT. Pt canceled an appointment as a result. Vertigo is now better. Overall, pt has postural changes and changes in shoulders that may not allow a lot of progress with PT and recommend orthopedic appointment. Pt wishes to keep last 4 PT appointments to work on exercises. No nystagmus with B Phoenix-Hallpike today or Roll Test and pt has some dizziness with roll test and she presents with severe cervical tightness. Orthostatic hypotension assessment: supine RUE 152/80, 62; standing 110/62, 67; standing 1' 134/74, 71. Ed pt on orthostatic hypotension, hydration, provided handouts and will send this note to Dr. Mccormick. Pt's cervical spine is likely current major source of dizziness with rolling in bed . She may benefit from some PT for balance, if not in this course, in future course. Physical Therapy Plan Frequency and Duration Frequency of Treatment 2x/Week Duration of treatment (weeks) 8 Plan of Care Start Date 09/24/24 Plan of Care End Date 11/25/24 Therapeutic Interventions Therapeutic Interventions Balance Training,Canalithic Repositioning,Coordination Training,Home Exercise Program ,Joint Mobilizations,Manual Therapy,Neuromuscular Re- education,Patient/Caregiver Education,Self-Care/Home Management,Soft Tissue Mobilization,Taping, Therapeutic Activities, Therapeutic Exercises Modalities Cold Pack/Ice Massage,Electric Stimulation,Hot Packs, Ultrasound Other Referrals/Consults Referrals/Consults Recommended Will likely need orthopedist referral to assess both shoulders for MRIs both shoulders and possible injections Next Visit Focus/Plan Next Note Type Treatment Note Next Visit Plan Con't manual work for cervical spine, first ribs, cervical and shoulder musculature, next pool noodle lying and shoulder range, progress gentle strengthening with band for shoulder ER and scapular retraction
--- NOTE | 2024-11-15 09:45 | PT.OTN ---
Current Diagnoses Other chronic pain (11/15/24) Pain in left shoulder (11/15/24) Physical Therapy Treatment Note PT-OP-A Visit Information Start: 09/12/24 11:38 Freq: Status: Active Protocol: Document 11/15/24 09:05 SP (Rec: 11/15/24 09:49 SP [id number]) Out-Patient Physical Therapy Visit Information Visit Information Visit Type Treatment Note Visit Note Next progress note by 11/22/24 Visit Start Time 09:05 Visit Stop Time 09:45 Visit Number 9 Number of ELECTRONICS TECHNICIAN Visits 1 Evaluation Information Evaluation Date 09/24/24 PT-OP-B Current Condition Start: 09/12/24 11:38 Freq: Status: Active Protocol: Document 09/24/24 09:50 MB (Rec: 09/24/24 10:19 MB [id number]) Current Condition History of Current Condition Onset Date Several years ago Current Complaints Left shoulder pain with certain movements History of Current Condition Pt reports a fall several years ago and shoulder pain since that time. She has pain with some movements. She cannot sleep on her left side anymore. She occ sits up in recliner to sleep. She has not had any diagnostics since 2019. Pt states that she just finished PT for hip at this clinic and it went well. Treatment Goals Patient/Caregiver Goals To decrease left shoulder pain PT-OP-C Subjective Start: 09/12/24 11:38 Freq: Status: Active Protocol: Document 11/15/24 09:05 SP (Rec: 11/15/24 09:49 SP [id number]) OP-PT Subjective Patient Comments Patient Comments Pt reports neck and R shld sore, arrives carrying purse in BUEs with forward flexed posture. Feels the HEP are helping and trying remember stand taller and view postural image given as reminder. PT-OP-J Posture/Palpation/Skin Start: 09/12/24 11:38 Freq: Status: Active Protocol: Document 09/24/24 09:50 MB (Rec: 09/24/24 10:19 MB [id number]) Posture Evaluation Comments Posture Comments Standing posture with shoes off: left shoulder more forward and rounded than right shoulder, forward head, pt is right handed, spinal curvature changes, decreased thoracic kyphosis, mild convexity to the right in thoracic spine and to the left in lumbar spine, left iliac crest is higher than the right with pelvic shifting appearance, left greater than right foot supination. PT-OP-K Range of Motion Start: 09/12/24 11:38 Freq: Status: Active Protocol: Document 09/24/24 09:50 MB (Rec: 09/24/24 10:19 MB [id number]) Cervical Spine Range of Motion Cervical Spine Active Testing Position Standing Flexion 25 Extension 15 Rotation Left 54 Rotation Right 60 Shoulder Goniometric Range of Motion Shoulder Left Testing Position Standing Flexion 115 Extension 50 Abduction 125 Internal Rotation Behind Back (text) T12 Comments PROM in supine: pain in posterior shoulder area ( superior triceps and perl developer delt area) with passive flexion and range is grossly normal, tight end-range like the right shoulder. Abduction and 90/90 ER abd IR grossly normal and no pain With palpation, left biceps tendon feels pronounced and overall, decreased muscle mass left shoulder musculature and will con't to assess during manual treatment Right Testing Position Standing Flexion 145 Extension 49 Abduction 50 Internal Rotation Behind Back (text) L5 Comments Very poor AROM right shoulder and pt reports that she had PT in the past and it was not helpful PROM in supine: some tightness end-range passive flexion and abduction. 90/90 ER and IR grossly normal PT-OP-M Strength Start: 09/12/24 11:38 Freq: Status: Active Protocol: Document 09/24/24 09:50 MB (Rec: 09/24/24 10:19 MB [id number]) Shoulder Strength Shoulder Manual Muscle Testing Left Flexion 4+ Good+ Abduction (C5) 4+ Good+ External Rotation 4- Good- Internal Rotation 4- Good- Right Flexion 2+ Poor+ Abduction (C5) 2+ Poor+ External Rotation 2 Poor Internal Rotation 4- Good- Elbow/Forearm Strength Elbow and Forearm Manual Muscle Testing Left Flexion (C6) 5 Normal Extension (C7) 5 Normal Pronation 3+ Fair+ Supination 4- Good- Right Flexion (C6) 5 Normal Extension (C7) 5 Normal Pronation 4+ Good+ PT-OP-Q Treatments Start: 09/12/24 11:38 Freq: Status: Active Protocol: Document 11/15/24 09:05 SP (Rec: 11/15/24 09:49 SP [id number]) Therapeutic Exercises Supine Exercises over noodle Supine Exercise Name added to HEP /c HO: pec stretch, chin tuck, FF ( underhand wand), HABD Side bilateral Resistance AROM Reps/Minutes 10 SH various pos pec stretch, 10 reps each rest Comments cued painfree range- 1/2 X challenge discomfort Hold for now. Sidelying Exercises open book Sidelying Exercise Name Reviewed from HEP Side bilateral Resistance AROM Reps/Minutes 10 reps and improved corrections, each side Comments tactile cue for scap adduction and no UT compensations- slow pacing mobilit Manual Therapy Treatment Consent Patient gave verbal consent for manual Yes treatment Other Other Manual Treatments Pt supine with head and legs supported, SL pillow under head and between knees (cued CS retraction neutral alignment): PA cervical mobs grade II, B first rib caudal glide /c breath, STM B upper traps and levator and left is very tight, CS R>L paraspinals , SOR, SCM, Rscalenes shld caudal pressure. PT-OP-T Assessment and Plan Start: 09/12/24 11:38 Freq: Status: Active Protocol: Document 11/15/24 09:05 SP (Rec: 11/15/24 09:49 SP [id number]) Physical Therapy Assessment Goals Three Impairment Lack of UE HEP Impairment . Short Term Goal (STG) . Skilled Nursing Goal (LTG) Pt will perform progressive HEP with I including ROM, flexibility, and strengthening exercises to improve strength and range. 09/26/24: Scapular retraction, chin tucks (in supine) 10/22/24: Pt has not yet gotten pulleys and she is performing other exercises at home as prescribed LTG Duration 8 weeks Two Impairment UE weakness Impairment . Short Term Goal (STG) . Skilled Nursing Goal (LTG) Pt will present with improve B elbow supination and pronation strength to at least 4+/5 to improve UE function. 10/22/24: Right pronation 3+/5 and left 4/5; right supination 3+/5 and left 3-/5 LTG Duration 8 weeks One Impairment QuickDASH score reflects over 56% impairment Impairment . Short Term Goal (STG) . Online Editor Goal (LTG) Pt will present with QuickDASH score reflecting no more than 30% impairment to improve functional activities and pain . 10/22/24: QuickDASH score reflects 38% impairment and is improved since assessment date LTG Duration 8 weeks Assessment Summary Assessment Pt good feedback response to manual and adjustement in pressure, able to turn head to L better. Cues for slow and proper form during open book. Progressed HEP over noodle AAROM- AROM and written for RUE support painfree range. Will picker and packer a noodle (pipe insulation suggested at [facility] ) for carryover home. Pt reported arms move easier. REminder tall head up and arm swing walking for carryover posture and arm decreased discomfort. Physical Therapy Plan Frequency and Duration Frequency of Treatment 2x/Week Duration of treatment (weeks) 8 Plan of Care Start Date 09/24/24 Plan of Care End Date 11/25/24 Therapeutic Interventions Therapeutic Interventions Balance Training,Canalithic Repositioning,Coordination Training,Home Exercise Program ,Joint Mobilizations,Manual Therapy,Neuromuscular Re- education,Patient/Caregiver Education,Self-Care/Home Management,Soft Tissue Mobilization,Taping, Therapeutic Activities, Therapeutic Exercises Modalities Cold Pack/Ice Massage,Electric Stimulation,Hot Packs, Ultrasound Other Referrals/Consults Referrals/Consults Recommended Will likely need orthopedist referral to assess both shoulders for MRIs both shoulders and possible injections Next Visit Focus/Plan Next Note Type Treatment Note Next Visit Plan Recheck noodle exercises and posture walking. POC: Con't manual work for cervical spine, first ribs, cervical and shoulder musculature, next pool noodle lying and shoulder range, progress gentle strengthening with band for shoulder ER and scapular retraction
--- NOTE | 2024-11-18 08:15 | PT.OTN ---
Current Diagnoses Other chronic pain (11/18/24) Pain in left shoulder (11/18/24) Physical Therapy Treatment Note PT-OP-A Visit Information Start: 09/12/24 11:38 Freq: Status: Active Protocol: Document 11/18/24 07:27 MB (Rec: 11/18/24 08:05 MB [id number]) Out-Patient Physical Therapy Visit Information Visit Information Visit Type Treatment Note Visit Note Next progress note by 11/22/24 Visit Start Time 07:27 Visit Stop Time 08:07 Visit Number 10 Number of CLINICAL STATISTICS MANAGER Visits 0 Evaluation Information Evaluation Date 09/24/24 PT-OP-B Current Condition Start: 09/12/24 11:38 Freq: Status: Active Protocol: Document 09/24/24 09:50 MB (Rec: 09/24/24 10:19 MB [id number]) Current Condition History of Current Condition Onset Date Several years ago Current Complaints Left shoulder pain with certain movements History of Current Condition Pt reports a fall several years ago and shoulder pain since that time. She has pain with some movements. She cannot sleep on her left side anymore. She occ sits up in recliner to sleep. She has not had any diagnostics since 2019. Pt states that she just finished PT for hip at this clinic and it went well. Treatment Goals Patient/Caregiver Goals To decrease left shoulder pain PT-OP-C Subjective Start: 09/12/24 11:38 Freq: Status: Active Protocol: Document 11/18/24 07:27 MB (Rec: 11/18/24 08:05 MB [id number]) OP-PT Subjective Patient Comments Patient Comments Pt states that she feels a little woozy. Her right shoulder may be a little better and her left shoulder is still clicky and painful. PT-OP-J Posture/Palpation/Skin Start: 09/12/24 11:38 Freq: Status: Active Protocol: Document 09/24/24 09:50 MB (Rec: 09/24/24 10:19 MB [id number]) Posture Evaluation Comments Posture Comments Standing posture with shoes off: left shoulder more forward and rounded than right shoulder, forward head, pt is right handed, spinal curvature changes, decreased thoracic kyphosis, mild convexity to the right in thoracic spine and to the left in lumbar spine, left iliac crest is higher than the right with pelvic shifting appearance, left greater than right foot supination. PT-OP-K Range of Motion Start: 09/12/24 11:38 Freq: Status: Active Protocol: Document 09/24/24 09:50 MB (Rec: 09/24/24 10:19 MB [id number]) Cervical Spine Range of Motion Cervical Spine Active Testing Position Standing Flexion 25 Extension 15 Rotation Left 54 Rotation Right 60 Shoulder Goniometric Range of Motion Shoulder Left Testing Position Standing Flexion 115 Extension 50 Abduction 125 Internal Rotation Behind Back (text) T12 Comments PROM in supine: pain in posterior shoulder area ( superior triceps and car electronics installer delt area) with passive flexion and range is grossly normal, tight end-range like the right shoulder. Abduction and 90/90 ER abd IR grossly normal and no pain With palpation, left biceps tendon feels pronounced and overall, decreased muscle mass left shoulder musculature and will con't to assess during manual treatment Right Testing Position Standing Flexion 145 Extension 49 Abduction 50 Internal Rotation Behind Back (text) L5 Comments Very poor AROM right shoulder and pt reports that she had PT in the past and it was not helpful PROM in supine: some tightness end-range passive flexion and abduction. 90/90 ER and IR grossly normal PT-OP-M Strength Start: 09/12/24 11:38 Freq: Status: Active Protocol: Document 09/24/24 09:50 MB (Rec: 09/24/24 10:19 MB [id number]) Shoulder Strength Shoulder Manual Muscle Testing Left Flexion 4+ Good+ Abduction (C5) 4+ Good+ External Rotation 4- Good- Internal Rotation 4- Good- Right Flexion 2+ Poor+ Abduction (C5) 2+ Poor+ External Rotation 2 Poor Internal Rotation 4- Good- Elbow/Forearm Strength Elbow and Forearm Manual Muscle Testing Left Flexion (C6) 5 Normal Extension (C7) 5 Normal Pronation 3+ Fair+ Supination 4- Good- Right Flexion (C6) 5 Normal Extension (C7) 5 Normal Pronation 4+ Good+ PT-OP-Q Treatments Start: 09/12/24 11:38 Freq: Status: Active Protocol: Document 11/18/24 07:27 MB (Rec: 11/18/24 08:05 MB [id number]) Therapeutic Exercises Sitting Exercises Pullies Sitting Exercise Name Forward flexion, abduction, cycling forward and backwards Equipment Used 1/2 blue pool noodle behind back Reps/Minutes Many reps, cues for thumbs up Manual Therapy Treatment Consent Patient gave verbal consent for manual Yes treatment Other Other Manual Treatments Pt prone: STM intrascapular and shoulder ER muscles, upper traps, TrP left infraspinatus , subscap, upper traps, pt con 't with crepitus anterior shoulder near AC joint with active left shoulder flexion in scaption plane in sitting; in supine: STM left pect and B first rib mobs grade I-II and left first rib isometric, MWM left upper traps PT-OP-T Assessment and Plan Start: 09/12/24 11:38 Freq: Status: Active Protocol: Document 11/18/24 07:27 MB (Rec: 11/18/24 08:05 MB [id number]) Physical Therapy Assessment Goals Three Impairment Lack of UE HEP Impairment . Short Term Goal (STG) . Mcc Goal (LTG) Pt will perform progressive HEP with I including ROM, flexibility, and strengthening exercises to improve strength and range. 09/26/24: Scapular retraction, chin tucks (in supine) 10/22/24: Pt has not yet gotten pulleys and she is performing other exercises at home as prescribed LTG Duration 8 weeks Two Impairment UE weakness Impairment . Short Term Goal (STG) . Medical Leader Goal (LTG) Pt will present with improve B elbow supination and pronation strength to at least 4+/5 to improve UE function. 10/22/24: Right pronation 3+/5 and left 4/5; right supination 3+/5 and left 3-/5 LTG Duration 8 weeks One Impairment QuickDASH score reflects over 56% impairment Impairment . Short Term Goal (STG) . Medical Leader Goal (LTG) Pt will present with QuickDASH score reflecting no more than 30% impairment to improve functional activities and pain . 10/22/24: QuickDASH score reflects 38% impairment and is improved since assessment date LTG Duration 8 weeks Assessment Summary Assessment Pt with very poor body awareness and movement overall , trouble getting off mat in prone as far as lowering left leg. She reports several falls in the past. Pt presents with clicking left shoulder flexion and abduction at AC joint. Pt has two more treatments with therapy and then recommend follow-up with PCP/ortho consult given B shoulder issues and neck changes. She may benefit from PT for balance in future. Physical Therapy Plan Frequency and Duration Frequency of Treatment 2x/Week Duration of treatment (weeks) 8 Plan of Care Start Date 09/24/24 Plan of Care End Date 11/25/24 Therapeutic Interventions Therapeutic Interventions Balance Training,Canalithic Repositioning,Coordination Training,Home Exercise Program ,Joint Mobilizations,Manual Therapy,Neuromuscular Re- education,Patient/Caregiver Education,Self-Care/Home Management,Soft Tissue Mobilization,Taping, Therapeutic Activities, Therapeutic Exercises Modalities Cold Pack/Ice Massage,Electric Stimulation,Hot Packs, Ultrasound Other Referrals/Consults Referrals/Consults Recommended Will likely need orthopedist referral to assess both shoulders for MRIs both shoulders and possible injections, also cervical assessment, PT for balance in future Next Visit Focus/Plan Next Note Type Treatment Note Next Visit Plan Review all exercises including pool noodle, add shoulder ROM and resisted with band shoulder ER and horizontal abduction, PNF, for last treatment and then will d/c with PT the following treatment
--- NOTE | 2024-11-20 08:16 | PT.OTN ---
Current Diagnoses Other chronic pain (11/20/24) Pain in left shoulder (11/20/24) Physical Therapy Treatment Note PT-OP-A Visit Information Start: 09/12/24 11:38 Freq: Status: Active Protocol: Document 11/20/24 07:30 SP (Rec: 11/20/24 08:19 SP [id number]) Out-Patient Physical Therapy Visit Information Visit Information Visit Type Treatment Note Visit Note Next progress note by 11/22/24 Visit Start Time 07:30 Visit Stop Time 08:16 Visit Number 11 Number of MAINTENANCE CONTROLLER Visits 1 Evaluation Information Evaluation Date 09/24/24 PT-OP-B Current Condition Start: 09/12/24 11:38 Freq: Status: Active Protocol: Document 09/24/24 09:50 MB (Rec: 09/24/24 10:19 MB [id number]) Current Condition History of Current Condition Onset Date Several years ago Current Complaints Left shoulder pain with certain movements History of Current Condition Pt reports a fall several years ago and shoulder pain since that time. She has pain with some movements. She cannot sleep on her left side anymore. She occ sits up in recliner to sleep. She has not had any diagnostics since 2019. Pt states that she just finished PT for hip at this clinic and it went well. Treatment Goals Patient/Caregiver Goals To decrease left shoulder pain PT-OP-C Subjective Start: 09/12/24 11:38 Freq: Status: Active Protocol: Document 11/20/24 07:30 SP (Rec: 11/20/24 08:19 SP [id number]) OP-PT Subjective Patient Comments Patient Comments Pt reports feels standing straighter and shlds less pain . Family has been helping reminder her of shoulder and neck posture when see rounded trying to prevent during activities. PT-OP-J Posture/Palpation/Skin Start: 09/12/24 11:38 Freq: Status: Active Protocol: Document 09/24/24 09:50 MB (Rec: 09/24/24 10:19 MB [id number]) Posture Evaluation Comments Posture Comments Standing posture with shoes off: left shoulder more forward and rounded than right shoulder, forward head, pt is right handed, spinal curvature changes, decreased thoracic kyphosis, mild convexity to the right in thoracic spine and to the left in lumbar spine, left iliac crest is higher than the right with pelvic shifting appearance, left greater than right foot supination. PT-OP-K Range of Motion Start: 09/12/24 11:38 Freq: Status: Active Protocol: Document 09/24/24 09:50 MB (Rec: 09/24/24 10:19 MB [id number]) Cervical Spine Range of Motion Cervical Spine Active Testing Position Standing Flexion 25 Extension 15 Rotation Left 54 Rotation Right 60 Shoulder Goniometric Range of Motion Shoulder Left Testing Position Standing Flexion 115 Extension 50 Abduction 125 Internal Rotation Behind Back (text) T12 Comments PROM in supine: pain in posterior shoulder area ( superior triceps and test developer delt area) with passive flexion and range is grossly normal, tight end-range like the right shoulder. Abduction and 90/90 ER abd IR grossly normal and no pain With palpation, left biceps tendon feels pronounced and overall, decreased muscle mass left shoulder musculature and will con't to assess during manual treatment Right Testing Position Standing Flexion 145 Extension 49 Abduction 50 Internal Rotation Behind Back (text) L5 Comments Very poor AROM right shoulder and pt reports that she had PT in the past and it was not helpful PROM in supine: some tightness end-range passive flexion and abduction. 90/90 ER and IR grossly normal PT-OP-M Strength Start: 09/12/24 11:38 Freq: Status: Active Protocol: Document 09/24/24 09:50 MB (Rec: 09/24/24 10:19 MB [id number]) Shoulder Strength Shoulder Manual Muscle Testing Left Flexion 4+ Good+ Abduction (C5) 4+ Good+ External Rotation 4- Good- Internal Rotation 4- Good- Right Flexion 2+ Poor+ Abduction (C5) 2+ Poor+ External Rotation 2 Poor Internal Rotation 4- Good- Elbow/Forearm Strength Elbow and Forearm Manual Muscle Testing Left Flexion (C6) 5 Normal Extension (C7) 5 Normal Pronation 3+ Fair+ Supination 4- Good- Right Flexion (C6) 5 Normal Extension (C7) 5 Normal Pronation 4+ Good+ PT-OP-Q Treatments Start: 09/12/24 11:38 Freq: Status: Active Protocol: Document 11/20/24 07:30 SP (Rec: 11/20/24 08:19 SP [id number]) Therapeutic Exercises Supine Exercises over noodle Supine Exercise Name REviewed: pec stretch, chin tuck, serratus press &FF ( underhand wand), HABD Side bilateral Resistance AROM> TB #1 HABD Equipment Used over noodle added ER today 11/20 Reps/Minutes 10 SH various pos pec stretch, 10 reps each rest Comments reports little more muscle challenge not pain if only tolrange Sitting Exercises Humeral ER Sitting Exercise Name reviewed: Rhomboid & LT- supine over noodle today Side bilateral Resistance TB #1 Reps/Minutes 5 reps Comments cued head up/chin tuck, scap engagement against resistance, ok of ER R able Manual Therapy Treatment Consent Patient gave verbal consent for manual Yes treatment Other Other Manual Treatments Pt prone: STM B UT & LS, L>R rhomboid, L Lat, L Teres, L infraspinatus. Hooklying: distal L pec,LUT, L 1st rib caudal glide into FF. PT-OP-T Assessment and Plan Start: 09/12/24 11:38 Freq: Status: Active Protocol: Document 11/20/24 07:30 SP (Rec: 11/20/24 08:19 SP [id number]) Physical Therapy Assessment Goals Three Impairment Lack of UE HEP Impairment . Short Term Goal (STG) . Client Care Specialist Goal (LTG) Pt will perform progressive HEP with I including ROM, flexibility, and strengthening exercises to improve strength and range. 09/26/24: Scapular retraction, chin tucks (in supine) 10/22/24: Pt has not yet gotten pulleys and she is performing other exercises at home as prescribed LTG Duration 8 weeks Two Impairment UE weakness Impairment . Short Term Goal (STG) . Prison Goal (LTG) Pt will present with improve B elbow supination and pronation strength to at least 4+/5 to improve UE function. 10/22/24: Right pronation 3+/5 and left 4/5; right supination 3+/5 and left 3-/5 LTG Duration 8 weeks One Impairment QuickDASH score reflects over 56% impairment Impairment . Short Term Goal (STG) . Prison Goal (LTG) Pt will present with QuickDASH score reflecting no more than 30% impairment to improve functional activities and pain . 10/22/24: QuickDASH score reflects 38% impairment and is improved since assessment date LTG Duration 8 weeks Assessment Summary Assessment Pt improved decreased clicking in L shld post manual, cues for scapular adduction during over noodle HEP and was able to progress use light blue theraband FF, HABD and ER with ed supports stability during ADLs. Ed importance to do these HEP daily for progression strengthening. Physical Therapy Plan Frequency and Duration Frequency of Treatment 2x/Week Duration of treatment (weeks) 8 Plan of Care Start Date 09/24/24 Plan of Care End Date 11/25/24 Therapeutic Interventions Therapeutic Interventions Balance Training,Canalithic Repositioning,Coordination Training,Home Exercise Program ,Joint Mobilizations,Manual Therapy,Neuromuscular Re- education,Patient/Caregiver Education,Self-Care/Home Management,Soft Tissue Mobilization,Taping, Therapeutic Activities, Therapeutic Exercises Modalities Cold Pack/Ice Massage,Electric Stimulation,Hot Packs, Ultrasound Other Referrals/Consults Referrals/Consults Recommended Will likely need orthopedist referral to assess both shoulders for MRIs both shoulders and possible injections, also cervical assessment, PT for balance in future Next Visit Focus/Plan Next Note Type Discharge Summary Next Visit Plan Review added resistance HEP over pool noodle (did she get at [facility]). Can progress PNF and d/c with PT next/ last treatment
--- NOTE | 2024-11-25 08:04 | PT.OTN ---
Current Diagnoses Other chronic pain (11/25/24) Pain in left shoulder (11/25/24) Physical Therapy Treatment Note PT-OP-A Visit Information Start: 09/12/24 11:38 Freq: Status: Active Protocol: Document 11/25/24 07:26 MB (Rec: 11/25/24 08:04 MB [id number]) Out-Patient Physical Therapy Visit Information Visit Information Visit Type Treatment Note Visit Note Next progress note by 11/22/24 Visit Start Time 07:26 Visit Stop Time 08:06 Visit Number 12 Number of WET ROOM WORKER Visits 0 Evaluation Information Evaluation Date 09/24/24 Precautions Precautions No BP LUE PT-OP-B Current Condition Start: 09/12/24 11:38 Freq: Status: Active Protocol: Document 09/24/24 09:50 MB (Rec: 09/24/24 10:19 MB [id number]) Current Condition History of Current Condition Onset Date Several years ago Current Complaints Left shoulder pain with certain movements History of Current Condition Pt reports a fall several years ago and shoulder pain since that time. She has pain with some movements. She cannot sleep on her left side anymore. She occ sits up in recliner to sleep. She has not had any diagnostics since 2019. Pt states that she just finished PT for hip at this clinic and it went well. Treatment Goals Patient/Caregiver Goals To decrease left shoulder pain PT-OP-C Subjective Start: 09/12/24 11:38 Freq: Status: Active Protocol: Document 11/25/24 07:26 MB (Rec: 11/25/24 08:04 MB [id number]) OP-PT Subjective Patient Comments Patient Comments Pt states that her shoulders are about the same. Her right shoulder may be a little worse with the exercises. The dizziness came back. PT-OP-J Posture/Palpation/Skin Start: 09/12/24 11:38 Freq: Status: Active Protocol: Document 09/24/24 09:50 MB (Rec: 09/24/24 10:19 MB [id number]) Posture Evaluation Comments Posture Comments Standing posture with shoes off: left shoulder more forward and rounded than right shoulder, forward head, pt is right handed, spinal curvature changes, decreased thoracic kyphosis, mild convexity to the right in thoracic spine and to the left in lumbar spine, left iliac crest is higher than the right with pelvic shifting appearance, left greater than right foot supination. PT-OP-K Range of Motion Start: 09/12/24 11:38 Freq: Status: Active Protocol: Document 09/24/24 09:50 MB (Rec: 09/24/24 10:19 MB [id number]) Cervical Spine Range of Motion Cervical Spine Active Testing Position Standing Flexion 25 Extension 15 Rotation Left 54 Rotation Right 60 Shoulder Goniometric Range of Motion Shoulder Left Testing Position Standing Flexion 115 Extension 50 Abduction 125 Internal Rotation Behind Back (text) T12 Comments PROM in supine: pain in posterior shoulder area ( superior triceps and vp of digital marketing delt area) with passive flexion and range is grossly normal, tight end-range like the right shoulder. Abduction and 90/90 ER abd IR grossly normal and no pain With palpation, left biceps tendon feels pronounced and overall, decreased muscle mass left shoulder musculature and will con't to assess during manual treatment Right Testing Position Standing Flexion 145 Extension 49 Abduction 50 Internal Rotation Behind Back (text) L5 Comments Very poor AROM right shoulder and pt reports that she had PT in the past and it was not helpful PROM in supine: some tightness end-range passive flexion and abduction. 90/90 ER and IR grossly normal PT-OP-M Strength Start: 09/12/24 11:38 Freq: Status: Active Protocol: Document 09/24/24 09:50 MB (Rec: 09/24/24 10:19 MB [id number]) Shoulder Strength Shoulder Manual Muscle Testing Left Flexion 4+ Good+ Abduction (C5) 4+ Good+ External Rotation 4- Good- Internal Rotation 4- Good- Right Flexion 2+ Poor+ Abduction (C5) 2+ Poor+ External Rotation 2 Poor Internal Rotation 4- Good- Elbow/Forearm Strength Elbow and Forearm Manual Muscle Testing Left Flexion (C6) 5 Normal Extension (C7) 5 Normal Pronation 3+ Fair+ Supination 4- Good- Right Flexion (C6) 5 Normal Extension (C7) 5 Normal Pronation 4+ Good+ PT-OP-Q Treatments Start: 09/12/24 11:38 Freq: Status: Active Protocol: Document 11/25/24 07:26 MB (Rec: 11/25/24 08:04 MB [id number]) Therapeutic Activity Therapeutic Activity Log rolling, bed mobility Comments Min A for B [place] to check for BPPV: right and left negative for nystagmus and pt reports minimal light- headedness or like she might get dizzy when checking right ear. B roll test negative for nystagmus and pt reports some light-headedness with rolling to the right. BP and HR right UE: supine 152 /72, 69; standing 91/55, 71; standing 1' 91/45, 74; standing 2' 98/54, 76. Self-Care/Home Management Treatment Education Patient Education Body Mechanics,Home Exercise Program,Posture Other Education Ed and discussion about [place]- Hallpike and Roll Test and talk about causes of dizziness as far as BPPV and neck tension, ed that orthopedic consult after return to PCP may be most appropriate to assess shoulders. Log rolling to get up at home to protect neck. Handouts and ed on proper hydration, orthostatic hypotension. Pt does not recall education about orthostatic hypotension from previous treatment where this was assessed and discussed and handouts given PT-OP-T Assessment and Plan Start: 09/12/24 11:38 Freq: Status: Active Protocol: Document 11/25/24 07:26 MB (Rec: 11/25/24 08:04 MB [id number]) Physical Therapy Assessment Goals Three Impairment Lack of UE HEP Impairment . Short Term Goal (STG) . Prison Goal (LTG) Pt will perform progressive HEP with I including ROM, flexibility, and strengthening exercises to improve strength and range. 09/26/24: Scapular retraction, chin tucks (in supine) 10/22/24: Pt has not yet gotten pulleys and she is performing other exercises at home as prescribed 11/25/24: Pt is performing HEP exercises LTG Duration 8 weeks Two Impairment UE weakness Impairment . Short Term Goal (STG) . Prison Goal (LTG) Pt will present with improve B elbow supination and pronation strength to at least 4+/5 to improve UE function. 10/22/24: Right pronation 3+/5 and left 4/5; right supination 3+/5 and left 3-/5 11/25/24: Right elbow supination 3+/5 and left 4-/5; B elbow pronation 3+/5. Strength testing for pronation is weaker. LTG Duration Some muscles weaker, some stronger One Impairment QuickDASH score reflects over 56% impairment Impairment . Short Term Goal (STG) . Superintendent [employer] Goal (LTG) Pt will present with QuickDASH score reflecting no more than 30% impairment to improve functional activities and pain . 10/22/24: QuickDASH score reflects 38% impairment and is improved since assessment date 11/25/24: QuickDASH score reflects 27.27% impairment LTG Duration Progressed Assessment Summary Assessment Pt has not made much progress with PT for her left shoulder with relationship to pain and range and right shoulder may be a little worse. PT recommends return to Dr. Mccormick and possible osteopath or orthopedist assessment of cervical spine and B shoulders . Pt reports ongoing dizziness and BPPV testing is negative today and pt presents with severe orthostatic hypotension with 61 mmHg drop and 27 mmHg diastolic drop. Re-ed pt on self-care with orthostatic hypotension and provided handouts again d/t pt does not recall these from previous PT sessions. Pt does have some decreased communication/ reports when asked questions and she has some memory issues when discussing previous PT education. Physical Therapy Plan Other Referrals/Consults Referrals/Consults Recommended Return to Dr. Mccormick and consider osteopath/orthopedist assessments of neck and B shoulders
== END 2024-11-28 15:09 | disposition home or self-care (01) ==
LOC: PHYS 07:30
PROVIDERS: Family Provider Family Medicine; PCP Family Medicine; Referring Provider Family Medicine; Visit Provider Family Medicine
DX: M25.512 Pain in left shoulder (principal); G89.29 Other chronic pain
CPT/HCPCS: 97110; 97140; 97162; 97530; 97535

== ENCOUNTER → 2025-01-20 14:01 | Outpatient (CLI) | payer MEDICARE, OTHER, SELFPAY ==
[2023-02-09 13:56] VITALS: BMI 25.5
[2025-01-20 14:27] LABS: Add Manual Diff / Slide Review NO; Basophils Absolute Auto 100 /uL (0-100); Basophils Percent Auto 1.2 % (0-2); Eosinophils Absolute Auto 100 /uL (0-450); Eosinophils Percent Auto 2.8 % (2-4); Hematocrit 38.7 % (36-46); Lymphocytes Absolute Auto 1800 /uL (1100-4500); Lymphocytes Percent Auto 36.3 % (25-40); Mean Corpuscular HGB Conc 33.5 % (30-36); Mean Corpuscular Hemoglobin 32.3 PG (26-34); Mean Corpuscular Volume 96.6 fL (80-100); Monocytes Absolute Auto 300 /uL (0-900); Monocytes Percent Auto 6.8 % (3-14); Neutrophils Absolute Auto 2600 /uL (1500-7000); Neutrophils Percent Auto 52.9 % (50-75); Platelet Count 235 X10^3/uL (150-400); Red Blood Cell Count 4.01 X10^6/uL (4.0-5.2); Red Cell Distribution Width 12.9 % (11.6-14.8); White Blood Cell Count 4.9 X10^3/uL (4.5-11.0)
[2025-01-20 14:42] LABS: Cholesterol 222 mg/dL (140-199); HDL Cholesterol 75 mg/dL (40-60); LDL Cholesterol Calculated 135 mg/dL (<100); Triglycerides 60 mg/dL (35-150)
[2025-01-20 15:33] LABS: Vitamin B12 995 pg/mL (239-931)
== END ==
PROVIDERS: Family Provider Family Medicine; PCP Family Medicine; Referring Provider Family Medicine; Visit Provider Family Medicine
DX: G62.9 Polyneuropathy, unspecified (principal); E78.5 Hyperlipidemia, unspecified
CPT/HCPCS: 36415; 80061; 82607; 85025

== ENCOUNTER → 2025-03-13 13:05 | Outpatient (CLI) | payer MEDICARE, OTHER, SELFPAY ==
[2023-02-09 13:56] VITALS: BMI 25.5
--- NOTE | 2025-03-13 13:06 | DI.MRI.S_ITS ---
PROCEDURE: MR SHOULDER RT WO CON INDICATIONS: rt shoulder pain TECHNIQUE: Noncontrast oblique coronal T2 fast spin echo with fat saturation, oblique sagittal T1 spin echo and T2 fast spin echo with fat saturation, axial T1 spin echo and T2 fast spin echo with fat saturation through the shoulder. COMPARISON: None. FINDINGS: Image quality: Excellent. Rotator cuff: The humeral head is high-riding and there is complete tears with retraction of the supraspinatus and infraspinatus tendons. There is tendinopathy involving the subscapularis tendon. Muscle atrophy is present. Bones and bursae: Subchondral cyst formation is seen involving the greater tuberosity. There is marrow edema involving the scapula proximal to the glenoid. No bone marrow fractures. There is moderately advanced degenerative changes involving the acromioclavicular joint. There is a moderate glenohumeral joint effusion Capsule and soft tissues: The biceps tendon is possibly torn or dislocated. There is severe degenerative changes involving the glenohumeral joint with loss of articular cartilage in fraying of the labrum. Coracohumeral ligament is intact. IMPRESSION: Severe degenerative changes involving the right shoulder with rotator cuff tears with retraction and possible biceps tendon rupture or dislocation. Dictated by: Angel De M.D. on 03/13/2025 at 14:21 Approved by: Angel De M.D. on 03/13/2025 at 14:31
== END ==
PROVIDERS: Family Provider Family Medicine; PCP Family Medicine; Referring Provider Orthopaedic Surgery; Visit Provider Orthopaedic Surgery
DX: M25.511 Pain in right shoulder (principal); M75.121 Complete rotator cuff tear or rupture of right shoulder, not specified as traumatic; M89.8X1 Other specified disorders of bone, shoulder
CPT/HCPCS: 73221

== ENCOUNTER → 2025-04-24 13:58 | Outpatient (CLI) | payer MEDICARE, OTHER, SELFPAY ==
[2023-02-09 13:56] VITALS: BMI 25.5
[2025-04-24 15:12] LABS: Cholesterol 209 mg/dL (140-199); HDL Cholesterol 75 mg/dL (40-60); Triglycerides 75 mg/dL (35-150)
== END ==
PROVIDERS: Family Provider Family Medicine; PCP Family Medicine; Referring Provider Family Medicine; Visit Provider Family Medicine
DX: E78.5 Hyperlipidemia, unspecified (principal)
CPT/HCPCS: 36415; 80061

== ENCOUNTER 2025-05-14 14:30 | Outpatient (RCR) | payer MEDICARE, OTHER, SELFPAY ==
[2023-02-09 13:56] VITALS: BMI 25.5
--- NOTE | 2025-03-12 18:25 | PT.OIE ---
Current Diagnoses Other specific arthropathies, not elsewhere classified, right shoulder (03/12/25) Past Medical History (Last Updated 01/28/25 @ 10:20 by Benjy Mccormick DO) Abdominal pain, chronic, left lower quadrant Anxiety about health Atypical chest pain Bilateral carpal tunnel syndrome Bilateral hand numbness Breast cancer (~2009) Cataracts, bilateral (~2014) Chicken pox (~1958) Chronic left shoulder pain Chronic right hip pain Colon polyps (~2019) Depression Excessive daytime sleepiness Exposure to parasitic disease Fatigue Fatigue due to sleep pattern disturbance Fibromyalgia (~1969) Folliculitis of perineum Ganglion cyst of volar aspect of left wrist Gastroesophageal reflux (~2014) Greater trochanteric bursitis of right hip Hearing loss (~1999) History of genital warts Hoarse voice quality (~2014) Hot flashes due to menopause Hyperlipidemia Iliotibial band syndrome of right side Insomnia due to medical condition (~04/2019) Lipoma of arm Low serum triiodothyronine (T3) Measles (~1952) Memory change Mumps (~1954) Neuropathy Nocturnal hypoxemia Obstructive sleep apnea of adult (~04/2019) Osteopenia (~1997) Osteoporosis Pelvic somatic dysfunction Problems related to inappropriate diet and eating habits Rapid heart rate Right shoulder strain Sacral region somatic dysfunction Shoulder pain Snoring (~04/2009) Statin intolerance Wears glasses Past Surgical History (Last Reviewed 05/02/22 @ 16:50 by Beatris Gallo PA-C) Anesthesia History of hysterectomy (~1979) History of lumpectomy of left breast (~2004) History of tonsillectomy (~1962) History of tracheostomy (~1999) Tracheostomy status Visit Care Team Role Provider Type Benjy Mccormick DO Family Provider Physician Primary Care Provider Specialty: Family Practice Address: [address] [place] [address], [id number] Email: Anoop Presley MD Attending Provider Physician Referring Provider Specialty: Orthopedics Orthopedic Surgery Address: [address] [place] [address], [phone] Email: [email or web address] Physical Therapy Initial Evaluation PT-OP-A Visit Information Start: 03/12/25 08:54 Freq: Status: Active Protocol: Document 03/12/25 11:37 CAPTAIN ASSISTANT (Rec: 03/12/25 13:08 CAPTAIN ASSISTANT Laptop) Out-Patient Physical Therapy Visit Information Visit Information Visit Type Initial Evaluation Visit Start Time 11:30 Visit Stop Time 12:30 Visit Number 1 Number of ARBITRATOR Visits 0 Evaluation Information Evaluation Date 03/12/25 Precautions Precautions N/A PT-OP-B Current Condition Start: 03/12/25 08:54 Freq: Status: Active Protocol: Document 03/12/25 11:37 CAPTAIN ASSISTANT (Rec: 03/12/25 13:08 CAPTAIN ASSISTANT Laptop) Current Condition History of Current Condition Onset Date >8 years ago Current Complaints R shoulder weakness History of Current Condition Pt reports about 12 years ago she fell and injured her R shoulder and received therapy but without resolution. Pt reports since then her shoulder has gotten a little worse but mostly has stayed weak. She has a little pain in her shoulder but main complaints are weakness when reaching for or lifting objects and very quick fatigue . Pt is R hand dominant. Activities that are difficult include taking pans out of the oven, reaching overhead for dishes in cabinet, fixing hair , driving, and donning and doffing shirts. Pt reports no pain usually. Future Testing and Treatments Planned MRI of R shoulder Treatment Goals Patient/Caregiver Goals To strengthen R arm so I can use it without it feeling so weak. PT-OP-C Subjective Start: 03/12/25 08:54 Freq: Status: Active Protocol: Document 03/12/25 11:37 CAPTAIN ASSISTANT (Rec: 03/12/25 13:08 CAPTAIN ASSISTANT Laptop) Patient Questionnaires Quick Dash- Upper Extremity Quick Dash UE Score 50% impaired PT-OP-H Neuro Start: 03/12/25 08:54 Freq: Status: Active Protocol: Document 03/12/25 11:37 CAPTAIN ASSISTANT (Rec: 03/12/25 13:08 CAPTAIN ASSISTANT Laptop) Sensation Evaluation Comments Summary Comments Pt reports N/T in B hands for past 3 years, in B first 3 fingers and base of palm when working on computer or reading PT-OP-J Posture/Palpation/Skin Start: 03/12/25 08:54 Freq: Status: Active Protocol: Document 03/12/25 11:37 CAPTAIN ASSISTANT (Rec: 03/12/25 13:08 CAPTAIN ASSISTANT Laptop) Posture Evaluation Comments Posture Comments Sitting posture: excessive forward head posture, L shoulder higher then R, winging of L scapula, forward rounded B shoulders R>L. PT-OP-K Range of Motion Start: 03/12/25 08:54 Freq: Status: Active Protocol: Document 03/12/25 11:37 CAPTAIN ASSISTANT (Rec: 03/12/25 13:08 CAPTAIN ASSISTANT Laptop) Shoulder Goniometric Range of Motion Shoulder L Shoulder ROM WFL Yes Testing Position Sitting Flexion 132 Extension 50 Abduction 102 Internal Rotation Behind Back (text) Thumb to T9 R Shoulder ROM WFL No Testing Position Sitting Flexion 114 Extension 50 Abduction 70 Internal Rotation Behind Back (text) Thumb to T11 PT-OP-M Strength Start: 03/12/25 08:54 Freq: Status: Active Protocol: Document 03/12/25 11:37 CAPTAIN ASSISTANT (Rec: 03/12/25 13:08 CAPTAIN ASSISTANT Laptop) Shoulder Strength Shoulder Manual Muscle Testing L Flexion 5 Normal Extension 4+ Good+ Abduction (C5) 4 Good External Rotation 4+ Good+ Internal Rotation 4 Good R Flexion 4- Good- Extension 4 Good Abduction (C5) 3+ Fair+ External Rotation 3+ Fair+ Internal Rotation 3+ Fair+ Comments pain with resisted abd Elbow/Forearm Strength Elbow and Forearm Manual Muscle Testing L Flexion (C6) 5 Normal Extension (C7) 4 Good Pronation 5 Normal Supination 5 Normal R Flexion (C6) 4 Good Extension (C7) 4 Good Pronation 4- Good- Supination 5 Normal Wrist Strength Wrist Manual Muscle Testing L Flexion (C7) 5 Normal Extension (C6) 5 Normal R Flexion (C7) 5 Normal Extension (C6) 4+ Good+ Hand Hair And Makeup Designer/Pinch Strength Hand Strength Left Hair And Makeup Designer (lbs) 18 Right Hair And Makeup Designer (lbs) 17 PT-OP-Q Treatments Start: 03/12/25 08:54 Freq: Status: Active Protocol: Document 03/12/25 11:37 CAPTAIN ASSISTANT (Rec: 03/12/25 13:08 CAPTAIN ASSISTANT Laptop) Therapeutic Exercises Sidelying Exercises Shoulder Flex Side right Shoulder ER Side right PT-OP-T Assessment and Plan Start: 03/12/25 08:54 Freq: Status: Active Protocol: Document 03/12/25 11:37 CAPTAIN ASSISTANT (Rec: 03/12/25 13:08 CAPTAIN ASSISTANT Laptop) Physical Therapy Assessment Rehab Potential Rehabilitation Potential Good Evaluation Complexity Number of Personal Factors/Comorbidities 1-2 Number of Body Systems Impaired 1-2 Clinical Presentation at Evaluation Stable Impairments Impairments Activity Tolerance,Functional Activities,Pain,Posture,ROM, Soft Tissue Mobility,Strength Goals 3 Impairment ROM Impairment R shoulder ROM Short Term Goal (STG) Pt will demonstrate improved L shoulder active abd to 90 degrees to improve function STG Duration 6 weeks Product Merchandiser Goal (LTG) Pt will demonstrate improved L shoulder active abd to 120 degrees to improve function LTG Duration 12 weeks 2 Impairment Strength Impairment R shoulder strength Short Term Goal (STG) Pt will demonstrate improved strength in R shoulder abd, IR , and ER by 2 MMT grades to improve function STG Duration 6 weeks Product Merchandiser Goal (LTG) Pt will demonstrate ability to raise 10 lb dumbbell overhead with BUEs x10 consecutive reps to demonstrate improved strength and endurance. LTG Duration 12 weeks 1 Impairment Function Impairment Quick Dash Short Term Goal (STG) Pt will demonstrate improved functional mobility with decreased disability score from 50% to 40%. STG Duration 6 weeks Half-Way Goal (LTG) Pt will demonstrate improved functional mobility with decreased disability score from 50% to 25%. LTG Duration 12 weeks Assessment Summary Assessment Pt presents with decreased strength, AROM, and poor muscle endurance in R shoulder which impairs her ability to perform ADLs and IADLs. Pt will highly benefit from skilled PT intervention to improve deficits and return function. Physical Therapy Plan Frequency and Duration Frequency of Treatment 2x/Week Duration of treatment (weeks) 12 Plan of Care Start Date 03/12/25 Plan of Care End Date 06/04/25 Therapeutic Interventions Therapeutic Interventions Home Exercise Program,Joint Mobilizations,Manual Therapy, Neuromuscular Re-education, Soft Tissue Mobilization, Taping,Therapeutic Activities, Therapeutic Exercises Modalities Cold Pack/Ice Massage,Hot Packs,Ultrasound Next Visit Focus/Plan Next Note Type Treatment Note Next Visit Plan R shoulder and scapular exercises, posture training
--- NOTE | 2025-03-14 16:30 | PT.OTN ---
Current Diagnoses Other specific arthropathies, not elsewhere classified, right shoulder (03/14/25) Physical Therapy Treatment Note PT-OP-A Visit Information Start: 03/12/25 08:54 Freq: Status: Active Protocol: Document 03/14/25 15:24 CLOTHER IN (Rec: 03/14/25 16:29 CLOTHER IN Laptop) Out-Patient Physical Therapy Visit Information Visit Information Visit Type Treatment Note Visit Note Pt reports she has been practicing her HEP and feels it is getting easier. No pain Visit Start Time 15:25 Visit Stop Time 16:11 Visit Number 2 Number of PATTERNATOR Visits 0 Evaluation Information Evaluation Date 03/12/25 Precautions Precautions N/A PT-OP-B Current Condition Start: 03/12/25 08:54 Freq: Status: Active Protocol: Document 03/12/25 11:37 CLOTHER IN (Rec: 03/12/25 13:08 CLOTHER IN Laptop) Current Condition History of Current Condition Onset Date >8 years ago Current Complaints R shoulder weakness History of Current Condition Pt reports about 12 years ago she fell and injured her R shoulder and received therapy but without resolution. Pt reports since then her shoulder has gotten a little worse but mostly has stayed weak. She has a little pain in her shoulder but main complaints are weakness when reaching for or lifting objects and very quick fatigue . Pt is R hand dominant. Activities that are difficult include taking pans out of the oven, reaching overhead for dishes in cabinet, fixing hair , driving, and donning and doffing shirts. Pt reports no pain usually. Future Testing and Treatments Planned MRI of R shoulder Treatment Goals Patient/Caregiver Goals To strengthen R arm so I can use it without it feeling so weak. PT-OP-C Subjective Start: 03/12/25 08:54 Freq: Status: Active Protocol: Document 03/12/25 11:37 CLOTHER IN (Rec: 03/12/25 13:08 CLOTHER IN Laptop) Patient Questionnaires Quick Dash- Upper Extremity Quick Dash UE Score 50% impaired PT-OP-H Neuro Start: 03/12/25 08:54 Freq: Status: Active Protocol: Document 03/12/25 11:37 CLOTHER IN (Rec: 03/12/25 13:08 CLOTHER IN Laptop) Sensation Evaluation Comments Summary Comments Pt reports N/T in B hands for past 3 years, in B first 3 fingers and base of palm when working on computer or reading PT-OP-J Posture/Palpation/Skin Start: 03/12/25 08:54 Freq: Status: Active Protocol: Document 03/12/25 11:37 CLOTHER IN (Rec: 03/12/25 13:08 CLOTHER IN Laptop) Posture Evaluation Comments Posture Comments Sitting posture: excessive forward head posture, L shoulder higher then R, winging of L scapula, forward rounded B shoulders R>L. PT-OP-K Range of Motion Start: 03/12/25 08:54 Freq: Status: Active Protocol: Document 03/12/25 11:37 CLOTHER IN (Rec: 03/12/25 13:08 CLOTHER IN Laptop) Shoulder Goniometric Range of Motion Shoulder L Shoulder ROM WFL Yes Testing Position Sitting Flexion 132 Extension 50 Abduction 102 Internal Rotation Behind Back (text) Thumb to T9 R Shoulder ROM WFL No Testing Position Sitting Flexion 114 Extension 50 Abduction 70 Internal Rotation Behind Back (text) Thumb to T11 PT-OP-M Strength Start: 03/12/25 08:54 Freq: Status: Active Protocol: Document 03/12/25 11:37 CLOTHER IN (Rec: 03/12/25 13:08 CLOTHER IN Laptop) Shoulder Strength Shoulder Manual Muscle Testing L Flexion 5 Normal Extension 4+ Good+ Abduction (C5) 4 Good External Rotation 4+ Good+ Internal Rotation 4 Good R Flexion 4- Good- Extension 4 Good Abduction (C5) 3+ Fair+ External Rotation 3+ Fair+ Internal Rotation 3+ Fair+ Comments pain with resisted abd Elbow/Forearm Strength Elbow and Forearm Manual Muscle Testing L Flexion (C6) 5 Normal Extension (C7) 4 Good Pronation 5 Normal Supination 5 Normal R Flexion (C6) 4 Good Extension (C7) 4 Good Pronation 4- Good- Supination 5 Normal Wrist Strength Wrist Manual Muscle Testing L Flexion (C7) 5 Normal Extension (C6) 5 Normal R Flexion (C7) 5 Normal Extension (C6) 4+ Good+ Hand Hat Cleaner/Pinch Strength Hand Strength Left Hat Cleaner (lbs) 18 Right Hat Cleaner (lbs) 17 PT-OP-Q Treatments Start: 03/12/25 08:54 Freq: Status: Active Protocol: Document 03/14/25 15:24 CLOTHER IN (Rec: 03/14/25 16:29 CLOTHER IN Laptop) Therapeutic Exercises Supine Exercises Scap Protract Side right Resistance 2# dumbbell Reps/Minutes 10x2 Comments TC on first set to maintain elbow ext Rhythmic stabilization Supine Exercise Name 1. Elbow bent abd 0,45,90 deg 2. Straight elbow to 90 deg shoulder flex Side right Resistance light manual perturbations Reps/Minutes 2 mins Comments varying directions of perturbations Chin Tucks Reps/Minutes 10x2 Comments VC to keep shoulders relaxed Sidelying Exercises Shoulder Flex Side right Resistance gravity eliminated Reps/Minutes 10x2 Comments HEP review Shoulder ER Side right Resistance against gravity Equipment Used towel roll Reps/Minutes 10x2 Comments HEP review towel roll added to under elbow Sitting Exercises Scap Retract Side bilateral Equipment Used Mirror Reps/Minutes 10x2 Manual Therapy Treatment Consent Patient gave verbal consent for manual Yes treatment Soft Tissue Mobilization STM Body Location R pec Mobilization Type Cross-Friction,Rolling Intensity/Depth Moderate Body Position Supine Joint Mobilizations C-spine Joint C4, C6 Direction lateral>medial Grade III Body Position Supine Reps/Duration x10 Comments with R side bend PT-OP-T Assessment and Plan Start: 03/12/25 08:54 Freq: Status: Active Protocol: Document 03/14/25 15:24 CLOTHER IN (Rec: 03/14/25 16:29 CLOTHER IN Laptop) Physical Therapy Assessment Impairments Impairments Activity Tolerance,Functional Activities,Pain,Posture,ROM, Soft Tissue Mobility,Strength Goals 3 Impairment ROM Impairment R shoulder ROM Short Term Goal (STG) Pt will demonstrate improved L shoulder active abd to 90 degrees to improve function STG Duration 6 weeks Correction Goal (LTG) Pt will demonstrate improved L shoulder active abd to 120 degrees to improve function LTG Duration 12 weeks 2 Impairment Strength Impairment R shoulder strength Short Term Goal (STG) Pt will demonstrate improved strength in R shoulder abd, IR , and ER by 2 MMT grades to improve function STG Duration 6 weeks Body Component Engineer Goal (LTG) Pt will demonstrate ability to raise 10 lb dumbbell overhead with BUEs x10 consecutive reps to demonstrate improved strength and endurance. LTG Duration 12 weeks 1 Impairment Function Impairment Quick Dash Short Term Goal (STG) Pt will demonstrate improved functional mobility with decreased disability score from 50% to 40%. STG Duration 6 weeks Body Component Engineer Goal (LTG) Pt will demonstrate improved functional mobility with decreased disability score from 50% to 25%. LTG Duration 12 weeks Progress Towards Goals Progress Towards Goals Progressing Toward Goals Progress Comments Pt reports improved posture awareness since eval Assessment Summary Assessment After form adjustments made to HEP, pt reports at appropriate difficulty level and no other changes made to HEP. Pt tolerated R shoulder strengthening and postural strengthening well with noted pain on palpation to R C4 SP and decreased R side bend with improvements after mobilization. Also noted very tight R pec and will benefit from stretching and STM at next session. Physical Therapy Plan Frequency and Duration Frequency of Treatment 2x/Week Duration of treatment (weeks) 12 Plan of Care Start Date 03/12/25 Plan of Care End Date 06/04/25 Therapeutic Interventions Therapeutic Interventions Home Exercise Program,Joint Mobilizations,Manual Therapy, Neuromuscular Re-education, Soft Tissue Mobilization, Taping,Therapeutic Activities, Therapeutic Exercises Modalities Cold Pack/Ice Massage,Hot Packs,Ultrasound Next Visit Focus/Plan Next Note Type Treatment Note Next Visit Plan Review HEP, review supine chin tucks, add R pec stretch and upper trap stretch
--- NOTE | 2025-03-19 19:41 | PT.OTN ---
Current Diagnoses Other specific arthropathies, not elsewhere classified, right shoulder (03/19/25) Physical Therapy Treatment Note PT-OP-A Visit Information Start: 03/12/25 08:54 Freq: Status: Active Protocol: Document 03/19/25 19:27 PUBLIC HEALTH NURSE (Rec: 03/19/25 19:41 PUBLIC HEALTH NURSE Laptop) Out-Patient Physical Therapy Visit Information Visit Information Visit Type Treatment Note Visit Start Time 13:03 Visit Stop Time 13:41 Visit Number 3 Number of SLIVER CHOPPER Visits 0 Evaluation Information Evaluation Date 03/12/25 Precautions Precautions N/A PT-OP-B Current Condition Start: 03/12/25 08:54 Freq: Status: Active Protocol: Document 03/12/25 11:37 PUBLIC HEALTH NURSE (Rec: 03/12/25 13:08 PUBLIC HEALTH NURSE Laptop) Current Condition History of Current Condition Onset Date >8 years ago Current Complaints R shoulder weakness History of Current Pt reports about 12 years ago she fell and injured her Condition R shoulder and received therapy but without resolution. Pt reports since then her shoulder has gotten a little worse but mostly has stayed weak. She has a little pain in her shoulder but main complaints are weakness when reaching for or lifting objects and very quick fatigue. Pt is R hand dominant. Activities that are difficult include taking pans out of the oven, reaching overhead for dishes in cabinet, fixing hair, driving, and donning and doffing shirts. Pt reports no pain usually. Future Testing and MRI of R shoulder Treatments Planned Treatment Goals Patient/Caregiver To strengthen R arm so I can use it without it feeling Goals so weak. PT-OP-C Subjective Start: 03/12/25 08:54 Freq: Status: Active Protocol: Document 03/19/25 19:27 PUBLIC HEALTH NURSE (Rec: 03/19/25 19:41 PUBLIC HEALTH NURSE Laptop) OP-PT Subjective Patient Comments Patient Comments Pt reports her ROM has not yet gotten better but not worse and has been working on her HEP but still has questions. PT-OP-H Neuro Start: 03/12/25 08:54 Freq: Status: Active Protocol: Document 03/12/25 11:37 PUBLIC HEALTH NURSE (Rec: 03/12/25 13:08 PUBLIC HEALTH NURSE Laptop) Sensation Evaluation Comments Summary Comments Pt reports N/T in B hands for past 3 years, in B first 3 fingers and base of palm when working on computer or reading PT-OP-J Posture/Palpation/Skin Start: 03/12/25 08:54 Freq: Status: Active Protocol: Document 03/12/25 11:37 PUBLIC HEALTH NURSE (Rec: 03/12/25 13:08 PUBLIC HEALTH NURSE Laptop) Posture Evaluation Comments Posture Comments Sitting posture: excessive forward head posture, L shoulder higher then R, winging of L scapula, forward rounded B shoulders R>L. PT-OP-K Range of Motion Start: 03/12/25 08:54 Freq: Status: Active Protocol: Document 03/12/25 11:37 PUBLIC HEALTH NURSE (Rec: 03/12/25 13:08 PUBLIC HEALTH NURSE Laptop) Shoulder Goniometric Range of Motion Shoulder L Shoulder ROM WFL Yes Testing Position Sitting Flexion 132 Extension 50 Abduction 102 Internal Rotation Thumb to T9 Behind Back (text) R Shoulder ROM WFL No Testing Position Sitting Flexion 114 Extension 50 Abduction 70 Internal Rotation Thumb to T11 Behind Back (text) PT-OP-M Strength Start: 03/12/25 08:54 Freq: Status: Active Protocol: Document 03/12/25 11:37 PUBLIC HEALTH NURSE (Rec: 03/12/25 13:08 PUBLIC HEALTH NURSE Laptop) Shoulder Strength Shoulder Manual Muscle Testing L Flexion 5 Normal Extension 4+ Good+ Abduction (C5) 4 Good External Rotation 4+ Good+ Internal Rotation 4 Good R Flexion 4- Good- Extension 4 Good Abduction (C5) 3+ Fair+ External Rotation 3+ Fair+ Internal Rotation 3+ Fair+ Comments pain with resisted abd Elbow/Forearm Strength Elbow and Forearm Manual Muscle Testing L Flexion (C6) 5 Normal Extension (C7) 4 Good Pronation 5 Normal Supination 5 Normal R Flexion (C6) 4 Good Extension (C7) 4 Good Pronation 4- Good- Supination 5 Normal Wrist Strength Wrist Manual Muscle Testing L Flexion (C7) 5 Normal Extension (C6) 5 Normal R Flexion (C7) 5 Normal Extension (C6) 4+ Good+ Hand Building Principal/Pinch Strength Hand Strength Left Building Principal (lbs) 18 Right Building Principal (lbs) 17 PT-OP-Q Treatments Start: 03/12/25 08:54 Freq: Status: Active Protocol: Document 03/19/25 19:27 PUBLIC HEALTH NURSE (Rec: 03/19/25 19:41 PUBLIC HEALTH NURSE Laptop) Therapeutic Exercises Supine Exercises Shoulder Abd Side right Resistance gravity eliminated Reps/Minutes x10 Comments elbow bend to reduce lever arm Sidelying Exercises Shoulder Flex Side right Resistance gravity eliminated Reps/Minutes 10x2 Comments HEP review Shoulder ER Side right Resistance against gravity Equipment Used towel roll Reps/Minutes x10 Comments HEP review Sitting Exercises Scap Retract Side bilateral Equipment Used Mirror Reps/Minutes 10x2 Comments TC for first set, HEP review Standing Exercises Shoulder IR Side right Resistance L1 TB Equipment Used towel roll Reps/Minutes x10 Shoulder ER Standing Exercise 1. TB 2. 2.3# weight Name Side right Resistance L1 TB, dumbbell Equipment Used towel roll Reps/Minutes x10 each Comments difficulty with full ROM d/t fatigue Shoulder Flex Side right Resistance [place] Reps/Minutes x1.5 Comments fatigue after 1 rep and unable to complete 2nd PT-OP-T Assessment and Plan Start: 03/12/25 08:54 Freq: Status: Active Protocol: Document 03/19/25 19:27 PUBLIC HEALTH NURSE (Rec: 03/19/25 19:41 PUBLIC HEALTH NURSE Laptop) Physical Therapy Assessment Goals 3 Impairment ROM Impairment R shoulder ROM Short Term Goal (STG Pt will demonstrate improved L shoulder active abd to ) 90 degrees to improve function STG Duration 6 weeks Group Home Goal (LTG) Pt will demonstrate improved L shoulder active abd to 120 degrees to improve function LTG Duration 12 weeks 2 Impairment Strength Impairment R shoulder strength Short Term Goal (STG Pt will demonstrate improved strength in R shoulder abd ) , IR, and ER by 2 MMT grades to improve function STG Duration 6 weeks Group Home Goal (LTG) Pt will demonstrate ability to raise 10 lb dumbbell overhead with BUEs x10 consecutive reps to demonstrate improved strength and endurance. LTG Duration 12 weeks 1 Impairment Function Impairment Quick Dash Short Term Goal (STG Pt will demonstrate improved functional mobility with ) decreased disability score from 50% to 40%. STG Duration 6 weeks Group Home Goal (LTG) Pt will demonstrate improved functional mobility with decreased disability score from 50% to 25%. LTG Duration 12 weeks Assessment Summary Assessment Pt still requiring mod cueing on form for HEP but is improving each time and with slight improvement noted in endurance in gravity eliminated positions but still unable to raise R UE against gravity in flex >1 rep. Continue improving endurance. Physical Therapy Plan Frequency and Duration Frequency of 2x/Week Treatment Duration of 12 treatment (weeks) Plan of Care Start 03/12/25 Date Plan of Care End 06/04/25 Date Therapeutic Interventions Therapeutic Home Exercise Program,Joint Mobilizations,Manual Interventions Therapy,Neuromuscular Re-education,Soft Tissue Mobilization,Taping,Therapeutic Activities,Therapeutic Exercises Modalities Cold Pack/Ice Massage,Hot Packs,Ultrasound Next Visit Focus/Plan Next Note Type Treatment Note Next Visit Plan STM to R bicep, review HEP, seated upper trap stretch, supine R shoulder abd
--- NOTE | 2025-03-21 13:46 | PT.OTN ---
Current Diagnoses Other specific arthropathies, not elsewhere classified, right shoulder (03/21/25) Physical Therapy Treatment Note PT-OP-A Visit Information Start: 03/12/25 08:54 Freq: Status: Active Protocol: Document 03/21/25 13:03 DATA COMPILER (Rec: 03/21/25 13:46 DATA COMPILER Laptop) Out-Patient Physical Therapy Visit Information Visit Information Visit Type Treatment Note Visit Start Time 13:03 Visit Stop Time 13:44 Visit Number 4 Number of [place]PUT[place] CLERK Visits 0 Evaluation Information Evaluation Date 03/12/25 Precautions Precautions N/A PT-OP-B Current Condition Start: 03/12/25 08:54 Freq: Status: Active Protocol: Document 03/12/25 11:37 DATA COMPILER (Rec: 03/12/25 13:08 DATA COMPILER Laptop) Current Condition History of Current Condition Onset Date >8 years ago Current Complaints R shoulder weakness History of Current Pt reports about 12 years ago she fell and injured her Condition R shoulder and received therapy but without resolution. Pt reports since then her shoulder has gotten a little worse but mostly has stayed weak. She has a little pain in her shoulder but main complaints are weakness when reaching for or lifting objects and very quick fatigue. Pt is R hand dominant. Activities that are difficult include taking pans out of the oven, reaching overhead for dishes in cabinet, fixing hair, driving, and donning and doffing shirts. Pt reports no pain usually. Future Testing and MRI of R shoulder Treatments Planned Treatment Goals Patient/Caregiver To strengthen R arm so I can use it without it feeling Goals so weak. PT-OP-C Subjective Start: 03/12/25 08:54 Freq: Status: Active Protocol: Document 03/21/25 13:03 DATA COMPILER (Rec: 03/21/25 13:46 DATA COMPILER Laptop) OP-PT Subjective Patient Comments Patient Comments Pt reports she's noticing a little progress as HEP is getting a little easier. Brought HEP and 1# dumbbells from home PT-OP-H Neuro Start: 03/12/25 08:54 Freq: Status: Active Protocol: Document 03/12/25 11:37 DATA COMPILER (Rec: 03/12/25 13:08 DATA COMPILER Laptop) Sensation Evaluation Comments Summary Comments Pt reports N/T in B hands for past 3 years, in B first 3 fingers and base of palm when working on computer or reading PT-OP-J Posture/Palpation/Skin Start: 03/12/25 08:54 Freq: Status: Active Protocol: Document 03/12/25 11:37 DATA COMPILER (Rec: 03/12/25 13:08 DATA COMPILER Laptop) Posture Evaluation Comments Posture Comments Sitting posture: excessive forward head posture, L shoulder higher then R, winging of L scapula, forward rounded B shoulders R>L. PT-OP-K Range of Motion Start: 03/12/25 08:54 Freq: Status: Active Protocol: Document 03/12/25 11:37 DATA COMPILER (Rec: 03/12/25 13:08 DATA COMPILER Laptop) Shoulder Goniometric Range of Motion Shoulder L Shoulder ROM WFL Yes Testing Position Sitting Flexion 132 Extension 50 Abduction 102 Internal Rotation Thumb to T9 Behind Back (text) R Shoulder ROM WFL No Testing Position Sitting Flexion 114 Extension 50 Abduction 70 Internal Rotation Thumb to T11 Behind Back (text) PT-OP-M Strength Start: 03/12/25 08:54 Freq: Status: Active Protocol: Document 03/12/25 11:37 DATA COMPILER (Rec: 03/12/25 13:08 DATA COMPILER Laptop) Shoulder Strength Shoulder Manual Muscle Testing L Flexion 5 Normal Extension 4+ Good+ Abduction (C5) 4 Good External Rotation 4+ Good+ Internal Rotation 4 Good R Flexion 4- Good- Extension 4 Good Abduction (C5) 3+ Fair+ External Rotation 3+ Fair+ Internal Rotation 3+ Fair+ Comments pain with resisted abd Elbow/Forearm Strength Elbow and Forearm Manual Muscle Testing L Flexion (C6) 5 Normal Extension (C7) 4 Good Pronation 5 Normal Supination 5 Normal R Flexion (C6) 4 Good Extension (C7) 4 Good Pronation 4- Good- Supination 5 Normal Wrist Strength Wrist Manual Muscle Testing L Flexion (C7) 5 Normal Extension (C6) 5 Normal R Flexion (C7) 5 Normal Extension (C6) 4+ Good+ Hand Fruit Packer/Pinch Strength Hand Strength Left Fruit Packer (lbs) 18 Right Fruit Packer (lbs) 17 PT-OP-Q Treatments Start: 03/12/25 08:54 Freq: Status: Active Protocol: Document 03/21/25 13:03 DATA COMPILER (Rec: 03/21/25 13:46 DATA COMPILER Laptop) Cardio Equipment Upper Body Ergometer (UBE) Duration (Minutes) 5 Seat Position 14 Other 150 resistence, VC to engage scapular/extensor muscles Therapeutic Exercises Supine Exercises Shoulder Abd Side bilateral Resistance gravity eliminated Reps/Minutes 10x2 Comments elbow ext, TC to maintain scapular retraction Chin Tucks Reps/Minutes 10x2 Comments VC for smooth movement Sidelying Exercises Shoulder Flex Side right Resistance 1# dumbbell Reps/Minutes 10x2 Comments added weight to HEP Shoulder ER Side right Equipment Used towel roll Reps/Minutes x10 Comments HEP review, no weight added, VC to keep elbow flexed Sitting Exercises Scap Retract Side bilateral Reps/Minutes 10x2 Comments HEP review, TC x1 only this session PT-OP-T Assessment and Plan Start: 03/12/25 08:54 Freq: Status: Active Protocol: Document 03/21/25 13:03 DATA COMPILER (Rec: 03/21/25 13:46 DATA COMPILER Laptop) Physical Therapy Assessment Impairments Impairments Activity Tolerance,Functional Activities,Pain,Posture, ROM,Soft Tissue Mobility,Strength Goals 3 Impairment ROM Impairment R shoulder ROM Short Term Goal (STG Pt will demonstrate improved L shoulder active abd to ) 90 degrees to improve function STG Duration 6 weeks Detention Goal (LTG) Pt will demonstrate improved L shoulder active abd to 120 degrees to improve function LTG Duration 12 weeks 2 Impairment Strength Impairment R shoulder strength Short Term Goal (STG Pt will demonstrate improved strength in R shoulder abd ) , IR, and ER by 2 MMT grades to improve function STG Duration 6 weeks Detention Goal (LTG) Pt will demonstrate ability to raise 10 lb dumbbell overhead with BUEs x10 consecutive reps to demonstrate improved strength and endurance. LTG Duration 12 weeks 1 Impairment Function Impairment Quick Dash Short Term Goal (STG Pt will demonstrate improved functional mobility with ) decreased disability score from 50% to 40%. STG Duration 6 weeks Tool Lathe Operator Goal (LTG) Pt will demonstrate improved functional mobility with decreased disability score from 50% to 25%. LTG Duration 12 weeks Progress Towards Goals Progress Towards Progressing Toward Goals Goals Assessment Summary Assessment Pt tolerated all exercises well with noted improvements in strength and minimal cueing needed this session. Able to progress shoulder flex HEP to add 1# weight. Physical Therapy Plan Frequency and Duration Frequency of 2x/Week Treatment Duration of 12 treatment (weeks) Plan of Care Start 03/12/25 Date Plan of Care End 06/04/25 Date Therapeutic Interventions Therapeutic Home Exercise Program,Joint Mobilizations,Manual Interventions Therapy,Neuromuscular Re-education,Soft Tissue Mobilization,Taping,Therapeutic Activities,Therapeutic Exercises Modalities Cold Pack/Ice Massage,Hot Packs,Ultrasound Next Visit Focus/Plan Next Note Type Treatment Note Next Visit Plan Possible adding of 1# dumbbell to sidelying ER, scapular retraction endurance while moving UEs, lower trap strengthening, R delt and bicep
--- NOTE | 2025-03-28 12:45 | PT.OTN ---
Current Diagnoses Other specific arthropathies, not elsewhere classified, right shoulder (03/28/25) Physical Therapy Treatment Note PT-OP-A Visit Information Start: 03/12/25 08:54 Freq: Status: Active Protocol: Document 03/28/25 11:21 BRAZING MACHINE SETTER (Rec: 03/28/25 12:45 BRAZING MACHINE SETTER Laptop) Out-Patient Physical Therapy Visit Information Visit Information Visit Type Treatment Note Visit Start Time 11:32 Visit Stop Time 12:21 Visit Number 5 Number of SUPPLY CHAIN PROCUREMENT MANAGER Visits 0 Evaluation Information Evaluation Date 03/12/25 Precautions Precautions N/A PT-OP-B Current Condition Start: 03/12/25 08:54 Freq: Status: Active Protocol: Document 03/12/25 11:37 BRAZING MACHINE SETTER (Rec: 03/12/25 13:08 BRAZING MACHINE SETTER Laptop) Current Condition History of Current Condition Onset Date >8 years ago Current Complaints R shoulder weakness History of Current Pt reports about 12 years ago she fell and injured her Condition R shoulder and received therapy but without resolution. Pt reports since then her shoulder has gotten a little worse but mostly has stayed weak. She has a little pain in her shoulder but main complaints are weakness when reaching for or lifting objects and very quick fatigue. Pt is R hand dominant. Activities that are difficult include taking pans out of the oven, reaching overhead for dishes in cabinet, fixing hair, driving, and donning and doffing shirts. Pt reports no pain usually. Future Testing and MRI of R shoulder Treatments Planned Treatment Goals Patient/Caregiver To strengthen R arm so I can use it without it feeling Goals so weak. PT-OP-C Subjective Start: 03/12/25 08:54 Freq: Status: Active Protocol: Document 03/28/25 11:21 BRAZING MACHINE SETTER (Rec: 03/28/25 12:45 BRAZING MACHINE SETTER Laptop) OP-PT Subjective Patient Comments Patient Comments Pt reports HEP has been going well and feels some of them are getting easier but still difficult d/t fatigue of muscles. Reports light soreness to R shoulder but otherwise no pain. PT-OP-H Neuro Start: 03/12/25 08:54 Freq: Status: Active Protocol: Document 03/12/25 11:37 BRAZING MACHINE SETTER (Rec: 03/12/25 13:08 BRAZING MACHINE SETTER Laptop) Sensation Evaluation Comments Summary Comments Pt reports N/T in B hands for past 3 years, in B first 3 fingers and base of palm when working on computer or reading PT-OP-J Posture/Palpation/Skin Start: 03/12/25 08:54 Freq: Status: Active Protocol: Document 03/12/25 11:37 BRAZING MACHINE SETTER (Rec: 03/12/25 13:08 BRAZING MACHINE SETTER Laptop) Posture Evaluation Comments Posture Comments Sitting posture: excessive forward head posture, L shoulder higher then R, winging of L scapula, forward rounded B shoulders R>L. PT-OP-K Range of Motion Start: 03/12/25 08:54 Freq: Status: Active Protocol: Document 03/12/25 11:37 BRAZING MACHINE SETTER (Rec: 03/12/25 13:08 BRAZING MACHINE SETTER Laptop) Shoulder Goniometric Range of Motion Shoulder L Shoulder ROM WFL Yes Testing Position Sitting Flexion 132 Extension 50 Abduction 102 Internal Rotation Thumb to T9 Behind Back (text) R Shoulder ROM WFL No Testing Position Sitting Flexion 114 Extension 50 Abduction 70 Internal Rotation Thumb to T11 Behind Back (text) PT-OP-M Strength Start: 03/12/25 08:54 Freq: Status: Active Protocol: Document 03/12/25 11:37 BRAZING MACHINE SETTER (Rec: 03/12/25 13:08 BRAZING MACHINE SETTER Laptop) Shoulder Strength Shoulder Manual Muscle Testing L Flexion 5 Normal Extension 4+ Good+ Abduction (C5) 4 Good External Rotation 4+ Good+ Internal Rotation 4 Good R Flexion 4- Good- Extension 4 Good Abduction (C5) 3+ Fair+ External Rotation 3+ Fair+ Internal Rotation 3+ Fair+ Comments pain with resisted abd Elbow/Forearm Strength Elbow and Forearm Manual Muscle Testing L Flexion (C6) 5 Normal Extension (C7) 4 Good Pronation 5 Normal Supination 5 Normal R Flexion (C6) 4 Good Extension (C7) 4 Good Pronation 4- Good- Supination 5 Normal Wrist Strength Wrist Manual Muscle Testing L Flexion (C7) 5 Normal Extension (C6) 5 Normal R Flexion (C7) 5 Normal Extension (C6) 4+ Good+ Hand Presto Log Operator/Pinch Strength Hand Strength Left Presto Log Operator (lbs) 18 Right Presto Log Operator (lbs) 17 PT-OP-Q Treatments Start: 03/12/25 08:54 Freq: Status: Active Protocol: Document 03/28/25 11:21 BRAZING MACHINE SETTER (Rec: 03/28/25 12:45 BRAZING MACHINE SETTER Laptop) Cardio Equipment Upper Body Ergometer (UBE) Duration (Minutes) 5 Seat Position 14 Other 150 resistence, VC to engage scapular/extensor muscles Therapeutic Exercises Supine Exercises Scap Protract Resistance 2# dumbbell Reps/Minutes 10x2 Comments max progressing to mod TC for form and scap dep Chin Tucks Reps/Minutes 10x2 Comments 3s hold on second set, improved coordination this session Sidelying Exercises Scap Depression Side bilateral Reps/Minutes 10x2 Comments first set with mod TC Standing Exercises Doorway Pec Stretch Side bilateral Equipment Used doorway Reps/Minutes 30s x2 Comments Time spent educating on position and posture Manual Therapy Treatment Consent Patient gave verbal Yes consent for manual treatment Soft Tissue Mobilization STM Body Location R rhomboids, levator scap, UT, and supraspinatus Mobilization Type Cross-Friction,Rolling,Trigger Point Release Intensity/Depth Moderate Body Position Prone Comments multiple trigger points noted PT-OP-T Assessment and Plan Start: 03/12/25 08:54 Freq: Status: Active Protocol: Document 03/28/25 11:21 BRAZING MACHINE SETTER (Rec: 03/28/25 12:45 BRAZING MACHINE SETTER Laptop) Physical Therapy Assessment Impairments Impairments Activity Tolerance,Functional Activities,Pain,Posture, ROM,Soft Tissue Mobility,Strength Goals 3 Impairment ROM Impairment R shoulder ROM Short Term Goal (STG Pt will demonstrate improved L shoulder active abd to ) 90 degrees to improve function STG Duration 6 weeks Spa Coordinator Goal (LTG) Pt will demonstrate improved L shoulder active abd to 120 degrees to improve function LTG Duration 12 weeks 2 Impairment Strength Impairment R shoulder strength Short Term Goal (STG Pt will demonstrate improved strength in R shoulder abd ) , IR, and ER by 2 MMT grades to improve function STG Duration 6 weeks Fpc Goal (LTG) Pt will demonstrate ability to raise 10 lb dumbbell overhead with BUEs x10 consecutive reps to demonstrate improved strength and endurance. LTG Duration 12 weeks 1 Impairment Function Impairment Quick Dash Short Term Goal (STG Pt will demonstrate improved functional mobility with ) decreased disability score from 50% to 40%. STG Duration 6 weeks Spa Coordinator Goal (LTG) Pt will demonstrate improved functional mobility with decreased disability score from 50% to 25%. LTG Duration 12 weeks Progress Towards Goals Progress Towards Progressing Toward Goals Goals Assessment Summary Assessment Pt participated well with postural exercises and stretches this session with improvements noted in coordination of chin tucks and serratus punches. Physical Therapy Plan Frequency and Duration Frequency of 2x/Week Treatment Duration of 12 treatment (weeks) Plan of Care Start 03/12/25 Plan of Care End 06/04/25 Date Therapeutic Interventions Therapeutic Home Exercise Program,Joint Mobilizations,Manual Interventions Therapy,Neuromuscular Re-education,Soft Tissue Mobilization,Taping,Therapeutic Activities,Therapeutic Exercises Modalities Cold Pack/Ice Massage,Hot Packs,Ultrasound Next Visit Focus/Plan Next Note Type Treatment Note Next Visit Plan review pec doorway stretch, scapular depression, thoracic ext mobility, STM to R scapular muscles as needed
--- NOTE | 2025-04-02 12:16 | PT.OTN ---
Current Diagnoses Other specific arthropathies, not elsewhere classified, right shoulder (04/02/25) Physical Therapy Treatment Note PT-OP-A Visit Information Start: 03/12/25 08:54 Freq: Status: Active Protocol: Document 04/02/25 11:34 SP (Rec: 04/02/25 12:26 SP [id number]) Out-Patient Physical Therapy Visit Information Visit Information Visit Type Treatment Note Visit Start Time 11:34 Visit Stop Time 12:16 Visit Number 6 (PN 30 days 04/12/25) Number of BACK END ENGINEER Visits 1 Evaluation Information Evaluation Date 03/12/25 PT-OP-B Current Condition Start: 03/12/25 08:54 Freq: Status: Active Protocol: Document 03/12/25 11:37 HIDE AND SKIN CLASSER (Rec: 03/12/25 13:08 HIDE AND SKIN CLASSER Laptop) Current Condition History of Current Condition Onset Date >8 years ago Current Complaints R shoulder weakness History of Current Pt reports about 12 years ago she fell and injured her Condition R shoulder and received therapy but without resolution. Pt reports since then her shoulder has gotten a little worse but mostly has stayed weak. She has a little pain in her shoulder but main complaints are weakness when reaching for or lifting objects and very quick fatigue. Pt is R hand dominant. Activities that are difficult include taking pans out of the oven, reaching overhead for dishes in cabinet, fixing hair, driving, and donning and doffing shirts. Pt reports no pain usually. Future Testing and MRI of R shoulder Treatments Planned Treatment Goals Patient/Caregiver To strengthen R arm so I can use it without it feeling Goals so weak. PT-OP-C Subjective Start: 03/12/25 08:54 Freq: Status: Active Protocol: Document 04/02/25 11:34 SP (Rec: 04/02/25 12:26 SP [id number]) OP-PT Subjective Patient Comments Patient Comments Pt reports brought updated order for PT for her R shld, mentioned MRI from 03/13 and has a RTC tear. UPdated order states: Protocol: anterior deltoid and periscapular exercises, 2x/wk for 6 weeks. . PT-OP-H Neuro Start: 03/12/25 08:54 Freq: Status: Active Protocol: Document 03/12/25 11:37 HIDE AND SKIN CLASSER (Rec: 03/12/25 13:08 HIDE AND SKIN CLASSER Laptop) Sensation Evaluation Comments Summary Comments Pt reports N/T in B hands for past 3 years, in B first 3 fingers and base of palm when working on computer or reading PT-OP-J Posture/Palpation/Skin Start: 03/12/25 08:54 Freq: Status: Active Protocol: Document 03/12/25 11:37 HIDE AND SKIN CLASSER (Rec: 03/12/25 13:08 HIDE AND SKIN CLASSER Laptop) Posture Evaluation Comments Posture Comments Sitting posture: excessive forward head posture, L shoulder higher then R, winging of L scapula, forward rounded B shoulders R>L. PT-OP-K Range of Motion Start: 03/12/25 08:54 Freq: Status: Active Protocol: Document 03/12/25 11:37 HIDE AND SKIN CLASSER (Rec: 03/12/25 13:08 HIDE AND SKIN CLASSER Laptop) Shoulder Goniometric Range of Motion Shoulder L Shoulder ROM WFL Yes Testing Position Sitting Flexion 132 Extension 50 Abduction 102 Internal Rotation Thumb to T9 Behind Back (text) R Shoulder ROM WFL No Testing Position Sitting Flexion 114 Extension 50 Abduction 70 Internal Rotation Thumb to T11 Behind Back (text) PT-OP-M Strength Start: 03/12/25 08:54 Freq: Status: Active Protocol: Document 03/12/25 11:37 HIDE AND SKIN CLASSER (Rec: 03/12/25 13:08 HIDE AND SKIN CLASSER Laptop) Shoulder Strength Shoulder Manual Muscle Testing L Flexion 5 Normal Extension 4+ Good+ Abduction (C5) 4 Good External Rotation 4+ Good+ Internal Rotation 4 Good R Flexion 4- Good- Extension 4 Good Abduction (C5) 3+ Fair+ External Rotation 3+ Fair+ Internal Rotation 3+ Fair+ Comments pain with resisted abd Elbow/Forearm Strength Elbow and Forearm Manual Muscle Testing L Flexion (C6) 5 Normal Extension (C7) 4 Good Pronation 5 Normal Supination 5 Normal R Flexion (C6) 4 Good Extension (C7) 4 Good Pronation 4- Good- Supination 5 Normal Wrist Strength Wrist Manual Muscle Testing L Flexion (C7) 5 Normal Extension (C6) 5 Normal R Flexion (C7) 5 Normal Extension (C6) 4+ Good+ Hand Child Care Associate Teacher/Pinch Strength Hand Strength Left Child Care Associate Teacher (lbs) 18 Right Child Care Associate Teacher (lbs) 17 PT-OP-Q Treatments Start: 03/12/25 08:54 Freq: Status: Active Protocol: Document 04/02/25 11:34 SP (Rec: 04/02/25 12:26 SP [id number]) Cardio Equipment Upper Body Ergometer (UBE) Duration (Minutes) 5 Seat Position 14 Other 120 resistance, VC to engage scapular/extensor muscles Therapeutic Exercises Sidelying Exercises Shoulder Abduction Side right Resistance AROM Reps/Minutes 10 reps Comments Min A to initiate movement from hip then can continue range toward OH Scap Depression Side bilateral Reps/Minutes 15 reps- good form Comments first set with occasional TCs Shoulder Flex Sidelying Exercise reviewed Name Side right Resistance 1# dumbbell Reps/Minutes 5, 10 reps Comments tactile cues for periscap stabililty Shoulder ER Side right Equipment Used towel roll under arm Reps/Minutes x10 Comments HEP review, no weight added, VC to keep elbow flexed Standing Exercises Wall Slide Standing Exercise initiated in PT: FF then lift off wall Name Equipment Used feet 1-2 feet from facing wall (to close kyphosis restrict OH ROM) Reps/Minutes 3 reps before tiring couldn't push up anymore reps Comments cues for head up and contact into wall for WB support glide upwall Shoulder Extension Side bilateral Resistance Tb #4 dark blue in PT Reps/Minutes 10 reps Comments cued head up/posture- good parascapular tiring Doorway Pec Stretch Side bilateral Equipment Used doorway Reps/Minutes 30s x2 Comments Time spent educating on position and posture Manual Therapy Treatment Consent Patient gave verbal Yes consent for manual treatment Soft Tissue Mobilization STM Body Location R rhomboids, levator scap, UT, and supraspinatus Mobilization Type Cross-Friction,Rolling,Trigger Point Release Intensity/Depth Moderate Body Position Prone Comments multiple trigger points noted Joint Mobilizations R scapulothoracic Jt Direction inferior, adduction Grade II Body Position L SL Comments good response R GH Jt Direction PA, inferior Grade II Body Position Hooklying Comments good response PT-OP-T Assessment and Plan Start: 03/12/25 08:54 Freq: Status: Active Protocol: Document 04/02/25 11:34 SP (Rec: 04/02/25 12:26 SP [id number]) Physical Therapy Assessment Goals 3 Impairment ROM Impairment R shoulder ROM Short Term Goal (STG Pt will demonstrate improved L shoulder active abd to ) 90 degrees to improve function STG Duration 6 weeks Prison Goal (LTG) Pt will demonstrate improved L shoulder active abd to 120 degrees to improve function LTG Duration 12 weeks 2 Impairment Strength Impairment R shoulder strength Short Term Goal (STG Pt will demonstrate improved strength in R shoulder abd ) , IR, and ER by 2 MMT grades to improve function STG Duration 6 weeks Automotive Electrician Goal (LTG) Pt will demonstrate ability to raise 10 lb dumbbell overhead with BUEs x10 consecutive reps to demonstrate improved strength and endurance. LTG Duration 12 weeks 1 Impairment Function Impairment Quick Dash Short Term Goal (STG Pt will demonstrate improved functional mobility with ) decreased disability score from 50% to 40%. STG Duration 6 weeks Automotive Electrician Goal (LTG) Pt will demonstrate improved functional mobility with decreased disability score from 50% to 25%. LTG Duration 12 weeks Assessment Summary Assessment Pt improved SL R shld ROM post manual scapular and GH mobs per pt. She was able to progress periscapular recruitment with tactile cuing support raising arm over head FF and ABD. Initiated wall slides in PT end tx, only able to completed 3 reps which pt was pleased because hasnt' been able to do this. Wire Coiner scanned in updated referral (03/[address] Presley). Physical Therapy Plan Frequency and Duration Frequency of 2x/Week Treatment Duration of 12 treatment (weeks) Plan of Care Start 03/12/25 Date Plan of Care End 06/04/25 Date Therapeutic Interventions Therapeutic Home Exercise Program,Joint Mobilizations,Manual Interventions Therapy,Neuromuscular Re-education,Soft Tissue Mobilization,Taping,Therapeutic Activities,Therapeutic Exercises Modalities Cold Pack/Ice Massage,Hot Packs,Ultrasound Next Visit Focus/Plan Next Note Type Treatment Note Next Visit Plan PN 04/09/25 appt. Continue per PT POC: review pec doorway stretch, scapular depression strengthening, thoracic ext mobility, STM to R scapular muscles, GH and Scapulothoracic mobility as needed
--- NOTE | 2025-04-04 12:25 | PT.OTN ---
Current Diagnoses Other specific arthropathies, not elsewhere classified, right shoulder (04/04/25) Physical Therapy Treatment Note PT-OP-A Visit Information Start: 03/12/25 08:54 Freq: Status: Active Protocol: Document 04/04/25 11:35 SP (Rec: 04/04/25 12:48 SP [id number]) Out-Patient Physical Therapy Visit Information Visit Information Visit Type Treatment Note Visit Start Time 11:35 Visit Stop Time 12:25 Visit Number 7 (PN 30 days 04/12/25) Number of TRUCK CATERER Visits 2 Evaluation Information Evaluation Date 03/12/25 Precautions Precautions N/A PT-OP-B Current Condition Start: 03/12/25 08:54 Freq: Status: Active Protocol: Document 03/12/25 11:37 TRANSPLANT NURSE (Rec: 03/12/25 13:08 TRANSPLANT NURSE Laptop) Current Condition History of Current Condition Onset Date >8 years ago Current Complaints R shoulder weakness History of Current Pt reports about 12 years ago she fell and injured her Condition R shoulder and received therapy but without resolution. Pt reports since then her shoulder has gotten a little worse but mostly has stayed weak. She has a little pain in her shoulder but main complaints are weakness when reaching for or lifting objects and very quick fatigue. Pt is R hand dominant. Activities that are difficult include taking pans out of the oven, reaching overhead for dishes in cabinet, fixing hair, driving, and donning and doffing shirts. Pt reports no pain usually. Future Testing and MRI of R shoulder Treatments Planned Treatment Goals Patient/Caregiver To strengthen R arm so I can use it without it feeling Goals so weak. PT-OP-C Subjective Start: 03/12/25 08:54 Freq: Status: Active Protocol: Document 04/04/25 11:35 SP (Rec: 04/04/25 12:48 SP [id number]) OP-PT Subjective Patient Comments Patient Comments Pt reports usually is really stiff bent over when wakes up but today felt good, tall posture when stood up. She reports doesn't last long before rounded again, hard to stay upright. PT-OP-H Neuro Start: 03/12/25 08:54 Freq: Status: Active Protocol: Document 03/12/25 11:37 TRANSPLANT NURSE (Rec: 03/12/25 13:08 TRANSPLANT NURSE Laptop) Sensation Evaluation Comments Summary Comments Pt reports N/T in B hands for past 3 years, in B first 3 fingers and base of palm when working on computer or reading PT-OP-J Posture/Palpation/Skin Start: 03/12/25 08:54 Freq: Status: Active Protocol: Document 03/12/25 11:37 TRANSPLANT NURSE (Rec: 03/12/25 13:08 TRANSPLANT NURSE Laptop) Posture Evaluation Comments Posture Comments Sitting posture: excessive forward head posture, L shoulder higher then R, winging of L scapula, forward rounded B shoulders R>L. PT-OP-K Range of Motion Start: 03/12/25 08:54 Freq: Status: Active Protocol: Document 03/12/25 11:37 TRANSPLANT NURSE (Rec: 03/12/25 13:08 TRANSPLANT NURSE Laptop) Shoulder Goniometric Range of Motion Shoulder L Shoulder ROM WFL Yes Testing Position Sitting Flexion 132 Extension 50 Abduction 102 Internal Rotation Thumb to T9 Behind Back (text) R Shoulder ROM WFL No Testing Position Sitting Flexion 114 Extension 50 Abduction 70 Internal Rotation Thumb to T11 Behind Back (text) PT-OP-M Strength Start: 03/12/25 08:54 Freq: Status: Active Protocol: Document 03/12/25 11:37 TRANSPLANT NURSE (Rec: 03/12/25 13:08 TRANSPLANT NURSE Laptop) Shoulder Strength Shoulder Manual Muscle Testing L Flexion 5 Normal Extension 4+ Good+ Abduction (C5) 4 Good External Rotation 4+ Good+ Internal Rotation 4 Good R Flexion 4- Good- Extension 4 Good Abduction (C5) 3+ Fair+ External Rotation 3+ Fair+ Internal Rotation 3+ Fair+ Comments pain with resisted abd Elbow/Forearm Strength Elbow and Forearm Manual Muscle Testing L Flexion (C6) 5 Normal Extension (C7) 4 Good Pronation 5 Normal Supination 5 Normal R Flexion (C6) 4 Good Extension (C7) 4 Good Pronation 4- Good- Supination 5 Normal Wrist Strength Wrist Manual Muscle Testing L Flexion (C7) 5 Normal Extension (C6) 5 Normal R Flexion (C7) 5 Normal Extension (C6) 4+ Good+ Hand Production Line Operator/Pinch Strength Hand Strength Left Production Line Operator (lbs) 18 Right Production Line Operator (lbs) 17 PT-OP-Q Treatments Start: 03/12/25 08:54 Freq: Status: Active Protocol: Document 04/04/25 11:35 SP (Rec: 04/04/25 12:48 SP [id number]) Cardio Equipment Upper Body Ergometer (UBE) Duration (Minutes) 5 RPM 100 Seat Position 10 Height 2 (30 sec f/b 5 min) Other 100 RPM/resistance, VC to engage scapular/extensor muscles Therapeutic Exercises Standing Exercises UE rail walking Standing Exercise added to HEP with HO written and phone video Name Side bilateral Resistance TB #1 peach Reps/Minutes 10 ft x3 laps Comments cued upright posture, scap retraction head up- improved decreased UT comp. Wall Slide Standing Exercise added to HEP PT: written on HO: FF then lift off wall Name Equipment Used feet 1-2 feet from facing wall (to close kyphosis restrict OH ROM) Reps/Minutes 3 reps slide then finger walk 5 reps OH Comments cues for head up and contact into wall for WB support glide upwall Shoulder Extension Side bilateral Resistance Tb #4 dark blue in PT- anchored high Reps/Minutes 15-20 reps Comments cued head up/posture- good parascapular engagement Doorway Pec Stretch Side bilateral Equipment Used doorway Reps/Minutes 30s x2 Comments Time spent educating on position and posture Shoulder IR Standing Exercise concentric IR, eccentric ER Name Side right Resistance L1 TB- anchored indoor to Right Equipment Used towel roll under arm Reps/Minutes x10 Comments cued back, head, both shoulders on wall Manual Therapy Treatment Consent Patient gave verbal Yes consent for manual treatment Soft Tissue Mobilization STM Body Location R rhomboids, levator scap, UT, and supraspinatus Mobilization Type Cross-Friction,Rolling,Trigger Point Release Intensity/Depth Moderate Body Position Prone Comments multiple trigger points noted Joint Mobilizations R scapulothoracic Jt Direction inferior, adduction Grade II Body Position L SL Comments good response PT-OP-T Assessment and Plan Start: 03/12/25 08:54 Freq: Status: Active Protocol: Document 04/04/25 11:35 SP (Rec: 04/04/25 12:48 SP [id number]) Physical Therapy Assessment Goals 3 Impairment ROM Impairment R shoulder ROM Short Term Goal (STG Pt will demonstrate improved L shoulder active abd to ) 90 degrees to improve function STG Duration 6 weeks Senior Living Goal (LTG) Pt will demonstrate improved L shoulder active abd to 120 degrees to improve function LTG Duration 12 weeks 2 Impairment Strength Impairment R shoulder strength Short Term Goal (STG Pt will demonstrate improved strength in R shoulder abd ) , IR, and ER by 2 MMT grades to improve function STG Duration 6 weeks Tankage Grinder Operator Goal (LTG) Pt will demonstrate ability to raise 10 lb dumbbell overhead with BUEs x10 consecutive reps to demonstrate improved strength and endurance. LTG Duration 12 weeks 1 Impairment Function Impairment Quick Dash Short Term Goal (STG Pt will demonstrate improved functional mobility with ) decreased disability score from 50% to 40%. STG Duration 6 weeks Senior Living Goal (LTG) Pt will demonstrate improved functional mobility with decreased disability score from 50% to 25%. LTG Duration 12 weeks Assessment Summary Assessment Pt improved scapular retracted/set corrections with cuing education. Provided HOs of images for her written HEP with improved understanding. Was able to progress UE rail resisted walking for R strengthening today, tactile cues for LT fac and posture improved decrease UT recruitment today. Physical Therapy Plan Frequency and Duration Frequency of 2x/Week Treatment Duration of 12 treatment (weeks) Plan of Care Start 03/12/25 Date Plan of Care End 06/04/25 Date Therapeutic Interventions Therapeutic Home Exercise Program,Joint Mobilizations,Manual Interventions Therapy,Neuromuscular Re-education,Soft Tissue Mobilization,Taping,Therapeutic Activities,Therapeutic Exercises Modalities Cold Pack/Ice Massage,Hot Packs,Ultrasound Next Visit Focus/Plan Next Note Type Treatment Note Next Visit Plan PN 04/09/25 appt. Continue per PT POC: review wall walking/slides, UE rail resisted walking, TB IR/ eccentric ER, pec doorway stretch, scapular depression strengthening, thoracic ext mobility, STM to R scapular muscles, GH and Scapulothoracic mobility as needed
--- NOTE | 2025-04-09 12:55 | PT.OTN ---
Current Diagnoses Other specific arthropathies, not elsewhere classified, right shoulder (04/09/25) Physical Therapy Treatment Note PT-OP-A Visit Information Start: 03/12/25 08:54 Freq: Status: Active Protocol: Document 04/09/25 11:34 EMT DRIVER (Rec: 04/09/25 12:55 EMT DRIVER Laptop) Out-Patient Physical Therapy Visit Information Visit Information Visit Type Progress Note Visit Start Time 11:35 Visit Stop Time 12:20 Visit Number 8 Number of FORKLIFT MECHANIC Visits 0 Evaluation Information Evaluation Date 03/12/25 Precautions Precautions N/A PT-OP-B Current Condition Start: 03/12/25 08:54 Freq: Status: Active Protocol: Document 03/12/25 11:37 EMT DRIVER (Rec: 03/12/25 13:08 EMT DRIVER Laptop) Current Condition History of Current Condition Onset Date >8 years ago Current Complaints R shoulder weakness History of Current Pt reports about 12 years ago she fell and injured her Condition R shoulder and received therapy but without resolution. Pt reports since then her shoulder has gotten a little worse but mostly has stayed weak. She has a little pain in her shoulder but main complaints are weakness when reaching for or lifting objects and very quick fatigue. Pt is R hand dominant. Activities that are difficult include taking pans out of the oven, reaching overhead for dishes in cabinet, fixing hair, driving, and donning and doffing shirts. Pt reports no pain usually. Future Testing and MRI of R shoulder Treatments Planned Treatment Goals Patient/Caregiver To strengthen R arm so I can use it without it feeling Goals so weak. PT-OP-C Subjective Start: 03/12/25 08:54 Freq: Status: Active Protocol: Document 04/09/25 11:34 EMT DRIVER (Rec: 04/09/25 12:55 EMT DRIVER Laptop) OP-PT Subjective Patient Comments Patient Comments Pt reports she feels a little discouraged about difficulty maintaining good posture and has slight increased pain intermittently in B ant and post shoulders. PT-OP-H Neuro Start: 03/12/25 08:54 Freq: Status: Active Protocol: Document 03/12/25 11:37 EMT DRIVER (Rec: 03/12/25 13:08 EMT DRIVER Laptop) Sensation Evaluation Comments Summary Comments Pt reports N/T in B hands for past 3 years, in B first 3 fingers and base of palm when working on computer or reading PT-OP-J Posture/Palpation/Skin Start: 03/12/25 08:54 Freq: Status: Active Protocol: Document 03/12/25 11:37 EMT DRIVER (Rec: 03/12/25 13:08 EMT DRIVER Laptop) Posture Evaluation Comments Posture Comments Sitting posture: excessive forward head posture, L shoulder higher then R, winging of L scapula, forward rounded B shoulders R>L. PT-OP-K Range of Motion Start: 03/12/25 08:54 Freq: Status: Active Protocol: Document 03/12/25 11:37 EMT DRIVER (Rec: 03/12/25 13:08 EMT DRIVER Laptop) Shoulder Goniometric Range of Motion Shoulder L Shoulder ROM WFL Yes Testing Position Sitting Flexion 132 Extension 50 Abduction 102 Internal Rotation Thumb to T9 Behind Back (text) R Shoulder ROM WFL No Testing Position Sitting Flexion 114 Extension 50 Abduction 70 Internal Rotation Thumb to T11 Behind Back (text) PT-OP-M Strength Start: 03/12/25 08:54 Freq: Status: Active Protocol: Document 03/12/25 11:37 EMT DRIVER (Rec: 03/12/25 13:08 EMT DRIVER Laptop) Shoulder Strength Shoulder Manual Muscle Testing L Flexion 5 Normal Extension 4+ Good+ Abduction (C5) 4 Good External Rotation 4+ Good+ Internal Rotation 4 Good R Flexion 4- Good- Extension 4 Good Abduction (C5) 3+ Fair+ External Rotation 3+ Fair+ Internal Rotation 3+ Fair+ Comments pain with resisted abd Elbow/Forearm Strength Elbow and Forearm Manual Muscle Testing L Flexion (C6) 5 Normal Extension (C7) 4 Good Pronation 5 Normal Supination 5 Normal R Flexion (C6) 4 Good Extension (C7) 4 Good Pronation 4- Good- Supination 5 Normal Wrist Strength Wrist Manual Muscle Testing L Flexion (C7) 5 Normal Extension (C6) 5 Normal R Flexion (C7) 5 Normal Extension (C6) 4+ Good+ Hand Press Helper/Pinch Strength Hand Strength Left Press Helper (lbs) 18 Right Press Helper (lbs) 17 PT-OP-Q Treatments Start: 03/12/25 08:54 Freq: Status: Active Protocol: Document 04/09/25 11:34 EMT DRIVER (Rec: 04/09/25 12:55 EMT DRIVER Laptop) Therapeutic Exercises Supine Exercises Scap Depression Supine Exercise Name 1. scap depression 2. scap depression/retraction Side bilateral Reps/Minutes 10x2 each Comments TC to maintain shoulder depression Pec Stretch Supine Exercise Name 1. Pool noodle (disc d/t not enough stretch) 2. Half FR Side bilateral Reps/Minutes 3 mins Comments Increased pain to B post shoulders Rhythmic stabilization Supine Exercise Name 1. Elbow bent abd 45,90 deg 2. Straight elbow to 90 deg shoulder flex Side bilateral Resistance light manual perturbations Reps/Minutes x15 each direction each angle Comments varying directions, VC/TC to maintain scap depression Chin Tucks Reps/Minutes 10x2 Comments 3s hold on second set, improved coordination this session Manual Therapy Treatment Consent Patient gave verbal Yes consent for manual treatment Joint Mobilizations R GH Jt Direction posterior Grade IV Body Position Supine Reps/Duration 10x2 Comments good response, reports feels good PT-OP-T Assessment and Plan Start: 03/12/25 08:54 Freq: Status: Active Protocol: Document 04/09/25 11:34 EMT DRIVER (Rec: 04/09/25 12:55 EMT DRIVER Laptop) Physical Therapy Assessment Goals 3 Impairment ROM Impairment R shoulder ROM Short Term Goal (STG Pt will demonstrate improved L shoulder active abd to ) 90 degrees to improve function Status: Progressing STG Duration 6 weeks Typewriter Operator Automatic Goal (LTG) Pt will demonstrate improved L shoulder active abd to 120 degrees to improve function LTG Duration 12 weeks 2 Impairment Strength Impairment R shoulder strength Short Term Goal (STG Pt will demonstrate improved strength in R shoulder abd ) , IR, and ER by 2 MMT grades to improve function Status: Progressing STG Duration 6 weeks Jail Goal (LTG) Pt will demonstrate ability to raise 10 lb dumbbell overhead with BUEs x10 consecutive reps to demonstrate improved strength and endurance. LTG Duration 12 weeks 1 Impairment Function Impairment Quick Dash Short Term Goal (STG Pt will demonstrate improved functional mobility with ) decreased disability score from 50% to 40%. Status: Progressing STG Duration 6 weeks Jail Goal (LTG) Pt will demonstrate improved functional mobility with decreased disability score from 50% to 25%. LTG Duration 12 weeks Assessment Summary Assessment Pt demonstrates progress with B shoulder AROM and ability to raise to ~80 degrees for 2-3 reps, however continues to demonstrate poor endurance of muscles to maintain perform more than 2-3 reps. Pt also has demonstrated progress with postural awareness and endurance with improved upright posture and retracted/ depressed scapulas and ability to cue self, however still has difficulty maintaining good posture throughout the day. Noted today significantly ant placed B humeral heads and tight post capsule and tolerated post mobilizations well. Pt is making progress towards goals although slow and will continue to benefit from skilled PT in order to continue progressing towards short term and nursing home goals. Physical Therapy Plan Frequency and Duration Frequency of 2x/Week Treatment Duration of 12 treatment (weeks) Plan of Care Start 03/12/25 Date Plan of Care End 06/04/25 Date Therapeutic Interventions Therapeutic Home Exercise Program,Joint Mobilizations,Manual Interventions Therapy,Neuromuscular Re-education,Soft Tissue Mobilization,Taping,Therapeutic Activities,Therapeutic Exercises Modalities Cold Pack/Ice Massage,Hot Packs,Ultrasound Next Visit Focus/Plan Next Note Type Treatment Note Next Visit Plan PN 04/09/25 appt. Continue per PT POC: review wall walking/slides, UE rail resisted walking, TB IR/ eccentric ER, pec doorway stretch, scapular depression strengthening, thoracic ext mobility, STM to R scapular muscles, GH and Scapulothoracic mobility as needed
--- NOTE | 2025-04-11 11:40 | PT.OTN ---
Current Diagnoses Other specific arthropathies, not elsewhere classified, right shoulder (04/11/25) Physical Therapy Treatment Note PT-OP-A Visit Information Start: 03/12/25 08:54 Freq: Status: Active Protocol: Document 04/11/25 10:49 SP (Rec: 04/11/25 11:10 SP [id number]) Out-Patient Physical Therapy Visit Information Visit Information Visit Type Treatment Note Visit Start Time 10:49 Visit Stop Time 11:40 Visit Number 9 (2/ with PN, next PN 05/09/25) Number of ANIMAL CARE SUPERVISOR Visits 1 Evaluation Information Evaluation Date 03/12/25 Precautions Precautions N/A PT-OP-B Current Condition Start: 03/12/25 08:54 Freq: Status: Active Protocol: Document 03/12/25 11:37 MAINTENANCE CRAFTSMAN (Rec: 03/12/25 13:08 MAINTENANCE CRAFTSMAN Laptop) Current Condition History of Current Condition Onset Date >8 years ago Current Complaints R shoulder weakness History of Current Pt reports about 12 years ago she fell and injured her Condition R shoulder and received therapy but without resolution. Pt reports since then her shoulder has gotten a little worse but mostly has stayed weak. She has a little pain in her shoulder but main complaints are weakness when reaching for or lifting objects and very quick fatigue. Pt is R hand dominant. Activities that are difficult include taking pans out of the oven, reaching overhead for dishes in cabinet, fixing hair, driving, and donning and doffing shirts. Pt reports no pain usually. Future Testing and MRI of R shoulder Treatments Planned Treatment Goals Patient/Caregiver To strengthen R arm so I can use it without it feeling Goals so weak. PT-OP-C Subjective Start: 03/12/25 08:54 Freq: Status: Active Protocol: Document 04/11/25 10:49 SP (Rec: 04/11/25 11:10 SP [id number]) OP-PT Subjective Patient Comments Patient Comments Pt reported her R shoulder felt alot better into the next day after saw ANIMAL CARE SUPERVISOR last with manual work. She states see improvement in her posture but hard time maintaining then front of her shoulders start hurting again. PT-OP-H Neuro Start: 03/12/25 08:54 Freq: Status: Active Protocol: Document 03/12/25 11:37 MAINTENANCE CRAFTSMAN (Rec: 03/12/25 13:08 MAINTENANCE CRAFTSMAN Laptop) Sensation Evaluation Comments Summary Comments Pt reports N/T in B hands for past 3 years, in B first 3 fingers and base of palm when working on computer or reading PT-OP-J Posture/Palpation/Skin Start: 03/12/25 08:54 Freq: Status: Active Protocol: Document 03/12/25 11:37 MAINTENANCE CRAFTSMAN (Rec: 03/12/25 13:08 MAINTENANCE CRAFTSMAN Laptop) Posture Evaluation Comments Posture Comments Sitting posture: excessive forward head posture, L shoulder higher then R, winging of L scapula, forward rounded B shoulders R>L. PT-OP-K Range of Motion Start: 03/12/25 08:54 Freq: Status: Active Protocol: Document 03/12/25 11:37 MAINTENANCE CRAFTSMAN (Rec: 03/12/25 13:08 MAINTENANCE CRAFTSMAN Laptop) Shoulder Goniometric Range of Motion Shoulder L Shoulder ROM WFL Yes Testing Position Sitting Flexion 132 Extension 50 Abduction 102 Internal Rotation Thumb to T9 Behind Back (text) R Shoulder ROM WFL No Testing Position Sitting Flexion 114 Extension 50 Abduction 70 Internal Rotation Thumb to T11 Behind Back (text) PT-OP-M Strength Start: 03/12/25 08:54 Freq: Status: Active Protocol: Document 03/12/25 11:37 MAINTENANCE CRAFTSMAN (Rec: 03/12/25 13:08 MAINTENANCE CRAFTSMAN Laptop) Shoulder Strength Shoulder Manual Muscle Testing L Flexion 5 Normal Extension 4+ Good+ Abduction (C5) 4 Good External Rotation 4+ Good+ Internal Rotation 4 Good R Flexion 4- Good- Extension 4 Good Abduction (C5) 3+ Fair+ External Rotation 3+ Fair+ Internal Rotation 3+ Fair+ Comments pain with resisted abd Elbow/Forearm Strength Elbow and Forearm Manual Muscle Testing L Flexion (C6) 5 Normal Extension (C7) 4 Good Pronation 5 Normal Supination 5 Normal R Flexion (C6) 4 Good Extension (C7) 4 Good Pronation 4- Good- Supination 5 Normal Wrist Strength Wrist Manual Muscle Testing L Flexion (C7) 5 Normal Extension (C6) 5 Normal R Flexion (C7) 5 Normal Extension (C6) 4+ Good+ Hand Asp Net Programmer/Pinch Strength Hand Strength Left Asp Net Programmer (lbs) 18 Right Asp Net Programmer (lbs) 17 PT-OP-Q Treatments Start: 03/12/25 08:54 Freq: Status: Active Protocol: Document 04/11/25 10:49 SP (Rec: 04/11/25 11:10 SP [id number]) Therapeutic Exercises Supine Exercises Scap Depression Supine Exercise Name 1. scap depression 2. scap depression/retraction Side bilateral Reps/Minutes 10x2 each Comments TC to maintain shoulder depression Prone Exercises R shld I, Y, T Prone Exercise Name trialed in PT then added to HEP with HO: I and T only Side right Resistance AROM Equipment Used head turned to L laying on table vs forehead on L forearm,pillow under pelv Reps/Minutes 5 reps each Comments tactile cue rhomboid and LT fac with scap lift, arm at side hip I, T Sitting Exercises Cross Body Posterior Capsule Stretch Sitting Exercise trialed and added to HEP with HO Name Side bilateral Resistance R>L Reps/Minutes 10 SH x2 Comments limited range and comfort L Myra Sitting Exercise FF, ABD, Scaption- warm up at arrival Name Side bilateral Resistance more tension L shld vs R Reps/Minutes 15 reps each Comments cued head up and good response, no pain- challenge understanding scaption Standing Exercises UE rail walking Standing Exercise added to HEP with HO written and phone video Name Side bilateral Resistance TB #1 peach Reps/Minutes 10 ft x3 laps Comments cued upright posture, scap retraction head up- improved decreased UT comp. Manual Therapy Treatment Consent Patient gave verbal Yes consent for manual treatment Soft Tissue Mobilization STM Body Location R rhomboids, levator scap, UT, and supraspinatus Mobilization Type Cross-Friction,Rolling,Trigger Point Release Intensity/Depth Moderate Body Position Prone Comments multiple trigger points noted Joint Mobilizations R scapulothoracic Jt Joint R Grade II Body Position Hooklying Reps/Duration L SL R GH Jt Joint R>L Direction posterior, inferior glides Grade II Body Position Hooklying PT-OP-T Assessment and Plan Start: 03/12/25 08:54 Freq: Status: Active Protocol: Document 04/11/25 10:49 SP (Rec: 04/11/25 11:10 SP [id number]) Physical Therapy Assessment Goals 3 Impairment ROM Impairment R shoulder ROM Short Term Goal (STG Pt will demonstrate improved L shoulder active abd to ) 90 degrees to improve function Status: Progressing STG Duration 6 weeks Prison Goal (LTG) Pt will demonstrate improved L shoulder active abd to 120 degrees to improve function LTG Duration 12 weeks 2 Impairment Strength Impairment R shoulder strength Short Term Goal (STG Pt will demonstrate improved strength in R shoulder abd ) , IR, and ER by 2 MMT grades to improve function Status: Progressing STG Duration 6 weeks Printing Grey Cloth Tender Goal (LTG) Pt will demonstrate ability to raise 10 lb dumbbell overhead with BUEs x10 consecutive reps to demonstrate improved strength and endurance. LTG Duration 12 weeks 1 Impairment Function Impairment Quick Dash Short Term Goal (STG Pt will demonstrate improved functional mobility with ) decreased disability score from 50% to 40%. Status: Progressing STG Duration 6 weeks Printing Grey Cloth Tender Goal (LTG) Pt will demonstrate improved functional mobility with decreased disability score from 50% to 25%. LTG Duration 12 weeks Assessment Summary Assessment Pt had good response to myra warm up. Initiated cross body posterior capsule stretch ines but L shld discomfort end feel, instruction pnfree range, with HO. Initiated prone extension and HABD range can perform with HO, tactile cues for rhomboid and LT engagement to support strength into FF when upright. She would benefit from continued FF, overhead motion endurance strengthening in support position needed without pain. Physical Therapy Plan Frequency and Duration Frequency of 2x/Week Treatment Duration of 12 treatment (weeks) Plan of Care Start 03/12/25 Date Plan of Care End 06/04/25 Date Therapeutic Interventions Therapeutic Home Exercise Program,Joint Mobilizations,Manual Interventions Therapy,Neuromuscular Re-education,Soft Tissue Mobilization,Taping,Therapeutic Activities,Therapeutic Exercises Modalities Cold Pack/Ice Massage,Hot Packs,Ultrasound Next Visit Focus/Plan Next Note Type Treatment Note Next Visit Plan per PT POC: FF, scaption ABD strength and endurance to allow reaching into closet and cupboards. review wall walking/slides, UE rail resisted walking, TB IR/eccentric ER, pec doorway stretch, scapular depression strengthening, thoracic ext mobility, STM to R scapular muscles, GH and Scapulothoracic mobility as needed
--- NOTE | 2025-04-15 09:44 | PT.OTN ---
Current Diagnoses Other specific arthropathies, not elsewhere classified, right shoulder (04/15/25) Physical Therapy Treatment Note PT-OP-A Visit Information Start: 03/12/25 08:54 Freq: Status: Active Protocol: Document 04/15/25 09:02 SP (Rec: 04/15/25 09:49 SP [id number]) Out-Patient Physical Therapy Visit Information Visit Information Visit Type Treatment Note Visit Start Time 09:02 Visit Stop Time 09:44 Visit Number 10 (3/10 with PN, next PN 05/09/25) Number of PODIATRIC MEDICINE DOCTOR Visits 2 Evaluation Information Evaluation Date 03/12/25 Precautions Precautions N/A PT-OP-B Current Condition Start: 03/12/25 08:54 Freq: Status: Active Protocol: Document 03/12/25 11:37 FRONT OFFICE DIRECTOR (Rec: 03/12/25 13:08 FRONT OFFICE DIRECTOR Laptop) Current Condition History of Current Condition Onset Date >8 years ago Current Complaints R shoulder weakness History of Current Pt reports about 12 years ago she fell and injured her Condition R shoulder and received therapy but without resolution. Pt reports since then her shoulder has gotten a little worse but mostly has stayed weak. She has a little pain in her shoulder but main complaints are weakness when reaching for or lifting objects and very quick fatigue. Pt is R hand dominant. Activities that are difficult include taking pans out of the oven, reaching overhead for dishes in cabinet, fixing hair, driving, and donning and doffing shirts. Pt reports no pain usually. Future Testing and MRI of R shoulder Treatments Planned Treatment Goals Patient/Caregiver To strengthen R arm so I can use it without it feeling Goals so weak. PT-OP-C Subjective Start: 03/12/25 08:54 Freq: Status: Active Protocol: Document 04/15/25 09:02 SP (Rec: 04/15/25 09:49 SP [id number]) OP-PT Subjective Patient Comments Patient Comments Pt reports not as straight today. She reports my shoulder is about the same, not worse, think its coming along. She stated can reach to turn on the radio in car now with RUE. Steering with driving still mostly L UE use though. PT-OP-H Neuro Start: 03/12/25 08:54 Freq: Status: Active Protocol: Document 03/12/25 11:37 FRONT OFFICE DIRECTOR (Rec: 03/12/25 13:08 FRONT OFFICE DIRECTOR Laptop) Sensation Evaluation Comments Summary Comments Pt reports N/T in B hands for past 3 years, in B first 3 fingers and base of palm when working on computer or reading PT-OP-J Posture/Palpation/Skin Start: 03/12/25 08:54 Freq: Status: Active Protocol: Document 03/12/25 11:37 FRONT OFFICE DIRECTOR (Rec: 03/12/25 13:08 FRONT OFFICE DIRECTOR Laptop) Posture Evaluation Comments Posture Comments Sitting posture: excessive forward head posture, L shoulder higher then R, winging of L scapula, forward rounded B shoulders R>L. PT-OP-K Range of Motion Start: 03/12/25 08:54 Freq: Status: Active Protocol: Document 03/12/25 11:37 FRONT OFFICE DIRECTOR (Rec: 03/12/25 13:08 FRONT OFFICE DIRECTOR Laptop) Shoulder Goniometric Range of Motion Shoulder L Shoulder ROM WFL Yes Testing Position Sitting Flexion 132 Extension 50 Abduction 102 Internal Rotation Thumb to T9 Behind Back (text) R Shoulder ROM WFL No Testing Position Sitting Flexion 114 Extension 50 Abduction 70 Internal Rotation Thumb to T11 Behind Back (text) PT-OP-M Strength Start: 03/12/25 08:54 Freq: Status: Active Protocol: Document 03/12/25 11:37 FRONT OFFICE DIRECTOR (Rec: 03/12/25 13:08 FRONT OFFICE DIRECTOR Laptop) Shoulder Strength Shoulder Manual Muscle Testing L Flexion 5 Normal Extension 4+ Good+ Abduction (C5) 4 Good External Rotation 4+ Good+ Internal Rotation 4 Good R Flexion 4- Good- Extension 4 Good Abduction (C5) 3+ Fair+ External Rotation 3+ Fair+ Internal Rotation 3+ Fair+ Comments pain with resisted abd Elbow/Forearm Strength Elbow and Forearm Manual Muscle Testing L Flexion (C6) 5 Normal Extension (C7) 4 Good Pronation 5 Normal Supination 5 Normal R Flexion (C6) 4 Good Extension (C7) 4 Good Pronation 4- Good- Supination 5 Normal Wrist Strength Wrist Manual Muscle Testing L Flexion (C7) 5 Normal Extension (C6) 5 Normal R Flexion (C7) 5 Normal Extension (C6) 4+ Good+ Hand Bracelet And Brooch Maker/Pinch Strength Hand Strength Left Bracelet And Brooch Maker (lbs) 18 Right Bracelet And Brooch Maker (lbs) 17 PT-OP-Q Treatments Start: 03/12/25 08:54 Freq: Status: Active Protocol: Document 04/15/25 09:02 SP (Rec: 04/15/25 09:49 SP [id number]) Cardio Equipment Upper Body Ergometer (UBE) Duration (Minutes) 5 RPM 120 Seat Position 9 Height 2.5 (30 sec f/b 5 min) Other 120 RPM/resistance, good postural form and fluid movement Therapeutic Exercises Prone Exercises R shld I, Y, T Prone Exercise Name REviewed: I and T only with her HO Side right Resistance AROM Equipment Used head turned to L laying on table vs forehead on L forearm,pillow under pelv Reps/Minutes 5 reps each Comments tactile cue rhomboid and LT fac with scap lift, arm at side hip I, T Sidelying Exercises Shoulder Abduction Sidelying Exercise 0-144 deg few reps then tires less OH range Name Side right Resistance AROM Reps/Minutes 10 reps, 3 reps Comments AROM today from hip to OH arm comes in front hip challenge weak inline body Shoulder Flex Sidelying Exercise reviewed Name Side right Resistance AROM Reps/Minutes 5, 10 reps Comments tactile cues for periscap stabililty Shoulder ER Sidelying Exercise approx 45 deg Name Side right Resistance AROM Equipment Used towel roll under arm Reps/Minutes x10 Comments HEP review, no weight added, VC head back neutral Sitting Exercises Cross Body Posterior Capsule Stretch Sitting Exercise trialed and added to HEP with HO Name Side bilateral Resistance R>L Reps/Minutes 10 SH x2 Comments limited range and comfort L Nuris Sitting Exercise FF, ABD, Scaption- warm up at arrival Name Side bilateral Resistance more tension L shld vs R Reps/Minutes 15 reps each Comments cued head up and good response, no pain- challenge understanding scaption Standing Exercises Wall Posture Standing Exercise review back to wall initially at arrival self feedback- Name Resistance *cautious can cause dizziness (she reports has happened in past, not new) Reps/Minutes felt better in squat position 20 sec then Min A MANAGER BEVERAGE to stand. Comments experienced dizziness with chin tuck, slid down wall SBA support for recov. Wall Slide Standing Exercise Reviewed: FF then lift off wall then added lower hover Name wall Equipment Used feet 1-2 feet from facing wall (to close kyphosis restrict OH ROM) Reps/Minutes 5 reps x2 Comments cues for head up, chin tuck, Slide vs wall walk / hover wall lower ecc str. Shoulder ER Standing Exercise long axis in PT today Name Side bilateral Resistance TB #1 peach Equipment Used facing mirror for postural corrections, yrd stick onback with cues head Reps/Minutes 10 Sh x10 reps Comments arms at side Manual Therapy Treatment Consent Patient gave verbal Yes consent for manual treatment Joint Mobilizations R scapulothoracic Jt Joint R Grade II Reps/Duration L SL Comments tactile cues for scap stabilization during FF and ABD PT-OP-T Assessment and Plan Start: 03/12/25 08:54 Freq: Status: Active Protocol: Document 04/15/25 09:02 SP (Rec: 04/15/25 09:49 SP [id number]) Physical Therapy Assessment Goals 3 Impairment ROM Impairment R shoulder ROM Short Term Goal (STG Pt will demonstrate improved L shoulder active abd to ) 90 degrees to improve function Status: Progressing STG Duration 6 weeks Top Dyeing Machine Loader Goal (LTG) Pt will demonstrate improved L shoulder active abd to 120 degrees to improve function LTG Duration 12 weeks 2 Impairment Strength Impairment R shoulder strength Short Term Goal (STG Pt will demonstrate improved strength in R shoulder abd ) , IR, and ER by 2 MMT grades to improve function Status: Progressing STG Duration 6 weeks Top Dyeing Machine Loader Goal (LTG) Pt will demonstrate ability to raise 10 lb dumbbell overhead with BUEs x10 consecutive reps to demonstrate improved strength and endurance. LTG Duration 12 weeks 1 Impairment Function Impairment Quick Dash Short Term Goal (STG Pt will demonstrate improved functional mobility with ) decreased disability score from 50% to 40%. Status: Progressing STG Duration 6 weeks Detention Goal (LTG) Pt will demonstrate improved functional mobility with decreased disability score from 50% to 25%. LTG Duration 12 weeks Assessment Summary Assessment Pt improved increased reps RUE L SL abduction without outside support with increased range OH and tricep ext of elbow support. Continued wall slide support FF OH but added hover wall eccentric lowering for strengthening, consistently good effort with minimal UT compensations. She had Light headed episode during initial wall posture instruction for self alignment, cued chin tuck back to wall, recovery quickly, is not new for her, states and performed today squat down helps her recover. PODIATRIC MEDICINE DOCTOR discussed with a supervising PT and recommended, Ed to contact physician aware and safety vascular check if needed for safety. Physical Therapy Plan Frequency and Duration Frequency of 2x/Week Treatment Duration of 12 treatment (weeks) Plan of Care Start 03/12/25 Date Plan of Care End 06/04/25 Date Therapeutic Interventions Therapeutic Home Exercise Program,Joint Mobilizations,Manual Interventions Therapy,Neuromuscular Re-education,Soft Tissue Mobilization,Taping,Therapeutic Activities,Therapeutic Exercises Modalities Cold Pack/Ice Massage,Hot Packs,Ultrasound Other Referrals/Consults Referrals/Consults Pt follow up for any vascular issues due to dizziness Recommended at times and uses squat down to recover. Next Visit Focus/Plan Next Note Type Treatment Note Next Visit Plan per PT POC: FF, scaption ABD strength and endurance to allow reaching into closet and cupboards. review wall walking/slides, UE rail resisted walking, TB IR/eccentric ER, pec doorway stretch, scapular depression strengthening, thoracic ext mobility, STM to R scapular muscles, GH and Scapulothoracic mobility as needed Pt follow up for any vascular issues due to dizziness at times and uses squat down to recover.
--- NOTE | 2025-04-17 18:00 | PT.OTN ---
Current Diagnoses Other specific arthropathies, not elsewhere classified, right shoulder (04/17/25) Physical Therapy Treatment Note PT-OP-A Visit Information Start: 03/12/25 08:54 Freq: Status: Active Protocol: Document 04/17/25 14:41 SCRAP BALLER (Rec: 04/17/25 15:20 SCRAP BALLER Laptop) Out-Patient Physical Therapy Visit Information Visit Information Visit Type Treatment Note Visit Start Time 14:37 Visit Stop Time 15:19 Visit Number 10 (4/ with PN, next PN 05/09/25) Number of RAW MILL OPERATOR Visits 0 Evaluation Information Evaluation Date 03/12/25 Precautions Precautions N/A PT-OP-B Current Condition Start: 03/12/25 08:54 Freq: Status: Active Protocol: Document 03/12/25 11:37 SCRAP BALLER (Rec: 03/12/25 13:08 SCRAP BALLER Laptop) Current Condition History of Current Condition Onset Date >8 years ago Current Complaints R shoulder weakness History of Current Pt reports about 12 years ago she fell and injured her Condition R shoulder and received therapy but without resolution. Pt reports since then her shoulder has gotten a little worse but mostly has stayed weak. She has a little pain in her shoulder but main complaints are weakness when reaching for or lifting objects and very quick fatigue. Pt is R hand dominant. Activities that are difficult include taking pans out of the oven, reaching overhead for dishes in cabinet, fixing hair, driving, and donning and doffing shirts. Pt reports no pain usually. Future Testing and MRI of R shoulder Treatments Planned Treatment Goals Patient/Caregiver To strengthen R arm so I can use it without it feeling Goals so weak. PT-OP-C Subjective Start: 03/12/25 08:54 Freq: Status: Active Protocol: Document 04/17/25 14:41 SCRAP BALLER (Rec: 04/20/25 11:29 SCRAP BALLER Laptop) OP-PT Subjective Patient Comments Patient Comments Pt reports improved posture awareness but still with occasional pain in R shoulder with movement, current pain 0/10. Patient Reported Improving Progress PT-OP-H Neuro Start: 03/12/25 08:54 Freq: Status: Active Protocol: Document 03/12/25 11:37 SCRAP BALLER (Rec: 03/12/25 13:08 SCRAP BALLER Laptop) Sensation Evaluation Comments Summary Comments Pt reports N/T in B hands for past 3 years, in B first 3 fingers and base of palm when working on computer or reading PT-OP-J Posture/Palpation/Skin Start: 03/12/25 08:54 Freq: Status: Active Protocol: Document 03/12/25 11:37 SCRAP BALLER (Rec: 03/12/25 13:08 SCRAP BALLER Laptop) Posture Evaluation Comments Posture Comments Sitting posture: excessive forward head posture, L shoulder higher then R, winging of L scapula, forward rounded B shoulders R>L. PT-OP-K Range of Motion Start: 03/12/25 08:54 Freq: Status: Active Protocol: Document 03/12/25 11:37 SCRAP BALLER (Rec: 03/12/25 13:08 SCRAP BALLER Laptop) Shoulder Goniometric Range of Motion Shoulder L Shoulder ROM WFL Yes Testing Position Sitting Flexion 132 Extension 50 Abduction 102 Internal Rotation Thumb to T9 Behind Back (text) R Shoulder ROM WFL No Testing Position Sitting Flexion 114 Extension 50 Abduction 70 Internal Rotation Thumb to T11 Behind Back (text) PT-OP-M Strength Start: 03/12/25 08:54 Freq: Status: Active Protocol: Document 03/12/25 11:37 SCRAP BALLER (Rec: 03/12/25 13:08 SCRAP BALLER Laptop) Shoulder Strength Shoulder Manual Muscle Testing L Flexion 5 Normal Extension 4+ Good+ Abduction (C5) 4 Good External Rotation 4+ Good+ Internal Rotation 4 Good R Flexion 4- Good- Extension 4 Good Abduction (C5) 3+ Fair+ External Rotation 3+ Fair+ Internal Rotation 3+ Fair+ Comments pain with resisted abd Elbow/Forearm Strength Elbow and Forearm Manual Muscle Testing L Flexion (C6) 5 Normal Extension (C7) 4 Good Pronation 5 Normal Supination 5 Normal R Flexion (C6) 4 Good Extension (C7) 4 Good Pronation 4- Good- Supination 5 Normal Wrist Strength Wrist Manual Muscle Testing L Flexion (C7) 5 Normal Extension (C6) 5 Normal R Flexion (C7) 5 Normal Extension (C6) 4+ Good+ Hand Financial Management/Pinch Strength Hand Strength Left Financial Management (lbs) 18 Right Financial Management (lbs) 17 PT-OP-Q Treatments Start: 03/12/25 08:54 Freq: Status: Active Protocol: Document 04/17/25 14:41 SCRAP BALLER (Rec: 04/17/25 15:20 SCRAP BALLER Laptop) Therapeutic Exercises Prone Exercises R shld I, Y, T Prone Exercise Name Reviewed: I and T only with her HO Side right Resistance AROM Equipment Used head turned to L laying on table vs forehead on L forearm,pillow under pelv Reps/Minutes 5 reps each Comments tactile cue rhomboid and LT fac with scap lift, arm at side hip I, T Sidelying Exercises Scap Retract Side bilateral Reps/Minutes 10x2 Comments with scap mob III Scap Depression Side bilateral Reps/Minutes 10x2 Comments with scap mob III Sitting Exercises Cross Body Posterior Capsule Stretch Sitting Exercise HEP review, pause on L d/t pain Name Side bilateral Reps/Minutes 15sx2 each Comments limited range and painful on L Scap Retract Side bilateral Equipment Used Mirror Reps/Minutes 10x2 Comments decreased scap adduction on L>R Manual Therapy Treatment Consent Patient gave verbal Yes consent for manual treatment Soft Tissue Mobilization STM Body Location rhomboids, levator scap, UT, serratus ant bilaterally Mobilization Type Rolling,Sustained Pressure Intensity/Depth Moderate/deep Body Position Sidelying Comments with active/active assist scap movement Joint Mobilizations R GH Jt Joint R and L, R>L Direction posterior Grade IV Body Position Sitting PT-OP-T Assessment and Plan Start: 03/12/25 08:54 Freq: Status: Active Protocol: Document 04/17/25 14:41 SCRAP BALLER (Rec: 04/17/25 15:20 SCRAP BALLER Laptop) Physical Therapy Assessment Impairments Impairments Activity Tolerance,Functional Activities,Pain,Posture, ROM,Soft Tissue Mobility,Strength Goals 3 Impairment ROM Impairment R shoulder ROM Short Term Goal (STG Pt will demonstrate improved L shoulder active abd to ) 90 degrees to improve function Status: Progressing STG Duration 6 weeks Soda Dispenser Goal (LTG) Pt will demonstrate improved L shoulder active abd to 120 degrees to improve function LTG Duration 12 weeks 2 Impairment Strength Impairment R shoulder strength Short Term Goal (STG Pt will demonstrate improved strength in R shoulder abd ) , IR, and ER by 2 MMT grades to improve function Status: Progressing STG Duration 6 weeks Soda Dispenser Goal (LTG) Pt will demonstrate ability to raise 10 lb dumbbell overhead with BUEs x10 consecutive reps to demonstrate improved strength and endurance. LTG Duration 12 weeks 1 Impairment Function Impairment Quick Dash Short Term Goal (STG Pt will demonstrate improved functional mobility with ) decreased disability score from 50% to 40%. Status: Progressing STG Duration 6 weeks Soda Dispenser Goal (LTG) Pt will demonstrate improved functional mobility with decreased disability score from 50% to 25%. LTG Duration 12 weeks Progress Towards Goals Progress Towards Progressing Toward Goals Goals Assessment Summary Assessment Pt with decreased scapular movement at beginning of session, improved after STM to scapular muscles, especially levator scap for improved B scapular retractions. Pt with significant ant positioning of B humeral heads, pt reports feels better during B post capsule stretching. Physical Therapy Plan Frequency and Duration Frequency of 2x/Week Treatment Duration of 12 treatment (weeks) Plan of Care Start 03/12/25 Date Plan of Care End 06/04/25 Date Therapeutic Interventions Therapeutic Home Exercise Program,Joint Mobilizations,Manual Interventions Therapy,Neuromuscular Re-education,Soft Tissue Mobilization,Taping,Therapeutic Activities,Therapeutic Exercises Modalities Cold Pack/Ice Massage,Hot Packs,Ultrasound Next Visit Focus/Plan Next Note Type Treatment Note Next Visit Plan per PT POC: FF, scaption ABD strength and endurance to allow reaching into closet and cupboards. review wall walking/slides, UE rail resisted walking, TB IR/eccentric ER, pec doorway stretch, scapular depression strengthening, thoracic ext mobility, STM to R scapular muscles, GH and Scapulothoracic mobility as needed Pt follow up for any vascular issues due to dizziness at times and uses squat down to recover.
--- NOTE | 2025-04-22 19:28 | PT.OTN ---
Current Diagnoses Other specific arthropathies, not elsewhere classified, right shoulder (04/22/25) Physical Therapy Treatment Note PT-OP-A Visit Information Start: 03/12/25 08:54 Freq: Status: Active Protocol: Document 04/22/25 13:59 ELECTRICIAN'S HELPER (Rec: 04/22/25 14:39 ELECTRICIAN'S HELPER Laptop) Out-Patient Physical Therapy Visit Information Visit Information Visit Type Treatment Note Visit Start Time 13:48 Visit Stop Time 14:30 Visit Number 11 Number of WAITER WAITRESS Visits 0 Evaluation Information Evaluation Date 03/12/25 Precautions Precautions N/A PT-OP-B Current Condition Start: 03/12/25 08:54 Freq: Status: Active Protocol: Document 03/12/25 11:37 ELECTRICIAN'S HELPER (Rec: 03/12/25 13:08 ELECTRICIAN'S HELPER Laptop) Current Condition History of Current Condition Onset Date >8 years ago Current Complaints R shoulder weakness History of Current Pt reports about 12 years ago she fell and injured her Condition R shoulder and received therapy but without resolution. Pt reports since then her shoulder has gotten a little worse but mostly has stayed weak. She has a little pain in her shoulder but main complaints are weakness when reaching for or lifting objects and very quick fatigue. Pt is R hand dominant. Activities that are difficult include taking pans out of the oven, reaching overhead for dishes in cabinet, fixing hair, driving, and donning and doffing shirts. Pt reports no pain usually. Future Testing and MRI of R shoulder Treatments Planned Treatment Goals Patient/Caregiver To strengthen R arm so I can use it without it feeling Goals so weak. PT-OP-C Subjective Start: 03/12/25 08:54 Freq: Status: Active Protocol: Document 04/22/25 13:59 ELECTRICIAN'S HELPER (Rec: 04/22/25 14:39 ELECTRICIAN'S HELPER Laptop) OP-PT Subjective Patient Comments Patient Comments Pt reports she felt really good after last session but felt her posture decreasing throughout the weekend d/t forgetfulness. Patient Reported Improving Progress PT-OP-H Neuro Start: 03/12/25 08:54 Freq: Status: Active Protocol: Document 03/12/25 11:37 ELECTRICIAN'S HELPER (Rec: 03/12/25 13:08 ELECTRICIAN'S HELPER Laptop) Sensation Evaluation Comments Summary Comments Pt reports N/T in B hands for past 3 years, in B first 3 fingers and base of palm when working on computer or reading PT-OP-J Posture/Palpation/Skin Start: 03/12/25 08:54 Freq: Status: Active Protocol: Document 03/12/25 11:37 ELECTRICIAN'S HELPER (Rec: 03/12/25 13:08 ELECTRICIAN'S HELPER Laptop) Posture Evaluation Comments Posture Comments Sitting posture: excessive forward head posture, L shoulder higher then R, winging of L scapula, forward rounded B shoulders R>L. PT-OP-K Range of Motion Start: 03/12/25 08:54 Freq: Status: Active Protocol: Document 03/12/25 11:37 ELECTRICIAN'S HELPER (Rec: 03/12/25 13:08 ELECTRICIAN'S HELPER Laptop) Shoulder Goniometric Range of Motion Shoulder L Shoulder ROM WFL Yes Testing Position Sitting Flexion 132 Extension 50 Abduction 102 Internal Rotation Thumb to T9 Behind Back (text) R Shoulder ROM WFL No Testing Position Sitting Flexion 114 Extension 50 Abduction 70 Internal Rotation Thumb to T11 Behind Back (text) PT-OP-M Strength Start: 03/12/25 08:54 Freq: Status: Active Protocol: Document 03/12/25 11:37 ELECTRICIAN'S HELPER (Rec: 03/12/25 13:08 ELECTRICIAN'S HELPER Laptop) Shoulder Strength Shoulder Manual Muscle Testing L Flexion 5 Normal Extension 4+ Good+ Abduction (C5) 4 Good External Rotation 4+ Good+ Internal Rotation 4 Good R Flexion 4- Good- Extension 4 Good Abduction (C5) 3+ Fair+ External Rotation 3+ Fair+ Internal Rotation 3+ Fair+ Comments pain with resisted abd Elbow/Forearm Strength Elbow and Forearm Manual Muscle Testing L Flexion (C6) 5 Normal Extension (C7) 4 Good Pronation 5 Normal Supination 5 Normal R Flexion (C6) 4 Good Extension (C7) 4 Good Pronation 4- Good- Supination 5 Normal Wrist Strength Wrist Manual Muscle Testing L Flexion (C7) 5 Normal Extension (C6) 5 Normal R Flexion (C7) 5 Normal Extension (C6) 4+ Good+ Hand Office Support/Pinch Strength Hand Strength Left Office Support (lbs) 18 Right Office Support (lbs) 17 PT-OP-Q Treatments Start: 03/12/25 08:54 Freq: Status: Active Protocol: Document 04/22/25 13:59 ELECTRICIAN'S HELPER (Rec: 04/22/25 14:39 ELECTRICIAN'S HELPER Laptop) Therapeutic Exercises Supine Exercises Chin Tucks Reps/Minutes 10x2 3-5s hold Comments following STM, mod VC for form Sidelying Exercises Scap Retract Side bilateral Reps/Minutes 10x2 Comments with scap mob III Scap Depression Side bilateral Reps/Minutes 10x2 Comments with scap mob III Manual Therapy Treatment Consent Patient gave verbal Yes consent for manual treatment Soft Tissue Mobilization Scapula Body Location rhomboids, levator scap, UT, serratus ant bilaterally Mobilization Type Rolling,Sustained Pressure Intensity/Depth Moderate/deep Body Position Sidelying Comments with active scap depress/retract 10x2 STM Body Location R sub occipitals, R SCM mastoid and clavicle insertions Body Position Supine Comments sub occip release and STM, TFM to SCM Joint Mobilizations R GH Jt Joint R and L, R>L Direction posterior Grade IV Body Position Supine Comments 10x2 PT-OP-T Assessment and Plan Start: 03/12/25 08:54 Freq: Status: Active Protocol: Document 04/22/25 13:59 ELECTRICIAN'S HELPER (Rec: 04/22/25 14:39 ELECTRICIAN'S HELPER Laptop) Physical Therapy Assessment Impairments Impairments Activity Tolerance,Functional Activities,Pain,Posture, ROM,Soft Tissue Mobility,Strength Goals 3 Impairment ROM Impairment R shoulder ROM Short Term Goal (STG Pt will demonstrate improved L shoulder active abd to ) 90 degrees to improve function Status: Progressing STG Duration 6 weeks Bobbin Handler Goal (LTG) Pt will demonstrate improved L shoulder active abd to 120 degrees to improve function LTG Duration 12 weeks 2 Impairment Strength Impairment R shoulder strength Short Term Goal (STG Pt will demonstrate improved strength in R shoulder abd ) , IR, and ER by 2 MMT grades to improve function Status: Progressing STG Duration 6 weeks Bobbin Handler Goal (LTG) Pt will demonstrate ability to raise 10 lb dumbbell overhead with BUEs x10 consecutive reps to demonstrate improved strength and endurance. LTG Duration 12 weeks 1 Impairment Function Impairment Quick Dash Short Term Goal (STG Pt will demonstrate improved functional mobility with ) decreased disability score from 50% to 40%. Status: Progressing STG Duration 6 weeks Snf Goal (LTG) Pt will demonstrate improved functional mobility with decreased disability score from 50% to 25%. LTG Duration 12 weeks Progress Towards Goals Progress Towards Progressing Toward Goals Goals Assessment Summary Assessment Pt with significant pain and tightness to R sub occip and SCM, improved after STM and reinforced with supine chin tucks with improved form. Pt with improved soft tissue mobility to R scapular muscles but continued improved scapular movement and strengthening after STM. Recommended to pt to hang up post it notes around house to remind for posture. Physical Therapy Plan Frequency and Duration Frequency of 2x/Week Treatment Duration of 12 treatment (weeks) Plan of Care Start 03/12/25 Date Plan of Care End 06/04/25 Date Therapeutic Interventions Therapeutic Home Exercise Program,Joint Mobilizations,Manual Interventions Therapy,Neuromuscular Re-education,Soft Tissue Mobilization,Taping,Therapeutic Activities,Therapeutic Exercises Modalities Cold Pack/Ice Massage,Hot Packs,Ultrasound Next Visit Focus/Plan Next Note Type Treatment Note Next Visit Plan per PT POC: FF, scaption ABD strength and endurance to allow reaching into closet and cupboards. review wall walking/slides, UE rail resisted walking, TB IR/eccentric ER, pec doorway stretch, scapular depression strengthening, thoracic ext mobility, STM to R scapular muscles, GH and Scapulothoracic mobility as needed Pt follow up for any vascular issues due to dizziness at times and uses squat down to recover.
--- NOTE | 2025-04-30 19:56 | PT.OTN ---
Current Diagnoses Other specific arthropathies, not elsewhere classified, right shoulder (04/30/25) Physical Therapy Treatment Note PT-OP-A Visit Information Start: 03/12/25 08:54 Freq: Status: Active Protocol: Document 04/30/25 14:38 SPORTS TEAM MARKETING INTERN (Rec: 04/30/25 15:22 SPORTS TEAM MARKETING INTERN Laptop) Out-Patient Physical Therapy Visit Information Visit Information Visit Type Treatment Note Visit Start Time 14:35 Visit Stop Time 15:17 Visit Number 13 Number of HARVESTING SUPERVISOR Visits 0 Evaluation Information Evaluation Date 03/12/25 Precautions Precautions N/A PT-OP-B Current Condition Start: 03/12/25 08:54 Freq: Status: Active Protocol: Document 03/12/25 11:37 SPORTS TEAM MARKETING INTERN (Rec: 03/12/25 13:08 SPORTS TEAM MARKETING INTERN Laptop) Current Condition History of Current Condition Onset Date >8 years ago Current Complaints R shoulder weakness History of Current Pt reports about 12 years ago she fell and injured her Condition R shoulder and received therapy but without resolution. Pt reports since then her shoulder has gotten a little worse but mostly has stayed weak. She has a little pain in her shoulder but main complaints are weakness when reaching for or lifting objects and very quick fatigue. Pt is R hand dominant. Activities that are difficult include taking pans out of the oven, reaching overhead for dishes in cabinet, fixing hair, driving, and donning and doffing shirts. Pt reports no pain usually. Future Testing and MRI of R shoulder Treatments Planned Treatment Goals Patient/Caregiver To strengthen R arm so I can use it without it feeling Goals so weak. PT-OP-C Subjective Start: 03/12/25 08:54 Freq: Status: Active Protocol: Document 04/30/25 14:38 SPORTS TEAM MARKETING INTERN (Rec: 04/30/25 15:22 SPORTS TEAM MARKETING INTERN Laptop) OP-PT Subjective Patient Comments Patient Comments Pt reports feeling really good today, being more aware of posture and sitting up straighter. Current 5/10 to R side of neck PT-OP-H Neuro Start: 03/12/25 08:54 Freq: Status: Active Protocol: Document 03/12/25 11:37 SPORTS TEAM MARKETING INTERN (Rec: 03/12/25 13:08 SPORTS TEAM MARKETING INTERN Laptop) Sensation Evaluation Comments Summary Comments Pt reports N/T in B hands for past 3 years, in B first 3 fingers and base of palm when working on computer or reading PT-OP-J Posture/Palpation/Skin Start: 03/12/25 08:54 Freq: Status: Active Protocol: Document 03/12/25 11:37 SPORTS TEAM MARKETING INTERN (Rec: 03/12/25 13:08 SPORTS TEAM MARKETING INTERN Laptop) Posture Evaluation Comments Posture Comments Sitting posture: excessive forward head posture, L shoulder higher then R, winging of L scapula, forward rounded B shoulders R>L. PT-OP-K Range of Motion Start: 03/12/25 08:54 Freq: Status: Active Protocol: Document 03/12/25 11:37 SPORTS TEAM MARKETING INTERN (Rec: 03/12/25 13:08 SPORTS TEAM MARKETING INTERN Laptop) Shoulder Goniometric Range of Motion Shoulder L Shoulder ROM WFL Yes Testing Position Sitting Flexion 132 Extension 50 Abduction 102 Internal Rotation Thumb to T9 Behind Back (text) R Shoulder ROM WFL No Testing Position Sitting Flexion 114 Extension 50 Abduction 70 Internal Rotation Thumb to T11 Behind Back (text) PT-OP-M Strength Start: 03/12/25 08:54 Freq: Status: Active Protocol: Document 03/12/25 11:37 SPORTS TEAM MARKETING INTERN (Rec: 03/12/25 13:08 SPORTS TEAM MARKETING INTERN Laptop) Shoulder Strength Shoulder Manual Muscle Testing L Flexion 5 Normal Extension 4+ Good+ Abduction (C5) 4 Good External Rotation 4+ Good+ Internal Rotation 4 Good R Flexion 4- Good- Extension 4 Good Abduction (C5) 3+ Fair+ External Rotation 3+ Fair+ Internal Rotation 3+ Fair+ Comments pain with resisted abd Elbow/Forearm Strength Elbow and Forearm Manual Muscle Testing L Flexion (C6) 5 Normal Extension (C7) 4 Good Pronation 5 Normal Supination 5 Normal R Flexion (C6) 4 Good Extension (C7) 4 Good Pronation 4- Good- Supination 5 Normal Wrist Strength Wrist Manual Muscle Testing L Flexion (C7) 5 Normal Extension (C6) 5 Normal R Flexion (C7) 5 Normal Extension (C6) 4+ Good+ Hand Potash Flaker/Pinch Strength Hand Strength Left Potash Flaker (lbs) 18 Right Potash Flaker (lbs) 17 PT-OP-Q Treatments Start: 03/12/25 08:54 Freq: Status: Active Protocol: Document 04/30/25 14:38 SPORTS TEAM MARKETING INTERN (Rec: 04/30/25 15:22 SPORTS TEAM MARKETING INTERN Laptop) Therapeutic Exercises Supine Exercises AAROM with dowel Supine Exercise Name 1. shoulder flex 2. ER/IR 3. chest press w/ serratus punch Side bilateral Reps/Minutes x15 each Comments without pain Sidelying Exercises Shoulder Abduction Side left Resistance against gravity Reps/Minutes x15 Comments pain free, able to maintain scap depress for full ROM Standing Exercises Wall Posture Standing Exercise review back to wall initially at arrival self feedback- Name Resistance *cautious can cause dizziness (she reports has happened in past, not new) Comments experienced dizziness with chin tuck, slid down wall CGA support for recov. Wall Slide Standing Exercise R abd with bent elbow Name Reps/Minutes x15 Comments to 65 degrees Shoulder Flex Side left Reps/Minutes x10 Comments 1-5 reps to 140 degrees, 6-10 reps progressive decrease range Manual Therapy Treatment Consent Patient gave verbal Yes consent for manual treatment Soft Tissue Mobilization STM Body Location B levator scap, R SCM Mobilization Type Cross-Friction,Strumming,Sustained Pressure Body Position Supine Comments sustained pressure on B lev scap with active scap depression x10 PT-OP-T Assessment and Plan Start: 03/12/25 08:54 Freq: Status: Active Protocol: Document 04/30/25 14:38 SPORTS TEAM MARKETING INTERN (Rec: 04/30/25 15:22 SPORTS TEAM MARKETING INTERN Laptop) Physical Therapy Assessment Impairments Impairments Activity Tolerance,Functional Activities,Pain,Posture, ROM,Soft Tissue Mobility,Strength Goals 3 Impairment ROM Impairment R shoulder ROM Short Term Goal (STG Pt will demonstrate improved L shoulder active abd to ) 90 degrees to improve function Status: Progressing STG Duration 6 weeks Jail Goal (LTG) Pt will demonstrate improved L shoulder active abd to 120 degrees to improve function LTG Duration 12 weeks 2 Impairment Strength Impairment R shoulder strength Short Term Goal (STG Pt will demonstrate improved strength in R shoulder abd ) , IR, and ER by 2 MMT grades to improve function Status: Progressing STG Duration 6 weeks Jail Goal (LTG) Pt will demonstrate ability to raise 10 lb dumbbell overhead with BUEs x10 consecutive reps to demonstrate improved strength and endurance. LTG Duration 12 weeks 1 Impairment Function Impairment Quick Dash Short Term Goal (STG Pt will demonstrate improved functional mobility with ) decreased disability score from 50% to 40%. Status: Progressing STG Duration 6 weeks [employer] Goal (LTG) Pt will demonstrate improved functional mobility with decreased disability score from 50% to 25%. LTG Duration 12 weeks Progress Towards Goals Progress Towards Progressing Toward Goals Goals Assessment Summary Assessment Pt demonstrated improved AROM of LUE and AAROM of RUE this session with improved scapular positioning awareness and endurance during UE movement and improved endurance of L shoulder active flexion to 140 degrees for first 5 reps and progressively decreased ROM for last 5 reps of set but still able to lift to at least 80-90 degrees. Pt with near syncopal episode while standing against wall performing chin tucks with quick recovery, reports this happens often, PT highly recommended to notify doctor. Physical Therapy Plan Frequency and Duration Frequency of 2x/Week Treatment Duration of 12 treatment (weeks) Plan of Care Start 03/12/25 Date Plan of Care End 06/04/25 Date Therapeutic Interventions Therapeutic Home Exercise Program,Joint Mobilizations,Manual Interventions Therapy,Neuromuscular Re-education,Soft Tissue Mobilization,Taping,Therapeutic Activities,Therapeutic Exercises Modalities Cold Pack/Ice Massage,Hot Packs,Ultrasound Next Visit Focus/Plan Next Note Type Treatment Note Next Visit Plan post GH mobs, attempt pec stretch on noodle after mobs, R lat STM, taping trial, standing B ER
--- NOTE | 2025-05-06 13:12 | PT-OP ANOTE ---
PT calls pt who did not show for 1300 appointment. She states that some called to have her cancel an appointment and she must have cancelled the wrong one. PT ed pt on next visit, 05/09/25 at 1300 and pt verbalizes understanding.
--- NOTE | 2025-05-09 17:26 | PT.OTN ---
Current Diagnoses Other specific arthropathies, not elsewhere classified, right shoulder (05/09/25) Physical Therapy Treatment Note PT-OP-A Visit Information Start: 03/12/25 08:54 Freq: Status: Active Protocol: Document 05/09/25 13:19 NBM (Rec: 05/09/25 15:40 NBM Laptop) Out-Patient Physical Therapy Visit Information Visit Information Visit Type Treatment Note Visit Start Time 13:05 Visit Stop Time 14:05 Visit Number 14 Number of NURSING EDUCATION CONSULTANT Visits 1 Evaluation Information Evaluation Date 03/12/25 Precautions Precautions N/A PT-OP-B Current Condition Start: 03/12/25 08:54 Freq: Status: Active Protocol: Document 03/12/25 11:37 ASSISTANT CASE MANAGER (Rec: 03/12/25 13:08 ASSISTANT CASE MANAGER Laptop) Current Condition History of Current Condition Onset Date >8 years ago Current Complaints R shoulder weakness History of Current Pt reports about 12 years ago she fell and injured her Condition R shoulder and received therapy but without resolution. Pt reports since then her shoulder has gotten a little worse but mostly has stayed weak. She has a little pain in her shoulder but main complaints are weakness when reaching for or lifting objects and very quick fatigue. Pt is R hand dominant. Activities that are difficult include taking pans out of the oven, reaching overhead for dishes in cabinet, fixing hair, driving, and donning and doffing shirts. Pt reports no pain usually. Future Testing and MRI of R shoulder Treatments Planned Treatment Goals Patient/Caregiver To strengthen R arm so I can use it without it feeling Goals so weak. PT-OP-C Subjective Start: 03/12/25 08:54 Freq: Status: Active Protocol: Document 05/09/25 13:19 NBM (Rec: 05/09/25 15:40 NBM Laptop) OP-PT Subjective Patient Comments Patient Comments Maria Esther reports her R shoulder doesn't hurt with elbow at side but is very weak (demonstrates unable to perform R external rotation). She's trying to be more mindful of her posture. PT-OP-H Neuro Start: 03/12/25 08:54 Freq: Status: Active Protocol: Document 03/12/25 11:37 ASSISTANT CASE MANAGER (Rec: 03/12/25 13:08 ASSISTANT CASE MANAGER Laptop) Sensation Evaluation Comments Summary Comments Pt reports N/T in B hands for past 3 years, in B first 3 fingers and base of palm when working on computer or reading PT-OP-J Posture/Palpation/Skin Start: 03/12/25 08:54 Freq: Status: Active Protocol: Document 03/12/25 11:37 ASSISTANT CASE MANAGER (Rec: 03/12/25 13:08 ASSISTANT CASE MANAGER Laptop) Posture Evaluation Comments Posture Comments Sitting posture: excessive forward head posture, L shoulder higher then R, winging of L scapula, forward rounded B shoulders R>L. PT-OP-K Range of Motion Start: 03/12/25 08:54 Freq: Status: Active Protocol: Document 03/12/25 11:37 ASSISTANT CASE MANAGER (Rec: 03/12/25 13:08 ASSISTANT CASE MANAGER Laptop) Shoulder Goniometric Range of Motion Shoulder L Shoulder ROM WFL Yes Testing Position Sitting Flexion 132 Extension 50 Abduction 102 Internal Rotation Thumb to T9 Behind Back (text) R Shoulder ROM WFL No Testing Position Sitting Flexion 114 Extension 50 Abduction 70 Internal Rotation Thumb to T11 Behind Back (text) PT-OP-M Strength Start: 03/12/25 08:54 Freq: Status: Active Protocol: Document 03/12/25 11:37 ASSISTANT CASE MANAGER (Rec: 03/12/25 13:08 ASSISTANT CASE MANAGER Laptop) Shoulder Strength Shoulder Manual Muscle Testing L Flexion 5 Normal Extension 4+ Good+ Abduction (C5) 4 Good External Rotation 4+ Good+ Internal Rotation 4 Good R Flexion 4- Good- Extension 4 Good Abduction (C5) 3+ Fair+ External Rotation 3+ Fair+ Internal Rotation 3+ Fair+ Comments pain with resisted abd Elbow/Forearm Strength Elbow and Forearm Manual Muscle Testing L Flexion (C6) 5 Normal Extension (C7) 4 Good Pronation 5 Normal Supination 5 Normal R Flexion (C6) 4 Good Extension (C7) 4 Good Pronation 4- Good- Supination 5 Normal Wrist Strength Wrist Manual Muscle Testing L Flexion (C7) 5 Normal Extension (C6) 5 Normal R Flexion (C7) 5 Normal Extension (C6) 4+ Good+ Hand Shampoo Technician/Pinch Strength Hand Strength Left Shampoo Technician (lbs) 18 Right Shampoo Technician (lbs) 17 PT-OP-Q Treatments Start: 03/12/25 08:54 Freq: Status: Active Protocol: Document 05/09/25 13:19 NBM (Rec: 05/09/25 15:40 NBM Laptop) Therapeutic Exercises Supine Exercises Pec Stretch Supine Exercise Name Pool noodle W position Side bilateral Equipment Used think pool noodle supporting spine and head Reps/Minutes 3 mins Comments pain resolves w cues elbows close to sides, good painfree stretch reported Chin Tucks Reps/Minutes 10x2 3-5s hold Comments following STM Sitting Exercises Chin tucks Sitting Exercise chin tucks to improve endurance and posture edu Name Comments w/ scapular retractions Nuris Sitting Exercise FF, ABD, Scaption- warm up at arrival Name Side bilateral Equipment Used mirror Reps/Minutes 15 reps each Comments cued head up and good response, no pain Scap Retract Side bilateral Reps/Minutes 10x2 Comments initial tactile cues, w/ chin tuck Standing Exercises Shoulder ER Side bilateral Resistance TB #1 Equipment Used after KT taping of R shoulder Reps/Minutes x10 reps Comments arms at side Manual Therapy Treatment Consent Patient gave verbal Yes consent for manual treatment Soft Tissue Mobilization STM Body Location R>L cervical paraspinals, B UT, levator scap, SCM Mobilization Type Cross-Friction,Strumming,Sustained Pressure Body Position Supine Comments prior to KT taping. Joint Mobilizations R GH Jt Joint R and L, R>L Direction posterior, inferior, and gapping R in scaption Grade II Body Position Supine Comments 10x3 positive feedback response Taping R shoulder Type of Tape Kinesio Tape Skin Inspection intact Comments Pt sitting with upright sitting posture (cued gentle chin tuck and scapular setting). One I strip along supraspinatus anchored distally, 75% tension. One Y strip anchored at deltoid across bicipital groove 50% and Upper Trapezius 100%. pt reports no latex allergies and instructed in removal 5 days or sooner if signs of irritation/rash/redness Self-Care/Home Management Treatment Education Patient Education Body Mechanics,Home Exercise Program,Posture Other Education Significant time educating pt on how to incorporate improving postural awareness into HEP, ambulation, and daily activities, and specifically into weeding today in tall kneel with pad under knees instead of quadruped . PT-OP-T Assessment and Plan Start: 03/12/25 08:54 Freq: Status: Active Protocol: Document 05/09/25 13:19 NBM (Rec: 05/09/25 15:40 NBM Laptop) Physical Therapy Assessment Goals 3 Impairment ROM Impairment R shoulder ROM Short Term Goal (STG Pt will demonstrate improved L shoulder active abd to ) 90 degrees to improve function Status: Progressing STG Duration 6 weeks Nursing Home Goal (LTG) Pt will demonstrate improved L shoulder active abd to 120 degrees to improve function LTG Duration 12 weeks 2 Impairment Strength Impairment R shoulder strength Short Term Goal (STG Pt will demonstrate improved strength in R shoulder abd ) , IR, and ER by 2 MMT grades to improve function Status: Progressing STG Duration 6 weeks Asbestos Removal Supervisor Goal (LTG) Pt will demonstrate ability to raise 10 lb dumbbell overhead with BUEs x10 consecutive reps to demonstrate improved strength and endurance. LTG Duration 12 weeks 1 Impairment Function Impairment Quick Dash Short Term Goal (STG Pt will demonstrate improved functional mobility with ) decreased disability score from 50% to 40%. Status: Progressing STG Duration 6 weeks Asbestos Removal Supervisor Goal (LTG) Pt will demonstrate improved functional mobility with decreased disability score from 50% to 25%. LTG Duration 12 weeks Assessment Summary Assessment Maria Esther requires cues for upright posture with chin tuck throughout session. Palpable tension to cervical paraspinals and Upper trapezius muscles improves with manual therapy, followed by Kinesio taping trial to R shoulder with positive feedback response. Significant time spent in education for maintaining scapular setting and neutral cervical spine with weeding this afternoon and incorporating into ex's and ambulation.
--- NOTE | 2025-05-14 20:43 | PT.OTN ---
Current Diagnoses Other specific arthropathies, not elsewhere classified, right shoulder (05/14/25) Physical Therapy Treatment Note PT-OP-A Visit Information Start: 03/12/25 08:54 Freq: Status: Active Protocol: Document 05/14/25 20:27 [employer] (Rec: 05/14/25 20:43 [employer] Laptop) Out-Patient Physical Therapy Visit Information Visit Information Visit Type Discharge Summary Visit Start Time 14:35 Visit Stop Time 15:15 Visit Number 15 Number of NEWS [place] Visits 0 Evaluation Information Evaluation Date 03/12/25 PT-OP-B Current Condition Start: 03/12/25 08:54 Freq: Status: Active Protocol: Document 03/12/25 11:37 [employer] (Rec: 03/12/25 13:08 [employer] Laptop) Current Condition History of Current Condition Onset Date >8 years ago Current Complaints R shoulder weakness History of Current Pt reports about 12 years ago she fell and injured her Condition R shoulder and received therapy but without resolution. Pt reports since then her shoulder has gotten a little worse but mostly has stayed weak. She has a little pain in her shoulder but main complaints are weakness when reaching for or lifting objects and very quick fatigue. Pt is R hand dominant. Activities that are difficult include taking pans out of the oven, reaching overhead for dishes in cabinet, fixing hair, driving, and donning and doffing shirts. Pt reports no pain usually. Future Testing and MRI of R shoulder Treatments Planned Treatment Goals Patient/Caregiver To strengthen R arm so I can use it without it feeling Goals so weak. PT-OP-C Subjective Start: 03/12/25 08:54 Freq: Status: Active Protocol: Document 05/14/25 20:27 [employer] (Rec: 05/14/25 20:43 [employer] Laptop) OP-PT Subjective Patient Comments Patient Comments Pt reports her R arm is feeling better and is able to reach up and adjust radio in car. Pt reports she is happy with level of progress achieved and is happy with her HEP to maintain at home and is ready to D/C today. Patient Questionnaires Quick Dash- Upper Extremity Quick Dash UE Score 19 Quick Dash UE 1 to 19% Impaired (Score 1-19) Impairment PT-OP-H Neuro Start: 03/12/25 08:54 Freq: Status: Active Protocol: Document 03/12/25 11:37 [employer] (Rec: 03/12/25 13:08 [employer] Laptop) Sensation Evaluation Comments Summary Comments Pt reports N/T in B hands for past 3 years, in B first 3 fingers and base of palm when working on computer or reading PT-OP-J Posture/Palpation/Skin Start: 03/12/25 08:54 Freq: Status: Active Protocol: Document 03/12/25 11:37 [employer] (Rec: 03/12/25 13:08 [employer] Laptop) Posture Evaluation Comments Posture Comments Sitting posture: excessive forward head posture, L shoulder higher then R, winging of L scapula, forward rounded B shoulders R>L. PT-OP-K Range of Motion Start: 03/12/25 08:54 Freq: Status: Active Protocol: Document 05/14/25 20:27 [employer] (Rec: 05/14/25 20:43 [employer] Laptop) Shoulder Goniometric Range of Motion Shoulder L Shoulder ROM WFL Yes Testing Position Standing Flexion 145 Extension 50 Abduction 120 Internal Rotation Thumb to T8 Behind Back (text) R Shoulder ROM WFL No Testing Position Standing Flexion 120 Extension 50 Abduction 78 Internal Rotation Thumb to T10 Behind Back (text) PT-OP-M Strength Start: 03/12/25 08:54 Freq: Status: Active Protocol: Document 05/14/25 20:27 [employer] (Rec: 05/14/25 20:43 [employer] Laptop) Shoulder Strength Shoulder Manual Muscle Testing L Flexion 4 Good Extension 4+ Good+ Abduction (C5) 4+ Good+ External Rotation 4 Good Internal Rotation 4+ Good+ R Flexion 4- Good- Extension 4+ Good+ Abduction (C5) 3+ Fair+ External Rotation 3 Fair Internal Rotation 4 Good Comments without pain Elbow/Forearm Strength Elbow and Forearm Manual Muscle Testing L Flexion (C6) 5 Normal Extension (C7) 4+ Good+ Pronation 5 Normal Supination 5 Normal R Flexion (C6) 4+ Good+ Extension (C7) 4+ Good+ Pronation 4 Good Supination 5 Normal PT-OP-Q Treatments Start: 03/12/25 08:54 Freq: Status: Active Protocol: Document 05/09/25 13:19 NBM (Rec: 05/09/25 15:40 NBM Laptop) Therapeutic Exercises Supine Exercises Pec Stretch Supine Exercise Name Pool noodle W position Side bilateral Equipment Used think pool noodle supporting spine and head Reps/Minutes 3 mins Comments pain resolves w cues elbows close to sides, good painfree stretch reported Chin Tucks Reps/Minutes 10x2 3-5s hold Comments following STM Sitting Exercises Chin tucks Sitting Exercise chin tucks to improve endurance and posture edu Name Comments w/ scapular retractions Nuris Sitting Exercise FF, ABD, Scaption- warm up at arrival Name Side bilateral Equipment Used mirror Reps/Minutes 15 reps each Comments cued head up and good response, no pain Scap Retract Side bilateral Reps/Minutes 10x2 Comments initial tactile cues, w/ chin tuck Standing Exercises Shoulder ER Side bilateral Resistance TB #1 Equipment Used after KT taping of R shoulder Reps/Minutes x10 reps Comments arms at side Manual Therapy Treatment Consent Patient gave verbal Yes consent for manual treatment Soft Tissue Mobilization STM Body Location R>L cervical paraspinals, B UT, levator scap, SCM Mobilization Type Cross-Friction,Strumming,Sustained Pressure Body Position Supine Comments prior to KT taping. Joint Mobilizations R GH Jt Joint R and L, R>L Direction posterior, inferior, and gapping R in scaption Grade II Body Position Supine Comments 10x3 positive feedback response Taping R shoulder Type of Tape Kinesio Tape Skin Inspection intact Comments Pt sitting with upright sitting posture (cued gentle chin tuck and scapular setting). One I strip along supraspinatus anchored distally, 75% tension. One Y strip anchored at deltoid across bicipital groove 50% and Upper Trapezius 100%. pt reports no latex allergies and instructed in removal 5 days or sooner if signs of irritation/rash/redness Self-Care/Home Management Treatment Education Patient Education Body Mechanics,Home Exercise Program,Posture Other Education Significant time educating pt on how to incorporate improving postural awareness into HEP, ambulation, and daily activities, and specifically into weeding today in tall kneel with pad under knees instead of quadruped . PT-OP-T Assessment and Plan Start: 03/12/25 08:54 Freq: Status: Active Protocol: Document 05/14/25 20:27 [employer] (Rec: 05/14/25 20:43 [employer] Laptop) Physical Therapy Assessment Goals 3 Impairment ROM Impairment R shoulder ROM Short Term Goal (STG Pt will demonstrate improved R shoulder active abd to ) 90 degrees to improve function 05/14: Not met, L abd 78 degrees STG Duration 6 weeks Bioinformatics Research Technician Goal (LTG) Pt will demonstrate improved R shoulder active abd to 120 degrees to improve function 05/14: Not met LTG Duration 12 weeks 2 Impairment Strength Impairment R shoulder strength Short Term Goal (STG Pt will demonstrate improved strength in R shoulder abd ) , IR, and ER by 2 MMT grades to improve function 05/14: Not met, progressed by 1 MMT STG Duration 6 weeks Snf Goal (LTG) Pt will demonstrate ability to raise 10 lb dumbbell overhead with BUEs x10 consecutive reps to demonstrate improved strength and endurance. 05/14: Not met, discontined-not applicable LTG Duration 12 weeks 1 Impairment Function Impairment Quick Dash Short Term Goal (STG Pt will demonstrate improved functional mobility with ) decreased disability score from 50% to 40%. 05/14: MET 18.18% STG Duration 6 weeks MET [employer]informatics Research Technician Goal (LTG) Pt will demonstrate improved functional mobility with decreased disability score from 50% to 25%. 05/14: MET 18.18% LTG Duration 12 weeks MET Assessment Summary Assessment Pt demonstrates slight improved B shoulder AROM and strength, however still limited highly d/t pt's poor prognosis of R rotator cuff tear. Pt met 1/3 STGs and 1 /3 LTGs, however Quick Dash score significantly improved to demonstrate minimal self reported impairment and pt is ready to D/C to continue maintaining progress at home with HEP. Physical Therapy Plan Discharge Physical Therapy Discharge Reasons Patient Request Discharge Comments See assessment, D/C PT
== END 2025-05-15 08:58 | disposition home or self-care (01) ==
LOC: PHYS 14:30
PROVIDERS: Family Provider Family Medicine; PCP Family Medicine; Referring Provider Orthopaedic Surgery; Visit Provider Orthopaedic Surgery
DX: M12.811 Other specific arthropathies, not elsewhere classified, right shoulder (principal)
CPT/HCPCS: 97110; 97140; 97162; 97535